=== PATIENT | female | born 1960 | race Two or more races ===

== ENCOUNTER 2020-05-15 10:45 | Outpatient (REF) | payer OTHER, SELFPAY ==
--- NOTE | 2020-05-15 | MM_ITS ---
EXAMINATION: MM SCREENING DIGITAL BREAST TOMOSYNTHESIS, BILATERAL CLINICAL INFORMATION: Screening. Asymptomatic. The lifetime risk of breast cancer based on the Tyrer-Cuzick Model is 4%. COMPARISON: Mammography: 09/02/2019, 05/10/2019, 05/07/2018 TECHNIQUE: Digital breast tomosynthesis is performed in both the craniocaudal and mediolateral oblique views along with computer-aided detection (CAD). Synthesized 2D images are generated from the tomosynthesis. FINDINGS: There are scattered areas of fibroglandular density (ACR BI-RADS breast composition Category b). There are no significant masses, abnormal calcifications, or other abnormalities. The axilla and skin contours are unremarkable. MM/MM tomosynthesis screening BI IMPRESSION: No mammographic evidence of malignancy. ASSESSMENT: BI-RADS 1: Negative RECOMMENDATION: Routine annual mammography screening. This patient's information was entered into a reminder system with a target due date for their next mammogram.
== END 2020-05-15 10:46 | disposition home or self-care (01) ==
LOC: HO.MAMMO 10:45
PROVIDERS: Visit Provider Internal Medicine
DX: Z12.31 Encounter for screening mammogram for malignant neoplasm of breast (principal)
CPT/HCPCS: 77063; 77067

== ENCOUNTER 2020-05-22 10:18 | Outpatient (REF) | payer OTHER, SELFPAY ==
[2020-05-22 11:13] LABS: Estimated Average Glucose 160 mg/dL; Hemoglobin A1c % 7.2 %
[2020-05-22 11:26] LABS: Alanine Aminotransferase 16 U/L (0-31); Albumin Level 4.3 g/dL (3.5-5.0); Alkaline Phosphatase 101 U/L (39-117); Anion Gap 11 (12-20); Aspartate Amino Transferase 18 U/L (5-31); Bilirubin Total 0.5 mg/dL (0.0-1.0); Blood Urea Nitrogen 12 mg/dL (9-16); Carbon Dioxide 31 mmol/L (22-29); Chloride 101 mmol/L (96-108); Cholesterol 172 mg/dL; Estimated Glomerular Filt Rate > 60; Glucose Fasting 143 mg/dL (60-99); HDL Cholesterol 45 mg/dL; LDL Cholesterol Calculated 99 mg/dl; Potassium 4.1 mmol/l (3.3-5.1); Sodium 139 mmol/L (135-145); Total Protein 7.5 g/dL (6.5-8.0); Triglycerides 141 mg/dL
[2020-05-22 11:37] LABS: Creatinine Urine 68.26 mg/dL; Microalbumin Urine < 5.0 mg/L
[2020-05-22 11:46] LABS: TSH reflex Free T4 1.03 mIU/mL (0.32-4.0); Vitamin D 25-OH Total 31.3 ng/mL (>30)
[2020-05-22 11:56] LABS: Glucose Urine UA NEG (NEG); Leukocyte Esterase Urine NEG (NEG); Nitrite Urine NEG (NEG); Urine Blood NEG (NEG); Urine Ketones NEG (NEG); Urine Protein NEG (NEG-TRACE)
[2020-05-22 12:08] LABS: Appearance Urine CLEAR; Color Urine YELLOW
[2020-05-22 12:11] LABS: RBC Urine 0 /HPF (0); Squamous Epithelial Cell Urine TRACE /LPF; WBC Urine 0-2 /HPF (0-4)
== END 2020-05-22 10:19 | disposition home or self-care (01) ==
LOC: HO.LAB 10:18
PROVIDERS: PCP Internal Medicine; Visit Provider Internal Medicine
DX: E78.5 Hyperlipidemia, unspecified (principal); E11.9 Type 2 diabetes mellitus without complications; I10 Essential (primary) hypertension; K21.9 Gastro-esophageal reflux disease without esophagitis; E55.9 Vitamin D deficiency, unspecified; E66.3 Overweight; K58.9 Irritable bowel syndrome, unspecified
CPT/HCPCS: 80053; 80061; 81001; 82043; 82306; 83036; 84443

== ENCOUNTER → 2020-05-26 14:02 | Outpatient (BNVA) | payer OTHER, SELFPAY | PROVIDERS: PCP Internal Medicine; Referring Provider Internal Medicine; Visit Provider Physician Assistant | DX: K59.09 Other constipation (principal); Z79.899 Other long term (current) drug therapy | CPT/HCPCS: 99212 ==

== ENCOUNTER 2020-08-12 10:05 | Outpatient (REF) | payer OTHER, SELFPAY ==
[2020-08-12 10:39] LABS: MANUAL DIFF FLAG NO
[2020-08-12 10:43] LABS: Basophils Percent Auto 0.4 % (0-2); Eosinophils Absolute Auto 0.1 X10*3/uL (0.0-0.4); Eosinophils Percent Auto 1.6 % (0-4); Hematocrit 39.6 % (37-47); Hemoglobin 12.6 g/dl (12.0-16.0); Imm Gran Abs Auto 0.03 X10*3/uL (0.00-0.03); Imm Gran Pct Auto 0.4 % (0.0-0.4); Lymphocytes Absolute Auto 2.4 X10*3/uL (1.2-4.9); Lymphocytes Percent Auto 31.7 % (20-40); Mean Corpuscular HGB Conc 31.8 g/dl (31.0-35.0); Mean Corpuscular Hemoglobin 28.3 pg (27.0-33.0); Mean Corpuscular Volume 88.8 fL (80-98); Mean Platelet Volume 12.2 fL (9.4-12.3); Monocytes Absolute Auto 0.5 X10*3/uL (0.1-1.2); Monocytes Percent Auto 6.7 % (2-11); Neutrophils Absolute Auto 4.5 X10*3/uL (2.0-8.3); Neutrophils Percent Auto 59.2 % (45-73); Platelet Count 240 X10*3/uL (160-400); Red Blood Count 4.46 X10*6/uL (4.20-5.50); Red Cell Distribution Width 13.9 % (11.0-16.0); White Blood Count 7.6 X10*3/uL (4.8-10.8)
[2020-08-12 11:10] LABS: Alanine Aminotransferase 15 U/L (0-31); Albumin Level 4.3 g/dL (3.5-5.0); Alkaline Phosphatase 102 U/L (39-117); Anion Gap 10 (12-20); Aspartate Amino Transferase 16 U/L (5-31); Bilirubin Total 0.5 mg/dL (0.0-1.0); Blood Urea Nitrogen 8 mg/dL (9-16); Carbon Dioxide 30 mmol/L (22-29); Chloride 105 mmol/L (96-108); Cholesterol 161 mg/dL; Estimated Glomerular Filt Rate > 60; Glucose Fasting 134 mg/dL (60-99); HDL Cholesterol 45 mg/dL; LDL Cholesterol Calculated 91 mg/dl; Potassium 4.3 mmol/l (3.3-5.1); Sodium 141 mmol/L (135-145); Total Protein 7.2 g/dL (6.5-8.0); Triglycerides 128 mg/dL
[2020-08-12 11:27] LABS: Glucose Urine UA NEG (NEG); Leukocyte Esterase Urine NEG (NEG); Nitrite Urine NEG (NEG); Urine Blood NEG (NEG); Urine Ketones NEG (NEG); Urine Protein NEG (NEG-TRACE)
[2020-08-12 11:29] LABS: Appearance Urine CLEAR; Color Urine YELLOW
[2020-08-12 11:31] LABS: TSH reflex Free T4 1.67 mIU/mL (0.32-4.0); Vitamin D 25-OH Total 31.9 ng/mL (>30)
[2020-08-12 11:52] LABS: Creatinine Urine 94.17 mg/dL; Microalbumin Urine < 5.0 mg/L
== END 2020-08-12 10:06 | disposition home or self-care (01) ==
LOC: HO.LAB 10:05
PROVIDERS: PCP Internal Medicine; Visit Provider Internal Medicine
DX: I10 Essential (primary) hypertension (principal); K21.9 Gastro-esophageal reflux disease without esophagitis; K58.9 Irritable bowel syndrome, unspecified; E78.00 Pure hypercholesterolemia, unspecified; E11.9 Type 2 diabetes mellitus without complications; E66.3 Overweight; E55.9 Vitamin D deficiency, unspecified
CPT/HCPCS: 36415; 80053; 80061; 81003; 82043; 82306; 84443; 85025

== ENCOUNTER 2020-09-16 12:11 | Outpatient (REF) | payer OTHER, SELFPAY ==
--- NOTE | ~2020-09-16 | XR_ITS ---
EXAMINATION: RIGHT SHOULDER AND LUMBAR SPINE X-RAY CLINICAL INFORMATION: Pain COMPARISON: None TECHNIQUE: 4 views of the right shoulder and 3 views of the lumbar spine FINDINGS: Right shoulder: Bone alignment is normal. No fracture or dislocation is seen. The glenohumeral joint is normal. There is arthritis at the acromioclavicular joint. Soft tissues are normal. Lumbar spine: Bone alignment is normal. No fracture or dislocation is seen. Disc spaces are normal. There is mild spondylosis at L2 3, L3-L4 and L4-L5. There is lower lumbar spine facet arthritis. There is atherosclerotic disease. XR/XR lumbar spine 2-3V IMPRESSION: Right shoulder: Mild arthritis at the acromioclavicular joint. Lumbar spine: Mild degenerative changes.
--- NOTE | ~2020-09-16 | XR_ITS ---
EXAMINATION: RIGHT SHOULDER AND LUMBAR SPINE X-RAY CLINICAL INFORMATION: Pain COMPARISON: None TECHNIQUE: 4 views of the right shoulder and 3 views of the lumbar spine FINDINGS: Right shoulder: Bone alignment is normal. No fracture or dislocation is seen. The glenohumeral joint is normal. There is arthritis at the acromioclavicular joint. Soft tissues are normal. Lumbar spine: Bone alignment is normal. No fracture or dislocation is seen. Disc spaces are normal. There is mild spondylosis at L2 3, L3-L4 and L4-L5. There is lower lumbar spine facet arthritis. There is atherosclerotic disease. XR/XR shoulder RT min 2V IMPRESSION: Right shoulder: Mild arthritis at the acromioclavicular joint. Lumbar spine: Mild degenerative changes.
== END 2020-09-16 12:12 | disposition home or self-care (01) ==
LOC: HO.XRAY 12:11
PROVIDERS: PCP Internal Medicine; Visit Provider Internal Medicine
DX: M54.5 Low back pain (principal); M25.511 Pain in right shoulder; M47.816 Spondylosis without myelopathy or radiculopathy, lumbar region
CPT/HCPCS: 72100; 73030

== ENCOUNTER 2020-11-08 11:59 | Outpatient (REF) | payer OTHER, SELFPAY ==
[2020-11-08 12:28] LABS: MANUAL DIFF FLAG NO
[2020-11-08 12:37] LABS: Basophils Percent Auto 0.3 % (0-2); Eosinophils Absolute Auto 0.1 X10*3/uL (0.0-0.4); Eosinophils Percent Auto 1.6 % (0-4); Hemoglobin 11.9 g/dl (12.0-16.0); Imm Gran Abs Auto 0.01 X10*3/uL (0.00-0.03); Imm Gran Pct Auto 0.2 % (0.0-0.4); Lymphocytes Absolute Auto 1.9 X10*3/uL (1.2-4.9); Lymphocytes Percent Auto 30.9 % (20-40); Mean Corpuscular HGB Conc 31.3 g/dl (31.0-35.0); Mean Corpuscular Hemoglobin 27.5 pg (27.0-33.0); Mean Platelet Volume 12.1 fL (9.4-12.3); Monocytes Absolute Auto 0.4 X10*3/uL (0.1-1.2); Monocytes Percent Auto 5.7 % (2-11); Neutrophils Absolute Auto 3.8 X10*3/uL (2.0-8.3); Neutrophils Percent Auto 61.3 % (45-73); Platelet Count 227 X10*3/uL (160-400); Red Blood Count 4.32 X10*6/uL (4.20-5.50); Red Cell Distribution Width 13.8 % (11.0-16.0); White Blood Count 6.2 X10*3/uL (4.8-10.8)
[2020-11-08 13:22] LABS: Alanine Aminotransferase 16 U/L (0-31); Albumin Level 4.1 g/dL (3.5-5.0); Alkaline Phosphatase 103 U/L (39-117); Anion Gap 12 (12-20); Aspartate Amino Transferase 14 U/L (5-31); Bilirubin Total 0.5 mg/dL (0.0-1.0); Blood Urea Nitrogen 10 mg/dL (9-16); Calcium 9.4 mg/dL (8.4-10.2); Carbon Dioxide 27 mmol/L (22-29); Chloride 106 mmol/L (96-108); Cholesterol 160 mg/dL; Estimated Glomerular Filt Rate > 60; Glucose Fasting 144 mg/dL (60-99); HDL Cholesterol 42 mg/dL; LDL Cholesterol Calculated 97 mg/dl; Potassium 4.2 mmol/L (3.3-5.1); Sodium 141 mmol/L (135-145); Triglycerides 109 mg/dL
[2020-11-08 13:30] LABS: TSH reflex Free T4 0.71 uIU/mL (0.32-4.0); Vitamin D 25-OH Total 25.6 ng/mL (>30)
[2020-11-08 14:09] LABS: Glucose Urine UA NEG (NEG); Leukocyte Esterase Urine NEG (NEG); Nitrite Urine NEG (NEG); Urine Blood NEG (NEG); Urine Ketones NEG (NEG); Urine Protein NEG (NEG-TRACE)
[2020-11-08 14:10] LABS: Appearance Urine CLEAR; Color Urine YELLOW
[2020-11-08 14:45] LABS: Creatinine Urine 71.04 mg/dL; Microalbumin Urine < 5.0 mg/L
== END 2020-11-08 12:00 | disposition home or self-care (01) ==
LOC: HO.LAB 11:59
PROVIDERS: PCP Internal Medicine; Visit Provider Internal Medicine
DX: E78.00 Pure hypercholesterolemia, unspecified (principal); E11.9 Type 2 diabetes mellitus without complications; I10 Essential (primary) hypertension; E55.9 Vitamin D deficiency, unspecified; D64.9 Anemia, unspecified; K21.9 Gastro-esophageal reflux disease without esophagitis; K58.9 Irritable bowel syndrome, unspecified; K59.09 Other constipation
CPT/HCPCS: 36415; 80053; 80061; 81003; 82043; 82306; 84443; 85025

== ENCOUNTER → 2020-11-16 12:58 | Outpatient (BNVA) | payer OTHER, SELFPAY | PROVIDERS: PCP Internal Medicine; Referring Provider Internal Medicine; Visit Provider Physician Assistant | DX: K59.09 Other constipation (principal); R10.9 Unspecified abdominal pain | CPT/HCPCS: 99212 ==

== ENCOUNTER → 2020-11-24 08:39 | Outpatient (REF) | payer OTHER, SELFPAY ==
--- NOTE | 2020-11-24 08:46 | CA_ITS ---
Acquisition Time: 2020-11-24 08:53:51 Total Exercise Time: 00:06:00 Test Indications: Chest Pain Medications: ASA ALBUTEROL MECLIZINE METFORMIN SIMVASTATIN LISINOPRIL PAROXETINE Protocol: CARMELINA Max HR: 141 BPM 88% of Pred: 160 BPM Max BP: 130/080 mmHG Max Work Load: 7.0 METS Exercise stress test with exercise 6 min of Carmelina protocol, without anginal symptoms, without arrythmia, with normotensive response to exercise, without EKG changes meeting criteria for ischemia. Test reviewed with Dr Haynes. Referred By: Herb Souza Overread By: SHADY CANO
== END ==
LOC: HO.CARD 08:39
PROVIDERS: Visit Provider Internal Medicine
DX: R07.9 Chest pain, unspecified (principal)
CPT/HCPCS: 93016; 93017; 93018

== ENCOUNTER 2020-12-29 12:47 | Outpatient (REF) | payer OTHER, SELFPAY ==
[2020-12-29 13:49] LABS: MANUAL DIFF FLAG NO
[2020-12-29 13:52] LABS: Basophils Percent Auto 0.4 % (0-2); Eosinophils Absolute Auto 0.1 X10*3/uL (0.0-0.4); Eosinophils Percent Auto 1.5 % (0-4); Hemoglobin 12.1 g/dl (12.0-16.0); Imm Gran Abs Auto 0.02 X10*3/uL (0.00-0.03); Imm Gran Pct Auto 0.3 % (0.0-0.4); Lymphocytes Absolute Auto 2.3 X10*3/uL (1.2-4.9); Lymphocytes Percent Auto 29.8 % (20-40); Mean Corpuscular HGB Conc 31.8 g/dl (31.0-35.0); Mean Corpuscular Hemoglobin 28.1 pg (27.0-33.0); Mean Corpuscular Volume 88.2 fL (80-98); Mean Platelet Volume 12.5 fL (9.4-12.3); Monocytes Absolute Auto 0.5 X10*3/uL (0.1-1.2); Monocytes Percent Auto 6.5 % (2-11); Neutrophils Absolute Auto 4.8 X10*3/uL (2.0-8.3); Neutrophils Percent Auto 61.5 % (45-73); Platelet Count 224 X10*3/uL (160-400); Red Blood Count 4.31 X10*6/uL (4.20-5.50); Red Cell Distribution Width 13.7 % (11.0-16.0); White Blood Count 7.8 X10*3/uL (4.8-10.8)
[2020-12-29 14:01] LABS: D Dimer < 200 NG/ML
== END 2020-12-29 12:48 | disposition home or self-care (01) ==
LOC: HO.HMGCLDS 12:47
PROVIDERS: PCP Internal Medicine; Visit Provider Nurse Practitioner Family
DX: L03.90 Cellulitis, unspecified (principal); M79.662 Pain in left lower leg
CPT/HCPCS: 36415; 85025; 85379

== ENCOUNTER 2021-01-06 12:08 | Emergency (ER) | payer OTHER, SELFPAY ==
--- NOTE | ~2021-01-06 | US_ITS ---
EXAMINATION: US VENOUS ULTRASOUND WITH DOPPLER LOWER EXTREMITY, LEFT CLINICAL INFORMATION: Left leg pain and edema. COMPARISON: None TECHNIQUE: Ultrasound of the deep veins is performed from the hip to the calf with compression sonography and color and pulse Doppler assessment. Spectral analysis with color-flow imaging is performed. FINDINGS: There is normal venous compression and respiratory variation and augmented flow. The visualized common femoral vein, superficial femoral vein, profunda femoral vein, popliteal vein, and the trifurcation region shows no evidence of deep venous thrombosis. There is no popliteal cyst. The subcutaneous soft tissues are unremarkable. If the patient's symptoms persist, followup ultrasound in 5 days 7 days might be of value to exclude proximal propagation from a non-visualized calf vein. US/US venous duplex LE LT IMPRESSION: No evidence for deep venous thrombosis in the visualized veins of the left lower extremity.
[2021-01-06 13:23] VITALS: BP 141/77; PULSE 77; RESP 18; TEMP 36.8; O2SAT 96; BMI 26.4
--- NOTE | 2021-01-06 14:20 | ED.GENADULT ---
HPI - General Adult General Chief complaint: Skin/Abscess/Foreign Body Stated complaint: painful rash Time Seen by Provider: 01/06/21 14:03 Source: patient Mode of arrival: ambulatory Limitations: no limitations History of Present Illness HPI narrative: 60 y/o female with history of DM, HTN, HLD, asthma, anemia, GERD, IBS who presents with ongoing left lower leg rash for the last 2 months. She reports reddened tender areas and some swelling to the back of her left lower leg for the last 2 months. She was treated with multiple courses of antibiotics as well as steroid cream but the rash persists. She has no SOB or chest pain. No known insect bites or injury to the area. No fever or chills. MD complaint: leg pain Onset (ago): month(s) (2) Location: left and lower extremity Radiation: non-radiation Severity: moderate Quality: aching Pain Consistency: intermittent Relieving factors: rest Exacerbating factors: movement Associated symptoms: rash Treatments prior to arrival: none Related Data Home Medications Medication Instructions Recorded Confirmed ibuprofen 600 mg tablet 600 mg PO TID PRN 05/28/20 12/16/20 hydrocortisone 1 % lotion 1 applic TOPICAL TID PRN ml 05/30/20 12/16/20 blood sugar diagnostic #10 ea 11/15/20 12/16/20 Previous Rx's Medication Instructions Recorded omeprazole 20 mg capsule,delayed 20 mg PO DAILY PRN 90 Days #90 cap 05/28/20 release paroxetine HCl 40 mg tablet 60 mg PO DAILY 30 Days #45 tab 05/28/20 albuterol sulfate 90 mcg/actuation 2 puff INHALATION Q6H PRN 30 Days 08/13/20 aerosol inhaler #18 g lancets 28 gauge #100 ea 10/22/20 lancets 28 gauge See Rx Instructions TOPICAL BID 10/22/20 #100 cap aspirin 81 mg tablet,delayed 81 mg PO DAILY 90 Days #90 tab 11/15/20 release carbamide peroxide 6.5 % ear drops 5 drp OTIC (EARS) DAILY 7 Days #30 11/15/20 ml cholecalciferol (vitamin D3) 25 25 mcg PO DAILY 90 Days #90 cap 11/15/20 mcg (1,000 unit) capsule cyanocobalamin (vitamin B-12) 1,000 mcg PO DAILY 90 Days #90 tab 11/15/20 1,000 mcg tablet ferrous sulfate 325 mg (65 mg 325 mg PO 3XW 90 Days #39 tab 11/15/20 iron) tablet folic acid 1 mg tablet 1 mg PO DAILY 90 Days #90 tab 11/15/20 lisinopril 5 mg tablet 5 mg PO DAILY 90 Days #90 tab 11/15/20 metformin 500 mg tablet 500 mg PO BID 90 Days #180 tab 11/15/20 simvastatin 20 mg tablet 20 mg PO QPM 90 Days #90 tab 11/15/20 linaclotide 145 mcg capsule 145 mcg PO DAILY 30 Days #30 cap 11/16/20 methylcellulose (laxative) 500 mg 500 mg PO BID #60 tab 11/16/20 tablet meclizine 12.5 mg tablet 12.5 mg PO QID PRN #120 tab 11/29/20 amoxicillin 875 mg-potassium 1 tab PO BID #14 tab 12/16/20 clavulanate 125 mg tablet doxycycline hyclate 100 mg tablet 100 mg PO DAILY 7 Days #7 tab 12/29/20 hydrocortisone 1 % topical cream 1 appl TOPICAL TID PRN #28.35 g 12/29/20 clonazepam 0.5 mg tablet 0.5 mg PO TID PRN 30 Days #90 tab 01/05/21 Allergies Allergy/AdvReac Type Severity Reaction Status Date / Time No Known Allergies Allergy Verified 01/06/21 13:23 Review of Systems Review of Systems: Constitutional: No Fever, No Chills ENT/Mouth: No sore throat, No Rhinorrhea, No Swallowing Difficulty Cardiovascular: No Chest Pain, No SOB, No Orthopnea, + Edema Respiratory: No Cough, No Sputum, No Wheezing, No dyspnea Gastrointestinal: No Nausea, No Vomiting, No Diarrhea, No abdominal Pain Genitourinary: No Dysuria, No Urinary Frequency, No Hematuria Musculoskeletal: No joint pain, No Myalgias Skin: +Skin Lesions, + rash Neuro: No Weakness, No Numbness, No Dizziness, No Headache Heme/Lymph: No Bruising, No Lymphadenopathy PMFSH Past Medical History Attestation statement: The following information was validated with the patient. Medical History Allergic rhinitis Anemia Anxiety Asthma Benign essential hypertension Chronic constipation Depression Diabetes mellitus GERD without esophagitis Impacted cerumen of both ears Irritable bowel syndrome (IBS) Lumbar spondylosis Overweight (BMI 25.0-29.9) Pure hypercholesterolemia Recurrent chest pain Right shoulder pain Tubular adenoma Vitamin D deficiency Surgical History History of cholecystectomy History of colonoscopy History of esophagogastroduodenoscopy (EGD) History of tubal ligation Family History Family History Father Diabetes Hypertension CVD (cardiovascular disease) Mother Hypertension Diabetes Chronic mental illness Social History Social History Alcohol intake: never Advance Directives: Yes Advance Directives Information Provided: Yes Advance Directives on File: No Physical Exam Vital Signs: Vital Signs: Last Vital Signs Temp 97.3 F 01/06/21 15:33 Pulse 70 01/06/21 15:33 Resp 16 01/06/21 15:33 BP 132/71 01/06/21 15:33 Pulse Ox 97 01/06/21 15:33 Body Mass Index 26.4 Appearance: Alert. Oriented X3. No acute distress. HEENT: normal inspection CVS: Normal heart rate and rhythm. Pulses normal. Respiratory: No respiratory distress. Skin: Skin warm and dry. Normal skin color. Normal skin turgor. No rashes. Extremities: left lower posterior leg with small reddened indurated areas that are tender, 1+ pitting edema, no warmth, no calf tenderness. dry pealing skin around the lower lesion Neuro: Oriented X 3. No motor deficit. No sensory deficit. Course Course Course Narrative: 60 yo female presenting with ongoing LLE rash with no improvement with 2 courses of abx and topical hydrocortisone. Exam is concerning for possible DVT vs superficial thrombophlebitis vs healing insect bites? Not cellulitic. Will get US LE Reevaluation(s) Reevaluation #1: LE US negative. Placed in getachew wrap for support. No indication for another course of abx at this time. she was encouraged to f/u with her PCP for further management, appears to be slowly improving over time. Discharge Plan Discharge Clinical Impression: Leg edema, left Patient Disposition: Home, Self-Care Instructions: Leg Edema (ED) Additional Instructions: Your ultrasound was negative for blood clots. No further antibiotics are recommended at this time. Use the hydrocortisone cream as needed for itching. Recommend compression and support with GETACHEW wrap. Elevate your leg when possible. Follow up with your doctor in 1 week. Prescriptions: No Action albuterol sulfate [ProAir HFA] 90 mcg/actuation HFA aerosol inhaler 2 puff inhalation Q6H PRN (Reason: shortness of breath or wheezing) 30 Days Qty: 18 RF: 5 lancets [FreeStyle Lancets] 28 gauge misc See Rx Instructions topical BID Qty: 100 RF: 11 (DME) lancets [FreeStyle Lancets] 28 gauge misc See Rx Instructions .ROUTE .MEDSUPPLY Qty: 100 RF: 6 meclizine 12.5 mg tablet 12.5 mg PO QID PRN (Reason: dizziness) Qty: 120 RF: 8 clonazepam 0.5 mg tablet 0.5 mg PO TID PRN (Reason: anxiety) 30 Days Qty: 90 RF: 0 ibuprofen 600 mg tablet 600 mg PO TID PRNRF: 0 omeprazole 20 mg capsule,delayed release(DR/EC) 20 mg PO DAILY PRN (Reason: heartburn) 90 Days Qty: 90 RF: 3 paroxetine HCl 40 mg tablet 60 mg PO DAILY 30 Days Qty: 45 RF: 5 hydrocortisone 1 % lotion 1 applic topical TID PRN (Reason: rash) RF: 0 (DME) FreeStyle Lite Strips Strip See Rx Instructions ea Not Applicable DAILY Qty: 10 RF: 0 aspirin 81 mg tablet,delayed release (DR/EC) 81 mg PO DAILY 90 Days Qty: 90 RF: 3 cholecalciferol (vitamin D3) 25 mcg (1,000 unit) capsule 25 mcg PO DAILY 90 Days Qty: 90 RF: 3 cyanocobalamin (vitamin B-12) 1,000 mcg tablet 1,000 mcg PO DAILY 90 Days Qty: 90 RF: 3 ferrous sulfate 325 mg (65 mg iron) tablet 325 mg PO 3XW 90 Days Qty: 39 RF: 3 folic acid 1 mg tablet 1 mg PO DAILY 90 Days Qty: 90 RF: 3 lisinopril 5 mg tablet 5 mg PO DAILY 90 Days Qty: 90 RF: 3 metformin 500 mg tablet 500 mg PO BID 90 Days Qty: 180 RF: 3 simvastatin 20 mg tablet 20 mg PO QPM 90 Days Qty: 90 RF: 3 carbamide peroxide [Debrox] 6.5 % drops 5 drp otic (ears) DAILY 7 Days Qty: 30 RF: 3 amoxicillin-pot clavulanate [Augmentin] 875-125 mg tablet 1 tab PO BID Qty: 14 RF: 0 doxycycline hyclate 100 mg tablet 100 mg PO DAILY 7 Days Qty: 7 RF: 0 hydrocortisone [Cortisone (hydrocortisone)] 1 % cream 1 appl topical TID PRN (Reason: skin irritation) Qty: 28.35 RF: 0 Citrucel 500 mg tablet 500 mg PO BID Qty: 60 RF: 5 Linzess 145 mcg capsule 145 mcg PO DAILY 30 Days Qty: 30 RF: 6 Interventions: ED Discharge Assessment Last Done: 01/06/21 16:16 Discharge Date/Time: 01/06/21 16:21 Print Language: Cypriot
--- NOTE | 2021-01-06 14:31 | PC.NURSE ---
TRANSPORTED TO ULTRASOUND WITH KEVIN CUI
[2021-01-06 15:33] VITALS: BP 132/71; PULSE 70; RESP 16; TEMP 36.3; O2SAT 97
== END 2021-01-06 16:21 | disposition home or self-care (01) ==
PROVIDERS: Emergency Provider Emergency Medicine; PCP Internal Medicine
DX: R60.0 Localized edema (principal); M79.605 Pain in left leg; E11.9 Type 2 diabetes mellitus without complications; I10 Essential (primary) hypertension; J45.909 Unspecified asthma, uncomplicated; Z79.84 Long term (current) use of oral hypoglycemic drugs; Z79.899 Other long term (current) drug therapy
CPT/HCPCS: 93971; 99284

== ENCOUNTER 2021-01-27 11:19 | Outpatient (REF) | payer OTHER, SELFPAY ==
--- NOTE | ~2021-01-27 | XR_ITS ---
EXAMINATION: XR TIBIA AND FIBULA, LEFT CLINICAL INFORMATION: Swelling, mass, or lump. COMPARISON: None TECHNIQUE: AP and lateral views of the left tibia and fibula were obtained. FINDINGS: The bones and soft tissues are normal. No fracture. No osseous lesions. XR/XR tibia fibula LT 2V IMPRESSION: Unremarkable examination.
== END 2021-01-27 11:20 | disposition home or self-care (01) ==
LOC: HO.XRAY 11:19
PROVIDERS: PCP Internal Medicine; Visit Provider Physician Assistant
DX: R22.40 Localized swelling, mass and lump, unspecified lower limb (principal)
CPT/HCPCS: 73590

== ENCOUNTER 2021-02-09 11:28 | Outpatient (REF) | payer OTHER, SELFPAY ==
[2021-02-09 12:28] LABS: MANUAL DIFF FLAG NO
[2021-02-09 12:40] LABS: Basophils Percent Auto 0.3 % (0-2); Eosinophils Absolute Auto 0.1 X10*3/uL (0.0-0.4); Eosinophils Percent Auto 1.4 % (0-4); Hematocrit 36.7 % (37-47); Hemoglobin 11.5 g/dl (12.0-16.0); Imm Gran Abs Auto 0.02 X10*3/uL (0.00-0.03); Imm Gran Pct Auto 0.3 % (0.0-0.4); Lymphocytes Absolute Auto 2.1 X10*3/uL (1.2-4.9); Lymphocytes Percent Auto 31.9 % (20-40); Mean Corpuscular HGB Conc 31.3 g/dl (31.0-35.0); Mean Corpuscular Hemoglobin 27.8 pg (27.0-33.0); Mean Corpuscular Volume 88.9 fL (80-98); Monocytes Absolute Auto 0.5 X10*3/uL (0.1-1.2); Monocytes Percent Auto 7.8 % (2-11); Neutrophils Absolute Auto 3.9 X10*3/uL (2.0-8.3); Neutrophils Percent Auto 58.3 % (45-73); Platelet Count 227 X10*3/uL (160-400); Red Blood Count 4.13 X10*6/uL (4.20-5.50); White Blood Count 6.7 X10*3/uL (4.8-10.8)
[2021-02-09 12:50] LABS: Estimated Average Glucose 154 mg/dL; Glucose Urine UA NEG (NEG); Leukocyte Esterase Urine NEG (NEG); Nitrite Urine NEG (NEG); Specific Gravity - Urine 1.025 (1.005-1.025); Urine Blood NEG (NEG); Urine Ketones NEG (NEG); Urine Protein NEG (NEG-TRACE)
[2021-02-09 12:52] LABS: Appearance Urine CLEAR; Color Urine YELLOW
[2021-02-09 13:19] LABS: Alanine Aminotransferase 13 U/L (0-31); Albumin Level 4.2 g/dL (3.5-5.0); Alkaline Phosphatase 115 U/L (39-117); Anion Gap 12 (12-20); Aspartate Amino Transferase 15 U/L (5-31); Bilirubin Total 0.4 mg/dL (0.0-1.0); Blood Urea Nitrogen 8 mg/dL (9-16); Calcium 9.6 mg/dL (8.4-10.2); Carbon Dioxide 29 mmol/L (22-29); Chloride 106 mmol/L (96-108); Cholesterol 144 mg/dL; Estimated Glomerular Filt Rate > 60; Glucose Fasting 112 mg/dL (60-99); HDL Cholesterol 45 mg/dL; LDL Cholesterol Calculated 81 mg/dl; Potassium 4.9 mmol/L (3.3-5.1); Sodium 142 mmol/L (135-145); Total Protein 7.3 g/dL (6.5-8.0); Triglycerides 91 mg/dL
[2021-02-09 13:22] LABS: Creatinine Urine 103.83 mg/dL; Microalbum/Creatinine Ratio Ur 4.8 ug/mg cr
[2021-02-09 13:43] LABS: TSH reflex Free T4 1.71 uIU/mL (0.32-4.0); Vitamin D 25-OH Total 26.9 ng/mL (>30)
== END 2021-02-09 11:29 | disposition home or self-care (01) ==
LOC: HO.LAB 11:28
PROVIDERS: PCP Internal Medicine; Visit Provider Internal Medicine
DX: E55.9 Vitamin D deficiency, unspecified (principal); I10 Essential (primary) hypertension; E11.9 Type 2 diabetes mellitus without complications; E78.00 Pure hypercholesterolemia, unspecified; E66.3 Overweight; K58.9 Irritable bowel syndrome, unspecified; K21.9 Gastro-esophageal reflux disease without esophagitis; D64.9 Anemia, unspecified
CPT/HCPCS: 36415; 80053; 80061; 81003; 82043; 82306; 83036; 84443; 85025

== ENCOUNTER → 2021-03-04 09:54 | Outpatient (BNVA) | payer OTHER, SELFPAY | PROVIDERS: PCP Internal Medicine; Referring Provider Internal Medicine; Visit Provider Surgery | DX: I80.9 Phlebitis and thrombophlebitis of unspecified site (principal) | CPT/HCPCS: 99202 ==

== ENCOUNTER 2021-03-28 08:09 | Outpatient (REF) | payer OTHER, SELFPAY ==
--- NOTE | ~2021-03-28 | US_ITS ---
EXAMINATION: LEFT LOWER EXTREMITY VENOUS ULTRASOUND (Reflux Exam) CLINICAL INDICATION: Phlebitis and thrombophlebitis COMPARISON: None. TECHNIQUE: Color flow triplex imaging and compression Doppler was performed to evaluate the left deep and the superficial systems bilaterally. To evaluate the superficial system, the examination was performed in the upright position. Color-flow Doppler ultrasound and compression ultrasound were utilized. In addition, maneuvers were utilized to demonstrate reflux. FINDINGS: DEEP VENOUS ULTRASOUND OF THE LEFT LOWER EXTREMITY: Respiratory variation, normal compression and augmented flow are noted in the left common femoral vein as well as the left popliteal vein and there is no evidence of deep venous thrombosis at these locations. There is no evidence of reflux in the deep system in either the common femoral vein or the popliteal vein. . There is no evidence of a Conte's cyst. SUPERFICIAL ULTRASOUND WITH DOPPLER OF LEFT LOWER EXTREMITY: Left great saphenous vein at the saphenofemoral junction measures 6 mm, at the mid thigh 4 mm, [id number] 4 mm, [id number] 3 mm, at mid calf 1 mm and at the ankle measures 2 mm. There is a 2.4 seconds reflux in the saphenous vein in the mid calf. There is a accessory lateral greater saphenous vein that measures 3 mm and does not demonstrate reflux.. The left small saphenous vein measures 1-4 mm and shows no reflux. There is a weighmaster in the mid and distal calf that measures 4 mm and does not demonstrate reflux. There are varicosities in the thigh and calf measuring 0.2 to 0.3 cm and do not demonstrate reflux. US/US venous duplex LE LT IMPRESSION: 1. No evidence of left leg DVT or deep venous reflux 2. 2.4 seconds reflux in the left greater saphenous vein in the mid calf.
== END 2021-03-28 08:10 | disposition home or self-care (01) ==
LOC: HO.US 08:09
PROVIDERS: PCP Internal Medicine; Visit Provider Surgery
DX: I80.9 Phlebitis and thrombophlebitis of unspecified site (principal)
CPT/HCPCS: 93971

== ENCOUNTER → 2021-04-21 10:13 | Outpatient (BNVA) | payer OTHER, SELFPAY | PROVIDERS: PCP Internal Medicine; Referring Provider Internal Medicine; Visit Provider Surgery Vascular Surgery | DX: I83.12 Varicose veins of left lower extremity with inflammation (principal) | CPT/HCPCS: 99212 ==

== ENCOUNTER 2021-05-11 11:11 | Outpatient (REF) | payer OTHER, SELFPAY ==
[2021-05-11 11:27] LABS: MANUAL DIFF FLAG NO
[2021-05-11 11:50] LABS: Basophils Percent Auto 0.3 % (0-2); Eosinophils Absolute Auto 0.2 X10*3/uL (0.0-0.4); Eosinophils Percent Auto 1.9 % (0-4); Hematocrit 38.9 % (37-47); Hemoglobin 12.4 g/dl (12.0-16.0); Imm Gran Abs Auto 0.03 X10*3/uL (0.00-0.03); Imm Gran Pct Auto 0.4 % (0.0-0.4); Lymphocytes Absolute Auto 2.6 X10*3/uL (1.2-4.9); Lymphocytes Percent Auto 33.5 % (20-40); Mean Corpuscular HGB Conc 31.9 g/dl (31.0-35.0); Mean Corpuscular Hemoglobin 27.7 pg (27.0-33.0); Mean Platelet Volume 12.2 fL (9.4-12.3); Monocytes Absolute Auto 0.5 X10*3/uL (0.1-1.2); Monocytes Percent Auto 6.9 % (2-11); Neutrophils Absolute Auto 4.4 X10*3/uL (2.0-8.3); Platelet Count 241 X10*3/uL (160-400); Red Blood Count 4.47 X10*6/uL (4.20-5.50); Red Cell Distribution Width 14.4 % (11.0-16.0); White Blood Count 7.7 X10*3/uL (4.8-10.8)
[2021-05-11 12:06] LABS: Estimated Average Glucose 154 mg/dL
[2021-05-11 12:07] LABS: Appearance Urine CLEAR; Color Urine YELLOW; Glucose Urine UA NEG (NEG); Leukocyte Esterase Urine NEG (NEG); Nitrite Urine NEG (NEG); Specific Gravity - Urine 1.015 (1.005-1.025); Urine Blood NEG (NEG); Urine Ketones NEG (NEG); Urine Protein NEG (NEG-TRACE)
[2021-05-11 12:26] LABS: Alanine Aminotransferase 13 U/L (0-31); Alkaline Phosphatase 111 U/L (39-117); Anion Gap 12 (12-20); Aspartate Amino Transferase 15 U/L (5-31); Bilirubin Total 0.4 mg/dL (0.0-1.0); Blood Urea Nitrogen 8 mg/dL (9-16); Carbon Dioxide 26 mmol/L (22-29); Chloride 107 mmol/L (96-108); Cholesterol 152 mg/dL; Estimated Glomerular Filt Rate > 60; Glucose Fasting 125 mg/dL (60-99); HDL Cholesterol 38 mg/dL; LDL Cholesterol Calculated 84 mg/dl; Potassium 4.2 mmol/L (3.3-5.1); Sodium 141 mmol/L (135-145); Triglycerides 152 mg/dL
[2021-05-11 12:35] LABS: TSH reflex Free T4 1.27 uIU/mL (0.32-4.0); Vitamin D 25-OH Total 34.9 ng/mL (>30)
[2021-05-11 12:42] LABS: Creatinine Urine 71.72 mg/dL; Microalbumin Urine < 5.0 mg/L
== END 2021-05-11 11:12 | disposition home or self-care (01) ==
LOC: HO.LAB 11:11
PROVIDERS: PCP Internal Medicine; Visit Provider Internal Medicine
DX: I10 Essential (primary) hypertension (principal); E11.9 Type 2 diabetes mellitus without complications; E55.9 Vitamin D deficiency, unspecified; E78.00 Pure hypercholesterolemia, unspecified
CPT/HCPCS: 36415; 80053; 80061; 81003; 82043; 82306; 83036; 84443; 85025

== ENCOUNTER 2021-05-23 08:28 | Outpatient (REF) | payer OTHER, SELFPAY ==
--- NOTE | ~2021-05-23 | MM_ITS ---
EXAMINATION: MM SCREENING DIGITAL BREAST TOMOSYNTHESIS, BILATERAL CLINICAL INFORMATION: Screening. Asymptomatic. The lifetime risk of breast cancer based on the Tyrer-Cuzick Model is 4%. COMPARISON: Mammography: 05/15/2020 and prior exams dating back to 11/02/2012. TECHNIQUE: Digital breast tomosynthesis is performed in both the craniocaudal and mediolateral oblique views along with computer-aided detection (CAD). Synthesized 2D images are generated from the tomosynthesis. FINDINGS: There are scattered areas of fibroglandular density (ACR BI-RADS breast composition Category b). There are no significant masses, abnormal calcifications, or other abnormalities. Right CC view has chronic small nodular asymmetry posterior medial breast, stable from 09/02/2019 and remote exam 2012. No developing density. No architectural abnormality. The axilla and skin contours are unremarkable. MM/MM tomosynthesis screening BI IMPRESSION: No significant changes from prior studies. ASSESSMENT: BI-RADS 2: Benign RECOMMENDATION: Routine annual mammography screening. This patient's information was entered into a reminder system with a target due date for their next mammogram.
== END 2021-05-23 08:29 | disposition home or self-care (01) ==
LOC: HO.MAMMO 08:28
PROVIDERS: PCP Internal Medicine; Visit Provider Internal Medicine
DX: Z12.31 Encounter for screening mammogram for malignant neoplasm of breast (principal)
CPT/HCPCS: 77063; 77067

== ENCOUNTER 2021-07-19 12:53 | Outpatient (REF) | payer OTHER, SELFPAY | END 2021-07-19 12:54 | disposition home or self-care (01) | LOC: HO.LAB 12:53 | PROVIDERS: PCP Internal Medicine; Visit Provider Internal Medicine | DX: Z13.89 Encounter for screening for other disorder (principal) ==

== ENCOUNTER 2021-08-18 12:42 | Outpatient (REF) | payer OTHER, SELFPAY ==
[2021-08-18 13:08] LABS: MANUAL DIFF FLAG NO
[2021-08-18 13:26] LABS: Basophils Percent Auto 0.3 % (0-2); Eosinophils Absolute Auto 0.1 X10*3/uL (0.0-0.4); Eosinophils Percent Auto 1.7 % (0-4); Hematocrit 37.3 % (37.0-47.0); Hemoglobin 11.9 g/dl (12.0-16.0); Imm Gran Abs Auto 0.01 X10*3/uL (0.00-0.03); Imm Gran Pct Auto 0.2 % (0.0-0.4); Lymphocytes Absolute Auto 2.1 X10*3/uL (1.2-4.9); Lymphocytes Percent Auto 32.7 % (20-40); Mean Corpuscular HGB Conc 31.9 g/dl (31.0-35.0); Mean Corpuscular Hemoglobin 27.9 pg (27.0-33.0); Mean Corpuscular Volume 87.6 fL (80.0-98.0); Mean Platelet Volume 12.2 fL (9.4-12.3); Monocytes Absolute Auto 0.4 X10*3/uL (0.1-1.2); Monocytes Percent Auto 6.6 % (2-11); Neutrophils Absolute Auto 3.8 x10*3/uL (2.0-8.3); Neutrophils Percent Auto 58.5 % (45-73); Platelet Count 206 X10*3/uL (160-400); Red Blood Count 4.26 X10*6/uL (4.20-5.50); White Blood Count 6.5 X10*3/uL (4.8-10.8)
[2021-08-18 13:53] LABS: Appearance Urine CLEAR; Color Urine YELLOW; Glucose Urine UA NEG (NEG); Leukocyte Esterase Urine NEG (NEG); Nitrite Urine NEG (NEG); Specific Gravity - Urine 1.015 (1.005-1.025); Urine Blood NEG (NEG); Urine Ketones NEG (NEG); Urine Protein NEG (NEG-TRACE)
[2021-08-18 14:04] LABS: Estimated Average Glucose 163 mg/dL; Hemoglobin A1c % 7.3 %
[2021-08-18 14:14] LABS: Creatinine Urine 86.55 mg/dL; Microalbumin Urine < 5.0 mg/L
[2021-08-18 14:39] LABS: TSH reflex Free T4 1.04 uIU/mL (0.32-4.0); Vitamin D 25-OH Total 27.9 ng/mL (>30)
[2021-08-18 15:15] LABS: Alanine Aminotransferase 14 U/L (0-31); Albumin Level 4.1 g/dL (3.5-5.0); Alkaline Phosphatase 108 U/L (39-117); Anion Gap 12 (12-20); Aspartate Amino Transferase 15 U/L (5-31); Bilirubin Total 0.3 mg/dL (0.0-1.0); Blood Urea Nitrogen 9 mg/dL (9-16); Calcium 9.5 mg/dL (8.4-10.2); Carbon Dioxide 28 mmol/L (22-29); Chloride 105 mmol/L (96-108); Cholesterol 144 mg/dL; Estimated Glomerular Filt Rate > 60; Glucose Fasting 119 mg/dL (60-99); HDL Cholesterol 39 mg/dL; LDL Cholesterol Calculated 80 mg/dl; Potassium 4.2 mmol/L (3.3-5.1); Sodium 141 mmol/L (135-145); Total Protein 7.1 g/dL (6.5-8.0); Triglycerides 126 mg/dL
== END 2021-08-18 12:43 | disposition home or self-care (01) ==
LOC: HO.LAB 12:42
PROVIDERS: PCP Internal Medicine; Visit Provider Internal Medicine
DX: E11.9 Type 2 diabetes mellitus without complications (principal); I10 Essential (primary) hypertension; E78.00 Pure hypercholesterolemia, unspecified; E55.9 Vitamin D deficiency, unspecified
CPT/HCPCS: 36415; 80053; 80061; 81003; 82043; 82306; 83036; 84443; 85025

== ENCOUNTER → 2021-08-22 11:54 | Outpatient (BNVA) | payer OTHER, SELFPAY | PROVIDERS: PCP Internal Medicine; Referring Provider Internal Medicine; Visit Provider Physician Assistant | DX: K59.09 Other constipation (principal) | CPT/HCPCS: 99212 ==

== ENCOUNTER → 2021-09-20 15:20 | Outpatient (BNVA) | payer OTHER, SELFPAY | PROVIDERS: PCP Internal Medicine; Visit Provider Surgery Vascular Surgery | DX: I83.12 Varicose veins of left lower extremity with inflammation (principal); E11.9 Type 2 diabetes mellitus without complications; I10 Essential (primary) hypertension; E78.00 Pure hypercholesterolemia, unspecified; E55.9 Vitamin D deficiency, unspecified | CPT/HCPCS: 99212 ==

== ENCOUNTER 2021-10-03 10:22 | Outpatient (REF) | payer OTHER, SELFPAY ==
--- NOTE | ~2021-10-03 | US_ITS ---
EXAMINATION: BILATERAL LOWER EXTREMITY VENOUS ULTRASOUND (Reflux Exam) CLINICAL INDICATION: Lower extremity varicose veins. COMPARISON: 03/28/2021 TECHNIQUE: Color flow triplex imaging and compression Doppler was performed to evaluate both the deep and the superficial systems bilaterally. To evaluate the superficial system, the examination was performed in the upright position. Color-flow Doppler ultrasound and compression ultrasound were utilized. In addition, maneuvers were utilized to demonstrate reflux. FINDINGS: SUPERFICIAL ULTRASOUND WITH DOPPLER OF RIGHT LOWER EXTREMITY GREAT SAPHENOUS VEIN: Saphenofemoral junction: 0.5 cm Max diameter: 0.5 cm Min diameter: 0.1cm Reflux: No evidence of reflux. DUPLICATED MEDIAL GREAT SAPHENOUS VEIN: Max Diameter: None Imaged Reflux: NA DUPLICATED LATERAL GREAT SAPHENOUS VEIN: Diameter: 0.3 cm at the junction Reflux: None SMALL SAPHENOUS VEIN: Proximal Calf: 0.1 cm Distal Calf: 0.2 cm Reflux: No evidence of reflux. VEIN OF GIACOMINI: None Imaged. PERFORATORS: Location: Proximal thigh and proximal calf measuring 1 and 2 mm respectively. Reflux: None VARICOSITIES: Location: None Imaged Reflux: NA DEEP VENOUS ULTRASOUND OF THE RIGHT LOWER EXTREMITY: Common Femoral Vein: Compressible, normal respiratory variation and augmented flow. Femoral vein: Compressible, normal color flow and augmentation. Popliteal Vein: Compressible, normal augmentation. Deep Reflux: There is no evidence of reflux in the deep system in either the common femoral vein or the popliteal vein. Conte's Cyst: There is no evidence of a Conte's cyst. SUPERFICIAL ULTRASOUND WITH DOPPLER OF LEFT LOWER EXTREMITY GREAT SAPHENOUS VEIN: Saphenofemoral junction: 0.5 cm Max diameter: 0.5 cm Min diameter: 0.1 cm Reflux: Segmental reflux at the midcalf up to 0.9 seconds DUPLICATED MEDIAL GREAT SAPHENOUS VEIN: Max Diameter: None Imaged Reflux: NA DUPLICATED LATERAL GREAT SAPHENOUS VEIN: Diameter: 0.2 at the junction. Reflux: None SMALL SAPHENOUS VEIN: Proximal Calf: 0.2 cm Distal Calf: 0.2 cm Reflux: No evidence of reflux. VEIN OF GIACOMINI: None Imaged. PERFORATORS: Location: Proximal thigh, proximal calf and mid calf measuring between 1 and 2 mm. Reflux: None VARICOSITIES: Location: None Imaged Reflux: NA DEEP VENOUS ULTRASOUND OF THE LEFT LOWER EXTREMITY: Common Femoral Vein: Compressible, normal respiratory variation and augmented flow. Femoral vein: Compressible, normal color flow and augmentation. Popliteal Vein: Compressible, normal augmentation. Deep Reflux: There is no evidence of reflux in the deep system in either the common femoral vein or the popliteal vein. Conte's Cyst: There is no evidence of a Conte's cyst. US/US venous duplex LE BI IMPRESSION: 1. Segmental reflux within the left great saphenous vein at the midcalf. 2. Small bilateral nonrefluxing varicosities. 3. No evidence of DVT or deep venous insufficiency.
== END 2021-10-03 10:23 | disposition home or self-care (01) ==
LOC: HO.US 10:22
PROVIDERS: PCP Internal Medicine; Visit Provider Surgery Vascular Surgery
DX: I83.12 Varicose veins of left lower extremity with inflammation (principal)
CPT/HCPCS: 93970

== ENCOUNTER → 2021-11-08 10:43 | Outpatient (BNVA) | payer OTHER, SELFPAY | PROVIDERS: PCP Internal Medicine; Visit Provider Surgery Vascular Surgery | DX: I83.12 Varicose veins of left lower extremity with inflammation (principal) | CPT/HCPCS: 99212 ==

== ENCOUNTER 2021-11-29 13:58 | Outpatient (REF) | payer OTHER, SELFPAY ==
[2021-11-29 14:23] LABS: MANUAL DIFF FLAG NO
[2021-11-29 14:53] LABS: Basophils Percent Auto 0.3 % (0-2); Eosinophils Absolute Auto 0.1 X10*3/uL (0.0-0.4); Eosinophils Percent Auto 0.9 % (0-4); Hematocrit 38.3 % (37.0-47.0); Hemoglobin 12.1 g/dl (12.0-16.0); Imm Gran Abs Auto 0.02 X10*3/uL (0.00-0.03); Imm Gran Pct Auto 0.3 % (0.0-0.4); Lymphocytes Absolute Auto 2.2 X10*3/uL (1.2-4.9); Mean Corpuscular HGB Conc 31.6 g/dl (31.0-35.0); Mean Corpuscular Hemoglobin 27.3 pg (27.0-33.0); Mean Corpuscular Volume 86.3 fL (80.0-98.0); Mean Platelet Volume 12.1 fL (9.4-12.3); Monocytes Absolute Auto 0.5 X10*3/uL (0.1-1.2); Monocytes Percent Auto 8.2 % (2-11); Neutrophils Absolute Auto 3.5 x10*3/uL (2.0-8.3); Neutrophils Percent Auto 55.3 % (45-73); Platelet Count 214 X10*3/uL (160-400); Red Blood Count 4.44 X10*6/uL (4.20-5.50); Red Cell Distribution Width 14.1 % (11.0-16.0); White Blood Count 6.3 X10*3/uL (4.8-10.8)
[2021-11-29 15:16] LABS: Alanine Aminotransferase 17 U/L (0-31); Albumin Level 4.1 g/dL (3.5-5.0); Alkaline Phosphatase 108 U/L (39-117); Anion Gap 11 (12-20); Aspartate Amino Transferase 17 U/L (5-31); Bilirubin Total 0.4 mg/dL (0.0-1.0); Blood Urea Nitrogen 9 mg/dL (9-16); Calcium 9.6 mg/dL (8.4-10.2); Carbon Dioxide 27 mmol/L (22-29); Chloride 105 mmol/L (96-108); Cholesterol 156 mg/dL; Estimated Glomerular Filt Rate > 60; Glucose Fasting 113 mg/dL (60-99); HDL Cholesterol 41 mg/dL; LDL Cholesterol Calculated 88 mg/dl; Potassium 4.3 mmol/L (3.3-5.1); Sodium 139 mmol/L (135-145); Total Protein 7.3 g/dL (6.5-8.0); Triglycerides 139 mg/dL
[2021-11-29 15:17] LABS: Estimated Average Glucose 157 mg/dL; Hemoglobin A1c % 7.1 %
[2021-11-29 15:37] LABS: TSH reflex Free T4 0.87 uIU/mL (0.32-4.0); Vitamin D 25-OH Total 32.2 ng/mL (>30)
[2021-11-29 16:20] LABS: Appearance Urine CLEAR; Color Urine YELLOW; Glucose Urine UA NEG (NEG); Leukocyte Esterase Urine NEG (NEG); Nitrite Urine NEG (NEG); Urine Blood NEG (NEG); Urine Ketones NEG (NEG); Urine Protein NEG (NEG-TRACE)
[2021-11-29 16:42] LABS: Creatinine Urine 109.44 mg/dL; Microalbumin Urine < 5.0 mg/L
== END 2021-11-29 13:59 | disposition home or self-care (01) ==
LOC: HO.LAB 13:58
PROVIDERS: PCP Internal Medicine; Visit Provider Internal Medicine
DX: E78.00 Pure hypercholesterolemia, unspecified (principal); I10 Essential (primary) hypertension; E11.9 Type 2 diabetes mellitus without complications; E55.9 Vitamin D deficiency, unspecified
CPT/HCPCS: 36415; 80053; 80061; 81003; 82043; 82306; 83036; 84443; 85025

== ENCOUNTER 2022-01-13 15:21 | Emergency (ER) | payer OTHER, SELFPAY ==
--- NOTE | ~2022-01-13 | US_ITS ---
EXAMINATION: US VENOUS ULTRASOUND WITH DOPPLER LOWER EXTREMITY, RIGHT CLINICAL INFORMATION: Right lower extremity swelling. Evaluate for DVT and possible soft tissue abscess. COMPARISON: Bilateral lower extremity duplex ultrasound 10/03/2021 TECHNIQUE: Ultrasound of the deep veins is performed from the hip to the calf with compression sonography and color and pulse Doppler assessment. Spectral analysis with color-flow imaging is performed. FINDINGS: There is normal venous compression and respiratory variation and augmented flow. The visualized common femoral vein, superficial femoral vein, profunda femoral vein, popliteal vein, and the trifurcation region shows no evidence of deep venous thrombosis. Visualized midcalf posterior tibial and peroneal veins are patent. No appreciable soft tissue fluid collection in the mid calf at the area indicated by the patient. US/US venous duplex LE RT IMPRESSION: 1. No DVT demonstrated in the right lower extremity. 2. No fluid collection identified to suggest abscess.
[2022-01-13 15:40] VITALS: BP 117/60; PULSE 85; RESP 18; TEMP 35.9; O2SAT 95; BMI 26.8
--- NOTE | 2022-01-13 16:22 | ED.GENADULT ---
HPI - General Adult General Chief complaint: Skin/Abscess/Foreign Body Stated complaint: Red rash R leg/diabetic Time Seen by Provider: 01/13/22 15:54 Source: patient Mode of arrival: ambulatory History of Present Illness HPI narrative: 61-year-old female the past medical hx of anemia, anxiety, asthma, depression, diabetes, GERD, IBS, HLD, presenting to the ED c/o red painful area to right medial calf x months, worsening over the past few weeks. Admits has been using triamcinolone ointment which she believes is making area worse. Reports bumps to area and calf pain. Denies fever, chills, SOB, recent trauma, cigarette smoking, oral OCPs, history of clots trauma Related Data Home Medications Medication Instructions Recorded Confirmed ibuprofen 600 mg tablet 600 mg PO TID PRN 05/28/20 12/07/21 hydrocortisone 1 % lotion 1 applic topical TID PRN rash 05/30/20 12/07/21 emollient combination no.32 topical 01/13/22 (EpiCeram) Previous Rx's Medication Instructions Recorded carbamide peroxide 6.5 % ear drops 5 drp otic (ears) DAILY 7 days #30 11/15/20 (Debrox) mL hydrocortisone 1 % topical cream 1 appl topical TID PRN skin 12/29/20 (Cortisone (hydrocortisone)) irritation #28.35 grams lancets 28 gauge (FreeStyle 28 gauge topical BID #100 caps 02/06/21 Lancets) folic acid 1 mg tablet 1 mg PO DAILY 90 days #90 tabs 02/15/21 lisinopril 5 mg tablet 5 mg PO DAILY 90 days #90 tabs 02/15/21 albuterol sulfate 90 mcg/actuation 2 puff inhalation Q6H PRN 03/10/21 aerosol inhaler (ProAir HFA) shortness of breath or wheezing 30 days #18 grams metformin 500 mg tablet 500 mg PO BID 90 days #180 tabs 04/07/21 blood sugar diagnostic #100 ea 04/21/21 blood-glucose meter (FreeStyle #1 ea 04/21/21 Lite Meter) paroxetine HCl 40 mg tablet 60 mg PO DAILY 30 days #45 tabs 04/25/21 simvastatin 20 mg tablet 20 mg PO QPM 90 days #90 tabs 05/19/21 meclizine 12.5 mg tablet 12.5 mg PO QID PRN dizziness #120 08/11/21 tabs omeprazole 20 mg capsule,delayed 20 mg PO DAILY PRN heartburn 90 08/15/21 release days #90 caps cholecalciferol (vitamin D3) 25 25 mcg PO DAILY 90 days #90 caps 08/25/21 mcg (1,000 unit) capsule clonazepam 0.5 mg tablet 0.5 mg PO TID PRN anxiety 30 days 09/30/21 #90 tabs ferrous sulfate 325 mg (65 mg 325 mg PO 3XW 90 days #39 tabs 11/25/21 iron) tablet aspirin 81 mg tablet,delayed 81 mg PO DAILY 90 days #90 tabs 11/28/21 release cyanocobalamin (vitamin B-12) 1,000 mcg PO DAILY 90 days #90 tabs 11/28/21 1,000 mcg tablet carbamide peroxide 6.5 % ear drops 5 drp otic (ears) Q12H 7 days #15 12/07/21 (Debrox) mL melatonin 10 mg capsule 10 mg PO BEDTIME PRN sleep 30 days 12/07/21 #30 caps triamcinolone acetonide 0.025 % 1 appl topical BID #60 mL 12/07/21 lotion cephalexin 500 mg capsule 500 mg PO QID 7 days #28 caps 01/13/22 doxycycline hyclate 100 mg tablet 100 mg PO BID 7 days #14 tabs 01/13/22 linaclotide 72 mcg capsule 72 mcg PO QAM #30 caps 01/13/22 (Linzess) methylcellulose (laxative) 500 mg 500 mg PO BID #60 tabs 01/13/22 tablet (Citrucel) Allergies Allergy/AdvReac Type Severity Reaction Status Date / Time No Known Allergies Allergy Verified 01/13/22 13:28 Review of Systems Review of Systems: Constitutional: No Fever, No Chills ENT/Mouth: No Ear Pain, No Nasal Congestion, No sore throat, No Rhinorrhea, No Swallowing Difficulty Cardiovascular: No Chest Pain, No SOB Respiratory: No Cough, No Sputum, No Wheezing Gastrointestinal: No Nausea, No Vomiting, No Diarrhea, No Constipation, No Abdominal pain Genitourinary: No Dysuria, No Urinary Frequency, No Hematuria, No Urinary Incontinence/retention Musculoskeletal: + joint pain, No Myalgias, No Joint Swelling Skin: + Skin Lesions, No rash Neuro: No Weakness, No Numbness, No Paresthesias Yes all other systems are reviewed and are negative [facility] Past Medical History Attestation statement: The following information was validated with the patient. Medical History Allergic rhinitis Anemia Anxiety Asthma Benign essential hypertension Bilateral shoulder pain Chronic constipation Depression Diabetes mellitus GERD without esophagitis Impacted cerumen of both ears Insomnia Irritable bowel syndrome (IBS) Lumbar spondylosis Overweight (BMI 25.0-29.9) Pure hypercholesterolemia Recurrent chest pain Right shoulder pain Tubular adenoma Vitamin D deficiency Surgical History History of cholecystectomy History of colonoscopy History of esophagogastroduodenoscopy (EGD) History of tubal ligation Family History Family History Father Diabetes Hypertension CVD (cardiovascular disease) Mother Hypertension Diabetes Chronic mental illness Social History Social History Housing: Apartment Alcohol intake: never Patient Tobacco Use Status: Never used Tobacco e-Cigarette/Vaping Use: Never Used Second Hand Smoke Exposure: No Advance Directives: No Advance Directives Information Provided: No service: No Current occupational status: disabled Cognitive needs: No Hearing needs: Yes Vision needs: No Physical Exam ED Vital Signs: Vital Signs - 24 hr 01/13/22 15:40 Temperature 96.6 F L Pulse Rate 85 Respiratory Rate 18 Blood Pressure 117/60 Pulse Oximetry 95 Oxygen Delivery Method Room Air BMI result Body Mass Index 26.8 Const General: cooperative, healthy appearing and no acute distress Orientation/consciousness: patient oriented x3 Limitations: no limitations HENMT Head: Yes normal to inspection and Yes atraumatic Ears: hearing grossly normal bilaterally General nose exam: Normal external nose present Face and sinus: Yes normal facial exam Eyes General: appearance normal, both eyes and all related structures EOM: EOMs intact bilaterally Neck Neck: Yes normal visual inspection and Yes no meningeal signs Resp Effort & Inspection: normal respiratory effort and no respiratory distress Cardio Rate: regular rate Heart sounds: S1 normal heart sound present and S2 normal heart sound present Peripheral pulses: dorsalis pedis present Skin Other: Please refer to image above. Erythematous, almost scaling area noted to right medial calf with underlying nodules/induration. Tender to palpation. No warmth. No streaking. No fluctuance or pointing. Neurovascular intact distally Wounds: no wounds Neuro General: patient oriented x3, tone normal and no meningeal signs Gait exam (Neuro): Normal gait present Extrem General: Yes normal to inspection Course Course Course Narrative: US venous duplex LE RT IMPRESSION: 1.? No DVT demonstrated in the right lower extremity. 2.? No fluid collection identified to suggest abscess. > results discussed with patient in interpreter for the deaf. Will treat with doxycycline and Keflex Medical Decision Making [facility] Narrative Medical decision making narrative: 61-year-old female the past medical hx of anemia, anxiety, asthma, depression, diabetes, GERD, IBS, HLD, presenting to the ED c/o red painful area to right medial calf x months, worsening over the past few weeks. On exam vital signs stable, NAD, nontoxic appearing, physical exam as above. Please refer to image above. Concern for underlying indurated abscess vs DVT vs cellulitis vs eczema/contact dermatitis Plan: Venous duplex ultrasound Discharge Plan Discharge Clinical Impression: Abscess Patient Disposition: Home, Self-Care Instructions: Abscess (ED) Additional Instructions: Start taking doxycycline and Keflex as prescribed. Please avoid the sun/wear a lot of sun block while taking doxycycline as make fever sensitive No ultrasound was negative for blood clots or drainable abscess If area worsens, spreads, fever or chills, increasing worsening pain return to the emergency department Follow-up with her doctor Comience a jeyson doxiciclina y Keflex seg?n lo prescrito. Evite el nehemias / use mucho bloqueador solar mientras tavo doxiciclina ya que hace que la fiebre sea sensible Shira?n ultrasonido fue negativo para co?gulos de edin o absceso drenable Si el ?sasha empeora, se extiende, fiebre o escalofr?os, empeorando el dolor, regrese al departamento de emergencias Seguimiento con ceballos m?dico Prescriptions: New cephalexin 500 mg capsule 500 mg PO QID 7 Days Qty: 28 0RF doxycycline hyclate 100 mg tablet 100 mg PO BID 7 Days Qty: 14 0RF No Action lancets [FreeStyle Lancets] 28 gauge misc 28 gauge topical BID Qty: 100 6RF albuterol sulfate [ProAir HFA] 90 mcg/actuation HFA aerosol inhaler 2 puff inhalation Q6H PRN (Reason: shortness of breath or wheezing) 30 Days Qty: 18 5RF metformin 500 mg tablet 500 mg PO BID 90 Days Qty: 180 3RF (DME) blood sugar diagnostic Strip See Rx Instructions Not Applicable DAILY Qty: 100 6RF Rx Instructions: TEST 2 TIMES DAILY (DME) blood-glucose meter [FreeStyle Lite Meter] Kit See Rx Instructions .Route Qty: 1 0RF Rx Instructions: TEST 2 TIMES DAILY paroxetine HCl 40 mg tablet 60 mg PO DAILY 30 Days Qty: 45 5RF meclizine 12.5 mg tablet 12.5 mg PO QID PRN (Reason: dizziness) Qty: 120 8RF omeprazole 20 mg capsule,delayed release(DR/EC) 20 mg PO DAILY PRN (Reason: heartburn) 90 Days Qty: 90 3RF clonazepam 0.5 mg tablet 0.5 mg PO TID PRN (Reason: anxiety) 30 Days Qty: 90 0RF ferrous sulfate 325 mg (65 mg iron) tablet 325 mg PO 3XW 90 Days Qty: 39 3RF cyanocobalamin (vitamin B-12) 1,000 mcg tablet 1,000 mcg PO DAILY 90 Days Qty: 90 3RF aspirin 81 mg tablet,delayed release (DR/EC) 81 mg PO DAILY 90 Days Qty: 90 3RF triamcinolone acetonide 0.025 % lotion 1 appl topical BID Qty: 60 0RF simvastatin 20 mg tablet 20 mg PO QPM 90 Days Qty: 90 3RF ibuprofen 600 mg tablet 600 mg PO TID PRN hydrocortisone 1 % lotion 1 applic topical TID PRN (Reason: rash) carbamide peroxide [Debrox] 6.5 % drops 5 drp otic (ears) DAILY 7 Days Qty: 30 3RF folic acid 1 mg tablet 1 mg PO DAILY 90 Days Qty: 90 3RF lisinopril 5 mg tablet 5 mg PO DAILY 90 Days Qty: 90 3RF hydrocortisone [Cortisone (hydrocortisone)] 1 % cream 1 appl topical TID PRN (Reason: skin irritation) Qty: 28.35 0RF cholecalciferol (vitamin D3) 25 mcg (1,000 unit) capsule 25 mcg PO DAILY 90 Days Qty: 90 3RF Debrox 6.5 % drops 5 drp otic (ears) Q12H 7 Days Qty: 15 0RF melatonin 10 mg capsule 10 mg PO BEDTIME PRN (Reason: sleep) 30 Days Qty: 30 3RF EpiCeram Emulsion, Extended Release topical Linzess 72 mcg capsule 72 mcg PO QAM Qty: 30 3RF Citrucel 500 mg tablet 500 mg PO BID Qty: 60 12RF Referrals: Herb Souza MD [Primary Care Provider] - 1 week Print Language: Swiss
== END 2022-01-13 18:51 | disposition home or self-care (01) ==
PROVIDERS: Emergency Provider Emergency Medicine Emergency Medical Services; PCP Internal Medicine
DX: R60.0 Localized edema (principal); M79.604 Pain in right leg; Z79.899 Other long term (current) drug therapy
CPT/HCPCS: 93971; 99212; 99282; 99284

== ENCOUNTER → 2022-02-14 12:48 | Outpatient (BNVA) | payer OTHER, SELFPAY | PROVIDERS: PCP Internal Medicine; Visit Provider Surgery Vascular Surgery | DX: L03.115 Cellulitis of right lower limb (principal) | CPT/HCPCS: 99212 ==

== ENCOUNTER → 2022-03-02 13:22 | Outpatient (BNVA) | payer OTHER, SELFPAY | PROVIDERS: PCP Internal Medicine; Visit Provider Surgery Vascular Surgery | DX: L03.90 Cellulitis, unspecified (principal) | CPT/HCPCS: 99212 ==

== ENCOUNTER 2022-03-22 10:39 | Outpatient (REF) | payer OTHER, SELFPAY ==
[2022-03-22 11:19] LABS: MANUAL DIFF FLAG NO
[2022-03-22 12:00] LABS: Basophils Percent Auto 0.6 % (0-2); Eosinophils Absolute Auto 0.1 X10*3/uL (0.0-0.4); Eosinophils Percent Auto 1.3 % (0-4); Hematocrit 39.2 % (37.0-47.0); Hemoglobin 12.3 g/dl (12.0-16.0); Imm Gran Abs Auto 0.02 X10*3/uL (0.00-0.03); Imm Gran Pct Auto 0.3 % (0.0-0.4); Lymphocytes Absolute Auto 2.4 X10*3/uL (1.2-4.9); Lymphocytes Percent Auto 36.4 % (20-40); Mean Corpuscular HGB Conc 31.4 g/dl (31.0-35.0); Mean Corpuscular Hemoglobin 27.6 pg (27.0-33.0); Mean Corpuscular Volume 88.1 fL (80.0-98.0); Mean Platelet Volume 12.1 fL (9.4-12.3); Monocytes Absolute Auto 0.5 X10*3/uL (0.1-1.2); Monocytes Percent Auto 6.9 % (2-11); Neutrophils Absolute Auto 3.6 x10*3/uL (2.0-8.3); Neutrophils Percent Auto 54.5 % (45-73); Platelet Count 217 X10*3/uL (160-400); Red Blood Count 4.45 X10*6/uL (4.20-5.50); White Blood Count 6.7 X10*3/uL (4.8-10.8)
[2022-03-22 12:11] LABS: Estimated Average Glucose 160 mg/dL; Hemoglobin A1c % 7.2 %
[2022-03-22 12:14] LABS: Appearance Urine Clear; Color Urine Yellow; Glucose Urine UA Negative (Negative); Leukocyte Esterase Urine Negative (Negative); Nitrite Urine Negative (Negative); PH 5.5 (5.0-9.0); Urine Blood Negative (Negative); Urine Ketones Negative (Negative); Urine Protein Negative (Neg-Trace)
[2022-03-22 12:40] LABS: Alanine Aminotransferase 18 U/L (0-31); Albumin Level 4.2 g/dL (3.5-5.0); Alkaline Phosphatase 110 U/L (39-117); Anion Gap 16 (12-20); Aspartate Amino Transferase 17 U/L (5-31); Bilirubin Total 0.3 mg/dL (0.0-1.0); Blood Urea Nitrogen 8 mg/dL (9-16); Calcium 9.3 mg/dL (8.4-10.2); Carbon Dioxide 28 mmol/L (22-29); Chloride 102 mmol/L (96-108); Cholesterol 155 mg/dL; Estimated Glomerular Filt Rate > 60; Glucose Fasting 122 mg/dL (60-99); HDL Cholesterol 42 mg/dL; LDL Cholesterol Calculated 85 mg/dl; Potassium 4.5 mmol/L (3.3-5.1); Sodium 141 mmol/L (135-145); Total Protein 7.4 g/dL (6.5-8.0); Triglycerides 143 mg/dL
[2022-03-22 12:50] LABS: TSH reflex Free T4 1.61 uIU/mL (0.32-4.0); Vitamin D 25-OH Total 30.7 ng/mL (>30)
[2022-03-22 13:05] LABS: Creatinine Urine 154.56 mg/dL; Microalbum/Creatinine Ratio Ur 4.5 ug/mg cr
== END 2022-03-22 10:40 | disposition home or self-care (01) ==
LOC: HO.LAB 10:39
PROVIDERS: PCP Internal Medicine; Visit Provider Internal Medicine
DX: E11.9 Type 2 diabetes mellitus without complications (principal); I10 Essential (primary) hypertension; E78.00 Pure hypercholesterolemia, unspecified; E55.9 Vitamin D deficiency, unspecified
CPT/HCPCS: 36415; 80053; 80061; 81003; 82043; 82306; 83036; 84443; 85025

== ENCOUNTER → 2022-05-03 10:50 | Outpatient (BNVA) | payer OTHER, SELFPAY | PROVIDERS: PCP Internal Medicine; Visit Provider Surgery Vascular Surgery | DX: L03.90 Cellulitis, unspecified (principal) | CPT/HCPCS: 99212 ==

== ENCOUNTER → 2022-05-16 14:03 | Outpatient (BNVA) | payer OTHER, SELFPAY | PROVIDERS: PCP Internal Medicine; Visit Provider Surgery Vascular Surgery | DX: L03.90 Cellulitis, unspecified (principal) | CPT/HCPCS: 99212 ==

== ENCOUNTER 2022-05-29 14:08 | Outpatient (REF) | payer OTHER, SELFPAY ==
--- NOTE | ~2022-05-29 | MM_ITS ---
EXAMINATION: MM SCREENING DIGITAL BREAST TOMOSYNTHESIS, BILATERAL CLINICAL INFORMATION: Screening. Asymptomatic. COMPARISON: Mammography: 05/23/2021, 05/15/2020, 09/02/2019, 05/10/2019 TECHNIQUE: Digital breast tomosynthesis is performed in both the craniocaudal and mediolateral oblique views along with computer-aided detection (CAD). Synthesized 2D images are generated from the tomosynthesis. FINDINGS: There are scattered areas of fibroglandular density (ACR BI-RADS breast composition Category b). There are no significant masses, abnormal calcifications, or other abnormalities. Parenchymal pattern is similar to prior studies. There is no developing density or architectural abnormality. The axilla and skin contours are unremarkable. No significant changes. MM/MM tomosynthesis screening BI IMPRESSION: No mammographic evidence of malignancy. ASSESSMENT: BI-RADS 1: Negative RECOMMENDATION: Routine annual mammography screening. This patient's information was entered into a reminder system with a target due date for their next mammogram.
== END 2022-05-29 14:09 | disposition home or self-care (01) ==
LOC: HO.MAMMO 14:08
PROVIDERS: PCP Internal Medicine; Visit Provider Internal Medicine
DX: Z12.31 Encounter for screening mammogram for malignant neoplasm of breast (principal)
CPT/HCPCS: 77063; 77067

== ENCOUNTER 2022-07-05 11:32 | Outpatient (REF) | payer OTHER, SELFPAY ==
[2022-07-05 11:44] LABS: MANUAL DIFF FLAG NO
[2022-07-05 11:48] LABS: Basophils Percent Auto 0.3 % (0-2); Eosinophils Absolute Auto 0.1 X10*3/uL (0.0-0.4); Eosinophils Percent Auto 1.7 % (0-4); Hemoglobin 12.6 g/dl (12.0-16.0); Imm Gran Abs Auto 0.02 X10*3/uL (0.00-0.03); Imm Gran Pct Auto 0.3 % (0.0-0.4); Lymphocytes Percent Auto 34.2 % (20-40); Mean Corpuscular HGB Conc 31.5 g/dl (31.0-35.0); Mean Corpuscular Hemoglobin 27.5 pg (27.0-33.0); Mean Corpuscular Volume 87.1 fL (80.0-98.0); Monocytes Absolute Auto 0.3 X10*3/uL (0.1-1.2); Monocytes Percent Auto 5.7 % (2-11); Neutrophils Absolute Auto 3.4 x10*3/uL (2.0-8.3); Neutrophils Percent Auto 57.8 % (45-73); Platelet Count 216 X10*3/uL (160-400); Red Blood Count 4.59 X10*6/uL (4.20-5.50); Red Cell Distribution Width 13.8 % (11.0-16.0)
[2022-07-05 12:08] LABS: Estimated Average Glucose 154 mg/dL
[2022-07-05 13:12] LABS: Alanine Aminotransferase 18 U/L (0-31); Albumin Level 4.2 g/dL (3.5-5.0); Alkaline Phosphatase 115 U/L (39-117); Anion Gap 12 (12-20); Aspartate Amino Transferase 15 U/L (5-31); Bilirubin Total 0.4 mg/dL (0.0-1.0); Blood Urea Nitrogen 10 mg/dL (9-16); Calcium 9.4 mg/dL (8.4-10.2); Carbon Dioxide 29 mmol/L (22-29); Chloride 104 mmol/L (96-108); Cholesterol 181 mg/dL; Estimated Glomerular Filt Rate > 60; Glucose Fasting 154 mg/dL (60-99); HDL Cholesterol 40 mg/dL; LDL Cholesterol Calculated 105 mg/dl; Potassium 4.6 mmol/L (3.3-5.1); Sodium 140 mmol/L (135-145); TSH reflex Free T4 1.79 uIU/mL (0.32-4.0); Total Protein 7.1 g/dL (6.5-8.0); Triglycerides 182 mg/dL; Vitamin D 25-OH Total 28.4 ng/mL (>30)
[2022-07-05 13:20] LABS: Appearance Urine Clear; Color Urine Yellow; Glucose Urine UA Negative (Negative); Leukocyte Esterase Urine Negative (Negative); Nitrite Urine Negative (Negative); PH 5.5 (5.0-9.0); Specific Gravity - Urine 1.015 (1.005-1.025); Urine Blood Negative (Negative); Urine Ketones Negative (Negative); Urine Protein Negative (Neg-Trace)
[2022-07-05 13:45] LABS: Creatinine Urine 101.89 mg/dL; Microalbumin Urine < 5.0 mg/L
== END 2022-07-05 11:33 | disposition home or self-care (01) ==
LOC: HO.LAB 11:32
PROVIDERS: PCP Internal Medicine; Visit Provider Internal Medicine
DX: E11.9 Type 2 diabetes mellitus without complications (principal); E78.00 Pure hypercholesterolemia, unspecified; E55.9 Vitamin D deficiency, unspecified; I10 Essential (primary) hypertension
CPT/HCPCS: 36415; 80053; 80061; 81003; 82043; 82306; 83036; 84443; 85025

== ENCOUNTER → 2022-08-08 13:40 | Outpatient (BNVA) | payer OTHER, SELFPAY | PROVIDERS: PCP Internal Medicine; Visit Provider Surgery Vascular Surgery | DX: L02.419 Cutaneous abscess of limb, unspecified (principal) | CPT/HCPCS: 99212 ==

== ENCOUNTER 2022-08-10 15:49 | Outpatient (REF) | payer OTHER, SELFPAY ==
[2022-08-10 18:36] LABS: Vitamin B12 1006 pg/mL (200-900)
[2022-08-11 05:59] LABS: Syphilis Screen Nonreactive (Nonreactive)
[2022-08-14 22:09] LABS: Lyme Abs Screen <0.90 index
== END 2022-08-10 15:50 | disposition home or self-care (01) ==
LOC: HO.LAB 15:49
PROVIDERS: PCP Internal Medicine; Visit Provider Psychiatry & Neurology Neurology
DX: G31.84 Mild cognitive impairment of uncertain or unknown etiology (principal)
CPT/HCPCS: 36415; 82607; 86617; 86618; 86780

== ENCOUNTER 2022-08-17 17:46 | Outpatient (REF) | payer OTHER, SELFPAY ==
[2022-08-17 18:32] LABS: Influenza A PCR NEGATIVE (Negative); Influenza B PCR NEGATIVE (Negative); Resp Syncy Virus RNA Qual PCR NEGATIVE (Negative); SARS COV2 PCR INHOUSE NEGATIVE (Negative)
== END 2022-08-17 17:47 | disposition home or self-care (01) ==
LOC: HO.LNP 17:46
PROVIDERS: Visit Provider Nurse Practitioner Family
DX: Z20.822 Contact with and (suspected) exposure to COVID-19 (principal); R09.89 Other specified symptoms and signs involving the circulatory and respiratory systems
CPT/HCPCS: 0241U

== ENCOUNTER 2022-08-23 12:52 | Outpatient (REF) | payer OTHER, SELFPAY ==
--- NOTE | ~2022-08-23 | MR_ITS ---
EXAMINATION: MR BRAIN WITHOUT CONTRAST CLINICAL INFORMATION: Mild cognitive impairment. COMPARISON: None available. TECHNIQUE: MRI of the brain was obtained using routine sequences without contrast. FINDINGS: No focal restricted diffusion is demonstrated to suggest acute or subacute cerebral ischemia. No evidence of acute or chronic hemorrhagic products on heme-sensitive imaging. Scattered periventricular and deep white matter T2 FLAIR hyperintensities consistent with mild underlying microangiopathy. Proportional prominence of the ventricles and sulcal spaces without evidence of obstructive hydrocephalus. No abnormal mass effect. No midline shift. Normal appearance of the pituitary gland. Normal positioning of the cerebellar tonsils. Normal arterial and venous vascular flow voids are present. Normal, homogeneous marrow signal. Mild mucosal thickening of the paranasal sinuses. No signal abnormalities within the mastoids. MR/MR head/brain wo con IMPRESSION: 1. No acute intracranial abnormalities. 2. Mild underlying microangiopathy and generalized cerebral volume loss.
== END 2022-08-23 12:53 | disposition home or self-care (01) ==
LOC: HO.MRI 12:52
PROVIDERS: Visit Provider Psychiatry & Neurology Neurology
DX: G31.84 Mild cognitive impairment of uncertain or unknown etiology (principal)
CPT/HCPCS: 70551

== ENCOUNTER 2022-10-12 11:44 | Outpatient (REF) | payer OTHER, SELFPAY ==
[2022-10-12 13:14] LABS: MANUAL DIFF FLAG NO
[2022-10-12 13:25] LABS: Basophils Percent Auto 0.3 % (0-2); Eosinophils Absolute Auto 0.1 X10*3/uL (0.0-0.4); Eosinophils Percent Auto 1.8 % (0-4); Hematocrit 40.3 % (37.0-47.0); Hemoglobin 12.9 g/dl (12.0-16.0); Imm Gran Abs Auto 0.02 X10*3/uL (0.00-0.03); Imm Gran Pct Auto 0.3 % (0.0-0.4); Lymphocytes Absolute Auto 2.2 X10*3/uL (1.2-4.9); Lymphocytes Percent Auto 29.5 % (20-40); Mean Corpuscular Hemoglobin 27.6 pg (27.0-33.0); Mean Corpuscular Volume 86.3 fL (80.0-98.0); Mean Platelet Volume 11.7 fL (9.4-12.3); Monocytes Absolute Auto 0.5 X10*3/uL (0.1-1.2); Monocytes Percent Auto 6.4 % (2-11); Neutrophils Absolute Auto 4.6 x10*3/uL (2.0-8.3); Neutrophils Percent Auto 61.7 % (45-73); Platelet Count 246 X10*3/uL (160-400); Red Blood Count 4.67 X10*6/uL (4.20-5.50); Red Cell Distribution Width 14.1 % (11.0-16.0); White Blood Count 7.4 X10*3/uL (4.8-10.8)
[2022-10-12 14:05] LABS: Estimated Average Glucose 160 mg/dL; Hemoglobin A1c % 7.2 %
[2022-10-12 14:20] LABS: Alanine Aminotransferase 16 U/L (0-31); Albumin Level 4.2 g/dL (3.5-5.0); Alkaline Phosphatase 111 U/L (39-117); Anion Gap 14 (12-20); Aspartate Amino Transferase 16 U/L (5-31); Bilirubin Total 0.5 mg/dL (0.0-1.0); Blood Urea Nitrogen 11 mg/dL (9-16); Calcium 9.4 mg/dL (8.4-10.2); Carbon Dioxide 28 mmol/L (22-29); Chloride 104 mmol/L (96-108); Cholesterol 162 mg/dL; Estimated Glomerular Filt Rate > 60; Glucose Fasting 123 mg/dL (60-99); HDL Cholesterol 42 mg/dL; LDL Cholesterol Calculated 99 mg/dl; Potassium 4.6 mmol/L (3.3-5.1); Sodium 141 mmol/L (135-145); Total Protein 7.2 g/dL (6.5-8.0); Triglycerides 109 mg/dL
[2022-10-12 14:26] LABS: TSH reflex Free T4 0.84 uIU/mL (0.32-4.0)
[2022-10-12 14:39] LABS: Vitamin D 25-OH Total 40.2 ng/mL (>30)
[2022-10-12 15:50] LABS: Appearance Urine Cloudy; Color Urine Yellow; Glucose Urine UA Negative (Negative); Leukocyte Esterase Urine Negative (Negative); Nitrite Urine Negative (Negative); Specific Gravity - Urine 1.015 (1.005-1.025); Urine Blood Negative (Negative); Urine Ketones Negative (Negative); Urine Protein Negative (Neg-Trace)
[2022-10-12 17:29] LABS: Creatinine Urine 121.01 mg/dL; Microalbumin Urine < 5.0 mg/L
== END 2022-10-12 11:45 | disposition home or self-care (01) ==
LOC: HO.LAB 11:44
PROVIDERS: Absent Provider Internal Medicine; PCP Internal Medicine; Visit Provider Nurse Practitioner
DX: Z01.818 Encounter for other preprocedural examination (principal); K21.9 Gastro-esophageal reflux disease without esophagitis; D12.6 Benign neoplasm of colon, unspecified; H61.23 Impacted cerumen, bilateral; L20.9 Atopic dermatitis, unspecified; I10 Essential (primary) hypertension; E11.9 Type 2 diabetes mellitus without complications; E78.00 Pure hypercholesterolemia, unspecified; R30.0 Dysuria; E55.9 Vitamin D deficiency, unspecified; K59.04 Chronic idiopathic constipation
CPT/HCPCS: 36415; 80053; 80061; 81003; 82043; 82306; 83036; 84443; 85025; 99212

== ENCOUNTER → 2022-11-01 12:07 | Outpatient (BNVA) | payer OTHER, SELFPAY | PROVIDERS: PCP Internal Medicine; Visit Provider Nurse Practitioner | DX: Z12.11 Encounter for screening for malignant neoplasm of colon (principal); K59.04 Chronic idiopathic constipation; K21.9 Gastro-esophageal reflux disease without esophagitis; D12.6 Benign neoplasm of colon, unspecified | CPT/HCPCS: 99212 ==

== ENCOUNTER 2023-01-09 13:35 | Outpatient (REF) | payer OTHER, SELFPAY ==
[2023-01-09 13:45] LABS: MANUAL DIFF FLAG NO
[2023-01-09 14:11] LABS: Basophils Percent Auto 0.4 % (0-2); Eosinophils Absolute Auto 0.1 X10*3/uL (0.0-0.4); Eosinophils Percent Auto 1.2 % (0-4); Hematocrit 38.3 % (37.0-47.0); Hemoglobin 12.3 g/dl (12.0-16.0); Imm Gran Abs Auto 0.03 X10*3/uL (0.00-0.03); Imm Gran Pct Auto 0.4 % (0.0-0.4); Lymphocytes Absolute Auto 2.3 X10*3/uL (1.2-4.9); Lymphocytes Percent Auto 30.1 % (20-40); Mean Corpuscular HGB Conc 32.1 g/dl (31.0-35.0); Mean Corpuscular Hemoglobin 27.8 pg (27.0-33.0); Mean Corpuscular Volume 86.7 fL (80.0-98.0); Mean Platelet Volume 12.4 fL (9.4-12.3); Monocytes Absolute Auto 0.4 X10*3/uL (0.1-1.2); Monocytes Percent Auto 5.6 % (2-11); Neutrophils Absolute Auto 4.7 x10*3/uL (2.0-8.3); Neutrophils Percent Auto 62.3 % (45-73); Platelet Count 230 X10*3/uL (160-400); Red Blood Count 4.42 X10*6/uL (4.20-5.50); Red Cell Distribution Width 13.8 % (11.0-16.0); White Blood Count 7.5 X10*3/uL (4.8-10.8)
[2023-01-09 14:26] LABS: Estimated Average Glucose 148 mg/dL; Hemoglobin A1c % 6.8 %
[2023-01-09 14:33] LABS: Appearance Urine Clear; Color Urine Yellow; Glucose Urine UA Negative (Negative); Leukocyte Esterase Urine Negative (Negative); Nitrite Urine Negative (Negative); Specific Gravity - Urine 1.015 (1.005-1.025); Urine Blood Negative (Negative); Urine Ketones Negative (Negative); Urine Protein Negative (Neg-Trace)
[2023-01-09 15:39] LABS: Alanine Aminotransferase 14 U/L (0-31); Albumin Level 4.1 g/dL (3.5-5.0); Alkaline Phosphatase 99 U/L (39-117); Anion Gap 13 (12-20); Aspartate Amino Transferase 14 U/L (5-31); Bilirubin Total 0.5 mg/dL (0.0-1.0); Blood Urea Nitrogen 8 mg/dL (9-16); Calcium 9.8 mg/dL (8.4-10.2); Carbon Dioxide 27 mmol/L (22-29); Chloride 105 mmol/L (96-108); Cholesterol 162 mg/dL; Estimated Glomerular Filt Rate > 60; Glucose Fasting 119 mg/dL (60-99); HDL Cholesterol 44 mg/dL; LDL Cholesterol Calculated 91 mg/dl; Sodium 141 mmol/L (135-145); Total Protein 7.3 g/dL (6.5-8.0); Triglycerides 137 mg/dL
[2023-01-09 15:54] LABS: TSH reflex Free T4 0.76 uIU/mL (0.32-4.0); Vitamin D 25-OH Total 44.2 ng/mL (>30)
[2023-01-09 16:16] LABS: Creatinine Urine 117.28 mg/dL; Microalbumin Urine < 5.0 mg/L
== END 2023-01-09 13:36 | disposition home or self-care (01) ==
LOC: HO.LAB 13:35
PROVIDERS: PCP Internal Medicine; Visit Provider Internal Medicine
DX: I10 Essential (primary) hypertension (principal); E78.00 Pure hypercholesterolemia, unspecified; E11.9 Type 2 diabetes mellitus without complications; R30.0 Dysuria; E55.9 Vitamin D deficiency, unspecified
CPT/HCPCS: 36415; 80053; 80061; 81003; 82043; 82306; 83036; 84443; 85025

== ENCOUNTER 2023-01-20 10:04 | Outpatient (REF) | payer OTHER, SELFPAY ==
--- NOTE | ~2023-01-20 | XR_ITS ---
EXAMINATION: XR TIBIA AND FIBULA, LEFT CLINICAL INFORMATION: Swelling and edema COMPARISON: Tibia and fibula radiographs 01/27/2021 TECHNIQUE: AP and lateral views of the left tibia and fibula were obtained. FINDINGS: No acute fracture or dislocation. Joint spaces are maintained. Soft tissues are unremarkable. XR/XR tibia fibula LT 2V IMPRESSION: No acute osseous abnormality.
== END 2023-01-20 10:05 | disposition home or self-care (01) ==
LOC: HO.XRAY 10:04
PROVIDERS: PCP Internal Medicine; Visit Provider Internal Medicine
DX: R22.42 Localized swelling, mass and lump, left lower limb (principal)
CPT/HCPCS: 73590

== ENCOUNTER 2023-04-25 11:45 | Outpatient (AMB) | payer OTHER, SELFPAY ==
--- NOTE | 2023-04-25 11:47 | A.OFFVIS_ITS ---
Intake Vital Signs 04/25/23 11:51 Height 5 ft 1 in Weight 141 lb 15.643 oz BMI 26.8 BP 118/54 L Blood Pressure Location Lt brachial Position Sitting Pulse 71 Intake Visit Reasons: 6 mnth follow up Intake Note: Patient returns to 6 months in office follow up of GERD. CC: Patient reports occasional abdominal pain and acid reflux. Denies other GI symptoms. Accompanied by: Self / Same As Patient Allergies No Known Allergies Allergy (Verified 01/15/23 16:19) HPI 6 mnth follow up HPI Details Assessment & Plan (1) Chronic idiopathic constipation: Code(s): K59.04 - Chronic idiopathic constipation Plan: Estonian #[id number] Aneesh. She felt that the 72mcg LInzess was not sufficient for her. But, again, this is a very confusing interview as she is not well acquainted with the names of her medicines, and there is some doubt that she is taking the LInzess qam and the bisacodyl qhs as instructed. She says the 2 at night help me more. She does not seem to have picked up the LInzess 145mcg yet at the pharmacy, but I did send it. I suggest that we try the 145mcg qam and the 2 bisacodyl qhs.Then she says I take the LInzess in the afternoon and it sends me to the BR in about 1/2 hour. We clarify that this is what happens with the 145mcg dose. Apparently, she takes it in the afternoon when she has to go out in the am. In the end, she wants to stay at the 145mcg dose. And she asks how often does a person need to use the BR in a week? I explain that this varies person to person - we determine this by sx such as bloating etc. She says she also co ntinues with the bisacodyl taking them at bedtime to help with the next day, but this makes her stools very loose. I explain that she can vary how many of the bisacodyl she needs to take. She has not yet been contacted for the colonoscopy. I will send a follow up to the schedulers. She continues on omeprazole 20 mg a day with good control of her GERD.. ROV 6 mos. (2) GERD without esophagitis: Code(s): K21.9 - Gastro-esophageal reflux disease without esophagitis (3) Tubular adenoma of colon: Comment: 2018=TA repeat 2022 Code(s): D12.6 - Benign neoplasm of colon, unspecified Medications: Discontinued linaclotide (Linze ss) Please disr vonda stroud, much confusion with language bar mine, will be mane bautista LInzess 72mcg wi th bisacodyl. Discontinued Reaso n: Doctor's Order 72 mcg PO QAM 30 c aps 3RF Resumed linaclotide (Linze ss) 145 mcg PO QAM 30 caps 6RF COLONOSCOPY BIOPSY CORRESPONDENCE On 09/19/22 @ 09:14 Lisy Regalado Wrote To Shalini,October Pt requesting Linzess 145 mcg and if you can also order fiber. She states Linzess 72 mcg is not working well for her. Next OV TODAY'S VISIT Estonian #Sheila lIVE She is now doing well on the LInzess 145mcg and 2 bisacodyl qhs. She also continues on omeprazole with good control of her GERD. She has not yet heard re: colonoscopy. Will walk her to schedulers since there is a message that they have been trying to reach her. ROV 6 mos and after colonoscopy PFSH Medical History Insomnia Bilateral shoulder pain Impacted cerumen of both ears Recurrent chest pain Right shoulder pain Overweight (BMI 25.0-29.9) Depression Anxiety Allergic rhinitis Lumbar spondylosis Vitamin D deficiency Irritable bowel syndrome (IBS) GERD without esophagitis Anemia Asthma Benign essential hypertension Pure hypercholesterolemia Diabetes mellitus Tubular adenoma Surgical History History of colonoscopy History of esophagogastroduodenoscopy (EGD) History of tubal ligation History of cholecystectomy Family History Father Diabetes Hypertension CVD (cardiovascular disease) Mother Hypertension Diabetes Chronic mental illness Social History Housing: Apartment Alcohol intake: never Patient Tobacco Use Status: Never used Tobacco e-Cigarette/Vaping Use: Never Used Second Hand Smoke Exposure: No service: No Current occupational status: disabled Cognitive needs: No Hearing needs: Yes Vision needs: No Review of Systems Const Denies fatigue, Denies fever(s), Denies night sweats, Denies poor appetite and Denies weight loss ENT Reports Normal hearing present, Denies dental pain, Denies dysphagia, Denies hearing loss, Denies mouth pain, Denies odynophagia, Denies throat swelling, Denies tongue swelling and Reports other (Dentition adequate) Card Reports no additional complaints Resp Reports no additional complaints GI Denies abdominal pain, Denies melena, Denies bloating, Denies hematochezia, Reports constipation, Denies GI cramping, Denies dysphagia, Denies excessive flatus, Denies early satiety, Reports heartburn, Denies diarrhea, Denies nausea, Denies odynophagia, Denies vomiting and Denies hematemesis Skin/Breast Denies pruritus, Denies lesions, Denies rash and Denies jaundice Neuro Reports Normal hearing present and Denies Abnormal speech present Endo Denies fatigue Aller/Immun Denies throat swelling and Denies tongue swelling Physical Exam Vital Signs: Last Vital Signs Pulse 71 04/25/23 11:51 BP 118/54 L 04/25/23 11:51 BMI result Body Mass Index 26.8 Const General: cooperative, no acute distress, well developed and well groomed Nutritional Appearance: average body habitus and well nourished Orientation/consciousness: oriented to person, oriented to place and oriented to time Limitations: language barrier HEENT Head: Yes normocephalic and Yes atraumatic Eyes General: appearance normal, both eyes and all related structures Pupils: Equal, round and reactive pupils present Neck Neck: Yes normal visual inspection and Yes no lymphadenopathy Thyroid: Thyroid normal Resp Effort & Inspection: normal respiratory effort and able to speak in complete sentences Auscultation: clear to auscultation bilaterally Cardio Rate: regular rate Rhythm: regular rhythm Heart sounds: Normal, physiologic split S2 sound present Peripheral pulses: radial pulses present and posterior tibial pulses present GI Inspection: No distended and No Abdominal panniculus present Palpation (GI): Soft to palpation, nontender, no guarding, not rigid and No hepatosplenomegaly present Percussion: Yes normal to percussion Auscultation: normal bowel sounds Rectal Exam - Female: deferred Skin General skin exam: no rashes or lesions noted, turgor normal, skin not dry, no jaundice, No spider nevi and no striae Rashes: no rashes Nails: normal Neuro General: oriented to person, oriented to place and oriented to time Cranial nerves: Yes Equal, round and reactive pupils present and Yes Normal hearing present Speech: No Abnormal speech present Extrem General: Yes normal to inspection, No clubbing, No cyanosis and No edema Psych Appearance: grossly normal and well kempt Mental Status: mental status grossly normal Speech and movement: Normal speech and movement present Affect: normal affect Attitude: cooperative Thought process: Normal thought process present and not confabulating Thought content: Normal thought content present Insight: Limited insight present (Psych) Judgement: Limited judgement present (Psych) Assessment & Plan Assessment & Plan (1) Chronic idiopathic constipation: Code(s): K59.04 - Chronic idiopathic constipation Plan: COLONOSCOPY BIOPSY CORRESPONDENCE On 09/19/22 @ 09:14 Lisy Regalado Wrote To ,October Pt requesting Linzess 145 mcg and if you can also order fiber. She states Linzess 72 mcg is not working well for her. Next OV TODAY'S VISIT Estonian #Sheila lIVE She is now doing well on the LInzess 145mcg and 2 bisacodyl qhs. She also continues on omeprazole with good control of her GERD. She has not yet heard re: colonoscopy. Will walk her to schedulers since there is a message that they have been trying to reach her. ROV 6 mos and after colonoscopy (2) GERD without esophagitis: Code(s): K21.9 - Gastro-esophageal reflux disease without esophagitis (3) Tubular adenoma of colon: Comment: 2018=TA repeat 2022 Code(s): D12.6 - Benign neoplasm of colon, unspecified Medications: Changed From linaclotide (Linzess) 145 mcg PO QAM 30 caps 3RF To linaclotide (Linzess) 145 mcg PO QAM 90 days 90 caps 1RF Refilled bisacodyl (Laxative (bisacodyl)) 10 mg (2 x 5 mg) PO BEDTIME 90 days 180 tabs 1RF K59.04 - Chronic idiopathic constipation omeprazole 20 mg PO DAILY 90 days PRN 90 caps 3RF heartburn K21.9 - Gastro- esophageal reflux disease without esophagitis Coding Level of Care Code Est Pt Level 3 (83057) Diagnoses Chronic idiopathic constipation K59.04 GERD without esophagitis K21.9 Tubular adenoma of colon D12.6
[2023-04-25 11:51] VITALS: BP 118/54; PULSE 71; BMI 26.8
== END 2023-04-25 14:07 | disposition home or self-care (01) ==
PROVIDERS: PCP Internal Medicine; Visit Provider Nurse Practitioner
DX: K59.04 Chronic idiopathic constipation (principal); K21.9 Gastro-esophageal reflux disease without esophagitis; D12.6 Benign neoplasm of colon, unspecified
CPT/HCPCS: 99213

== ENCOUNTER → 2023-04-25 11:45 | Outpatient (BNVA) | payer OTHER, SELFPAY | PROVIDERS: PCP Internal Medicine; Visit Provider Nurse Practitioner | DX: K21.9 Gastro-esophageal reflux disease without esophagitis (principal); K59.04 Chronic idiopathic constipation; Z86.010 Personal history of colon polyps | CPT/HCPCS: 99212 ==

== ENCOUNTER 2023-05-16 13:31 | Outpatient (REF) | payer OTHER, SELFPAY ==
[2023-05-16 13:50] LABS: MANUAL DIFF FLAG NO
[2023-05-16 14:41] LABS: Basophils Absolute Auto 0.1 X10*3/uL (0.0-0.2); Basophils Percent Auto 0.7 % (0-2); Eosinophils Absolute Auto 0.1 X10*3/uL (0.0-0.4); Eosinophils Percent Auto 1.5 % (0-4); Hematocrit 40.7 % (37.0-47.0); Hemoglobin 12.9 g/dl (12.0-16.0); Imm Gran Abs Auto 0.02 X10*3/uL (0.00-0.03); Imm Gran Pct Auto 0.3 % (0.0-0.4); Lymphocytes Absolute Auto 2.5 X10*3/uL (1.2-4.9); Lymphocytes Percent Auto 33.6 % (20-40); Mean Corpuscular HGB Conc 31.7 g/dl (31.0-35.0); Mean Corpuscular Hemoglobin 27.8 pg (27.0-33.0); Mean Corpuscular Volume 87.7 fL (80.0-98.0); Mean Platelet Volume 12.6 fL (9.4-12.3); Monocytes Absolute Auto 0.5 X10*3/uL (0.1-1.2); Monocytes Percent Auto 6.3 % (2-11); Neutrophils Absolute Auto 4.3 x10*3/uL (2.0-8.3); Neutrophils Percent Auto 57.6 % (45-73); Platelet Count 232 X10*3/uL (160-400); Red Blood Count 4.64 X10*6/uL (4.20-5.50); Red Cell Distribution Width 14.1 % (11.0-16.0); White Blood Count 7.4 X10*3/uL (4.8-10.8)
[2023-05-16 14:44] LABS: Appearance Urine Clear; Color Urine Yellow; Glucose Urine UA Negative (Negative); Leukocyte Esterase Urine Negative (Negative); Nitrite Urine Negative (Negative); PH 7.5 (5.0-9.0); Urine Blood Negative (Negative); Urine Ketones Negative (Negative); Urine Protein Negative (Neg-Trace)
[2023-05-16 14:47] LABS: Estimated Average Glucose 151 mg/dL; Hemoglobin A1C 149.8091 umol/L; Hemoglobin A1c % 6.9 % (<6.0)
[2023-05-16 15:02] LABS: Creatinine Urine 136.22 mg/dL; Microalbum/Creatinine Ratio Ur 3.6 ug/mg cr (<30)
[2023-05-16 15:12] LABS: Alanine Aminotransferase 20 U/L (0-31); Albumin Level 4.4 g/dL (3.5-5.0); Alkaline Phosphatase 98 U/L (39-117); Anion Gap 14 (12-20); Aspartate Amino Transferase 19 U/L (5-31); Bilirubin Total 0.4 mg/dL (0.0-1.0); Blood Urea Nitrogen 9 mg/dL (9-16); Calcium 9.8 mg/dL (8.4-10.2); Carbon Dioxide 27 mmol/L (22-29); Chloride 103 mmol/L (96-108); Cholesterol 180 mg/dL (<200); Estimated Glomerular Filt Rate > 60; Glucose Fasting 120 mg/dL (60-99); HDL Cholesterol 48 mg/dL (>40); LDL Cholesterol Calculated 104 mg/dL (<100); Potassium 3.9 mmol/L (3.3-5.1); Sodium 140 mmol/L (135-145); Total Protein 7.9 g/dL (6.5-8.0); Triglycerides 144 mg/dL (<150)
[2023-05-16 15:29] LABS: TSH reflex Free T4 1.07 uIU/mL (0.32-4.0); Vitamin D 25-OH Total 41.6 ng/mL (>30)
[2023-05-16 15:42] LABS: Folate 13.5 ng/mL (> or = 4.0); Vitamin B12 1010 pg/mL (200-900)
== END 2023-05-16 13:32 | disposition home or self-care (01) ==
LOC: HO.LAB 13:31
PROVIDERS: PCP Internal Medicine; Visit Provider Internal Medicine
DX: I10 Essential (primary) hypertension (principal); D64.9 Anemia, unspecified; E78.00 Pure hypercholesterolemia, unspecified; E11.9 Type 2 diabetes mellitus without complications; R30.0 Dysuria; E55.9 Vitamin D deficiency, unspecified; E53.8 Deficiency of other specified B group vitamins
CPT/HCPCS: 36415; 80053; 80061; 81003; 82043; 82306; 82570; 82607; 82746; 83036; 84443; 85025

== ENCOUNTER 2023-05-23 13:56 | Outpatient (AMB) | payer OTHER, SELFPAY ==
[2023-05-23 14:00] VITALS: BP 136/80; PULSE 84; O2SAT 98; BMI 27.3
--- NOTE | 2023-05-23 14:00 | A.OFFPC_ITS ---
Vital Signs 05/23/23 14:00 Height 5 ft 1 in Weight 144 lb 4 oz BMI 27.3 BP 136/80 Blood Pressure Location Lt brachial Position Sitting Pulse 84 Pulse Source Pulse Oximeter Pulse Oximetry (%) 98 Oxygen Delivery Method Room Air Intake Visit Reasons: 4mth f/u Belly Dancer Required: No Accompanied by: Self / Same As Patient Allergies No Known Allergies Allergy (Verified 05/23/23 14:42) Medication List - Last Reconciled 05/23/23 by Herb Souza MD acetaminophen 650 mg (2 x 325 mg) PO Q6H PRN albuterol sulfate 90 mcg/actuation (ProAir HFA) 2 puffs inhalation Q6H PRN 30 days aspirin 81 mg PO DAILY 90 days bisacodyl (Laxative (bisacodyl)) 10 mg (2 x 5 mg) PO BEDTIME 90 days blood sugar diagnostic TEST 2 TIMES DAILY blood-glucose meter (FreeStyle Lite Meter kit) TEST 2 TIMES DAILY cholecalciferol (vitamin D3) 25 mcg PO DAILY 90 days clonazepam 0.5 mg PO TID PRN 30 days clotrimazole 1% 1 appl topical TID PRN cyanocobalamin (vitamin B-12) 1,000 mcg PO DAILY 90 days emollient combination no.32 (EpiCeram topical emulsion, extended release) topical ferrous sulfate 325 mg PO 3XW 90 days folic acid 1 mg PO DAILY 90 days hydrocortisone 1% 1 appl topical TID PRN ibuprofen 600 mg PO Q6H PRN lancets (FreeStyle Lancets) 28 gauge topical BID linaclotide (Linzess) 145 mcg PO QAM 90 days lisinopril 5 mg PO DAILY 90 days meclizine 12.5 mg PO QID PRN melatonin 10 mg PO BEDTIME PRN 30 days metformin 500 mg PO BID 90 days methylcellulose (laxative) (Citrucel) 500 mg PO BID omeprazole 20 mg PO DAILY PRN 90 days paroxetine HCl 60 mg (1.5 x 40 mg) PO DAILY 30 days peg 3350-electrolytes 236-22.74-6.74 -5.86 gram (Golytely) 240 mL PO Q10M 1 day simvastatin 20 mg PO QPM 90 days triamcinolone acetonide 0.025% 1 appl topical BID Tobacco use date assessed: 05/23/23 Dental Screening Dental Screen Date: 05/23/23 Did you have a dental visit in the last 12 months?: Yes Did you have a dental problem in the last 6 months where you did not have access to dental care?: No Was dental information given to patient?: Patient has dentist HPI 4mth f/u HPI Details Patient comes in today for her follow up visit States that she feels okay She denies any headaches or dizziness Denies any chest pains, no SOB No nausea/vomiting, no abdominal pain No change in bowel habits noted Needs her Triamcinolone cream Rx refilled Had her follow up labs done last week - to discuss her results [facility] Medical History (Updated 05/24/23 @ 04:35 by Herb Souza MD) Vitamin B12 deficiency Insomnia Bilateral shoulder pain Impacted cerumen of both ears Recurrent chest pain Right shoulder pain Overweight (BMI 25.0-29.9) Depression Anxiety Allergic rhinitis Lumbar spondylosis Vitamin D deficiency Irritable bowel syndrome (IBS) GERD without esophagitis Anemia Asthma Benign essential hypertension Pure hypercholesterolemia Diabetes mellitus Tubular adenoma Surgical History History of colonoscopy History of esophagogastroduodenoscopy (EGD) History of tubal ligation History of cholecystectomy Family History Father Diabetes Hypertension CVD (cardiovascular disease) Mother Hypertension Diabetes Chronic mental illness Social History Housing: Apartment Alcohol intake: never Patient Tobacco Use Status: Never used Tobacco e-Cigarette/Vaping Use: Never Used Second Hand Smoke Exposure: No service: No Current occupational status: disabled Cognitive needs: No Hearing needs: Yes Vision needs: No Questionnaire PHQ-9 Over the last 2 weeks, how often have you been bothered by any of the following problems? 1. Little interest or pleasure in doing things: more than half the days 2. Feeling down, depressed, or hopeless: more than half the days 3. Trouble falling or staying asleep, or sleeping too much: not at all 4. Feeling tired or having little energy: not at all 5. Poor appetite or overeating: not at all 6. Feeling bad about yourself - or that you are a failure or have let yourself or your family down: not at all 7. Trouble concentrating on things, such as reading the newspaper or watching television: not at all 8. Moving or speaking so slowly that other people could have noticed. Or the opposite - being so fidgety or restless that you have been moving around a lot more than usual: not at all 9. Thoughts that you would be better off or of hurting yourself in some way: not at all Total score: 4 Depression Screening Interpretation: Positive Depression Screening Follow-up: Existing condition and In treatment Depression Screening Done: Yes 19907 - PHQ-9 Billing: Yes Source: Developed by Drs. Brody Perez, Randi Hand, Rodney Sneed and colleagues, with an educational sharif from [employer] Thrive Questionnaire Date Thrive assessed: 05/23/23 I am a: Patient What is your living situation today?: I have a steady place to live Within the past 12 months, did the food you bought not last and you didn't have the money to get more?: Never true Within the past 12 months, did you worry whether your food would run out before you got money to buy more?: Never true Do you have trouble paying for medicines?: No Do you have trouble getting transportation to medical appointments?: No Do you have trouble paying your heating and electricity bill?: No Do you have trouble taking care of your child, family member or friend?: No Do you have trouble with day-to-day activities such as bathing, preparing meals, shopping, managing finances, etc.?: No Are you currently unemployed and looking for a job?: No Are you interested in more education?: No Please select the resources that you would like help with: None Currently or been in a relationship where the following occur: no concerns reported AUDIT C Alcohol Use Questionnaire (AUDIT-C) 1. How often do you have a drink containing alcohol?: Never 2. How many drinks containing alcohol do you have on a typical day when you are drinking?: 1 or 2 (0) 3. How often do you have six or more drinks on one occasion?: Never Total Score: 0 Score Reviewed/Action Taken: Yes MAME-7 AMB Questionnaire MMAE-7 Date MAME - 7 assessed: 01/15/23 Source: Developed by Drs. Brody Perez, Randi Hand, Rodney Sneed and colleagues, with an educational sharif from [employer] Review of Systems Const Denies difficulty sleeping (Melatonin helps), Denies fatigue, Denies fever(s) and Denies headache(s) ENT Denies dysphagia, Denies dizziness, Denies otalgia, Denies headache(s), Denies odynophagia and Denies sore throat Card Denies chest pain, Denies palpitations and Denies dyspnea Resp Denies cough, Denies dyspnea and Denies wheezing GI Denies abdominal pain, Denies bloating, Reports constipation (on and off - better controlled lately on Rx), Denies dysphagia, Denies heartburn, Denies diarrhea, Denies nausea, Denies odynophagia and Denies vomiting Denies hematuria, Denies difficulty voiding, Denies nocturia and Denies dysuria Musc Reports back pain (recurrent, especially over right lower back lately) and Reports arthralgias (both shoulders) Neuro Denies dizziness and Denies headache(s) Endo Denies fatigue and Denies palpitations Aller/Immun Denies wheezing Physical exam (Primary Care) Vital Signs: Last Vital Signs Pulse 84 05/23/23 14:00 BP 136/80 05/23/23 14:00 Pulse Ox 98 05/23/23 14:00 Oxygen Delivery Method Room Air 05/23/23 14:00 BMI result Body Mass Index 27.3 Tobacco/Smoking Status: Tobacco use Status Tobacco use date assessed 05/23/23 05/23/23 14:01 Patient Tobacco Use Status Never used Tobacco 05/23/23 14:01 e-Cigarette/Vaping Use Never Used 05/23/23 14:01 PHQ-9: PHQ-9 Score PHQ-9: Total score 4 05/23/23 21:33 Depression Screening Interpretation: Positive Depression Screening Follow-up: Existing condition and In treatment Thrive Assessment: Date of Thrive Assessment Date Thrive assessed 05/23/23 05/23/23 14:01 Currently or been in a relationship where the following occur: no concerns reported Const General: no acute distress and alert HENMT Ears: TM's normal bilaterally and EAC's normal Throat: Yes posterior oropharynx normal and Yes tonsils normal (no TP congestion noted) Neck Neck: Yes no lymphadenopathy and Yes supple Thyroid: Thyroid normal Resp Auscultation: clear to auscultation bilaterally, no rales and no wheezes Cardio Rate: regular rate Rhythm: regular rhythm Heart sounds: no murmurs GI Palpation (GI): Soft to palpation and nontender Auscultation: normal bowel sounds Back/Spine/Pelvis Thoracic/Lumbar Spine: lumbar spinal tenderness Extrem General: Yes no clubbing, cyanosis or edema Results Reviewed Results Reviewed: Laboratory Tests 05/16/23 05/16/23 05/16/23 13:34 13:34 13:48 WBC 7.4 Hgb 12.9 Hct 40.7 Plt Count 232 Sodium 140 Potassium 3.9 Creatinine 0.71 Estimated GFR > 60 Fasting Glucose 120 H Hemoglobin A1c % 6.9 H Calcium 9.8 AST 19 ALT 20 Triglycerides 144 Cholesterol 180 LDL Cholesterol, Calc 104 H HDL Cholesterol 48 Vitamin B12 1010 H 25-OH Vitamin D Total 41.6 TSH 1.07 Ur Specific [place] 1.020 Urine Protein Negative Urine Glucose (UA) Negative Urine Blood Negative Microalb/Creat Ratio 05/16/23 14:06 WBC Hgb Hct Plt Count Sodium Potassium Creatinine Estimated GFR Fasting Glucose Hemoglobin A1c % Calcium AST ALT Triglycerides Cholesterol LDL Cholesterol, Calc HDL Cholesterol Vitamin B12 25-OH Vitamin D Total TSH Ur Specific [place] Urine Protein Urine Glucose (UA) Urine Blood Microalb/Creat Ratio 3.6 Assessment and Plan Assessment & Plan (1) Pure hypercholesterolemia: Code(s): E78.00 - Pure hypercholesterolemia, unspecified Plan: Results of her labs done last week reviewed and discussed with patient - she is cautioned that her lipids have increased slightly from previous Reinforced low cholesterol diet Continue Simvastatin 20 mg QD Will recheck her labs and fasting lipids in 4 months for follow up (2) Diabetes mellitus: Code(s): E11.9 - Type 2 diabetes mellitus without complications Qualifiers: Diabetes mellitus type: type 2 Diabetes mellitus correction insulin use: without correction use Diabetes mellitus complication status: without complication Qualified Code(s): E11.9 - Type 2 diabetes mellitus without complications Plan: HgbA1c was at 6.8% on her labs done last week (was previously at 6.8% a few mo nths ago) - goal is < 7.0% Reinforced diabetic diet Continue Metformin 500 mg BID (3) Benign essential hypertension: Code(s): I10 - Essential (primary) hypertension Plan: Reinforced low sodium diet - goal is systolic BP of at least 120 to 130 mm or less Continue Lisinopril 5 mg QD (4) Asthma: Code(s): J45.909 - Unspecified asthma, uncomplicated Qualifiers: Asthma severity: mild Asthma persistence: intermittent Asthma complication type: uncomplicated Qualified Code(s): J45.20 - Mild intermittent asthma, uncomplicated Plan: Stable - continue ProAir HFA? 2 puffs QID as needed (5) Chest pain: Comment: recurrent, left-sided Code(s): R07.9 - Chest pain, unspecified Qualifiers: Chest pain type: unspecified Qualified Code(s): R07.9 - Chest pain, unspecified Plan: Per request, she was referred to cardiology for further evaluation and management of her recurrent chest pains - she is now scheduled to be seen at the end of the month Have again advised her that her chest pains do not appear to be cardiac-related based on the presentation of her symptoms (6) Chronic constipation: Code(s): K59.09 - Other constipation Plan: Improving/better controlled lately - continue Linzess 145 mcg QD and Dulcolax 5 mg 2 tablets QD PRN Reinforced increased oral fluids and dietary fiber Follow up with GI as scheduled (7) Irritable bowel syndrome (IBS): Code(s): K58.9 - Irritable bowel syndrome without diarrhea Qualifiers: Irritable bowel syndrome type: unspecified Qualified Code(s): K58.9 - Irritable bowel syndrome without diarrhea Plan: Continue Dicyclomine 20 mg TID PRN; Linzess also helps with her symptoms Follow up with GI as scheduled (8) GERD without esophagitis: Code(s): K21.9 - Gastro-esophageal reflux disease without esophagitis Plan: Dietary restrictions reinforced Continue Omeprazole 20 mg QD PRN (9) Anemia: Code(s): D64.9 - Anemia, unspecified Qualifiers: Anemia type: unspecified type Qualified Code(s): D64.9 - Anemia, un specified Plan: Improved/corrected - continue Ferrous Sulfate 325 mg QD Will continue to monitor her CBC regularly (10) Vitamin D deficiency: Code(s): E55.9 - Vitamin D deficiency, unspecified Plan: Corrected; continue Vitamin D3 1000 units QD (11) Lumbar spondylosis: Code(s): M47.816 - Spondylosis without myelopathy or radiculopathy, lumbar region Plan: Reinforced activity and weight-lifting restrictions Lumbar spine x-rays done in September 2020 showed (+) mild degenerative disc changes Goes to physical therapy as needed - PT has helped a lot with her low back pain in the past (12) Allergic rhinitis: Code(s): J30.9 - Allergic rhinitis, unspecified Qualifiers: Allergic rhinitis trigger: unspecified Allergic rhinitis seasonality: unspecified Qualified Code(s): J30.9 - Allergic rhinitis, unspecified Plan: Continue OTC Loratadine 10 mg QD PRN (13) Vitamin B12 deficiency: Code(s): E53.8 - Deficiency of other specified B group vitamins Plan: Have advised patient that her Vitamin B12 level has been high at over 1000 pg/ml for several months now and she should cut back on her Vitamin B12 1000 mcg tablets from 1 tablet daily to just 1 tablet twice a week Will recheck her B12 level in a few months for follow up (14) Subcutaneous nodule of left lower leg: Code(s): R22.42 - Localized swelling, mass and lump, left lower limb Plan: Patient is advised again that the nodule she feels on her lower leg appears to be mostly subcutaneous, likely a dermoid cyst or some scar tissue left over from a previous subcutaneous abscess, and that if she really wants to have the lesion excised, we can consider referring her to surgery for this Advised that her lower extremity x-rays done a few months ago came out normal (15) Insomnia: Code(s): G47.00 - Insomnia, unspecified Qualifiers: Insomnia type: unspecified Qualified Code(s): G47.00 - Insomnia, unspecified Plan: Sleep hygiene reinforced; advised again that her insomnia is most-likely related to her anxiety Continue Melatonin 10 mg Q HS PRN which she states has helped a lot (16) Anxiety: Code(s): F41.9 - Anxiety disorder, unspecified Plan: Continue Clonazepam 0.5 mg TID PRN Follow up with psychiatry as scheduled (17) Depression: Code(s): F32.9 - Major depressive disorder, single episode, unspecified Qualifiers: Depression Type: major depressive disorder Major depression recurrence: recurrent Active/Remission status: currently active Major depression episode severity: unspecified Qualified Code(s): F33.9 - Major depressive disorder, recurrent, unspecified Plan: Continue Paroxetine at 60 mg QD - Rx refilled Follow up with psychiatry at [facility] as scheduled (18) Overweight (BMI 25.0-29.9): Code(s): E66.3 - Overweight Plan: Reinforced diet/exercise as tolerated/lose weight Plan Follow up in 4 months Orders: Orders Comprehensive [place]. Panel Fast 4 Months E78.00 - Pure hypercholesterolemia, unspecified Lipid Panel 4 Months E78.00 - Pure hypercholesterolemia, unspecified TSH reflex Free T4 4 Months E78.00 - Pure hypercholesterolemia, unspecified Vitamin D 25-OH Total 4 Months E55.9 - Vitamin D deficiency, unspecified Complete Blood Count Auto Diff 4 Months I10 - Essential (primary) hypertension Microalbumin, Random (w Creat) 4 Months E11.9 - Type 2 diabetes mellitus without complications Hemoglobin A1c 4 Months E11.9 - Type 2 diabetes mellitus without complications UA CC w/rflx Micro + Cult 4 Months R30.0 - Dysuria Vitamin B12 and Folate 4 Months E53.8 - Deficiency of other specified B group vitamins Medications: Changed From triamcinolone acetonide 0.025% 1 appl topical BID To triamcinolone acetonide 0.025% 1 appl topical BID PRN 80 grams 0RF pruritic rash Coding Level of Care Code Est Pt Level 4 (30338) Diagnoses Pure hypercholesterolemia E78.00 Type 2 diabetes mellitus without complication, without long-term current use of insulin E11.9 Diabetes mellitus type: type 2 Diabetes mellitus director long term care insulin use: without director long term care use Diabetes mellitus complication status: without complication Benign essential hypertension I10 Mild intermittent asthma without complication J45.20 Asthma severity: mild Asthma persistence: intermittent Asthma complication type: uncomplicated Chest pain, unspecified type R07.9 Chest pain type: unspecified Chronic constipation K59.09 Irritable bowel syndrome, unspecified type K58.9 Irritable bowel syndrome type: unspecified GERD without esophagitis K21.9 Anemia, unspecified type D64.9 Anemia type: unspecified type Vitamin D deficiency E55.9 Lumbar spondylosis M47.816 Allergic rhinitis, unspecified seasonality, unspecified trigger J30.9 Allergic rhinitis trigger: unspecified Allergic rhinitis seasonality: unspecified Vitamin B12 deficiency E53.8 Subcutaneous nodule of left lower leg R22.42 Insomnia, unspecified type G47.00 Insomnia type: unspecified Anxiety F41.9 Episode of recurrent major depressive disorder, unspecified depression episode severity F33.9 Depression Type: major depressive disorder Major depression recurrence: recurrent Active/Remission status: currently active Major depression episode severity: unspecified Overweight (BMI 25.0-29.9) E66.3
== END 2023-05-23 15:07 | disposition home or self-care (01) ==
PROVIDERS: PCP Internal Medicine; Visit Provider Internal Medicine
DX: E11.9 Type 2 diabetes mellitus without complications (principal); F33.9 Major depressive disorder, recurrent, unspecified; E78.00 Pure hypercholesterolemia, unspecified; I10 Essential (primary) hypertension; J45.20 Mild intermittent asthma, uncomplicated; R07.9 Chest pain, unspecified; K59.09 Other constipation; K58.9 Irritable bowel syndrome, unspecified; K21.9 Gastro-esophageal reflux disease without esophagitis; D64.9 Anemia, unspecified; E55.9 Vitamin D deficiency, unspecified; M47.816 Spondylosis without myelopathy or radiculopathy, lumbar region
CPT/HCPCS: 99214

== ENCOUNTER 2023-06-04 14:52 | Outpatient (REF) | payer OTHER, SELFPAY | END 2023-06-04 14:53 | disposition home or self-care (01) | LOC: HO.MAMMO 14:52 | PROVIDERS: PCP Internal Medicine; Visit Provider Internal Medicine | DX: Z12.31 Encounter for screening mammogram for malignant neoplasm of breast (principal) | CPT/HCPCS: 77063; 77067 ==

== ENCOUNTER → 2023-06-04 15:00 | Outpatient (BNV) | payer OTHER, SELFPAY | PROVIDERS: PCP Internal Medicine; Visit Provider Radiology Diagnostic Radiology | DX: Z12.31 Encounter for screening mammogram for malignant neoplasm of breast (principal) | CPT/HCPCS: 77063; 77067 ==

== ENCOUNTER 2023-06-14 14:08 | Outpatient (AMB) | payer OTHER, SELFPAY ==
[2023-06-14 14:12] VITALS: BP 130/84; PULSE 76; BMI 27.1
--- NOTE | 2023-06-14 14:12 | A.OFFVIS_ITS ---
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 Mortgage Loan Processor Language: [employer] Systems Name: Mark [id number] Allergies No Known Allergies Allergy (Verified 06/14/23 14:17) Medication List - Last Reconciled 06/14/23 by Curtis Mcdonough MD acetaminophen 650 mg (2 x 325 mg) PO Q6H PRN albuterol sulfate 90 mcg/actuation (ProAir HFA) 2 puffs inhalation Q6H PRN 30 days bisacodyl (Laxative (bisacodyl)) 10 mg (2 x 5 mg) PO BEDTIME 90 days blood sugar diagnostic TEST 2 TIMES DAILY blood-glucose meter (FreeStyle Lite Meter kit) TEST 2 TIMES DAILY cholecalciferol (vitamin D3) 25 mcg PO DAILY 90 days clonazepam 0.5 mg PO TID PRN 30 days clotrimazole 1% 1 appl topical TID PRN cyanocobalamin (vitamin B-12) 1,000 mcg PO DAILY 90 days emollient combination no.32 (EpiCeram topical emulsion, extended release) topical ferrous sulfate 325 mg PO 3XW 90 days folic acid 1 mg PO DAILY 90 days hydrocortisone 1% 1 appl topical TID PRN hydroquinone 4% appl topical BID ibuprofen 600 mg PO Q6H PRN lancets (FreeStyle Lancets) 28 gauge topical BID linaclotide (Linzess) 145 mcg PO QAM 90 days lisinopril 5 mg PO DAILY 90 days meclizine 12.5 mg PO QID PRN melatonin 10 mg PO BEDTIME PRN 30 days metformin 500 mg PO BID 90 days methylcellulose (laxative) (Citrucel) 500 mg PO BID omeprazole 20 mg PO DAILY PRN 90 days paroxetine HCl 60 mg (1.5 x 40 mg) PO DAILY 30 days peg 3350-electrolytes 236-22.74-6.74 -5.86 gram (Golytely) 240 mL PO Q10M 1 day simvastatin 20 mg PO QPM 90 days triamcinolone acetonide 0.025% 1 appl topical BID PRN HPI HPI Comments History of Present Illness Details Kirstin is here for consultation regarding chest pain. Discussed with patient using science interpreter. She states that she has had chest pains for a while going back probably couple of years or so, but she is not very clear about it. These happen quite randomly and there are no specific provoking or relieving factors. Not exertional. Otherwise, denies any other complaints like shortness of breath or palpitations or in fact anything cardiac sounding. Multiple cardiovascular risk factors including type 2 diabetes, hypertension, dyslipidemia. However, she does not have any known cardiovascular issues including coronary disease or myocardial infarction or cardiomyopathy. [facility] Medical History (Updated 06/14/23 @ 14:24 by Curtis Mcdonough MD) Vitamin B12 deficiency Insomnia Bilateral shoulder pain Impacted cerumen of both ears Recurrent chest pain Right shoulder pain Overweight (BMI 25.0-29.9) Depression Anxiety Allergic rhinitis Lumbar spondylosis Vitamin D deficiency Irritable bowel syndrome (IBS) GERD without esophagitis Anemia Asthma Benign essential hypertension Pure hypercholesterolemia Diabetes mellitus Tubular adenoma Surgical History History of colonoscopy History of esophagogastroduodenoscopy (EGD) History of tubal ligation History of cholecystectomy Family History Father Diabetes Hypertension CVD (cardiovascular disease) Mother Hypertension Diabetes Chronic mental illness Social History Housing: Apartment Alcohol intake: never Patient Tobacco Use Status: Never used Tobacco e-Cigarette/Vaping Use: Never Used Second Hand Smoke Exposure: No service: No Current occupational status: disabled Cognitive needs: No Hearing needs: Yes Vision needs: No Review of Systems Const Denies weakness Eyes Denies loss of vision ENT Denies dizziness Card Denies chest pain, Denies chest pain with activity, Denies syncope, Denies rapid heart rate, Denies pedal edema, Denies edema, Denies leg edema, Denies lightheadedness, Denies palpitations, Denies dyspnea, Denies dyspnea on exertion and Denies orthopnea Resp Denies cough, Denies dyspnea, Denies dyspnea on exertion and Denies wheezing GI Denies hematochezia and Denies change in stool character Denies hematuria, Denies urinary frequency and Denies dysuria Musc Denies abnormal gait, Denies muscle cramps, Denies muscle weakness, Denies numbness, Denies radiating pain into limb and Denies tingling Skin/Breast Denies nail changes and Denies rash Neuro Denies Abnormal speech present, Denies abnormal gait, Denies dizziness, Denies syncope, Denies loss of vision, Denies memory loss, Denies numbness, Denies tingling and Denies weakness Psych Denies depression and Denies memory loss Endo Denies palpitations Aller/Immun Denies wheezing Physical Exam Vital Signs: Last Vital Signs Pulse 76 06/14/23 14:12 BP 130/84 06/14/23 14:12 BMI result Body Mass Index 27.1 Const General: comfortable and no acute distress Orientation/consciousness: patient oriented x3 HEENT Other: Unremarkable Head: Yes normal to inspection Neck Neck: Yes normal visual inspection Chest Chest palpation & inspection: normal inspection of the chest Resp Auscultation: clear to auscultation bilaterally Cardio Palpation: normal PMI Heart sounds: S1 normal heart sound present, S2 normal heart sound present, no gallops, Murmur heart sound present systolic II/ and at the right sternal border and no rubs GI Palpation (GI): Soft to palpation Back/Spine/Pelvis Other: unremarkable Skin General skin exam: no rashes or lesions noted Neuro General: patient oriented x3 Speech: No Abnormal speech present Extrem General: Yes normal to inspection Psych Mental Status: mental status grossly normal Office Procedures EKG Details: EKG with sinus rhythm at 76/Min; nonspecific ST-T changes. [id number], Complete Assessment & Plan Assessment & Plan (1) Precordial chest pain: Code(s): R07.2 - Precordial pain (2) Diabetes mellitus: Code(s): E11.9 - Type 2 diabetes mellitus without complications Qualifiers: Diabetes mellitus type: type 2 Diabetes mellitus director long term care insulin use: without residential use Diabetes mellitus complication status: without complication Qualified Code(s): E11.9 - Type 2 diabetes mellitus without complications (3) Benign essential hypertension: Code(s): I10 - Essential (primary) hypertension (4) Pure hypercholesterolemia: Code(s): E78.00 - Pure hypercholesterolemia, unspecified Plan Atypical chest pain, nonspecific ST-T changes in the EKG, multiple vascular risk factors. We will get an echocardiogram and myocardial perfusion imaging study for further evaluation. Based on the findings, can plan further care. Follow-up after testing. Orders: Orders CA stress test Today R07.2 - Precordial pain CA echo transthoracic complete Today I25.10 - Atherosclerotic heart disease of [place] coronary artery without angina pectoris, R07.2 - Precordial pain NM cardiolite stress test Today R07.2 - Precordial pain Coding Level of Care Code New Pt Level 4 (56625) Diagnoses Precordial chest pain R07.2 Type 2 diabetes mellitus without complication, without long-term current use of insulin E11.9 Diabetes mellitus type: type 2 Diabetes mellitus director long term care insulin use: without director long term care use Diabetes mellitus complication status: without complication Benign essential hypertension I10 Pure hypercholesterolemia E78.00 CPT Codes EKG - CPT: 87502-[id number], Complete ([id number])
== END 2023-06-14 14:42 | disposition home or self-care (01) ==
PROVIDERS: PCP Internal Medicine; Visit Provider Internal Medicine
DX: R07.2 Precordial pain (principal); E11.9 Type 2 diabetes mellitus without complications; I10 Essential (primary) hypertension; E78.00 Pure hypercholesterolemia, unspecified
CPT/HCPCS: 93010; 99204

== ENCOUNTER → 2023-06-14 14:08 | Outpatient (BNVA) | payer OTHER, SELFPAY | PROVIDERS: PCP Internal Medicine; Visit Provider Internal Medicine | DX: R07.2 Precordial pain (principal); E11.9 Type 2 diabetes mellitus without complications; I10 Essential (primary) hypertension; E78.00 Pure hypercholesterolemia, unspecified | CPT/HCPCS: 93005; 99202 ==

== ENCOUNTER 2023-07-10 14:53 | Outpatient (AMB) | payer OTHER, SELFPAY ==
--- NOTE | 2023-07-10 14:59 | MHC.PC.OV ---
Vital Signs 07/10/23 15:01 Height 5 ft 1 in Weight 143 lb 6 oz BMI 27.1 BP 120/40 L Blood Pressure Location Lt brachial Position Sitting Pulse 82 Pulse Source Pulse Oximeter Pulse Oximetry (%) 98 Oxygen Delivery Method Room Air Intake Visit Reasons: possible UTI District Manager In Training Required: Yes District Manager In Training Language: Irish Accompanied by: Self / Same As Patient Allergies No Known Allergies Allergy (Verified 07/10/23 15:02) Tobacco use date assessed: 05/23/23 Dental Screening Dental Screen Date: 07/10/23 Did you have a dental visit in the last 12 months?: Yes Did you have a dental problem in the last 6 months where you did not have access to dental care?: No Was dental information given to patient?: Patient has dentist HPI possible UTI HPI Details Old female with a history of asthma hypertension hypercholesterolemia diabetes mellitus GERD generalized anxiety disorder complaining of dysuria. dysuria, 3 days , no feversd , no n no v PFSH Medical History (Updated 07/10/23 @ 16:09 by Abraham Corbin MD) Vitamin B12 deficiency Insomnia Bilateral shoulder pain Impacted cerumen of both ears Recurrent chest pain Right shoulder pain Overweight (BMI 25.0-29.9) Depression Anxiety Allergic rhinitis Lumbar spondylosis Vitamin D deficiency Irritable bowel syndrome (IBS) GERD without esophagitis Anemia Asthma Benign essential hypertension Pure hypercholesterolemia Diabetes mellitus Tubular adenoma Surgical History History of colonoscopy History of esophagogastroduodenoscopy (EGD) History of tubal ligation History of cholecystectomy Family History Father Diabetes Hypertension CVD (cardiovascular disease) Mother Hypertension Diabetes Chronic mental illness Social History Housing: Apartment Alcohol intake: never Patient Tobacco Use Status: Never used Tobacco e-Cigarette/Vaping Use: Never Used Second Hand Smoke Exposure: No service: No Current occupational status: disabled Cognitive needs: No Hearing needs: Yes Vision needs: No Questionnaire PHQ-9 Over the last 2 weeks, how often have you been bothered by any of the following problems? 1. Little interest or pleasure in doing things: more than half the days 2. Feeling down, depressed, or hopeless: more than half the days 3. Trouble falling or staying asleep, or sleeping too much: not at all 4. Feeling tired or having little energy: not at all 5. Poor appetite or overeating: not at all 6. Feeling bad about yourself - or that you are a failure or have let yourself or your family down: not at all 7. Trouble concentrating on things, such as reading the newspaper or watching television: not at all 8. Moving or speaking so slowly that other people could have noticed. Or the opposite - being so fidgety or restless that you have been moving around a lot more than usual: not at all 9. Thoughts that you would be better off or of hurting yourself in some way: not at all Total score: 4 Depression Screening Interpretation: Positive Depression Screening Follow-up: Existing condition and In treatment Depression Screening Done: Yes 54007 - PHQ-9 Billing: Yes Source: Developed by Drs. Brody Perez, Randi Hand, Rodney Sneed and colleagues, with an educational sharif from [employer] Thrive Questionnaire Date Thrive assessed: 05/23/23 MAME-7 AMB Questionnaire MAME-7 Date MAME - 7 assessed: 01/15/23 Source: Developed by Drs. Brody Perez, Randi Hand, Rodney Sneed and colleagues, with an educational sharif from [employer] Physical exam (Primary Care) Vital Signs: Last Vital Signs Pulse 82 07/10/23 15:01 BP 120/40 L 07/10/23 15:01 Pulse Ox 98 07/10/23 15:01 Oxygen Delivery Method Room Air 07/10/23 15:01 BMI result Body Mass Index 27.1 Tobacco/Smoking Status: Tobacco use Status Tobacco use date assessed 05/23/23 07/10/23 14:59 Patient Tobacco Use Status Never used Tobacco 07/10/23 14:59 e-Cigarette/Vaping Use Never Used 07/10/23 14:59 PHQ-9: PHQ-9 Score PHQ-9: Total score 4 07/10/23 16:30 Depression Screening Interpretation: Positive Depression Screening Follow-up: Existing condition and In treatment Thrive Assessment: Date of Thrive Assessment Date Thrive assessed 05/23/23 07/10/23 14:59 Const General: alert; No acute distress Eyes Conjunctivae: conjunctivae normal Resp Auscultation: clear to auscultation bilaterally Cardio Rate: regular rate Rhythm: regular rhythm GI Inspection: Yes normal to inspection Extrem General: Yes normal to inspection and No edema Results AMB Urinalysis, Automated UA Leukoctes 0 Arnoldo/uL Last Edit by Isabel Mccauley on 07/10/23 16:33 UA Nitrite Negative Last Edit by Isabel Mccauley on 07/10/23 16:33 UA Urobilinogen 0.2 mg/dL Last Edit by Isabel Mccauley on 07/10/23 16:33 UA Protein 0 mg/dL Last Edit by Isabel Mccauley on 07/10/23 16:33 UA pH 6.0 Last Edit by Isabel Mccauley on 07/10/23 16:33 UA Blood 25 [place]/uL Last Edit by Isabel Mccauley on 07/10/23 16:33 UA Specific [place] 1.010 Last Edit by Isabel Mccauley on 07/10/23 16:33 UA Ketone Negative Last Edit by Isabel Mccauley on 07/10/23 16:33 UA Bilirubin 0 mg/dL Last Edit by Isabel Mccauley on 07/10/23 16:33 UA Glucose 250 mg/dL Last Edit by Isabel Mccauley on 07/10/23 16:33 Results Reviewed Results Reviewed: Laboratory Last Values Urine pH (Auto) 6.0 07/10/23 16:30 Specific [place] (Auto) 1.010 07/10/23 16:30 Urine Protein (Auto) 0 mg/dL 07/10/23 16:30 Glucose (UA)(Auto) 250 mg/dL 07/10/23 16:30 Urine Ketones (Auto) Negative 07/10/23 16:30 Urine Blood (Auto) 25 [place]/uL 07/10/23 16:30 Urine Nitrite (Auto) Negative 07/10/23 16:30 Urine Bilirubin (Auto) 0 mg/dL 07/10/23 16:30 Urine Urobilinogen (Auto) 0.2 mg/dL 07/10/23 16:30 Leukocyte Esterase (Auto) 0 Arnoldo/uL 07/10/23 16:30 Assessment and Plan Assessment & Plan (1) Dysuria: Code(s): R30.0 - Dysuria Plan: Pyridium sent in to help with dysuria discussed that the urine will turn to [place] and reassurance. (2) Hematuria: Code(s): R31.9 - Hematuria, unspecified Plan: Will do ultrasounds question of kidney stones (3) Type 2 diabetes mellitus with hyperglycemia: Code(s): E11.65 - Type 2 diabetes mellitus with hyperglycemia Plan: Decrease the amount of carbohydrate intake, pasta, bread, rice and potatoes are all sugar and that is aside from all the sweet stuff, remember that fruits are good but they are Sweet also. Hemoglobin A1c goal of less than 6.5. Patient's hemoglobin A1c 6.9 advised to get this under control (4) Hypercholesterolemia: Code(s): E78.00 - Pure hypercholesterolemia, unspecified Plan: Avoid fried foods, chicken skin, eggs, butter margarine, pastries and meat. Be it pork or beef they have a lot of cholesterol LDL goal of less than 100 and the LDL of the patient is 104. Orders: Orders AMB Urinalysis Automated Today R30.0 - Dysuria, Z13.9 - Encounter for screening, unspecified US renal BI Today R31.9 - Hematuria, unspecified US bladder Today R31.9 - Hematuria, unspecified Medications: New phenazopyridine (Pyridium) 200 mg PO TID 7 days PRN 10 tabs 0RF pain R30.0 - Dysuria Coding Level of Care Code Est Pt Level 4 (53430) Diagnoses Dysuria R30.0 Hematuria R31.9 Type 2 diabetes mellitus with hyperglycemia E11.65 Hypercholesterolemia E78.00
[2023-07-10 15:01] VITALS: BP 120/40; PULSE 82; O2SAT 98; BMI 27.1
== END 2023-07-10 16:19 | disposition home or self-care (01) ==
PROVIDERS: PCP Internal Medicine; Visit Provider Internal Medicine
DX: R30.0 Dysuria (principal); R31.9 Hematuria, unspecified; E11.65 Type 2 diabetes mellitus with hyperglycemia; E78.00 Pure hypercholesterolemia, unspecified
CPT/HCPCS: 81003; 99214

== ENCOUNTER 2023-07-15 16:55 | Emergency (ER) | payer OTHER, SELFPAY ==
[2023-07-15 19:20] VITALS: BP 128/64; PULSE 80; RESP 17; TEMP 36.6; O2SAT 97; BMI 26.1
--- NOTE | 2023-07-15 19:23 | ED.GENADULT ---
HPI - General Adult General Chief complaint: Abdominal Pain Stated complaint: ? 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 Patient states that over the last few days she has had pain with urination. Patient denies any dizziness, lightheadedness, abdominal pain, nausea, vomiting, fever, chills, blurry vision, double vision, loss of vision, chest pain, difficulty breathing, shortness of breath, back pain, night sweats, increased urinary frequency, increased urinary urgency, blood in her urine or stool, syncope or a near syncopal episode, recent trauma or falls, bowel incontinence, bladder incontinence, bowel retention, bladder retention, or any other complaints at this time. Onset (ago): day(s) Severity: mild Severity scale (1-10): 3 Relieving factors: none Exacerbating factors: none Associated symptoms: denies other symptoms Treatments prior to arrival: none Related Data Home Medications Medication Instructions Recorded Confirmed hydrocortisone 1 % lotion 1 applic topical TID PRN rash 05/30/20 06/14/23 emollient combination no.32 topical 01/13/22 06/14/23 (EpiCeram topical emulsion, extended release) hydroquinone 4 % topical cream appl topical BID 06/14/23 06/14/23 Previous Rx's Medication Instructions Recorded blood-glucose meter (FreeStyle #1 ea 04/21/21 Lite Meter kit) clotrimazole 1 % topical cream 1 appl topical TID PRN rash on 03/27/22 foot #45 grams lancets 28 gauge (FreeStyle 28 gauge topical BID #100 caps 06/26/22 Lancets) melatonin 10 mg capsule 10 mg PO BEDTIME PRN sleep 30 days 08/11/22 #30 caps acetaminophen 325 mg tablet 650 mg (2 x 325 mg) PO Q6H PRN 08/17/22 pain #90 tabs ibuprofen 600 mg tablet 600 mg PO Q6H PRN pain #60 tabs 08/17/22 blood sugar diagnostic #100 ea 09/07/22 cyanocobalamin (vitamin B-12) 1,000 mcg PO DAILY 90 days #90 tabs 09/07/22 1,000 mcg tablet ferrous sulfate 325 mg (65 mg 325 mg PO 3XW 90 days #39 tabs 09/07/22 iron) tablet folic acid 1 mg tablet 1 mg PO DAILY 90 days #90 tabs 09/07/22 methylcellulose (laxative) 500 mg 500 mg PO BID #60 tabs 09/20/22 tablet (Citrucel) peg 3350-electrolytes 236 240 ml PO Q10M 1 day #4,000 mL 10/12/22 gram-22.74 gram-6.74 gram-5.86 gram solution (Golytely) metformin 500 mg tablet 500 mg PO BID 90 days #180 tabs 10/17/22 cholecalciferol (vitamin D3) 25 25 mcg PO DAILY 90 days #90 caps 11/14/22 mcg (1,000 unit) capsule paroxetine HCl 40 mg tablet 60 mg (1.5 x 40 mg) PO DAILY 30 01/15/23 days #45 tabs albuterol sulfate 90 mcg/actuation 2 puff inhalation Q6H PRN 04/18/23 aerosol inhaler (ProAir HFA) shortness of breath or wheezing 30 days #18 grams simvastatin 20 mg tablet 20 mg PO QPM 90 days #90 tabs 04/18/23 bisacodyl 5 mg tablet,delayed 10 mg (2 x 5 mg) PO BEDTIME 90 04/25/23 release (Laxative (bisacodyl)) days #180 tabs linaclotide 145 mcg capsule 145 mcg PO QAM 90 days #90 caps 04/25/23 (Linzess) omeprazole 20 mg capsule,delayed 20 mg PO DAILY PRN heartburn 90 04/25/23 release days #90 caps meclizine 12.5 mg tablet 12.5 mg PO QID PRN dizziness #120 06/25/23 tabs clonazepam 0.5 mg tablet 0.5 mg PO TID PRN anxiety 30 days 06/27/23 #90 tabs lisinopril 5 mg tablet 5 mg PO DAILY 90 days #90 tabs 06/27/23 triamcinolone acetonide 0.025 % 1 appl topical BID PRN pruritic 06/27/23 topical ointment rash #80 grams phenazopyridine 200 mg tablet 200 mg PO TID PRN pain 7 days #10 12/26/23 (Pyridium) tabs cefuroxime axetil 250 mg tablet 250 mg PO BID 7 days #14 tabs 07/15/23 Allergies Allergy/AdvReac Type Severity Reaction Status Date / Time No Known Allergies Allergy Verified 07/10/23 15:02 Review of Systems Constitutional: Constitutional: Reports no additional constitutional complaints, Denies chills, Denies fever(s) and Denies night sweats Eyes: Eyes: Reports no additional eye complaints, Denies blurry vision, Denies change in vision, Denies diplopia, Denies eye discharge, Denies loss of vision and Denies eye pain ENT: Denies dizziness Cardiovascular: Cardiovascular: Reports no additional cardiovascular complaints, Denies chest pain, Denies lightheadedness, Denies Loss of Consciousness and Denies dyspnea Respiratory: Respiratory: Reports no additional respiratory complaints and Denies dyspnea Gastrointestinal: Gastrointestinal: Reports no additional gastrointestinal complaints, Denies abdominal pain, Denies melena, Denies hematochezia, Denies change in bowel habits and Denies change in stool character Genitourinary: Genitourinary: Denies hematuria, Denies urinary frequency, Reports dysuria, Denies urinary incontinence, Denies urinary hesitancy and Denies urinary urgency Musculoskeletal: Musculoskeletal: Reports no additional musculoskeletal complaints, Denies numbness and Denies tingling Neurologic: Denies dizziness, Denies loss of vision, Denies numbness and Denies tingling Psychiatric: Psychiatric: Reports no additional psychiatric complaints Endocrine: Endocrine: Reports no additional endocrine complaints Hematologic/Lymphatic: Hematologic/Lymphatic: Reports no additional hematologic/lymphatic complaints Allergic/Immunologic: Allergic/Immunologic: Reports no additional allergic/immunologic complaints PMFSH Past Medical History Attestation statement: The following information was validated with the patient. Source: old records reviewed and nursing notes reviewed Medical History Hypercholesterolemia Type 2 diabetes mellitus with hyperglycemia Hematuria Dysuria Precordial chest pain Impacted cerumen, left ear Chest pain Pre-op examination Urinary tract infection Left ear pain URI (upper respiratory infection) Sore throat Tinea pedis Impacted cerumen of both ears Superficial thrombophlebitis Bilateral shoulder pain Skin lump of leg Abscess of leg Pain of left calf Cellulitis Insect bite Abdominal pain Impacted cerumen of both ears Recurrent chest pain Right shoulder pain Overweight (BMI 25.0-29.9) Vitamin B12 deficiency Insomnia Depression Anxiety Allergic rhinitis Lumbar spondylosis Vitamin D deficiency Irritable bowel syndrome (IBS) GERD without esophagitis Anemia Asthma Benign essential hypertension Diabetes mellitus Tubular adenoma Surgical History History of colonoscopy History of esophagogastroduodenoscopy (EGD) History of tubal ligation History of cholecystectomy Family History Family History Father Diabetes Hypertension CVD (cardiovascular disease) Mother Hypertension Diabetes Chronic mental illness Social History Social History Housing: Apartment Unable to assess alcohol history related to: Unknown Alcohol intake: never Patient Tobacco Use Status: Never used Tobacco Smoked in Last 30 Days: No e-Cigarette/Vaping Use: Never Used Second Hand Smoke Exposure: No Use of substances other than those prescribed or required for medical reasons: No Advance Directives: No Advance Directives Information Provided: No service: No Current occupational status: disabled Cognitive needs: No Hearing needs: Yes Vision needs: No Physical Exam ED Vital Signs: Vital Signs - 24 hr 07/15/23 19:20 07/15/23 22:12 Temperature 97.8 F 97.1 F Pulse Rate 80 83 Respiratory Rate 17 18 Blood Pressure 128/64 132/59 L Pulse Oximetry 97 95 Oxygen Delivery Method Room Air Room Air BMI result Body Mass Index 26.1 Const General: cooperative, no acute distress, alert and awake Nutritional Appearance: well nourished Orientation/consciousness: patient oriented x3 Limitations: no limitations [facility] Head: Yes normal to inspection and Yes atraumatic Ears: hearing grossly normal bilaterally and external ears normal General nose exam: Normal external nose present, no nasal discharge noted and no epistaxis Face and sinus: Yes normal facial exam, No abrasion and No laceration Mouth: Normal oral and palatal mucosa present, no drooling and no muffled voice Eyes General: appearance normal, both eyes and all related structures Periorbital: periorbital findings normal Eyelids: Yes eyelids normal Conjunctivae: conjunctivae normal Pupils: Equal, round and reactive pupils present EOM: EOMs intact bilaterally Neck Neck: Yes normal visual inspection, Yes full ROM and Yes no lymphadenopathy Chest Chest palpation & inspection: normal inspection of the chest Resp Effort & Inspection: normal respiratory effort and able to speak in complete sentences GI Inspection: Yes normal to inspection Neuro General: patient oriented x3 and moves all extremities Cranial nerves: Yes Equal, round and reactive pupils present Cognition (Neuro): normal cognition Motor exam (neuro): 5/5 motor strength present throughout Sensory Exam: Normal double simultaneous stimulation for sensation Coordination: [id number] test normal Extrem General: Yes normal to inspection, Yes full ROM and Yes capillary refill normal Psych Appearance: grossly normal Mental Status: mental status grossly normal Affect: normal affect Attitude: cooperative Thought process: Normal thought process present Thought content: Normal thought content present Insight: Good insight present (Psych) Course Course Course Narrative: This is a rapid medical exam: Additional HPI, ROS, PE not included below will be deferred to primary provider. Patient is a 63-year-old female presenting with complaint of dysuria for week, now complaining of left flank pain. Was seen at [facility] prescribed Pyridium, no antibiotics at that time. Denies fevers. Plan: UA, labs Medications Administered Discontinued Medications Generic Name Dose Route Start Last Admin Trade Name Freq PRN Reason Stop Dose Admin Cefuroxime Axetil 250 mg 07/15/23 23:17 07/15/23 23:29 Cefuroxime Axetil 250 Mg Tablet PO 07/15/23 23:18 250 mg ONCE ONE Administration Medical Decision Making Medical Decision Making [facility] Narrative: Patient is a 63 year old assigned female at with a history of DM, asthma, and HTN presenting to the emergency department today with painful urination. Patient's physical exam was unremarkable. Patient's blood work was unremarkable. Patient's urine showed an acute infection. I explained my physical exam findings as well as all test results to the patient. I answered all questions asked by the patient. I stressed the importance of the patient taking her medication as prescribed. I stressed the importance of the patient following up with her primary care provider. I stressed the importance of the patient returning to the emergency department immediately if her symptoms were to worsen or if she were to develop any dizziness, shortness of breath, difficulty breathing, chest pain, blurry vision, loss of vision, nausea, vomiting, abdominal pain, fever, chills, back pain, or any other complaints. Patient verbalized agreement and understanding with this treatment plan and discharge. Differential Diagnosis Differential Diagnoses: The differential diagnosis associated with the presentation includes UTI Dysuria Admission/Observation Consideration of admission/observation: Escalation of care including admission/observation considered Patient would have been admitted to the hospital had her work up had any findings where hospital admission was appropriate and her clinical presentation warranted hospital admission. Lab Data [facility] Lab Attestation statement: I reviewed the patient's lab results. My interpretation of these results are in the [facility] Rationale portion of this note. 07/15/23 22:38 07/15/23 22:38 Labs: Lab Results 07/15/23 07/15/23 Range/Units 22:01 22:38 WBC 9.7 (4.8-10.8) X10*3/uL RBC 4.26 (4.20-5.50) X10*6/uL Hgb 11.7 L (12.0-16.0) g/dl Hct 36.7 L (37.0-47.0) % MCV 86.2 (80.0-98.0) fL MCH 27.5 (27.0-33.0) pg MCHC 31.9 (31.0-35.0) g/dl RDW 13.8 (11.0-16.0) % Plt Count 228 (160-400) X10*3/uL MPV 11.1 (9.4-12.3) fL Immature Gran % (Auto) 0.2 (0.0-0.4) % Neut % (Auto) 56.0 (45-73) % Lymph % (Auto) 34.4 (20-40) % [place] % (Auto) 7.6 (2-11) % Eos % (Auto) 1.5 (0-4) % Baso % (Auto) 0.3 (0-2) % Lymph # (Auto) 3.4 (1.2-4.9) X10*3/uL [place] # (Auto) 0.7 (0.1-1.2) X10*3/uL Eos # (Auto) 0.2 (0.0-0.4) X10*3/uL Baso # (Auto) 0.0 (0.0-0.2) X10*3/uL Abs Immat Gran (auto) 0.02 (0.00-0.03) X10*3/uL Absolute Neuts (auto) 5.5 (2.0-8.3) x10*3/uL Absolute Nucleated RBC 0.000 (0.0-0.012) X10*3/uL Nucleated RBC % (auto) 0.0 (0.0-0.2) /100WBC Sodium 141 (135-145) mmol/L Potassium 4.1 (3.3-5.1) mmol/L Chloride 103 (96-108) mmol/L Carbon Dioxide 28 (22-29) mmol/L Anion Gap 14 (12-20) BUN 10 (9-16) mg/dL Creatinine 0.71 (0.5-1.4) mg/dL Estim Creat Clear Calc 71.6 Estimated GFR > 60 Random Glucose 118 H (60-115) mg/dL Calcium 9.6 (8.4-10.2) mg/dL Total Bilirubin 0.4 (0.0-1.0) mg/dL AST 14 (5-31) U/L ALT 13 (0-31) U/L Alkaline Phosphatase 112 (39-117) U/L Total Protein 7.5 (6.5-8.0) g/dL Albumin 4.0 (3.5-5.0) g/dL Lipase 33 (8-78) U/L Urine Color Dark Yellow Urine Appearance Cloudy Urine pH 5.5 (5.0-9.0) Ur Specific [place] 1.015 (1.005-1.025) Urine Protein 100 (2+) H (Neg-Trace) mg/dL Urine Glucose (UA) Negative (Negative) mg/dL Urine Ketones Negative (Negative) mg/dL Urine Blood Trace H (Negative) Urine Nitrite Positive H (Negative) Ur Leukocyte Esterase Small (1+) H (Negative) Urine RBC 3-5 H (0-2) /HPF Urine WBC >50 H (0-5) /HPF Ur Squamous Epith Cells 0-2 (0-2) /HPF Urine Bacteria 4+ (None Seen) Hyaline Casts 0-2 (0-2) /LPF Prescription Management I considered prescription management with: Antibiotic (patient prescribed an antibiotic for UTI) Discharge Plan Discharge Clinical Impression: Urinary tract infection Patient Disposition: Home, Self-Care Instructions: Urinary Tract Infection in Women (DC) Additional Instructions: Follow up with your primary care provider. Return to the emergency department immediately if your symptoms worsen or if you develop any dizziness, shortness of breath, difficulty breathing, chest pain, blurry vision, loss of vision, nausea, vomiting, abdominal pain, fever, chills, back pain, or any other complaints. Ilda un seguimiento con ceballos proveedor de atenci?n primaria. Regrese al departamento de emergencias inmediatamente si latonia s?ntomas empeoran o si presenta mareos, dificultad para respirar, dificultad para respirar, dolor en el pecho, visi?n borrosa, p?rdida de la visi?n, n?useas, v?mitos, dolor abdominal, fiebre, escalofr?os, dolor de espalda o cualquier otras quejas. Prescriptions: New cefuroxime axetil 250 mg tablet 250 mg PO BID 7 Days Qty: 14 0RF No Action (DME) blood-glucose meter [FreeStyle Lite Meter] Kit See Rx Instructions .Route Qty: 1 0RF Rx Instructions: TEST 2 TIMES DAILY lancets [FreeStyle Lancets] 28 gauge misc 28 gauge topical BID Qty: 100 6RF melatonin 10 mg capsule 10 mg PO BEDTIME PRN (Reason: sleep) 30 Days Qty: 30 3RF (DME) blood sugar diagnostic Strip See Rx Instructions Not Applicable DAILY Qty: 100 6RF Rx Instructions: TEST 2 TIMES DAILY cyanocobalamin (vitamin B-12) 1,000 mcg tablet 1,000 mcg PO DAILY 90 Days Qty: 90 3RF ferrous sulfate 325 mg (65 mg iron) tablet 325 mg PO 3XW 90 Days Qty: 39 3RF folic acid 1 mg tablet 1 mg PO DAILY 90 Days Qty: 90 3RF Citrucel 500 mg tablet 500 mg PO BID Qty: 60 12RF cholecalciferol (vitamin D3) 25 mcg (1,000 unit) capsule 25 mcg PO DAILY 90 Days Qty: 90 3RF albuterol sulfate [ProAir HFA] 90 mcg/actuation HFA aerosol inhaler 2 puff inhalation Q6H PRN (Reason: shortness of breath or wheezing) 30 Days Qty: 18 5RF simvastatin 20 mg tablet 20 mg PO QPM 90 Days Qty: 90 3RF meclizine 12.5 mg tablet 12.5 mg PO QID PRN (Reason: dizziness) Qty: 120 8RF triamcinolone acetonide 0.025 % ointment 1 appl topical BID PRN (Reason: pruritic rash) Qty: 80 0RF lisinopril 5 mg tablet 5 mg PO DAILY 90 Days Qty: 90 3RF clonazepam 0.5 mg tablet 0.5 mg PO TID PRN (Reason: anxiety) 30 Days Qty: 90 0RF hydrocortisone 1 % lotion 1 applic topical TID PRN (Reason: rash) metformin 500 mg tablet 500 mg PO BID 90 Days Qty: 180 3RF paroxetine HCl 40 mg tablet 60 mg PO DAILY 30 Days Qty: 45 5RF clotrimazole 1 % cream 1 appl topical TID PRN (Reason: rash on foot) Qty: 45 0RF ibuprofen 600 mg tablet 600 mg PO Q6H PRN (Reason: pain) Qty: 60 0RF acetaminophen 325 mg tablet 650 mg PO Q6H PRN (Reason: pain) Qty: 90 0RF phenazopyridine [Pyridium] 200 mg tablet 200 mg PO TID PRN (Reason: pain) 7 Days Qty: 10 0RF peg 3350-electrolytes [Golytely] 236-22.74-6.74 -5.86 gram recon soln 240 ml PO Q10M 1 Days Qty: 4000 0RF Rx Instructions: until fecal effluent is clear; do not exceed a total volume of 2,000 mL EpiCeram Emulsion, Extended Release topical hydroquinone 4 % cream topical BID bisacodyl [Laxative (bisacodyl)] 5 mg tablet,delayed release (DR/EC) 10 mg PO BEDTIME 90 Days Qty: 180 1RF Linzess 145 mcg capsule 145 mcg PO QAM 90 Days Qty: 90 1RF Hold Instructions: Doctor's Order omeprazole 20 mg capsule,delayed release(DR/EC) 20 mg PO DAILY PRN (Reason: heartburn) 90 Days Qty: 90 3RF Referrals: Herb Souza MD [Primary Care Provider] - Stand Alone Forms: Work/School Release Interventions: ED Discharge Assessment Last Done: 07/15/23 23:40 Discharge Date/Time: 07/15/23 23:42 Print Language: Telugu
[2023-07-15 22:12] VITALS: BP 132/59; PULSE 83; RESP 18; TEMP 36.2; O2SAT 95
[2023-07-15 22:18] LABS: Appearance Urine Cloudy; Color Urine Dark Yellow; Glucose Urine UA Negative (Negative); Leukocyte Esterase Urine Small (1+) (Negative); Nitrite Urine Positive (Negative); PH 5.5 (5.0-9.0); Specific Gravity - Urine 1.015 (1.005-1.025); UMIC TRIGGER UACC YES; Urine Blood Trace (Negative); Urine Ketones Negative (Negative); Urine Protein 100 (2+) mg/dL (Neg-Trace)
[2023-07-15 22:20] LABS: Bacteria Urine 4+ (None Seen); Hyaline Casts Urine 0-2 /LPF (0-2); Squamous Epithelial Cell Urine 0-2 /HPF (0-2); UACC Culture Trigger YES; WBC Urine >50 /HPF (0-5)
[2023-07-15 22:41] LABS: MANUAL DIFF FLAG NO
[2023-07-15 22:42] LABS: Basophils Percent Auto 0.3 % (0-2); Eosinophils Absolute Auto 0.2 X10*3/uL (0.0-0.4); Eosinophils Percent Auto 1.5 % (0-4); Hematocrit 36.7 % (37.0-47.0); Hemoglobin 11.7 g/dl (12.0-16.0); Imm Gran Abs Auto 0.02 X10*3/uL (0.00-0.03); Imm Gran Pct Auto 0.2 % (0.0-0.4); Lymphocytes Absolute Auto 3.4 X10*3/uL (1.2-4.9); Lymphocytes Percent Auto 34.4 % (20-40); Mean Corpuscular HGB Conc 31.9 g/dl (31.0-35.0); Mean Corpuscular Hemoglobin 27.5 pg (27.0-33.0); Mean Corpuscular Volume 86.2 fL (80.0-98.0); Mean Platelet Volume 11.1 fL (9.4-12.3); Monocytes Absolute Auto 0.7 X10*3/uL (0.1-1.2); Monocytes Percent Auto 7.6 % (2-11); Neutrophils Absolute Auto 5.5 x10*3/uL (2.0-8.3); Platelet Count 228 X10*3/uL (160-400); Red Blood Count 4.26 X10*6/uL (4.20-5.50); Red Cell Distribution Width 13.8 % (11.0-16.0); White Blood Count 9.7 X10*3/uL (4.8-10.8)
[2023-07-15 22:56] LABS: Alanine Aminotransferase 13 U/L (0-31); Alkaline Phosphatase 112 U/L (39-117); Anion Gap 14 (12-20); Aspartate Amino Transferase 14 U/L (5-31); Bilirubin Total 0.4 mg/dL (0.0-1.0); Blood Urea Nitrogen 10 mg/dL (9-16); Calcium 9.6 mg/dL (8.4-10.2); Carbon Dioxide 28 mmol/L (22-29); Chloride 103 mmol/L (96-108); Creatinine Clr Calc Pharmacy 71.6; Estimated Glomerular Filt Rate > 60; Glucose Random 118 mg/dL (60-115); Lipase 33 U/L (8-78); Potassium 4.1 mmol/L (3.3-5.1); Sodium 141 mmol/L (135-145); Total Protein 7.5 g/dL (6.5-8.0)
[2023-07-15] MEDS: cefuroxime axetiL 250 MG TABLET PO (23:29)
== END 2023-07-15 23:42 | disposition home or self-care (01) ==
PROVIDERS: Emergency Medicine Emergency Medical Services; Emergency Provider Emergency Medicine; PCP Internal Medicine
DX: N39.0 Urinary tract infection, site not specified (principal); E11.9 Type 2 diabetes mellitus without complications; I10 Essential (primary) hypertension
CPT/HCPCS: 36415; 80053; 81001; 83690; 85025; 87086; 87088; 87186; 99283; 99284

== ENCOUNTER 2023-08-02 12:41 | Outpatient (REF) | payer OTHER, SELFPAY ==
--- NOTE | ~2023-08-02 | US_ITS ---
EXAMINATION: US RETROPERITONEAL LIMITED (RENAL ONLY) CLINICAL INFORMATION: Hematuria, unspecified. COMPARISON: CT abdomen and pelvis with contrast 01/19/2019. TECHNIQUE: Real-time imaging of the kidneys. FINDINGS: RIGHT KIDNEY: 11.3 x 4.9 x 5.0 cm (SAG x AP x TRV). The kidney is normal in size, contour, and echogenicity. Renal cortical thickness is normal. No calculi or focal parenchymal lesions. Pelviectasis without hallie hydronephrosis. LEFT KIDNEY: 11.1 x 5.5 x 4.4 cm (SAG x AP x TRV). The kidney is normal in size, contour, and echogenicity. Renal cortical thickness is normal. No calculi or focal parenchymal lesions. No hydronephrosis. US/US renal BI IMPRESSION: Right renal pelviectasis without hallie hydronephrosis. No nephrolithiasis.
== END 2023-08-02 12:42 | disposition home or self-care (01) ==
LOC: HO.US 12:41
PROVIDERS: PCP Internal Medicine; Visit Provider Internal Medicine
DX: R31.9 Hematuria, unspecified (principal)
CPT/HCPCS: 76775

== ENCOUNTER 2023-08-08 12:31 | Outpatient (REF) | payer OTHER, SELFPAY ==
--- NOTE | ~2023-08-08 | US_ITS ---
EXAMINATION: US PELVIS LIMITED (BLADDER) CLINICAL INFORMATION: Hematuria, unspecified. COMPARISON: CT abdomen and pelvis 01/19/2019. TECHNIQUE: Real-time imaging of the bladder. FINDINGS: BLADDER: Well distended and normal. Bilateral ureteral jets are demonstrated. Prevoid bladder volume is 646 mL. Postvoid bladder volume is 17.3 mL. US/US bladder IMPRESSION: Unremarkable bladder ultrasound.
== END 2023-08-08 12:32 | disposition home or self-care (01) ==
LOC: HO.US 12:31
PROVIDERS: PCP Internal Medicine; Visit Provider Internal Medicine
DX: R31.9 Hematuria, unspecified (principal)
CPT/HCPCS: 76857

== ENCOUNTER → 2023-09-10 09:10 | Outpatient (REF) | payer OTHER, SELFPAY ==
--- NOTE | ~2023-09-10 | NM_ITS ---
Exercise Myocardial perfusion study Indication: Chest pain Technique: The patient was brought in for an exercise perfusion study on 09/10/2023. Patient performed exercise as per [facility] protocol and was injected 25 mCi of sestamibi was given intravenously one target HR was achieved. Images were obtained using the SPECT gamma camera interlaced with the gating device. Images were obtained in supine position. Resting perfusion study was performed on 09/11/2023. Patient was administered 25 mCi of sestamibi intravenously at rest. Images were then obtained in supine position. Images obtained with and without CT attenuation. Total DLP 95 mGy-cm. Images were processed with the software and compared side to side in short axis, horizontal long axis and vertical long axis views. Findings: The stress perfusion study showed non attenuated images show normal uptake of radiotracer in all segments of LV myocardium. Attenuation corrected images show some thinning of the apex of the LV myocardium.. The gated study shows normal LV systolic function with calculated LVEF of 62%. LV cavity is normal in size. The gated study shows normal systolic wall thickening and contraction of all segments. There is no transient ischemic dilation. Resting study shows no change in perfusion pattern compared to stress perfusion study. Gating at rest reveals normal systolic wall motion with ejection fraction at 57%. The findings are consistent with no clear reversible defect suggestive of ischemia. Normal myocardial perfusion. NM/NM cardiolite stress test Impression: 1. Normal myocardial perfusion 2. Gated LVEF is 62% 3. Transient ischemic dilatation not present Stress EKG is negative for ischemia at workload achieved
--- NOTE | 2023-09-10 09:13 | CA_ITS ---
Acquisition Time: 2023-09-10 10:00:22 Total Exercise Time: 00:05:30 Test Indications: Chest Pain Medications: See H Protocol: CARMELINA Max HR: 141 BPM 89% of Pred: 157 BPM Max BP: 170/060 mmHG Max Work Load: 6.8 METS Exercise stress test exercise 5 min 30 sec of Carmelina protocol achieiving 90% MPHR, without anginal symptoms, without arrhythmias, with normotensive response to exercise. without EKG changes. Nuclear images pending. Test reviewed with Dr. Mcdonough. Referred By: Curtis Mcdonough Overread By: Francy Rajan
--- NOTE | 2023-09-10 09:13 | CA_ITS ---
Transthoracic Echocardiogram Patient (Last, First, Middle): Kirstin Foote, Gender: Female Date of : 1960 Age: 63 Procedure Date: 09/10/2023 Procedure Type: Transthoracic Echocardiogram Location: OP Height: 154. cm Weight: 63.5 kg BSA: 1.62 m2 Heart Rate: 64 bpm BP: 110 / 80 mmHg Burlap Spreader: CARLOS Referring MD: Curtis Mcdonough MD Symptoms: I25.10 - Atherosclerotic heart disease of [place] coronary artery without... Study Quality: Adequate ECG Rhythm: Sinus Conclusions: - The left ventricular systolic function is normal. The calculated ejection fraction is 55% by biplane method. - The basal inferior and basal inferoseptal segments are hypokinetic. - No obvious valvular pathology seen on this study. Findings Left Ventricle Normal left ventricular cavity size. There is normal left ventricular wall thickness. The left ventricular systolic function is normal. The calculated ejection fraction is 55% by biplane method. Diastolic function is normal for age. LV peak GLS -18.4%. Wall Motion Rest Echo Findings The basal inferior and basal inferoseptal segments are hypokinetic. Right Ventricle Normal right ventricular cavity size and systolic function. Atria Both atria are normal in size. Aortic Valve There is a normal trileaflet aortic valve. There is no aortic valve stenosis. There is no aortic valve regurgitation. Mitral Valve The mitral valve appears normal. There is no mitral valve regurgitation. There is no mitral valve stenosis. Pulmonic Valve The pulmonic valve is likely normal. Tricuspid Valve There is trace tricuspid valve regurgitation. There is no evidence of pulmonary hypertension. Great Vessels The asc aorta is normal in size. Venous The inferior vena cava is normal in size and collapses greater than 50% with inspiration. Pericardium/Pleural There is no evidence of pericardial effusion. Prior Study Comparison No prior study available for comparison. Recommendations, Care & Conclusions No obvious valvular pathology seen on this study. Measurements 2D Linear Measurements IVSd: 0.91 0.6-0.9/0.6-1.0 cm LVIDd: 4.20 3.9-5.3/4.2-5.9 cm LVIDd Index: 2.59 2.4-3.2/2.2-3.1 cm/m2 LVIDs: 2.93 2.0-3.6 cm LVPWd: 1.08 0.7-1.1 cm LA Diam: 3.50 2.7-3.8/3.0-4.0 cm LAIDs Index: 2.16 1.5-2.3 cm/m2 LV Mass: 169.01 67-162/88-224 g LV Mass Index: 104.33 43-95/49-115 g/m2 LVOT Diam: 1.90 3.0+(-)1.3 cm 2D Systolic Function EF 4C: 56.10 >55% EF 2C: 54.80 >55% EF BiP: 55.40 >55% Mitral Valve MV Pk E: 0.75 MV PK A: 0.93 MV Decel Time: 312.00 E/A: 0.80 E'Lateral: 8.38 E'Medial: 5.55 E/E' Med: 13.40 E/E' Lat: 8.90 PHT: 92.00 MVA PHT: 2.39 Decel Davie: 2.39 Aortic Valve AoV Pk Anselmo: 1.47 AoV Mn Anselmo: 1.09 AoV VTI: 0.32 AoV Pk Grad: 9.00 Aov Mn Grad: 5.00 OTIS Cont.VTI: 2.03 LVOT LVOT Pk Anselmo: 1.02 LVOT Mn Anselmo: 0.80 LVOT VTI: 0.23 LVOT Pk Grad: 4.00 LVOT Mn Grad: 3.00 LVOT Diam: 1.90 LVOT Area: 2.84 Diastolic Function MV Pk E: 0.75 MV Pk A: 0.93 E/A: 0.80 E'Medial: 5.55 E/E' Med: 13.40 E' Laterial: 8.38 E/E' Lat: 8.90 Right Ventricle TAPSE (mm): 27.80 TVS' Anselmo: 12.50 Tricuspid Valve TR Pk Anselmo: 1.83 TR Pk Grad: 13.00 RA Press: 3.00 RVSP: 16.00 Great Vessels Aorta Sinus of Valsalva: 3.50 2.0-3.5 cm Ao Asc: 3.50 2.1-3.4 cm Pulmonary Valve PV Pk Anselmo: 0.97 Peak PV Grad: 4.00 Updated in Other Vendor System with Status of Final Curtis Mcdonough MD electronically signed on 09/10/2023 8:10:01 AM with status of Final
== END ==
LOC: HO.CARD 09:10
PROVIDERS: PCP Internal Medicine; Visit Provider Internal Medicine
DX: R07.2 Precordial pain (principal); I25.10 Atherosclerotic heart disease of native coronary artery without angina pectoris
CPT/HCPCS: 78452; 93017; 93306; 93356; A9500

== ENCOUNTER → 2023-09-10 09:13 | Outpatient (BNV) | payer OTHER, SELFPAY | PROVIDERS: PCP Internal Medicine; Visit Provider Internal Medicine | DX: R07.2 Precordial pain (principal) | CPT/HCPCS: 78452; 93016; 93018; 93306 ==

== ENCOUNTER 2023-09-18 13:05 | Outpatient (AMB) | payer OTHER, SELFPAY ==
[2023-09-18 13:08] VITALS: BP 116/60; PULSE 68; BMI 25.4
--- NOTE | 2023-09-18 13:08 | A.OFFVIS_ITS ---
Intake Vital Signs 09/18/23 13:08 Height 5 ft 2 in Weight 138 lb 14.259 oz BMI 25.4 BP 116/60 Blood Pressure Location Lt brachial Position Sitting Pulse 68 Intake Visit Reasons: r/s 6 wks followup after testing Intake Note: 6 week follow up Hospital Television Rental Clerk Required: Yes Hospital Television Rental Clerk Name: sangita casarez [id number] Allergies No Known Allergies Allergy (Verified 09/18/23 13:26) HPI HPI Comments History of Present Illness Details 63-year-old female presents today to [facility] after testing. She was recently seen regarding chest pains and a echocardiogram and stress test was ordered. She has a medical history of diabetes, hypercholesterolemia, and hypertension. She reports she has been doing well with no recurrence of the chest pains. She denies shortness of breath, or palpitations. [facility] Medical History (Updated 09/18/23 @ 13:56 by Francy Rajan NP) Chest pain Hypercholesterolemia Type 2 diabetes mellitus with hyperglycemia Hematuria Dysuria Precordial chest pain Impacted cerumen, left ear Pre-op examination Urinary tract infection Left ear pain URI (upper respiratory infection) Sore throat Tinea pedis Impacted cerumen of both ears Superficial thrombophlebitis Bilateral shoulder pain Skin lump of leg Abscess of leg Pain of left calf Cellulitis Insect bite Abdominal pain Impacted cerumen of both ears Recurrent chest pain Right shoulder pain Overweight (BMI 25.0-29.9) Vitamin B12 deficiency Insomnia Depression Anxiety Allergic rhinitis Lumbar spondylosis Vitamin D deficiency Irritable bowel syndrome (IBS) GERD without esophagitis Anemia Asthma Benign essential hypertension Diabetes mellitus Tubular adenoma Surgical History History of colonoscopy History of esophagogastroduodenoscopy (EGD) History of tubal ligation History of cholecystectomy Family History Father Diabetes Hypertension CVD (cardiovascular disease) Mother Hypertension Diabetes Chronic mental illness Social History Housing: Apartment Unable to assess alcohol history related to: Unknown Alcohol intake: never Patient Tobacco Use Status: Never used Tobacco e-Cigarette/Vaping Use: Never Used Second Hand Smoke Exposure: No service: No Current occupational status: disabled Cognitive needs: No Hearing needs: Yes Vision needs: No Physical Exam Vital Signs: Last Vital Signs Pulse 68 09/18/23 13:08 BP 116/60 09/18/23 13:08 BMI result Body Mass Index 25.4 Const General: healthy appearing and no acute distress Orientation/consciousness: patient oriented x3 HEENT Head: Yes normal to inspection Eyes General: appearance normal, both eyes and all related structures Neck Neck: Yes normal visual inspection Chest Chest palpation & inspection: normal inspection of the chest Resp Effort & Inspection: normal respiratory effort Auscultation: clear to auscultation bilaterally Cardio Jugular venous distension: no JVD Palpation: normal PMI Rate: regular rate Rhythm: regular rhythm Heart sounds: S1 normal heart sound present, S2 normal heart sound present, no click, no gallops, no murmurs and no rubs GI Inspection: Yes normal to inspection Palpation (GI): Soft to palpation Skin General skin exam: no rashes or lesions noted Neuro General: patient oriented x3 Extrem General: Yes normal to inspection Psych Appearance: grossly normal Results Reviewed Results Reviewed: Echo: Conclusions: - The left ventricular systolic function is normal. The calculated ejection fraction is 55% by biplane method. - The basal inferior and basal inferoseptal segments are hypokinetic. - No obvious valvular pathology seen on this study. Stress test: NM/AL cardiolite stress test Impression: 1. Normal myocardial perfusion 2. Gated LVEF is 62% 3. Transient ischemic dilatation not present Assessment & Plan Assessment & Plan (1) Chest pain: Comment: recurrent, left-sided Code(s): R07.9 - Chest pain, unspecified Qualifiers: Chest pain type: unspecified Qualified Code(s): R07.9 - Chest pain, unspecified Plan: She has been pain free for about two months now per her. Echo showed ejection fraction of 55% and her basal inferior and inferioseptal were hypokenitic. Stress test with nuclear imaging showed normal myocaridal perfusion. Report if chest pain occurs again, ED care if needed. (2) Benign essential hypertension: Code(s): I10 - Essential (primary) hypertension Plan: Blood pressure today at goal. (3) Diabetes mellitus: Code(s): E11.9 - Type 2 diabetes mellitus without complications Qualifiers: Diabetes mellitus complication status: without complication Diabetes mellitus skilled nursing insulin use: without intermediate accountant use Diabetes mellitus type: type 2 Qualified Code(s): E11.9 - Type 2 diabetes mellitus without complications Plan: A1C 6.9%. Discussed heart healthy diet, weight loss, and tight blood sugars control. She states she is going to work on these more. Plan Will follow-up in six months or sooner if needed. Coding Level of Care Code Est Pt Level 4 (11427) Diagnoses Chest pain, unspecified type R07.9 Chest pain type: unspecified Benign essential hypertension I10 Type 2 diabetes mellitus without complication, without long-term current use of insulin E11.9 Diabetes mellitus complication status: without complication Diabetes mellitus intermediate accountant insulin use: without intermediate accountant use Diabetes mellitus type: type 2
== END 2023-09-18 13:53 | disposition home or self-care (01) ==
PROVIDERS: PCP Internal Medicine; Visit Provider Nurse Practitioner
DX: R07.9 Chest pain, unspecified (principal); I10 Essential (primary) hypertension; E11.9 Type 2 diabetes mellitus without complications
CPT/HCPCS: 99214

== ENCOUNTER → 2023-09-18 13:05 | Outpatient (BNVA) | payer OTHER, SELFPAY | PROVIDERS: PCP Internal Medicine; Visit Provider Nurse Practitioner | DX: R07.9 Chest pain, unspecified (principal); E11.9 Type 2 diabetes mellitus without complications; I10 Essential (primary) hypertension | CPT/HCPCS: 99212 ==

== ENCOUNTER 2023-09-19 11:37 | Outpatient (REF) | payer OTHER, SELFPAY ==
[2023-09-19 11:54] LABS: MANUAL DIFF FLAG NO
[2023-09-19 12:35] LABS: Basophils Percent Auto 0.3 % (0-2); Eosinophils Absolute Auto 0.1 X10*3/uL (0.0-0.4); Eosinophils Percent Auto 1.7 % (0-4); Hematocrit 38.2 % (37.0-47.0); Hemoglobin 12.1 g/dl (12.0-16.0); Imm Gran Abs Auto 0.03 X10*3/uL (0.00-0.03); Imm Gran Pct Auto 0.5 % (0.0-0.4); Lymphocytes Absolute Auto 1.9 X10*3/uL (1.2-4.9); Lymphocytes Percent Auto 31.3 % (20-40); Mean Corpuscular HGB Conc 31.7 g/dl (31.0-35.0); Mean Corpuscular Hemoglobin 27.3 pg (27.0-33.0); Mean Corpuscular Volume 86.2 fL (80.0-98.0); Mean Platelet Volume 12.4 fL (9.4-12.3); Monocytes Absolute Auto 0.4 X10*3/uL (0.1-1.2); Monocytes Percent Auto 5.8 % (2-11); Neutrophils Absolute Auto 3.7 x10*3/uL (2.0-8.3); Neutrophils Percent Auto 60.4 % (45-73); Platelet Count 207 X10*3/uL (160-400); Red Blood Count 4.43 X10*6/uL (4.20-5.50); Red Cell Distribution Width 14.2 % (11.0-16.0)
[2023-09-19 12:40] LABS: Appearance Urine Clear; Color Urine Yellow; Glucose Urine UA Negative (Negative); Leukocyte Esterase Urine Negative (Negative); Nitrite Urine Negative (Negative); Urine Blood Negative (Negative); Urine Ketones Negative (Negative); Urine Protein Negative (Neg-Trace)
[2023-09-19 13:43] LABS: Alanine Aminotransferase 13 U/L (0-31); Alkaline Phosphatase 97 U/L (39-117); Anion Gap 11 (12-20); Aspartate Amino Transferase 14 U/L (5-31); Bilirubin Total 0.5 mg/dL (0.0-1.0); Blood Urea Nitrogen 9 mg/dL (9-16); Calcium 9.1 mg/dL (8.4-10.2); Carbon Dioxide 27 mmol/L (22-29); Chloride 106 mmol/L (96-108); Cholesterol 172 mg/dL (<200); Estimated Glomerular Filt Rate > 60; Glucose Fasting 132 mg/dL (60-99); HDL Cholesterol 42 mg/dL (>40); LDL Cholesterol Calculated 101 mg/dL (<100); Potassium 3.8 mmol/L (3.3-5.1); Sodium 140 mmol/L (135-145); TSH reflex Free T4 1.24 uIU/mL (0.32-4.0); Total Protein 7.1 g/dL (6.5-8.0); Triglycerides 145 mg/dL (<150); Vitamin D 25-OH Total 32.9 ng/mL (>30)
[2023-09-19 14:00] LABS: Folate 13.9 ng/mL (> or = 4.0); Vitamin B12 594 pg/mL (200-900)
[2023-09-19 14:04] LABS: Estimated Average Glucose 146 mg/dL; Hemoglobin A1c % 6.7 % (<6.0)
[2023-09-19 14:10] LABS: Creatinine Urine 122.54 mg/dL; Microalbumin Urine < 5.0 mg/L
== END 2023-09-19 11:38 | disposition home or self-care (01) ==
LOC: HO.LAB 11:37
PROVIDERS: PCP Internal Medicine; Visit Provider Internal Medicine
DX: E78.00 Pure hypercholesterolemia, unspecified (principal); E55.9 Vitamin D deficiency, unspecified; E11.9 Type 2 diabetes mellitus without complications; R30.0 Dysuria; E53.8 Deficiency of other specified B group vitamins; I10 Essential (primary) hypertension
CPT/HCPCS: 36415; 80053; 80061; 81003; 82043; 82306; 82570; 82607; 82746; 83036; 84443; 85025

== ENCOUNTER 2023-09-24 14:46 | Outpatient (AMB) | payer OTHER, SELFPAY ==
[2023-09-24 14:49] VITALS: BP 118/64; PULSE 67; O2SAT 98; BMI 25.6
--- NOTE | 2023-09-24 14:49 | A.OFFPC_ITS ---
Vital Signs 09/24/23 14:49 Height 5 ft 2 in Weight 140 lb BMI 25.6 BP 118/64 Blood Pressure Location Lt brachial Position Sitting Pulse 67 Pulse Source Pulse Oximeter Pulse Oximetry (%) 98 Oxygen Delivery Method Room Air Intake Visit Reasons: 4mth f/u Assistant Director Of Public Works Required: Yes Assistant Director Of Public Works Name: ksenia [id number] Aviation Boatswain'S Mate: Not Required per policy Accompanied by: Self / Same As Patient Allergies No Known Allergies Allergy (Verified 10/02/23 10:57) Medication List - Last Reconciled 09/24/23 by Herb Souza MD acetaminophen 650 mg (2 x 325 mg) PO Q6H PRN albuterol sulfate 90 mcg/actuation (ProAir HFA) 2 puffs inhalation Q6H PRN 30 days bisacodyl (Laxative (bisacodyl)) 10 mg (2 x 5 mg) PO BEDTIME 90 days blood sugar diagnostic TEST 2 TIMES DAILY blood-glucose meter (FreeStyle Lite Meter kit) TEST 2 TIMES DAILY cholecalciferol (vitamin D3) 25 mcg PO DAILY 90 days clonazepam 0.5 mg PO TID PRN 30 days clotrimazole 1% 1 appl topical TID PRN cyanocobalamin (vitamin B-12) 1,000 mcg PO DAILY 90 days emollient combination no.32 (EpiCeram topical emulsion, extended release) topical ferrous sulfate 325 mg PO 3XW 90 days folic acid 1 mg PO DAILY 90 days hydrocortisone 1% 1 appl topical TID PRN hydroquinone 4% appl topical BID ibuprofen 600 mg PO Q6H PRN lancets (FreeStyle Lancets) 28 gauge topical BID linaclotide (Linzess) 145 mcg PO QAM 90 days lisinopril 5 mg PO DAILY 90 days meclizine 12.5 mg PO QID PRN metformin 500 mg PO BID 90 days methylcellulose (laxative) (Citrucel) 500 mg PO BID omeprazole 20 mg PO DAILY PRN 90 days paroxetine HCl 60 mg (1.5 x 40 mg) PO DAILY 30 days simvastatin 20 mg PO QPM 90 days triamcinolone acetonide 0.025% 1 appl topical BID PRN Tobacco use date assessed: 09/24/23 Dental Screening Dental Screen Date: 09/24/23 Did you have a dental visit in the last 12 months?: Yes Did you have a dental problem in the last 6 months where you did not have access to dental care?: No Was dental information given to patient?: Patient has dentist HPI 4mth f/u HPI Details Patient comes in today for her follow up visit States that she feels okay She denies any headaches or dizziness Denies any SOB but still has on and off sharp chest pains States that she was seen by cardiology and had some stress testing done recently, which she recalls being told came out normal No nausea/vomiting, no abdominal pain No change in bowel habits noted Needs a couple of her Rx refilled and would also like to get Rx for some Lidocaine patches Had her follow up labs done a few days ago - to discuss her results [facility] Medical History Chest pain Hypercholesterolemia Type 2 diabetes mellitus with hyperglycemia Hematuria Dysuria Precordial chest pain Impacted cerumen, left ear Pre-op examination Urinary tract infection Left ear pain URI (upper respiratory infection) Sore throat Tinea pedis Impacted cerumen of both ears Superficial thrombophlebitis Bilateral shoulder pain Skin lump of leg Abscess of leg Pain of left calf Cellulitis Insect bite Abdominal pain Impacted cerumen of both ears Recurrent chest pain Right shoulder pain Overweight (BMI 25.0-29.9) Vitamin B12 deficiency Insomnia Depression Anxiety Allergic rhinitis Lumbar spondylosis Vitamin D deficiency Irritable bowel syndrome (IBS) GERD without esophagitis Anemia Asthma Benign essential hypertension Diabetes mellitus Tubular adenoma Surgical History History of colonoscopy History of esophagogastroduodenoscopy (EGD) History of tubal ligation History of cholecystectomy Family History Father Diabetes Hypertension CVD (cardiovascular disease) Mother Hypertension Diabetes Chronic mental illness Social History Housing: Apartment Unable to assess alcohol history related to: Unknown Alcohol intake: never Patient Tobacco Use Status: Never used Tobacco e-Cigarette/Vaping Use: Never Used Second Hand Smoke Exposure: No service: No Current occupational status: disabled Cognitive needs: No Hearing needs: Yes Vision needs: No Questionnaire PHQ-9 Over the last 2 weeks, how often have you been bothered by any of the following problems? 1. Little interest or pleasure in doing things: more than half the days 2. Feeling down, depressed, or hopeless: several days 3. Trouble falling or staying asleep, or sleeping too much: more than half the days 4. Feeling tired or having little energy: more than half the days 5. Poor appetite or overeating: more than half the days 6. Feeling bad about yourself - or that you are a failure or have let yourself or your family down: not at all 7. Trouble concentrating on things, such as reading the newspaper or watching television: several days 8. Moving or speaking so slowly that other people could have noticed. Or the opposite - being so fidgety or restless that you have been moving around a lot more than usual: several days 9. Thoughts that you would be better off or of hurting yourself in some way: not at all Total score: 11 Depression Screening Interpretation: Positive Depression Screening Follow-up: Existing condition and In treatment Depression Screening Done: Yes 22233 - PHQ-9 Billing: Yes Source: Developed by Drs. Brody Perez, Randi Hand, Rodney Sneed and colleagues, with an educational sharif from [email or web address]. Thrive Questionnaire Date Thrive assessed: 09/24/23 I am a: Patient What is your living situation today?: I have a steady place to live Within the past 12 months, did the food you bought not last and you didn't have the money to get more?: Never true Within the past 12 months, did you worry whether your food would run out before you got money to buy more?: Never true Do you have trouble paying for medicines?: No Do you have trouble getting transportation to medical appointments?: No Do you have trouble paying your heating and electricity bill?: No Do you have trouble taking care of your child, family member or friend?: No Do you have trouble with day-to-day activities such as bathing, preparing meals, shopping, managing finances, etc.?: No Are you currently unemployed and looking for a job?: No Are you interested in more education?: No Please select the resources that you would like help with: None Currently or been in a relationship where the following occur: no concerns reported THRIVE Score: 0 AUDIT C Alcohol Use Questionnaire (AUDIT-C) 1. How often do you have a drink containing alcohol?: Never 2. How many drinks containing alcohol do you have on a typical day when you are drinking?: 1 or 2 (0) 3. How often do you have six or more drinks on one occasion?: Never Total Score: 0 Score Reviewed/Action Taken: Yes MAME-7 AMB Questionnaire MAME-7 Date MAME - 7 assessed: 09/24/23 Feeling nervous, anxious, or on edge: 0 = Not at all Not being able to stop or control worryin = Not at all Worrying too much about different things: 0 = Not at all Trouble relaxin = Not at all Being so restless that it is hard to sit still: 0 = Not at all Becoming easily annoyed or irritable: 0 = Not at all Feeling afraid as if something awful might happen: 0 = Not at all Total MAME-7 score (0-4 normal; 5-9 mild; 10-14 moderate; 15-21 severe): 0 Source: Developed by Drs. Brody Preez, Randi Hand, Rodney Sneed and colleagues, with an educational sharif from [email or web address]. Review of Systems Const Denies difficulty sleeping (Melatonin helps), Denies fatigue, Denies fever(s) and Denies headache(s) ENT Denies dysphagia, Denies dizziness, Denies otalgia, Denies headache(s), Denies odynophagia and Denies sore throat Card Reports chest pain (recurrent, sharp, over her anterior chest wall), Denies palpitations and Denies dyspnea Resp Denies cough, Denies dyspnea and Denies wheezing GI Denies abdominal pain, Reports constipation (on and off - better controlled late ly on Rx), Denies dysphagia, Denies heartburn, Denies diarrhea, Denies nausea, Denies odynophagia and Denies vomiting Denies hematuria, Denies difficulty voiding, Denies nocturia and Denies dysuria Musc Reports back pain (recurrent, especially over right lower back) and Reports arthralgias (both shoulders) Skin/Breast Denies rash Neuro Denies dizziness and Denies headache(s) Endo Denies fatigue and Denies palpitations Aller/Immun Denies wheezing Physical exam (Primary Care) Vital Signs: Last Vital Signs Pulse 67 09/24/23 14:49 BP 118/64 09/24/23 14:49 Pulse Ox 98 09/24/23 14:49 Oxygen Delivery Method Room Air 09/24/23 14:49 BMI result Body Mass Index 25.6 Tobacco/Smoking Status: Tobacco use Status Tobacco use date assessed 09/24/23 09/24/23 14:51 Patient Tobacco Use Status Never used Tobacco 09/24/23 14:51 e-Cigarette/Vaping Use Never Used 09/24/23 14:51 PHQ-9: PHQ-9 Score PHQ-9: Total score 11 09/24/23 15:43 Depression Screening Interpretation: Positive Depression Screening Follow-up: Existing condition and In treatment Thrive Assessment: Date of Thrive Assessment Date Thrive assessed 09/24/23 09/24/23 14:51 Currently or been in a relationship where the following occur: no concerns reported Const General: no acute distress and alert HENMT Ears: TM's normal bilaterally and EAC's normal Throat: Yes posterior oropharynx normal and Yes tonsils normal (no TP congestion noted) Neck Neck: Yes no lymphadenopathy and Yes supple Thyroid: Thyroid normal Resp Auscultation: clear to auscultation bilaterally, no rales and no wheezes Cardio Rate: regular rate Rhythm: regular rhythm Heart sounds: no murmurs GI Palpation (GI): Soft to palpation and nontender Auscultation: normal bowel sounds General: Yes no CVA tenderness Back/Spine/Pelvis Back: no CVA tenderness Thoracic/Lumbar Spine: lumbar spinal tenderness Skin Rashes: no rashes Extrem General: Yes no clubbing, cyanosis or edema Results Reviewed Results Reviewed: Laboratory Tests 09/19/23 11:52 WBC 6.0 Hgb 12.1 Hct 38.2 Plt Count 207 Sodium 140 Potassium 3.8 Creatinine 0.68 Estimated GFR > 60 Fasting Glucose 132 H Hemoglobin A1c % 6.7 H Calcium 9.1 AST 14 ALT 13 Triglycerides 145 Cholesterol 172 LDL Cholesterol, Calc 101 H HDL Cholesterol 42 Vitamin B12 594 25-OH Vitamin D Total 32.9 TSH 1.24 Ur Specific [place] 1.020 Urine Protein Negative Urine Glucose (UA) Negative Urine Blood Negative Urine Nitrite Negative Ur Leukocyte Esterase Negative Assessment and Plan Assessment & Plan (1) Pure hypercholesterolemia: Code(s): E78.00 - Pure hypercholesterolemia, unspecified Plan: Results of her labs done a few days ago reviewed and discussed with patient Reinforced low cholesterol diet Continue Simvastatin 20 mg QD Will recheck her labs and fasting lipids in 4 months for follow up (2) Benign essential hypertension: Code(s): I10 - Essential (primary) hypertension Plan: Reinforced low sodium diet - goal is systolic BP of at least 120 to 130 mm or less Continue Lisinopril 5 mg QD (3) Diabetes mellitus: Code(s): E11.9 - Type 2 diabetes mellitus without complications Qualifiers: Diabetes mellitus complication status: without complication Diabetes mellitus mcfp insulin use: without regional intermodal truck 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 2 inhalations QID PRN (5) Chest pain: Comment: recurrent, left-sided Code(s): R07.9 - Chest pain, unspecified Qualifiers: Chest pain type: unspecified Qualified Code(s): R07.9 - Chest pain, unspecified Plan: Advised/reassured patient that her recurrent chest pains are NOT cardiac-related as she's had a NEGATIVE stress test and normal myocardial perfusion done a couple of weeks ago Echocardiogram done a couple of weeks ago also came back with no significant and concerning findings (6) Chronic constipation: Code(s): K59.09 - Other constipation Plan: Improving/better controlled - continue Linzess 145 mcg QD and Dulcolax 5 mg 2 tablets QD PRN Reinforced increased oral fluids and dietary fiber Follow up with GI as scheduled (7) Irritable bowel syndrome (IBS): Code(s): K58.9 - Irritable bowel syndrome without diarrhea Qualifiers: Irritable bowel syndrome type: unspecified Qualified Code(s): K58.9 - Irritable bowel syndrome without diarrhea Plan: Continue Dicyclomine 20 mg TID PRN; Linzess also helps with her symptoms Follow up with GI as scheduled (8) GERD without esophagitis: Code(s): K21.9 - Gastro-esophageal reflux disease without esophagitis Plan: Dietary restrictions reinforced Continue Omeprazole 20 mg QD PRN (9) Anemia: Code(s): D64.9 - Anemia, unspecified Qualifiers: Anemia type: unspecified type Qualified Code(s): D64.9 - Anemia, unspecified Plan: Improved/corrected - continue Ferrous Sulfate 325 mg QD Will continue to monitor her CBC regularly (10) Vitamin D deficiency: Code(s): E55.9 - Vitamin D deficiency, unspecified Plan: Corrected; continue Vitamin D3 1000 units QD (11) Lumbar spondylosis: Code(s): M47.816 - Spondylosis without myelopathy or radiculopathy, lumbar region Plan: Reinforced activity and weight-lifting restrictions Lumbar spine x-rays done in September 2020 showed (+) mild degenerative disc changes Per request, will send in Rx for Lidocaine patches that she can use as needed for her low back pain Goes to physical therapy as needed - PT has helped a lot with her low back pain in the past (12) Allergic rhinitis: Code(s): J30.9 - Allergic rhinitis, unspecified Qualifiers: Allergic rhinitis seasonality: unspecified Allergic rhinitis trigger: unspecified Qualified Code(s): J30.9 - Allergic rhinitis, unspecified Plan: Continue OTC Loratadine 10 mg QD PRN (13) Vitamin B12 deficiency: Code(s): E53.8 - Deficiency of other specified B group vitamins Plan: Have advised patient that her Vitamin B12 level has been high at over 1000 pg/ml for several months now and she should cut back on her Vitamin B12 1000 mcg tablets from 1 tablet daily to just 1 tablet twice a week Will recheck her B12 level in a few months for follow up (14) Insomnia: Code(s): G47.00 - Insomnia, unspecified Qualifiers: Insomnia type: unspecified Qualified Code(s): G47.00 - Insomnia, unspecified Plan: Sleep hygiene reinforced; advised again that her insomnia is most-likely related to her anxiety Continue Melatonin 10 mg Q HS PRN, which she states has helped a lot (15) Anxiety: Code(s): F41.9 - Anxiety disorder, unspecified Plan: Continue Clonazepam 0.5 mg TID PRN Follow up with psychiatry as scheduled (16) Depression: Code(s): F32.9 - Major depressive disorder, single episode, unspecified Qualifiers: Active/Remission status: currently active Depression Type: major depressive disorder Major depression episode severity: unspecified Major depression recurrence: recurrent Qualified Code(s): F33.9 - Major depressive disorder, recurrent, unspecified Plan: Continue Paroxetine at 60 mg QD - Rx refilled Follow up with psychiatry at [facility] as scheduled (17) Overweight (BMI 25.0-29.9): Code(s): E66.3 - Overweight Plan: Reinforced diet/exercise as tolerated/lose weight Plan Follow up in 4 months Orders: Orders Comprehensive [place]. Panel Fast 4 Months E78.00 - Pure hypercholesterolemia, unspecified TSH reflex Free T4 4 Months E78.00 - Pure hypercholesterolemia, unspecified Vitamin B12 and Folate 4 Months E53.8 - Deficiency of other specified B group vitamins Vitamin D 25-OH Total 4 Months E55.9 - Vitamin D deficiency, unspecified Hemoglobin A1c 4 Months E11.9 - Type 2 diabetes mellitus without complications Lipid Panel 4 Months E78.00 - Pure hypercholesterolemia, unspecified Complete Blood Count Auto Diff 4 Months D64.9 - Anemia, unspecified Microalbumin, Random (w Creat) 4 Months E11.9 - Type 2 diabetes mellitus without complications UA CC w/rflx Micro + Cult 4 Months R30.0 - Dysuria Medications: New lidocaine 5% leave on most painful area for up to 12 hrs 1 patch topical DAILY 30 ea 0RF melatonin 10 mg PO BEDTIME PRN 90 caps 3RF sleep 90 days Changed From cyanocobalamin (vitamin B-12) 1,000 mcg PO DAILY 90 days 90 tabs 3RF D64.9 - Anemia, unspecified To cyanocobalamin (vitamin B-12) 1,000 mcg PO .3 times a week 90 tabs 3RF D64.9 - Anemia, unspecified Refilled metformin 500 mg PO BID 180 tabs 3RF 90 days E11.9 - Type 2 diabetes mellitus without complications Coding Level of Care Code Est Pt Level 4 (93514) Diagnoses Pure hypercholesterolemia E78.00 Benign essential hypertension I10 Type 2 diabetes mellitus without complication, without long-term current use of insulin E11.9 Diabetes mellitus complication status: without complication 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9 Allergic rhinitis seasonality: unspecified Allergic rhinitis trigger: unspecified Vitamin B12 deficiency E53.8 Insomnia, unspecified type G47.00 Insomnia type: unspecified Anxiety F41.9 Episode of recurrent major depressive disorder, unspecified depression episode severity F33.9 Active/Remission status: currently active Depression Type: major depressive disorder Major depression episode severity: unspecified Major depression recurrence: recurrent Overweight (BMI 25.0-29.9) E66.3
== END 2023-09-24 16:01 | disposition home or self-care (01) ==
PROVIDERS: PCP Internal Medicine; Visit Provider Internal Medicine
DX: E11.9 Type 2 diabetes mellitus without complications (principal); F33.9 Major depressive disorder, recurrent, unspecified; E78.00 Pure hypercholesterolemia, unspecified; I10 Essential (primary) hypertension; J45.20 Mild intermittent asthma, uncomplicated; R07.9 Chest pain, unspecified; K59.09 Other constipation; K58.9 Irritable bowel syndrome, unspecified; K21.9 Gastro-esophageal reflux disease without esophagitis; D64.9 Anemia, unspecified; E55.9 Vitamin D deficiency, unspecified; M47.816 Spondylosis without myelopathy or radiculopathy, lumbar region
CPT/HCPCS: 99214

== ENCOUNTER 2023-10-02 10:43 | Outpatient (REF) | payer OTHER, SELFPAY ==
[2023-10-10 06:39] LABS: HPV mRNA E6/E7 rflx Not Detected (Not Detected)
== END 2023-10-02 10:44 | disposition home or self-care (01) ==
LOC: HO.LNP 10:43
PROVIDERS: PCP Internal Medicine; Visit Provider Obstetrics & Gynecology
DX: Z01.419 Encounter for gynecological examination (general) (routine) without abnormal findings (principal)
CPT/HCPCS: 87624; 88142; 99396

== ENCOUNTER 2023-10-02 10:43 | Outpatient (AMB) | payer OTHER, SELFPAY ==
--- NOTE | 2023-10-02 10:53 | MHC.OFFVIS ---
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 No complaints. Last Pap/HPV was many years ago Last Mammogram was BI-RADS 1 in 06/07 Last Colonoscopy was 5 years ago, the patient is due for another screening colonoscopy PFSH Medical History Chest pain Hypercholesterolemia Type 2 diabetes mellitus with hyperglycemia Hematuria Dysuria Precordial chest pain Impacted cerumen, left ear Pre-op examination Urinary tract infection Left ear pain URI (upper respiratory infection) Sore throat Tinea pedis Impacted cerumen of both ears Superficial thrombophlebitis Bilateral shoulder pain Skin lump of leg Abscess of leg Pain of left calf Cellulitis Insect bite Abdominal pain Impacted cerumen of both ears Recurrent chest pain Right shoulder pain Overweight (BMI 25.0-29.9) Vitamin B12 deficiency Insomnia Depression Anxiety Allergic rhinitis Lumbar spondylosis Vitamin D deficiency Irritable bowel syndrome (IBS) GERD without esophagitis Anemia Asthma Benign essential hypertension Diabetes mellitus Tubular adenoma Surgical History History of colonoscopy History of esophagogastroduodenoscopy (EGD) History of tubal ligation History of cholecystectomy Family History Father Diabetes Hypertension CVD (cardiovascular disease) Mother Hypertension Diabetes Chronic mental illness Social History Housing: Apartment Unable to assess alcohol history related to: Unknown Alcohol intake: never Patient Tobacco Use Status: Never used Tobacco e-Cigarette/Vaping Use: Never Used Second Hand Smoke Exposure: No Patient : No service: No Current occupational status: disabled Cognitive needs: No Hearing needs: Yes Vision needs: No Female Reproductive History Menstrual Age of Menarche: 15 control method: permanent sterilization Total pregnancies: 9 Full term: 5 Number of Living Children: 5 Ab induced: 2 Ab spontaneous: 2 Date of last pap smear: 09/13/16 (negative) History of abnormal pap smear: No Date of Mammogram: 06/04/23 Review of Systems Const All systems reviewed & are unremarkable except as noted in HPI and below Card Reports as per HPI Resp Reports as per HPI GI Reports as per HPI and Reports no additional complaints Reports as per HPI Physical Exam Vital Signs: Last Vital Signs BP 120/74 10/02/23 10:54 BMI result Body Mass Index 25.4 Const General: cooperative, healthy appearing and comfortable Chest Chest palpation & inspection: normal inspection of the chest and normal palpation of entire chest wall Breast/axilla inspection: normal inspection of the breasts and normal inspection of the axillae Breast/axilla palpation: normal palpation of the breasts, normal palpation of the axillae and no axillary lymphadenopathy Resp Effort & Inspection: normal respiratory effort Auscultation: clear to auscultation bilaterally Percussion: percussion normal Cardio Palpation: normal PMI Rate: regular rate Rhythm: regular rhythm Heart sounds: no murmurs and no rubs Peripheral pulses: Peripheral pulses 2+ throughout GI Inspection: Yes normal to inspection Palpation (GI): Soft to palpation, nontender, no guarding, not rigid and No hepatosplenomegaly present Percussion: Yes normal to percussion Auscultation: normal bowel sounds Rectal Exam - Female: deferred General: Yes bladder normal to palpation External Female Exam: No lesion Speculum Exam - Vagina: normal appearance of the vagina, normal palpation, normal vaginal discharge and not erythematous Speculum Exam - Cervix: normal appearance of the cervix and normal palpation Bimanual exam- vagina & uterus: normal bimanual exam, normal palpation, uterine size normal, bladder normal to palpation, consistency normal and normal palpation Bimanual Exam- Adnexa, other: normal adnexae, no masses and no tenderness Assessment & Plan Assessment & Plan (1) Well woman exam: Code(s): Z01.419 - Encounter for gynecological examination (general) (routine) without abnormal findings Plan: Co testing done. Counseled the patient about the recommended dietary allowance of 1200 mg of Calcium & 600 IU of vitamin D. Instructions given to patient to schedule next screening Mammogram in 06/08. The patient was referred to GI for screening colonoscopy . The patient was instructed to perform monthly self-breast exams and schedule annual exam in a year. All questions answered and the patient verbalized understanding. Orders: Referrals Gastroenterology Referral Z12.11 - Encounter for screening for malignant neoplasm of colon Coding Level of Care Code Est Pt Prev Care 40-64y(28498) Diagnoses Well woman exam Z01.419
[2023-10-02 10:54] VITALS: BP 120/74; BMI 25.4
== END 2023-10-02 11:38 | disposition home or self-care (01) ==
PROVIDERS: PCP Internal Medicine; Visit Provider Obstetrics & Gynecology
DX: Z01.419 Encounter for gynecological examination (general) (routine) without abnormal findings (principal)
CPT/HCPCS: 99396

== ENCOUNTER 2023-11-09 11:58 | Outpatient (AMB) | payer OTHER, SELFPAY ==
[2023-11-09 12:02] VITALS: BP 123/63; PULSE 79; BMI 25.6
--- NOTE | 2023-11-09 12:02 | A.OFFVIS_ITS ---
Vital Signs 11/09/23 12:02 Height 5 ft 2 in Weight 140 lb 3.424 oz BMI 25.6 BP 123/63 Blood Pressure Location Lt brachial Position Sitting Pulse 79 Intake Visit Reasons: 6 month follow up CIC, GERD Intake Note: Patient returns to 6 months in office follow up of GERD. CC: Patient reports occasional heartburn. Denies other GI concerns today. Benefits Officer Required: Yes Accompanied by: Self / Same As Patient Allergies No Known Allergies Allergy (Verified 11/09/23 12:07) HPI HPI 6 month follow up CIC, GERD: Details: Assessment & Plan (1) Chronic idiopathic constipation: Code(s): K59.04 - Chronic idiopathic constipation Plan: Citizen Of [place] #Sheila Wagner She is now doing well on the LInzess 145mcg and 2 bisacodyl qhs. She also continues on omeprazole with good control of her GERD. She has not yet heard re: colonoscopy. Will walk her to schedulers since there is a message that they have been trying to reach her. ROV 6 mos and after colonoscopy (2) GERD without esophagitis: Code(s): K21.9 - Gastro-esophageal reflux disease without esophagitis (3) Tubular adenoma of colon: Comment: 2018=TA repeat 2022 Code(s): D12.6 - Benign neoplasm of colon, unspecified Medications: Changed From linaclotide (Linzess) 145 mcg PO QAM 30 caps 3RF To linaclotide (Linzess) 145 mcg PO QAM 90 days 90 caps 1RF Refilled bisacodyl (Laxative (bisacodyl)) 10 mg (2 x 5 mg) PO BEDTIME 90 days 180 tabs 1RF K59.04 - Chronic idiopathic constipation omeprazole 20 mg PO DAILY 90 days PRN 90 caps 3RF heartburn K21.9 - Gastro- esophageal reflux disease without esophagitis COLONOSCOPY BIOPSY TODAY'S VISIT Citizen Of [place] Bi wagner She has completed her cardiac tests and is now cleared for her colonoscopy. I sent an update note. She is now doing well on the LInzess 145mcg and 2 bisacodyl qhs. She also continues on omeprazole with good control of her GERD. ROV 6 mos. [facility] Medical History (Updated 11/09/23 @ 16:45 by BOAZ Bautista) Well woman exam Chest pain Hypercholesterolemia Type 2 diabetes mellitus with hyperglycemia Hematuria Dysuria Precordial chest pain Impacted cerumen, left ear Pre-op examination Urinary tract infection Left ear pain URI (upper respiratory infection) Sore throat Tinea pedis Impacted cerumen of both ears Superficial thrombophlebitis Bilateral shoulder pain Skin lump of leg Abscess of leg Pain of left calf Cellulitis Insect bite Abdominal pain Impacted cerumen of both ears Recurrent chest pain Right shoulder pain Overweight (BMI 25.0-29.9) Vitamin B12 deficiency Insomnia Depression Anxiety Allergic rhinitis Lumbar spondylosis Vitamin D deficiency Irritable bowel syndrome (IBS) GERD without esophagitis Anemia Asthma Benign essential hypertension Diabetes mellitus Tubular adenoma Surgical History History of colonoscopy History of esophagogastroduodenoscopy (EGD) History of tubal ligation History of cholecystectomy Family History Father Diabetes Hypertension CVD (cardiovascular disease) Mother Hypertension Diabetes Chronic mental illness Social History Housing: Apartment Unable to assess alcohol history related to: Unknown Alcohol intake: never Patient Tobacco Use Status: Never used Tobacco e-Cigarette/Vaping Use: Never Used Second Hand Smoke Exposure: No service: No Current occupational status: disabled Cognitive needs: No Hearing needs: Yes Vision needs: No Female Reproductive History Menstrual Age of Menarche: 15 Review of Systems Const Denies fatigue, Denies fever(s), Denies night sweats, Denies poor appetite and Denies weight loss ENT Reports Normal hearing present, Denies dental pain, Denies dysphagia, Denies hearing loss, Denies mouth pain, Denies odynophagia, Denies throat swelling, Denies tongue swelling and Reports other (Dentition adequate) Card Reports no additional complaints Resp Reports no additional complaints GI Details: Denies abdominal pain, Denies melena, Denies bloating, Denies hematochezia, Reports constipation, Denies GI cramping, Denies dysphagia, Denies excessive flatus, Denies early satiety, Reports heartburn, Denies diarrhea, Denies nausea, Denies odynophagia, Denies vomiting and Denies hematemesis Skin/Breast Denies pruritus, Denies lesions, Denies rash and Denies jaundice Neuro Reports Normal hearing present and Denies Abnormal speech present Endo Denies fatigue Aller/Immun Denies throat swelling and Denies tongue swelling Physical Exam Vital Signs: Last Vital Signs Pulse 79 11/09/23 12:02 BP 123/63 11/09/23 12:02 BMI result Body Mass Index 25.6 Const General: cooperative, no acute distress, well developed and well groomed Nutritional Appearance: average body habitus and well nourished Orientation/consciousness: oriented to person, oriented to place and oriented to time Limitations: language barrier HEENT Head: Yes normocephalic and Yes atraumatic Eyes General: appearance normal, both eyes and all related structures Pupils: Equal, round and reactive pupils present Neck Neck: Yes normal visual inspection and Yes no lymphadenopathy Thyroid: Thyroid normal Resp Effort & Inspection: normal respiratory effort and able to speak in complete sentences Auscultation: clear to auscultation bilaterally Cardio Rate: regular rate Rhythm: regular rhythm Heart sounds: Normal, physiologic split S2 sound present Peripheral pulses: radial pulses present and posterior tibial pulses present GI Inspection: No distended and No Abdominal panniculus present Palpation (GI): Soft to palpation, nontender, no guarding, not rigid and No hepatosplenomegaly present Percussion: Yes normal to percussion Auscultation: normal bowel sounds Rectal Exam - Female: deferred Skin General skin exam: no rashes or lesions noted, turgor normal, skin not dry, no jaundice, No spider nevi and no striae Rashes: no rashes Nails: normal Neuro General: oriented to person, oriented to place and oriented to time Cranial nerves: Yes Equal, round and reactive pupils present and Yes Normal hearing present Speech: No Abnormal speech present Extrem General: Yes normal to inspection, No clubbing, No cyanosis and No edema Psych Appearance: grossly normal and well kempt Mental Status: mental status grossly normal Speech and movement: Normal speech and movement present Affect: normal affect Attitude: cooperative Thought process: Normal thought process present and not confabulating Thought content: Normal thought content present Insight: Limited insight present (Psych) Judgement: Limited judgement present (Psych) Assessment & Plan Assessment & Plan (1) Tubular adenoma of colon: Comment: 2018=TA repeat 2022 Code(s): D12.6 - Benign neoplasm of colon, unspecified Category: Medical (2) Chronic idiopathic constipation: Code(s): K59.04 - Chronic idiopathic constipation Category: Medical (3) GERD without esophagitis: Code(s): K21.9 - Gastro-esophageal reflux disease without esophagitis Category: Medical Plan Citizen Of [place] # Ida live She has completed her cardiac tests and is now cleared for her colonoscopy. I sent an update note. She is now doing well on the LInzess 145mcg and 2 bisacodyl qhs. She also continues on omeprazole with good control of her GERD. ROV 6 mos. Medications: Refilled methylcellulose (laxative) (Citrucel) 500 mg PO BID 60 tabs 12RF linaclotide (Linzess) 145 mcg PO QAM 90 caps 1RF 90 days omeprazole 20 mg PO DAILY PRN 90 caps 3RF heartburn 90 days K21.9 - Gastro- esophageal reflux disease without esophagitis Coding Level of Care Code Est Pt Level 3 (90775) Diagnoses Tubular adenoma of colon D12.6 Chronic idiopathic constipation K59.04 GERD without esophagitis K21.9
== END 2023-11-09 12:41 | disposition home or self-care (01) ==
PROVIDERS: PCP Internal Medicine; Visit Provider Nurse Practitioner
DX: D12.6 Benign neoplasm of colon, unspecified (principal); K59.04 Chronic idiopathic constipation; K21.9 Gastro-esophageal reflux disease without esophagitis
CPT/HCPCS: 99213

== ENCOUNTER → 2023-11-09 11:58 | Outpatient (BNVA) | payer OTHER, SELFPAY | PROVIDERS: PCP Internal Medicine; Visit Provider Nurse Practitioner | DX: K59.04 Chronic idiopathic constipation (principal); K21.9 Gastro-esophageal reflux disease without esophagitis; Z86.010 Personal history of colon polyps; Z79.899 Other long term (current) drug therapy | CPT/HCPCS: 99212 ==

== ENCOUNTER 2023-12-03 15:47 | Emergency (ER) | payer OTHER, SELFPAY ==
[2023-12-03 17:07] VITALS: BP 140/67; PULSE 80; RESP 16; TEMP 36.3; O2SAT 94; BMI 26.7
[2023-12-03 17:44] LABS: MANUAL DIFF FLAG NO
[2023-12-03 17:46] LABS: Basophils Percent Auto 0.3 % (0-2); Eosinophils Absolute Auto 0.1 X10*3/uL (0.0-0.4); Eosinophils Percent Auto 1.5 % (0-4); Hematocrit 39.1 % (37.0-47.0); Hemoglobin 12.6 g/dl (12.0-16.0); Imm Gran Abs Auto 0.03 X10*3/uL (0.00-0.03); Imm Gran Pct Auto 0.3 % (0.0-0.4); Lymphocytes Absolute Auto 2.7 X10*3/uL (1.2-4.9); Lymphocytes Percent Auto 29.6 % (20-40); Mean Corpuscular HGB Conc 32.2 g/dl (31.0-35.0); Mean Corpuscular Hemoglobin 28.1 pg (27.0-33.0); Mean Corpuscular Volume 87.1 fL (80.0-98.0); Mean Platelet Volume 11.6 fL (9.4-12.3); Monocytes Absolute Auto 0.5 X10*3/uL (0.1-1.2); Monocytes Percent Auto 5.9 % (2-11); Neutrophils Absolute Auto 5.7 x10*3/uL (2.0-8.3); Neutrophils Percent Auto 62.4 % (45-73); Platelet Count 224 X10*3/uL (160-400); Red Blood Count 4.49 X10*6/uL (4.20-5.50); Red Cell Distribution Width 14.2 % (11.0-16.0); White Blood Count 9.1 X10*3/uL (4.8-10.8)
[2023-12-03 17:47] LABS: Appearance Urine Cloudy; Color Urine Yellow; Glucose Urine UA Negative (Negative); Leukocyte Esterase Urine Large (3+) (Negative); Nitrite Urine Negative (Negative); PH 5.5 (5.0-9.0); UMIC TRIGGER UACC YES; Urine Blood Trace (Negative); Urine Ketones Trace mg/dL (Negative); Urine Protein Trace mg/dL (Neg-Trace)
[2023-12-03 17:49] LABS: Bacteria Urine 4+ (None Seen); Hyaline Casts Urine 0-2 /LPF (0-2); RBC Urine 0-2 /HPF (0-2); Squamous Epithelial Cell Urine 0-2 /HPF (0-2); UACC Culture Trigger YES; WBC Urine >50 /HPF (0-5)
[2023-12-03 18:00] LABS: Alanine Aminotransferase 13 U/L (0-31); Albumin Level 4.2 g/dL (3.5-5.0); Alkaline Phosphatase 103 U/L (39-117); Anion Gap 14 (12-20); Aspartate Amino Transferase 18 U/L (5-31); Bilirubin Total 0.2 mg/dL (0.0-1.0); Blood Urea Nitrogen 10 mg/dL (9-16); Calcium 9.6 mg/dL (8.4-10.2); Carbon Dioxide 27 mmol/L (22-29); Chloride 104 mmol/L (96-108); Creatinine Clr Calc Pharmacy 66.6; Estimated Glomerular Filt Rate > 60; Glucose Random 133 mg/dL (60-115); Potassium 3.9 mmol/L (3.3-5.1); Sodium 141 mmol/L (135-145); Total Protein 7.5 g/dL (6.5-8.0)
[2023-12-03 21:53] VITALS: BP 155/74; PULSE 68; RESP 18; TEMP 36.3; O2SAT 96
[2023-12-03 22:56] VITALS: BP 140/70; PULSE 63; RESP 16; TEMP 36.8; O2SAT 97
--- NOTE | 2023-12-04 00:24 | ED.FEMALEGU ---
HPI - Female Genitourinary General Chief complaint: Urogenital-Female Stated complaint: ?uti Time Seen by Provider: 12/03/23 23:12 Source: patient and pet technologist Mode of arrival: ambulatory History of Present Illness ED Provider: Dr. Barros HPI Narrative: 63-year-old female with worsening pain and burning on urination with suprapubic discomfort but denies any back pain/fever/chills/nausea/vomiting. Related Data Home Medications ?Medication ?Instructions ?Recorded ?Confirmed hydrocortisone 1 % lotion 1 applic topical TID PRN rash 05/30/20 09/24/23 emollient combination no.32 topical 01/13/22 09/24/23 (EpiCeram topical emulsion, extended release) hydroquinone 4 % topical cream appl topical BID 06/14/23 09/24/23 Previous Rx's ?Medication ?Instructions ?Recorded blood-glucose meter (FreeStyle #1 ea 04/21/21 Lite Meter kit) clotrimazole 1 % topical cream 1 appl topical TID PRN rash on 03/27/22 foot #45 grams acetaminophen 325 mg tablet 650 mg (2 x 325 mg) PO Q6H PRN 08/17/22 pain #90 tabs ibuprofen 600 mg tablet 600 mg PO Q6H PRN pain #60 tabs 08/17/22 cholecalciferol (vitamin D3) 25 25 mcg PO DAILY 90 days #90 caps 11/14/22 mcg (1,000 unit) capsule simvastatin 20 mg tablet 20 mg PO QPM 90 days #90 tabs 04/18/23 meclizine 12.5 mg tablet 12.5 mg PO QID PRN dizziness #120 06/25/23 tabs lisinopril 5 mg tablet 5 mg PO DAILY 90 days #90 tabs 06/27/23 triamcinolone acetonide 0.025 % 1 appl topical BID PRN pruritic 06/27/23 topical ointment rash #80 grams ferrous sulfate 325 mg (65 mg 325 mg PO 3XW 90 days #39 tabs 07/25/23 iron) tablet folic acid 1 mg tablet 1 mg PO DAILY 90 days #90 tabs 07/25/23 blood sugar diagnostic #100 ea 09/05/23 paroxetine HCl 40 mg tablet 60 mg (1.5 x 40 mg) PO DAILY 30 09/05/23 days #45 tabs cyanocobalamin (vitamin B-12) 1,000 mcg PO .3 times a week #90 09/24/23 1,000 mcg tablet tabs lidocaine 5 % topical patch 1 patch topical DAILY #30 ea 09/24/23 melatonin 10 mg capsule 10 mg PO BEDTIME PRN sleep 90 days 09/24/23 #90 caps metformin 500 mg tablet 500 mg PO BID 90 days #180 tabs 09/24/23 albuterol sulfate 90 mcg/actuation 2 puff inhalation Q6H PRN 10/31/23 aerosol inhaler (ProAir HFA) shortness of breath or wheezing 30 days #18 grams bisacodyl 5 mg tablet,delayed 10 mg (2 x 5 mg) PO BEDTIME #180 10/31/23 release (Laxative (bisacodyl)) tabs clonazepam 0.5 mg tablet 0.5 mg PO TID PRN anxiety 30 days 10/31/23 #90 tabs lancets 28 gauge (FreeStyle 28 gauge topical BID #100 caps 10/31/23 Lancets) linaclotide 145 mcg capsule 145 mcg PO QAM 90 days #90 caps 11/09/23 (Linzess) methylcellulose (laxative) 500 mg 500 mg PO BID #60 tabs 11/09/23 tablet (Citrucel) omeprazole 20 mg capsule,delayed 20 mg PO DAILY PRN heartburn 90 11/09/23 release days #90 caps cefdinir 300 mg capsule 300 mg PO BID 5 days #10 caps 12/04/23 phenazopyridine 200 mg tablet 200 mg PO TID PRN pain 6 doses #6 12/04/23 (Pyridium) tabs Allergies Allergy/AdvReac Type Severity Reaction Status Date / Time No Known Allergies Allergy Verified 12/03/23 17:13 Review of Systems Review of Systems: Pertinent positives and negatives as stated in [facility] Past Medical History Source: nursing notes reviewed Medical History Well woman exam Chest pain Hypercholesterolemia Type 2 diabetes mellitus with hyperglycemia Hematuria Dysuria Precordial chest pain Impacted cerumen, left ear Pre-op examination Urinary tract infection Left ear pain URI (upper respiratory infection) Sore throat Tinea pedis Impacted cerumen of both ears Superficial thrombophlebitis Bilateral shoulder pain Skin lump of leg Abscess of leg Pain of left calf Cellulitis Insect bite Abdominal pain Impacted cerumen of both ears Recurrent chest pain Right shoulder pain Overweight (BMI 25.0-29.9) Vitamin B12 deficiency Insomnia Depression Anxiety Allergic rhinitis Lumbar spondylosis Vitamin D deficiency Irritable bowel syndrome (IBS) GERD without esophagitis Anemia Asthma Benign essential hypertension Diabetes mellitus Tubular adenoma Surgical History History of colonoscopy History of esophagogastroduodenoscopy (EGD) History of tubal ligation History of cholecystectomy Family History Family History Father Diabetes Hypertension CVD (cardiovascular disease) Mother Hypertension Diabetes Chronic mental illness Social History Social History Housing: Apartment Unable to assess alcohol history related to: Unknown Alcohol intake: never Patient Tobacco Use Status: Never used Tobacco e-Cigarette/Vaping Use: Never Used Second Hand Smoke Exposure: No Advance Directives: No Advance Directives Information Provided: No service: No Current occupational status: disabled Cognitive needs: No Hearing needs: Yes Vision needs: No Physical Exam Vital Signs: Vital Signs: Last Vital Signs Temp 98.2 F 12/03/23 22:56 Pulse 63 12/03/23 22:56 Resp 16 12/03/23 22:56 BP 140/70 H 12/03/23 22:56 Pulse Ox 97 12/03/23 22:56 O2 Del Method Room Air 12/03/23 22:56 BMI result Body Mass Index 26.7 VITAL SIGNS: Reviewed. GENERAL: Well developed, well nourished, in no acute distress. HEAD: Normocephalic/atraumatic EYES: PERRLA, EOMI LUNGS: Normal breath sounds. No adventitious sounds or accessory muscle use. SpO2<97> CARDIOVASCULAR: Regular rate and rhythm without noted murmurs ABDOMEN: Soft, non-tender, non-distended with bowel sounds. MUSCULOSKELETAL: No tenderness, deformities, or effusions noted on gross inspection. EXTREMITIES: No cyanosis, clubbing or edema. SKIN: Inspection of the skin reveals no rashes NEUROLOGIC: Alert and oriented x 4. Strength and sensation to light touch were grossly intact x 4. Medical Decision Making Medical Decision Making MDM Narrative: 63-year-old female with history and clinical presentation, DDX: Urinary tract infection, no concern for renal colic or pyelonephritis. Reviewed all investigations and hematologic indices negative for leukocytosis/anemia/thrombocytopenia. Chemistry indices negative for KAROL/electrolyte or liver enzyme derangements. Urinalysis is significant for leukocyte esterase with wbc's and bacteria and appears to be a clean sample. Patient will receive initial Pyridium and antibiotics here in the emergency room, all results and findings were discussed with her at bedside and she was discharged home with remaining course of medication. Differential Diagnosis Differential Diagnoses: The differential diagnosis associated with the presentation includes Please see the discussion above Admission/Observation Consideration of admission/observation: Escalation of care including admission/observation considered Please see the discussion above Lab Data MDM Lab Attestation statement: I reviewed the patient's lab results. Please see the discussion above 12/03/23 17:30 12/03/23 17:30 Labs: Lab Results 12/03/23 Range/Units 17:30 WBC 9.1 (4.8-10.8) X10*3/uL RBC 4.49 (4.20-5.50) X10*6/uL Hgb 12.6 (12.0-16.0) g/dl Hct 39.1 (37.0-47.0) % MCV 87.1 (80.0-98.0) fL MCH 28.1 (27.0-33.0) pg MCHC 32.2 (31.0-35.0) g/dl RDW 14.2 (11.0-16.0) % Plt Count 224 (160-400) X10*3/uL MPV 11.6 (9.4-12.3) fL Immature Gran % (Auto) 0.3 (0.0-0.4) % Neut % (Auto) 62.4 (45-73) % Lymph % (Auto) 29.6 (20-40) % [place] % (Auto) 5.9 (2-11) % Eos % (Auto) 1.5 (0-4) % Baso % (Auto) 0.3 (0-2) % Lymph # (Auto) 2.7 (1.2-4.9) X10*3/uL [place] # (Auto) 0.5 (0.1-1.2) X10*3/uL Eos # (Auto) 0.1 (0.0-0.4) X10*3/uL Baso # (Auto) 0.0 (0.0-0.2) X10*3/uL Abs Immat Gran (auto) 0.03 (0.00-0.03) X10*3/uL Absolute Neuts (auto) 5.7 (2.0-8.3) x10*3/uL Absolute Nucleated RBC 0.000 (0.0-0.012) X10*3/uL Nucleated RBC % (auto) 0.0 (0.0-0.2) /100WBC Sodium 141 (135-145) mmol/L Potassium 3.9 (3.3-5.1) mmol/L Chloride 104 (96-108) mmol/L Carbon Dioxide 27 (22-29) mmol/L Anion Gap 14 (12-20) BUN 10 (9-16) mg/dL Creatinine 0.74 (0.5-1.4) mg/dL Estim Creat Clear Calc 66.6 Estimated GFR > 60 Random Glucose 133 H (60-115) mg/dL Calcium 9.6 (8.4-10.2) mg/dL Total Bilirubin 0.2 (0.0-1.0) mg/dL AST 18 (5-31) U/L ALT 13 (0-31) U/L Alkaline Phosphatase 103 (39-117) U/L Total Protein 7.5 (6.5-8.0) g/dL Albumin 4.2 (3.5-5.0) g/dL Urine Color Yellow Urine Appearance Cloudy Urine pH 5.5 (5.0-9.0) Ur Specific [place] 1.020 (1.005-1.025) Urine Protein Trace (Neg-Trace) mg/dL Urine Glucose (UA) Negative (Negative) mg/dL Urine Ketones Trace (Negative) mg/dL Urine Blood Trace H (Negative) Urine Nitrite Negative (Negative) Ur Leukocyte Esterase Large (3+) H (Negative) Urine RBC 0-2 (0-2) /HPF Urine WBC >50 H (0-5) /HPF Ur Squamous Epith Cells 0-2 (0-2) /HPF Urine Bacteria 4+ (None Seen) Hyaline Casts 0-2 (0-2) /LPF External Record Review External record reviewed: Outpatient record and Prior outpatient labs Critical Care Time Critical Care Time Critical Care Time: Yes Total Critical Care Time: 30 Attestation: I personally attest to this time spent taking care of the patient. Discharge Plan Discharge Clinical Impression: Cystitis Patient Disposition: Home, Self-Care Instructions: Urinary Tract Infection in Women (ED) Additional Instructions: 1. Complete the course of antibiotics as prescribed. 2. Please follow-up with your primary care doctor. Return to the ER for any worsening symptoms. Prescriptions: New cefdinir 300 mg capsule 300 mg PO BID 5 Days Qty: 10 0RF phenazopyridine [Pyridium] 200 mg tablet 200 mg PO TID PRN (Reason: pain) Qty: 6 0RF No Action (DME) blood-glucose meter [RareCyteStyle Lite Meter] Kit See Rx Instructions .Route Qty: 1 0RF Rx Instructions: TEST 2 TIMES DAILY cholecalciferol (vitamin D3) 25 mcg (1,000 unit) capsule 25 mcg PO DAILY 90 Days Qty: 90 3RF simvastatin 20 mg tablet 20 mg PO QPM 90 Days Qty: 90 3RF meclizine 12.5 mg tablet 12.5 mg PO QID PRN (Reason: dizziness) Qty: 120 8RF triamcinolone acetonide 0.025 % ointment 1 appl topical BID PRN (Reason: pruritic rash) Qty: 80 0RF lisinopril 5 mg tablet 5 mg PO DAILY 90 Days Qty: 90 3RF folic acid 1 mg tablet 1 mg PO DAILY 90 Days Qty: 90 3RF ferrous sulfate 325 mg (65 mg iron) tablet 325 mg PO 3XW 90 Days Qty: 39 3RF (DME) blood sugar diagnostic Strip See Rx Instructions Not Applicable DAILY Qty: 100 6RF Rx Instructions: TEST 2 TIMES DAILY paroxetine HCl 40 mg tablet 60 mg PO DAILY 30 Days Qty: 45 5RF bisacodyl [Laxative (bisacodyl)] 5 mg tablet,delayed release (DR/EC) 10 mg PO BEDTIME Qty: 180 1RF clonazepam 0.5 mg tablet 0.5 mg PO TID PRN (Reason: anxiety) 30 Days Qty: 90 0RF lancets [FreeStyle Lancets] 28 gauge misc 28 gauge topical BID Qty: 100 6RF albuterol sulfate [ProAir HFA] 90 mcg/actuation HFA aerosol inhaler 2 puff inhalation Q6H PRN (Reason: shortness of breath or wheezing) 30 Days Qty: 18 5RF hydrocortisone 1 % lotion 1 applic topical TID PRN (Reason: rash) clotrimazole 1 % cream 1 appl topical TID PRN (Reason: rash on foot) Qty: 45 0RF ibuprofen 600 mg tablet 600 mg PO Q6H PRN (Reason: pain) Qty: 60 0RF acetaminophen 325 mg tablet 650 mg PO Q6H PRN (Reason: pain) Qty: 90 0RF lidocaine 5 % adhesive patch,medicated 1 patch topical DAILY Qty: 30 0RF Rx Instructions: leave on most painful area for up to 12 hrs metformin 500 mg tablet 500 mg PO BID 90 Days Qty: 180 3RF cyanocobalamin (vitamin B-12) 1,000 mcg tablet 1,000 mcg PO .3 times a week Qty: 90 3RF melatonin 10 mg capsule 10 mg PO BEDTIME PRN (Reason: sleep) 90 Days Qty: 90 3RF EpiCeram Emulsion, Extended Release topical hydroquinone 4 % cream topical BID Linzess 145 mcg capsule 145 mcg PO QAM 90 Days Qty: 90 1RF Hold Instructions: Doctor's Order omeprazole 20 mg capsule,delayed release(DR/EC) 20 mg PO DAILY PRN (Reason: heartburn) 90 Days Qty: 90 3RF Citrucel 500 mg tablet 500 mg PO BID Qty: 60 12RF Referrals: Herb Souza MD [Primary Care Provider] - Print Language: Kinyarwanda
[2023-12-04] MEDS: Phenazopyridine HCL 200 MG TABLET PO (00:36)
[2023-12-04] MEDS: cefuroxime axetiL 500 MG TABLET PO (00:36)
[2023-12-04 00:37] VITALS: BP 134/69; PULSE 61; RESP 16; TEMP 36.7; O2SAT 96
[2023-12-04 00:43] VITALS: BP 134/69; PULSE 61; RESP 16; TEMP 36.7; O2SAT 96
== END 2023-12-04 00:44 | disposition home or self-care (01) ==
PROVIDERS: Emergency Provider Student in an Organized Health Care Education/Training Program; PCP Internal Medicine
DX: N30.90 Cystitis, unspecified without hematuria (principal); R10.30 Lower abdominal pain, unspecified; E11.9 Type 2 diabetes mellitus without complications; I10 Essential (primary) hypertension; E78.00 Pure hypercholesterolemia, unspecified; Z79.4 Long term (current) use of insulin; Z79.84 Long term (current) use of oral hypoglycemic drugs; Z79.02 Long term (current) use of antithrombotics/antiplatelets; Z79.899 Other long term (current) drug therapy
CPT/HCPCS: 36415; 80053; 81001; 85025; 87086; 87088; 87186; 99283

== ENCOUNTER 2023-12-19 16:07 | Emergency (ER) | payer OTHER, SELFPAY ==
--- NOTE | ~2023-12-19 | CT_ITS ---
EXAMINATION: CT ABDOMEN AND PELVIS WITHOUT CONTRAST CLINICAL INFORMATION: Abdominal and flank pain COMPARISON: Previous renal and bladder ultrasound July [address] of the abdomen and pelvis from 2018 TECHNIQUE: Multidetector volumetric imaging was performed from the superior aspect of the liver through the pubic symphysis. Sagittal and coronal reformatted images were obtained on the technologist's workstation. This CT examination was performed using dose optimization techniques as appropriate, variously including the following: *Automated exposure control *Adjustment of mA and/or kV according to patient size (this includes techniques or standardized protocols for targeted exams where dose is matched to indication/reason for exam; i.e. extremities or head) *Use of iterative reconstruction technique DLP: 363 mGy-cm FINDINGS: LUNG BASES: The visualized lung bases are unremarkable. LIVER, GALLBLADDER, AND BILIARY TREE: The liver is normal in size, shape, and attenuation. No focal hepatic lesion or biliary ductal dilatation is present. Small calcification in the medial segment of the left lobe of the liver. The gallbladder is not seen. PANCREAS: Unremarkable. SPLEEN: Unremarkable. ADRENAL GLANDS: Unremarkable. KIDNEYS AND URETERS: The kidneys are normal in size, shape, and attenuation. No hydronephrosis, hydroureter, or calculi seen. No perinephric stranding. BLADDER: Distended and not well evaluated. GASTROINTESTINAL TRACT: The small and large bowel are unremarkable. The appendix is unremarkable. ABDOMINAL WALL: No significant hernia is appreciated. LYMPH NODES: Normal. VASCULAR: Mild atherosclerotic disease. No aneurysm. PELVIC VISCERA: Unremarkable. OSSEOUS STRUCTURES: Degenerative changes of the lower lumbar spine. CT/CT abdomen pelvis wo IV con IMPRESSION: Unremarkable exam. Fleischner guidelines were followed.
[2023-12-19 16:10] VITALS: BP 134/54; PULSE 85; RESP 16; TEMP 36; O2SAT 96; BMI 26.4
--- NOTE | 2023-12-19 16:10 | ED_ITS ---
HPI - General Adult General Chief complaint: Abdominal Pain Stated complaint: R sided pain - hip, back, abd Time Seen by Provider: 12/19/23 16:22 Source: patient Mode of arrival: ambulatory Limitations: no limitations History of Present Illness ED Provider: Tiffanie Hebert PA-C HPI narrative: 63 yo female pmh lumbar spondylosis hypercholesterolemia, vitamin B12 deficiency, anxiety, depression, anemia, asthma, benign essential hypertension, IBS, GERD presents with r sided flank/ back pain intermittently radiating to the right side of abdomen and at times down rle. No trauma worse with movement better at rest. Patient has had pain like this before however it is gone away on its own. No history of ovarian cyst or torsion.. Denies nausea, vomiting, urinary symptoms, fever, chills, chest pain, sob, weakness, numbness, tingling, saddle paresthesias, numbness, urinary/bowel incontinence/retention. Related Data Home Medications ?Medication ?Instructions ?Recorded ?Confirmed hydrocortisone 1 % lotion 1 applic topical TID PRN rash 05/30/20 09/24/23 emollient combination no.32 topical 01/13/22 09/24/23 (EpiCeram topical emulsion, extended release) hydroquinone 4 % topical cream appl topical BID 06/14/23 09/24/23 Previous Rx's ?Medication ?Instructions ?Recorded blood-glucose meter (FreeStyle #1 ea 04/21/21 Lite Meter kit) clotrimazole 1 % topical cream 1 appl topical TID PRN rash on 03/27/22 foot #45 grams acetaminophen 325 mg tablet 650 mg (2 x 325 mg) PO Q6H PRN 08/17/22 pain #90 tabs ibuprofen 600 mg tablet 600 mg PO Q6H PRN pain #60 tabs 08/17/22 cholecalciferol (vitamin D3) 25 25 mcg PO DAILY 90 days #90 caps 11/14/22 mcg (1,000 unit) capsule simvastatin 20 mg tablet 20 mg PO QPM 90 days #90 tabs 04/18/23 meclizine 12.5 mg tablet 12.5 mg PO QID PRN dizziness #120 06/25/23 tabs lisinopril 5 mg tablet 5 mg PO DAILY 90 days #90 tabs 06/27/23 triamcinolone acetonide 0.025 % 1 appl topical BID PRN pruritic 06/27/23 topical ointment rash #80 grams ferrous sulfate 325 mg (65 mg 325 mg PO 3XW 90 days #39 tabs 07/25/23 iron) tablet folic acid 1 mg tablet 1 mg PO DAILY 90 days #90 tabs 07/25/23 blood sugar diagnostic #100 ea 09/05/23 paroxetine HCl 40 mg tablet 60 mg (1.5 x 40 mg) PO DAILY 30 09/05/23 days #45 tabs cyanocobalamin (vitamin B-12) 1,000 mcg PO .3 times a week #90 09/24/23 1,000 mcg tablet tabs lidocaine 5 % topical patch 1 patch topical DAILY #30 ea 09/24/23 melatonin 10 mg capsule 10 mg PO BEDTIME PRN sleep 90 days 09/24/23 #90 caps metformin 500 mg tablet 500 mg PO BID 90 days #180 tabs 09/24/23 albuterol sulfate 90 mcg/actuation 2 puff inhalation Q6H PRN 10/31/23 aerosol inhaler (ProAir HFA) shortness of breath or wheezing 30 days #18 grams bisacodyl 5 mg tablet,delayed 10 mg (2 x 5 mg) PO BEDTIME #180 10/31/23 release (Laxative (bisacodyl)) tabs clonazepam 0.5 mg tablet 0.5 mg PO TID PRN anxiety 30 days 10/31/23 #90 tabs lancets 28 gauge (FreeStyle 28 gauge topical BID #100 caps 10/31/23 Lancets) linaclotide 145 mcg capsule 145 mcg PO QAM 90 days #90 caps 11/09/23 (Linzess) methylcellulose (laxative) 500 mg 500 mg PO BID #60 tabs 11/09/23 tablet (Citrucel) omeprazole 20 mg capsule,delayed 20 mg PO DAILY PRN heartburn 90 11/09/23 release days #90 caps cefdinir 300 mg capsule 300 mg PO BID 5 days #10 caps 12/04/23 phenazopyridine 200 mg tablet 200 mg PO TID PRN pain 6 doses #6 12/04/23 (Pyridium) tabs ketorolac 10 mg tablet 10 mg PO TID PRN pain 5 days #15 12/19/23 tabs lidocaine 5 % topical patch 1 patch topical DAILY PRN pain #15 12/19/23 ea Allergies Allergy/AdvReac Type Severity Reaction Status Date / Time No Known Allergies Allergy Verified 12/19/23 16:12 Review of Systems 2 Review of Systems: Yes all other systems are reviewed and are negative [facility] Past Medical History Attestation statement: The following information was validated with the patient. Source: old records reviewed and nursing notes reviewed Medical History Well woman exam Chest pain Hypercholesterolemia Type 2 diabetes mellitus with hyperglycemia Hematuria Dysuria Precordial chest pain Impacted cerumen, left ear Pre-op examination Urinary tract infection Left ear pain URI (upper respiratory infection) Sore throat Tinea pedis Impacted cerumen of both ears Superficial thrombophlebitis Bilateral shoulder pain Skin lump of leg Abscess of leg Pain of left calf Cellulitis Insect bite Abdominal pain Impacted cerumen of both ears Recurrent chest pain Right shoulder pain Overweight (BMI 25.0-29.9) Vitamin B12 deficiency Insomnia Depression Anxiety Allergic rhinitis Lumbar spondylosis Vitamin D deficiency Irritable bowel syndrome (IBS) GERD without esophagitis Anemia Asthma Benign essential hypertension Diabetes mellitus Tubular adenoma Surgical History History of colonoscopy History of esophagogastroduodenoscopy (EGD) History of tubal ligation History of cholecystectomy Family History Family History Father Diabetes Hypertension CVD (cardiovascular disease) Mother Hypertension Diabetes Chronic mental illness Social History Social History Housing: Apartment Unable to assess alcohol history related to: Unknown Alcohol intake: never Patient Tobacco Use Status: Never used Tobacco e-Cigarette/Vaping Use: Never Used Second Hand Smoke Exposure: No Advance Directives: No Advance Directives Information Provided: No service: No Current occupational status: disabled Cognitive needs: No Hearing needs: Yes Vision needs: No Physical Exam ED Vital Signs: Vital Signs - 24 hr 12/19/23 16:10 12/19/23 18:08 Temperature 96.8 F 98.3 F Pulse Rate 85 71 Respiratory Rate 16 16 Blood Pressure 134/54 L 115/64 Pulse Oximetry 96 95 Oxygen Delivery Method Room Air Room Air BMI result Body Mass Index 26.4 vss. Appearance: Alert.? Oriented X3.? No acute distress.? Head: Normocephalic, atraumatic, no step-offs or deformities Neck: Normal inspection.? Neck supple.? CVS: Normal heart rate and rhythm.? Pulses normal.? Respiratory: No respiratory distress.? Breath sounds normal.? Abdomen: Nontender nondistended. Normoactive bowel sounds. Skin: Skin warm and dry.? Normal skin color.? Normal skin turgor.? Extremities: No lower extremity edema.? No calf ttp. 5/5 strength to bilateral upper and lower extremities Back: full range of motion, no CVA tenderness bilaterally patient does have slight discomfort with palpation in the right flank/right lumbar paraspinous muscle region. Discomfort with range of motion with flexion/extension of back in the right flank/right sided lumbar region. No overlying skin changes. No midline pain. Ambulating with steady gait normal coordination. No saddle paresthesias. Neuro: Oriented X 3.? No motor deficit.? No sensory deficit. CN 2-12 intact Course Course Course Narrative: This is a rapid medical exam performed by Anushka Garrett NP: Additional HPI, ROS, PE not included below will be deferred to primary provider. Patient is a 63-year-old Albanian speaking female with hx of GERD, anemia, asthma, HTN, DM presenting to the ED with complaint of abdominal pain and right flank pain since 2pm yesteray. Pain with movement of right leg. History of cholecystecomy, hysterectomy. Reports chronic constipation, last BM yesterday. Plan: labs, UA, likely needs CT with IV contrast Reevaluation(s) Reevaluation #1: CBC unremarkable. Chemistry no acute findings requiring intervention. Coags no acute findings. UA no infection. CT abdomen and pelvis pending. Patient medicated with Toradol and Lidoderm patch. Time: 17:23 Reevaluation #2: CT abd unremarkable. Will dc w/ toradol. As patient is feeling better at this time Educated patient on diagnosis and treatment plan, answered all question, patient verbalizes understanding. At this time patient will be discharged home, advised to return with new or worsening symptoms. Educated on worrisome signs and symptoms and when to return. At this time I feel comfortable discharge home. Time: 18:34 Medications Administered Discontinued Medications Generic Name Dose Route Start Last Admin Trade Name Freq PRN Reason Stop Dose Admin Ketorolac Tromethamine 30 mg 12/19/23 17:07 12/19/23 17:44 Ketorolac Tromethamine 30 Mg/Ml Vial IM 12/19/23 17:08 30 mg ONCE ONE Administration Lidocaine 1 patch 12/19/23 17:07 12/19/23 17:44 Lidocaine 4 % Patch Adh..Patch TRANSDERMA 12/19/23 17:08 1 patch ONCE ONE Administration Protocol Medical Decision Making Medical Decision Making [facility] Narrative: 1700 63 yo female presents with right flank/lumbar pain radiating intermittently to abdomen and right lower extremity. PE: full range of motion, no CVA tenderness bilaterally patient does have slight discomfort with palpation in the right flank/right lumbar paraspinous muscle region. Discomfort with range of motion with flexion/extension of back in the right flank/right sided lumbar region. No overlying skin changes. No midline pain. Ambulating with steady gait normal coordination. No saddle paresthesias. Differential:Kidney stone vs cystitis versus UTI versus musculoskeletal pain which is most likely. Unlikely pyelonephritis, acute abdomen, ovarian torsion, ectopic , acute abdomen, appendicitis, cholecystitis, pancreatitis, obstruction, cauda equina, cord compression, epidural abscess. Plan: Labs, imaging, pain control Differential Diagnosis Differential Diagnoses: The differential diagnosis associated with the presentation includes Differential:Kidney stone vs cystitis versus UTI versus musculoskeletal pain which is most likely. Unlikely pyelonephritis, acute abdomen, ovarian torsion, ectopic , acute abdomen, appendicitis, cholecystitis, pancreatitis, obstruction, cauda equina, cord compression, epidural abscess. Admission/Observation Consideration of admission/observation: Escalation of care including admission/observation considered Unlikely Lab Data [facility] Lab Attestation statement: I reviewed the patient's lab results. 12/19/23 16:31 12/19/23 16:31 Labs: Lab Results 12/19/23 12/19/23 Range/Units 16:31 16:47 WBC 8.8 (4.8-10.8) X10*3/uL RBC 4.50 (4.20-5.50) X10*6/uL Hgb 12.6 (12.0-16.0) g/dl Hct 38.5 (37.0-47.0) % MCV 85.6 (80.0-98.0) fL MCH 28.0 (27.0-33.0) pg MCHC 32.7 (31.0-35.0) g/dl RDW 14.0 (11.0-16.0) % Plt Count 227 (160-400) X10*3/uL MPV 11.4 (9.4-12.3) fL Immature Gran % (Auto) 0.2 (0.0-0.4) % Neut % (Auto) 58.7 (45-73) % Lymph % (Auto) 32.9 (20-40) % [place] % (Auto) 6.0 (2-11) % Eos % (Auto) 1.7 (0-4) % Baso % (Auto) 0.5 (0-2) % Lymph # (Auto) 2.9 (1.2-4.9) X10*3/uL [place] # (Auto) 0.5 (0.1-1.2) X10*3/uL Eos # (Auto) 0.2 (0.0-0.4) X10*3/uL Baso # (Auto) 0.0 (0.0-0.2) X10*3/uL Abs Immat Gran (auto) 0.02 (0.00-0.03) X10*3/uL Absolute Neuts (auto) 5.2 (2.0-8.3) x10*3/uL Absolute Nucleated RBC 0.000 (0.0-0.012) X10*3/uL Nucleated RBC % (auto) 0.0 (0.0-0.2) /100WBC PT 12.2 (11.1-13.3) SEC INR 1.0 (0.9-1.1) Sodium 140 (135-145) mmol/L Potassium 3.7 (3.3-5.1) mmol/L Chloride 105 (96-108) mmol/L Carbon Dioxide 26 (22-29) mmol/L Anion Gap 13 (12-20) BUN 11 (9-16) mg/dL Creatinine 0.72 (0.5-1.4) mg/dL Estim Creat Clear Calc 68.3 Estimated GFR > 60 Random Glucose 150 H (60-115) mg/dL Calcium 10.1 (8.4-10.2) mg/dL Total Bilirubin 0.3 (0.0-1.0) mg/dL AST 16 (5-31) U/L ALT 14 (0-31) U/L Alkaline Phosphatase 99 (39-117) U/L Total Protein 7.8 (6.5-8.0) g/dL Albumin 4.3 (3.5-5.0) g/dL Urine Color Yellow Urine Appearance Clear Urine pH 5.5 (5.0-9.0) Ur Specific [place] 1.020 (1.005-1.025) Urine Protein Negative (Neg-Trace) mg/dL Urine Glucose (UA) Negative (Negative) mg/dL Urine Ketones Negative (Negative) mg/dL Urine Blood Negative (Negative) Urine Nitrite Negative (Negative) Ur Leukocyte Esterase Negative (Negative) Independent Interpretation I performed an independent interpretation of an: CT Scan Radiology Impression Discussion of test interpretation with radiology: I have reviewed the radiologist's reading. Prescription Management I considered prescription management with: Pain Medication (Toradol) Chronic Conditions Patient?s care impacted by: Diabetes and Hypertension Discharge Plan Discharge Clinical Impression: Acute flank pain, Lower back pain Patient Disposition: Home, Self-Care Instructions: Abdominal Pain (ED), Flank Pain (ED), Back Pain (ED) Additional Instructions: Take your medications as prescribed. If you were prescribed antibiotics today, it is important that you take your medication to their entirety, do not skip any doses, do not finish them early. Follow-up with your primary care provider this week. Return to the emergency department with new or worsening symptoms. Such as fevers, chills, chest pain, shortness of breath, nausea, vomiting, dizziness, headache, vision changes, lethargy In case of emergency call 911 Toradol has been sent to your pharmacy, you tolerated this well in the department. Please take this as prescribed do not take this with ibuprofen, or other NSAIDs, do not mix this with alcohol. Side effects of this medication including increased risk for bleeding and possible kidney injury. CT/CT abdomen pelvis wo IV con IMPRESSION: Unremarkable exam. Fleischner guidelines were followed. Prescriptions: New ketorolac 10 mg tablet 10 mg PO TID PRN (Reason: pain) 5 Days Qty: 15 0RF lidocaine 5 % adhesive patch,medicated 1 patch topical DAILY PRN (Reason: pain) Qty: 15 0RF Rx Instructions: leave on most painful area for up to 12 hrs No Action (DME) blood-glucose meter [FreeStyle Lite Meter] Kit See Rx Instructions .Route Qty: 1 0RF Rx Instructions: TEST 2 TIMES DAILY cholecalciferol (vitamin D3) 25 mcg (1,000 unit) capsule 25 mcg PO DAILY 90 Days Qty: 90 3RF simvastatin 20 mg tablet 20 mg PO QPM 90 Days Qty: 90 3RF meclizine 12.5 mg tablet 12.5 mg PO QID PRN (Reason: dizziness) Qty: 120 8RF triamcinolone acetonide 0.025 % ointment 1 appl topical BID PRN (Reason: pruritic rash) Qty: 80 0RF lisinopril 5 mg tablet 5 mg PO DAILY 90 Days Qty: 90 3RF folic acid 1 mg tablet 1 mg PO DAILY 90 Days Qty: 90 3RF ferrous sulfate 325 mg (65 mg iron) tablet 325 mg PO 3XW 90 Days Qty: 39 3RF (DME) blood sugar diagnostic Strip See Rx Instructions Not Applicable DAILY Qty: 100 6RF Rx Instructions: TEST 2 TIMES DAILY paroxetine HCl 40 mg tablet 60 mg PO DAILY 30 Days Qty: 45 5RF bisacodyl [Laxative (bisacodyl)] 5 mg tablet,delayed release (DR/EC) 10 mg PO BEDTIME Qty: 180 1RF clonazepam 0.5 mg tablet 0.5 mg PO TID PRN (Reason: anxiety) 30 Days Qty: 90 0RF lancets [FreeStyle Lancets] 28 gauge misc 28 gauge topical BID Qty: 100 6RF albuterol sulfate [ProAir HFA] 90 mcg/actuation HFA aerosol inhaler 2 puff inhalation Q6H PRN (Reason: shortness of breath or wheezing) 30 Days Qty: 18 5RF cefdinir 300 mg capsule 300 mg PO BID 5 Days Qty: 10 0RF phenazopyridine [Pyridium] 200 mg tablet 200 mg PO TID PRN (Reason: pain) Qty: 6 0RF hydrocortisone 1 % lotion 1 applic topical TID PRN (Reason: rash) clotrimazole 1 % cream 1 appl topical TID PRN (Reason: rash on foot) Qty: 45 0RF ibuprofen 600 mg tablet 600 mg PO Q6H PRN (Reason: pain) Qty: 60 0RF acetaminophen 325 mg tablet 650 mg PO Q6H PRN (Reason: pain) Qty: 90 0RF lidocaine 5 % adhesive patch,medicated 1 patch topical DAILY Qty: 30 0RF Rx Instructions: leave on most painful area for up to 12 hrs metformin 500 mg tablet 500 mg PO BID 90 Days Qty: 180 3RF cyanocobalamin (vitamin B-12) 1,000 mcg tablet 1,000 mcg PO .3 times a week Qty: 90 3RF melatonin 10 mg capsule 10 mg PO BEDTIME PRN (Reason: sleep) 90 Days Qty: 90 3RF EpiCeram Emulsion, Extended Release topical hydroquinone 4 % cream topical BID Linzess 145 mcg capsule 145 mcg PO QAM 90 Days Qty: 90 1RF Hold Instructions: Doctor's Order omeprazole 20 mg capsule,delayed release(DR/EC) 20 mg PO DAILY PRN (Reason: heartburn) 90 Days Qty: 90 3RF Citrucel 500 mg tablet 500 mg PO BID Qty: 60 12RF Referrals: Herb Souza MD [Primary Care Provider] - 3 days Print Language: Albanian
[2023-12-19 16:35] LABS: MANUAL DIFF FLAG NO
[2023-12-19 16:36] LABS: Basophils Percent Auto 0.5 % (0-2); Eosinophils Absolute Auto 0.2 X10*3/uL (0.0-0.4); Eosinophils Percent Auto 1.7 % (0-4); Hematocrit 38.5 % (37.0-47.0); Hemoglobin 12.6 g/dl (12.0-16.0); Imm Gran Abs Auto 0.02 X10*3/uL (0.00-0.03); Imm Gran Pct Auto 0.2 % (0.0-0.4); Lymphocytes Absolute Auto 2.9 X10*3/uL (1.2-4.9); Lymphocytes Percent Auto 32.9 % (20-40); Mean Corpuscular HGB Conc 32.7 g/dl (31.0-35.0); Mean Corpuscular Volume 85.6 fL (80.0-98.0); Mean Platelet Volume 11.4 fL (9.4-12.3); Monocytes Absolute Auto 0.5 X10*3/uL (0.1-1.2); Neutrophils Absolute Auto 5.2 x10*3/uL (2.0-8.3); Neutrophils Percent Auto 58.7 % (45-73); Platelet Count 227 X10*3/uL (160-400); White Blood Count 8.8 X10*3/uL (4.8-10.8)
[2023-12-19 16:43] LABS: Prothrombin Time 12.2 SEC (11.1-13.3)
[2023-12-19 16:49] LABS: Alanine Aminotransferase 14 U/L (0-31); Albumin Level 4.3 g/dL (3.5-5.0); Alkaline Phosphatase 99 U/L (39-117); Anion Gap 13 (12-20); Aspartate Amino Transferase 16 U/L (5-31); Bilirubin Total 0.3 mg/dL (0.0-1.0); Blood Urea Nitrogen 11 mg/dL (9-16); Calcium 10.1 mg/dL (8.4-10.2); Carbon Dioxide 26 mmol/L (22-29); Chloride 105 mmol/L (96-108); Creatinine Clr Calc Pharmacy 68.3; Estimated Glomerular Filt Rate > 60; Glucose Random 150 mg/dL (60-115); Potassium 3.7 mmol/L (3.3-5.1); Sodium 140 mmol/L (135-145); Total Protein 7.8 g/dL (6.5-8.0)
[2023-12-19 16:58] LABS: Appearance Urine Clear; Color Urine Yellow; Glucose Urine UA Negative (Negative); Leukocyte Esterase Urine Negative (Negative); Nitrite Urine Negative (Negative); PH 5.5 (5.0-9.0); Urine Blood Negative (Negative); Urine Ketones Negative (Negative); Urine Protein Negative (Neg-Trace)
[2023-12-19] MEDS: Ketorolac Tromethamine 30 MG/ML VIAL IM (17:44)
[2023-12-19] MEDS: Lidocaine 4 % Patch ADH..PATCH 1 PATCH TRANSDERMA (17:44)
[2023-12-19 18:08] VITALS: BP 115/64; PULSE 71; RESP 16; TEMP 36.8; O2SAT 95
[2023-12-19 18:51] VITALS: BP 115/64; PULSE 71; RESP 16; TEMP 36.8; O2SAT 95
== END 2023-12-19 18:52 | disposition home or self-care (01) ==
PROVIDERS: Registered Nurse Emergency; Emergency Provider Student in an Organized Health Care Education/Training Program; PCP Internal Medicine
DX: R10.9 Unspecified abdominal pain (principal); M54.50 Low back pain, unspecified; E11.9 Type 2 diabetes mellitus without complications; I10 Essential (primary) hypertension; E78.5 Hyperlipidemia, unspecified; Z79.02 Long term (current) use of antithrombotics/antiplatelets; Z79.899 Other long term (current) drug therapy; Z79.84 Long term (current) use of oral hypoglycemic drugs
CPT/HCPCS: 36415; 74176; 80053; 81003; 85025; 85610; 96372; 99284; J1885

== ENCOUNTER 2024-01-18 13:39 | Outpatient (REF) | payer OTHER, SELFPAY ==
[2024-01-18 13:58] LABS: MANUAL DIFF FLAG NO
[2024-01-18 14:39] LABS: Basophils Percent Auto 0.3 % (0-2); Eosinophils Absolute Auto 0.1 X10*3/uL (0.0-0.4); Eosinophils Percent Auto 1.1 % (0-4); Hematocrit 38.6 % (37.0-47.0); Hemoglobin 12.5 g/dl (12.0-16.0); Imm Gran Abs Auto 0.02 X10*3/uL (0.00-0.03); Imm Gran Pct Auto 0.3 % (0.0-0.4); Lymphocytes Absolute Auto 2.3 X10*3/uL (1.2-4.9); Lymphocytes Percent Auto 32.6 % (20-40); Mean Corpuscular HGB Conc 32.4 g/dl (31.0-35.0); Mean Corpuscular Hemoglobin 27.9 pg (27.0-33.0); Mean Corpuscular Volume 86.2 fL (80.0-98.0); Mean Platelet Volume 12.1 fL (9.4-12.3); Monocytes Absolute Auto 0.4 X10*3/uL (0.1-1.2); Monocytes Percent Auto 6.2 % (2-11); Neutrophils Absolute Auto 4.2 x10*3/uL (2.0-8.3); Neutrophils Percent Auto 59.5 % (45-73); Platelet Count 243 X10*3/uL (160-400); Red Blood Count 4.48 X10*6/uL (4.20-5.50); Red Cell Distribution Width 13.9 % (11.0-16.0); White Blood Count 7.1 X10*3/uL (4.8-10.8)
[2024-01-18 14:45] LABS: Estimated Average Glucose 148 mg/dL; Hemoglobin A1c % 6.8 % (<6.0)
[2024-01-18 14:50] LABS: Appearance Urine Clear; Color Urine Yellow; Glucose Urine UA Negative (Negative); Leukocyte Esterase Urine Negative (Negative); Nitrite Urine Negative (Negative); Specific Gravity - Urine <= 1.005 (1.005-1.025); Urine Blood Negative (Negative); Urine Ketones Negative (Negative); Urine Protein Negative (Neg-Trace)
[2024-01-18 14:55] LABS: Creatinine Urine 41.76 mg/dL; Microalbumin Urine < 5.0 mg/L
[2024-01-18 15:03] LABS: Alanine Aminotransferase 15 U/L (0-31); Albumin Level 4.2 g/dL (3.5-5.0); Alkaline Phosphatase 96 U/L (39-117); Anion Gap 12 (12-20); Aspartate Amino Transferase 17 U/L (5-31); Bilirubin Total 0.5 mg/dL (0.0-1.0); Blood Urea Nitrogen 9 mg/dL (9-16); Calcium 9.7 mg/dL (8.4-10.2); Carbon Dioxide 29 mmol/L (22-29); Chloride 101 mmol/L (96-108); Cholesterol 159 mg/dL (<200); Estimated Glomerular Filt Rate > 60; Glucose Fasting 109 mg/dL (60-99); HDL Cholesterol 45 mg/dL (>40); LDL Cholesterol Calculated 89 mg/dL (<100); Potassium 3.8 mmol/L (3.3-5.1); Sodium 138 mmol/L (135-145); Total Protein 7.5 g/dL (6.5-8.0); Triglycerides 129 mg/dL (<150)
[2024-01-18 15:19] LABS: Vitamin D 25-OH Total 40.8 ng/mL (>30)
[2024-01-18 15:32] LABS: Folate 14.4 ng/mL (> or = 4.0); Vitamin B12 627 pg/mL (200-900)
== END 2024-01-18 13:40 | disposition home or self-care (01) ==
LOC: HO.LAB 13:39
PROVIDERS: Visit Provider Internal Medicine
DX: E78.00 Pure hypercholesterolemia, unspecified (principal); E55.9 Vitamin D deficiency, unspecified; E53.8 Deficiency of other specified B group vitamins; R30.0 Dysuria; E11.9 Type 2 diabetes mellitus without complications; D64.9 Anemia, unspecified
CPT/HCPCS: 36415; 80053; 80061; 81003; 82306; 82570; 82607; 82746; 83036; 84443; 85025

== ENCOUNTER 2024-01-23 14:07 | Outpatient (AMB) | payer OTHER, SELFPAY ==
--- NOTE | 2024-01-23 14:12 | A.OFFPC_ITS ---
Vital Signs 01/23/24 14:19 Height 5 ft 1 in Weight 140 lb 0.6 oz BMI 26.5 BP 118/72 Blood Pressure Location Lt brachial Position Sitting Pulse 81 Pulse Source Pulse Oximeter Pulse Oximetry (%) 98 Oxygen Delivery Method Room Air Intake Visit Reasons: hyperlipidemia, HTN, DM Intake Note: Patient is here to follow up Allergies No Known Allergies Allergy (Verified 01/23/24 14:54) Medication List - Last Reconciled 01/23/24 by Herb Souza MD acetaminophen 650 mg (2 x 325 mg) PO Q6H PRN albuterol sulfate 90 mcg/actuation (ProAir HFA) 2 puffs inhalation Q6H PRN 30 days bisacodyl (Laxative (bisacodyl)) 10 mg (2 x 5 mg) PO BEDTIME blood sugar diagnostic TEST 2 TIMES DAILY blood-glucose meter (FreeStyle Lite Meter kit) TEST 2 TIMES DAILY cholecalciferol (vitamin D3) 25 mcg PO DAILY 90 days clonazepam 0.5 mg PO TID PRN 30 days clotrimazole 1% 1 appl topical TID PRN cyanocobalamin (vitamin B-12) 1,000 mcg PO .3 times a week emollient combination no.32 (EpiCeram topical emulsion, extended release) topical ferrous sulfate 325 mg PO 3XW 90 days folic acid 1 mg PO DAILY 90 days hydrocortisone 1% 1 appl topical TID PRN hydroquinone 4% appl topical BID ibuprofen 600 mg PO Q6H PRN ketorolac 10 mg PO TID PRN 5 days lancets (FreeStyle Lancets) 28 gauge topical BID lidocaine 5% 1 patch topical DAILY linaclotide (Linzess) 145 mcg PO QAM 90 days lisinopril 5 mg PO DAILY 90 days meclizine 12.5 mg PO QID PRN melatonin 10 mg PO BEDTIME PRN 90 days metformin 500 mg PO BID 90 days methylcellulose (laxative) (Citrucel) 500 mg PO BID omeprazole 20 mg PO DAILY PRN 90 days paroxetine HCl 60 mg (1.5 x 40 mg) PO DAILY 30 days phenazopyridine (Pyridium) 200 mg PO TID PRN 6 doses simvastatin 20 mg PO QPM 90 days triamcinolone acetonide 0.025% 1 appl topical BID PRN Tobacco use date assessed: 09/24/23 Dental Screening Dental Screen Date: 09/24/23 HPI hyperlipidemia, HTN, DM HPI Details Patient comes in today for her follow up visit States that she feels okay She denies any headaches or dizziness Denies any SOB but still has on and off sharp chest pains States that she was seen by cardiology and had some stress testing done recently, which she recalls being told came out normal No nausea/vomiting, no abdominal pain No change in bowel habits noted Is experiencing increased pain on and off over her lower back again lately, especially when she uses the bathroom and would like to have another U/A done to make sure she does not have a UTI at present Needs a few Rx refilled She had her follow up labs done a few days ago - to discuss her results [facility] Medical History Well woman exam Chest pain Hypercholesterolemia Type 2 diabetes mellitus with hyperglycemia Hematuria Dysuria Precordial chest pain Impacted cerumen, left ear Pre-op examination Urinary tract infection Left ear pain URI (upper respiratory infection) Sore throat Tinea pedis Impacted cerumen of both ears Superficial thrombophlebitis Bilateral shoulder pain Skin lump of leg Abscess of leg Pain of left calf Cellulitis Insect bite Abdominal pain Impacted cerumen of both ears Recurrent chest pain Right shoulder pain Overweight (BMI 25.0-29.9) Vitamin B12 deficiency Insomnia Depression Anxiety Allergic rhinitis Lumbar spondylosis Vitamin D deficiency Irritable bowel syndrome (IBS) GERD without esophagitis Anemia Asthma Benign essential hypertension Diabetes mellitus Tubular adenoma Surgical History History of colonoscopy History of esophagogastroduodenoscopy (EGD) History of tubal ligation History of cholecystectomy Family History Father Diabetes Hypertension CVD (cardiovascular disease) Mother Hypertension Diabetes Chronic mental illness Social History Housing: Apartment Unable to assess alcohol history related to: Unknown Alcohol intake: never Patient Tobacco Use Status: Never used Tobacco e-Cigarette/Vaping Use: Never Used Second Hand Smoke Exposure: No service: No Current occupational status: disabled Cognitive needs: No Hearing needs: Yes Vision needs: No Female Reproductive History Menstrual Age of Menarche: 15 Questionnaire Thrive Questionnaire Date Thrive assessed: 09/24/23 AUDIT C Alcohol Use Questionnaire (AUDIT-C) 1. How often do you have a drink containing alcohol?: Never 2. How many drinks containing alcohol do you have on a typical day when you are drinking?: 1 or 2 (0) 3. How often do you have six or more drinks on one occasion?: Never Total Score: 0 Score Reviewed/Action Taken: Yes MAME-7 AMB Questionnaire MAME-7 Date MAME - 7 assessed: 09/24/23 Source: Developed by Drs. Brody Perez, Randi Hand, Rodney Sneed and colleagues, with an educational sharif from [employer]. Review of Systems Const Denies difficulty sleeping (Melatonin helping), Denies fatigue, Denies fever(s) and Denies headache(s) ENT Denies dysphagia, Denies dizziness, Denies otalgia, Denies headache(s), Denies odynophagia and Denies sore throat Card Reports chest pain (recurrent, sharp, over her anterior chest wall), Denies palpitations and Denies dyspnea Resp Denies cough, Denies dyspnea and Denies wheezing GI Denies abdominal pain, Reports constipation (on and off - better controlled lately on Rx), Denies dysphagia, Denies heartburn, Denies diarrhea, Denies nausea, Denies odynophagia and Denies vomiting Denies hematuria, Denies difficulty voiding, Denies nocturia, Denies dysuria and Denies urinary urgency Musc Reports back pain (recurrent, especially over right lower back) and Reports arthralgias (both shoulders) Skin/Breast Denies rash Neuro Denies dizziness and Denies headache(s) Endo Denies fatigue and Denies palpitations Aller/Immun Denies wheezing Physical exam (Primary Care) Vital Signs: Last Vital Signs Pulse 81 01/23/24 14:19 BP 118/72 01/23/24 14:19 Pulse Ox 98 01/23/24 14:19 Oxygen Delivery Method Room Air 01/23/24 14:19 BMI result Body Mass Index 26.5 Tobacco/Smoking Status: Tobacco use Status Tobacco use date assessed 09/24/23 01/23/24 14:12 Patient Tobacco Use Status Never used Tobacco 01/23/24 14:12 e-Cigarette/Vaping Use Never Used 01/23/24 14:12 Thrive Assessment: Date of Thrive Assessment Date Thrive assessed 09/24/23 01/23/24 14:12 Const General: no acute distress and alert HENMT Ears: TM's normal bilaterally and EAC's normal Throat: Yes posterior oropharynx normal and Yes tonsils normal (no TP congestion noted) Neck Neck: Yes no lymphadenopathy and Yes supple Thyroid: Thyroid normal Resp Auscultation: clear to auscultation bilaterally, no rales and no wheezes Cardio Rate: regular rate Rhythm: regular rhythm Heart sounds: no murmurs GI Palpation (GI): Soft to palpation and nontender Auscultation: normal bowel sounds General: Yes no CVA tenderness Back/Spine/Pelvis Back: no CVA tenderness Thoracic/Lumbar Spine: lumbar spinal tenderness Skin Rashes: no rashes Extrem General: Yes no clubbing, cyanosis or edema Results AMB Urinalysis, Automated UA Leukoctes 0 Arnoldo/uL Last Edit by OLIVIER Victoria on 01/23/24 14:45 UA Nitrite Negative Last Edit by OLIVIER Victoria on 01/23/24 14:45 UA Urobilinogen 0.2 mg/dL Last Edit by OLIVIER Victoria on 01/23/24 14:45 UA Protein 15 mg/dL Last Edit by OLIVIER Victoria on 01/23/24 14:45 UA pH 6.0 Last Edit by OLIVIER Victoria on 01/23/24 14:45 UA Blood 0 Kodi/uL Last Edit by OLIVIER Victoria on 01/23/24 14:45 UA Specific [place] 1.025 Last Edit by OLIVIER Victoria on 01/23/24 14:45 UA Ketone Negative Last Edit by OLIVIER Victoria on 01/23/24 14:45 UA Bilirubin 0 mg/dL Last Edit by OLIVIER Victoria on 01/23/24 14:45 UA Glucose 0 mg/dL Last Edit by OLIVIER Victoria on 01/23/24 14:45 Results Reviewed Results Reviewed: Laboratory Last Values Urine pH (Auto) 6.0 01/23/24 14:44 Specific [place] (Auto) 1.025 01/23/24 14:44 Urine Protein (Auto) 15 mg/dL 01/23/24 14:44 Glucose (UA)(Auto) 0 mg/dL 01/23/24 14:44 Urine Ketones (Auto) Negative 01/23/24 14:44 Urine Blood (Auto) 0 [place]/uL 01/23/24 14:44 Urine Nitrite (Auto) Negative 01/23/24 14:44 Urine Bilirubin (Auto) 0 mg/dL 01/23/24 14:44 Urine Urobilinogen (Auto) 0.2 mg/dL 01/23/24 14:44 Leukocyte Esterase (Auto) 0 Arnoldo/uL 01/23/24 14:44 Laboratory Tests 01/18/24 01/18/24 01/23/24 13:49 13:56 14:44 WBC 7.1 Hgb 12.5 Hct 38.6 Plt Count 243 Sodium 138 Potassium 3.8 Creatinine 0.76 Estimated GFR > 60 Fasting Glucose 109 H Hemoglobin A1c % 6.8 H Calcium 9.7 AST 17 ALT 15 Triglycerides 129 Cholesterol 159 LDL Cholesterol, Calc 89 HDL Cholesterol 45 Vitamin B12 627 25-OH Vitamin D Total 40.8 TSH 1.20 Ur Specific [place] <= 1.005 Specific [place] (Auto) 1.025 Urine Protein Negative Urine Protein (Auto) 15 Urine Glucose (UA) Negative Glucose (UA)(Auto) 0 Urine Blood Negative Urine Blood (Auto) 0 Urine Nitrite Negative Urine Nitrite (Auto) Negative Ur Leukocyte Esterase Negative Leukocyte Esterase (Auto) 0 Urine Microalbumin < 5.0 Assessment and Plan Assessment & Plan (1) Pure hypercholesterolemia: Code(s): E78.00 - Pure hypercholesterolemia, unspecified Plan: Results of her labs done a few days ago reviewed and discussed with patient Reinforced low cholesterol diet Continue Simvastatin 20 mg QD Will recheck her labs and fasting lipids in 4 months for follow up (2) Benign essential hypertension: Code(s): I10 - Essential (primary) hypertension Plan: Reinforced low sodium diet - goal is systolic BP of at least 120 to 130 mm or less Continue Lisinopril 5 mg QD (3) Diabetes mellitus: Code(s): E11.9 - Type 2 diabetes mellitus without complications Qualifiers: Diabetes mellitus complication status: without complication Diabetes mellitus detention insulin use: without detention use Diabetes mellitus type: type 2 Qualified Code(s): E11.9 - Type 2 diabetes mellitus without complications Plan: Her HgbA1c was at 6.8% on her labs done a few days ago (was at 6.7% a few months ago) - goal is < 7.0% Reinforced diabetic diet Continue Metformin 500 mg BID (4) Asthma: Code(s): J45.909 - Unspecified asthma, uncomplicated Qualifiers: Asthma complication type: uncomplicated Asthma persistence: intermittent Asthma severity: mild Qualified Code(s): J45.20 - Mild intermittent asthma, uncomplicated Plan: Stable/controlled - continue Albuterol HFA? 2 inhalations QID PRN (5) Chest pain: Comment: recurrent, left-sided Code(s): R07.9 - Chest pain, unspecified Qualifiers: Chest pain type: unspecified Qualified Code(s): R07.9 - Chest pain, unspecified Plan: Advised/reassured patient that her recurrent chest pains are NOT cardiac-related as she's had a NEGATIVE stress test and normal myocardial perfusion done a couple of weeks ago Echocardiogram done a couple of weeks ago also came back with no significant and concerning findings (6) Chronic constipation: Code(s): K59.09 - Other constipation Plan: Improving/better controlled - continue Linzess 145 mcg QD and Dulcolax 5 mg 2 tablets QD PRN Reinforced increased oral fluids and dietary fiber Follow up with GI as scheduled (7) Irritable bowel syndrome (IBS): Code(s): K58.9 - Irritable bowel syndrome without diarrhea Qualifiers: Irritable bowel syndrome type: unspecified Qualified Code(s): K58.9 - Irritable bowel syndrome without diarrhea Plan: Continue Dicyclomine 20 mg TID PRN; Linzess also helps with her symptoms Follow up with GI as scheduled (8) GERD without esophagitis: Code(s): K21.9 - Gastro-esophageal reflux disease without esophagitis Plan: Dietary restrictions reinforced Continue Omeprazole 20 mg QD PRN (9) Anemia: Code(s): D64.9 - Anemia, unspecified Qualifiers: Anemia type: unspecified type Qualified Code(s): D64.9 - Anemia, unspecified Plan: Improved/corrected - continue Ferrous Sulfate 325 mg QD Will continue to monitor her CBC regularly (10) Vitamin D deficiency: Code(s): E55.9 - Vitamin D deficiency, unspecified Plan: Corrected; continue Vitamin D3 1000 units QD (11) Lumbar spondylosis: Code(s): M47.816 - Spondylosis without myelopathy or radiculopathy, lumbar region Plan: In-office urinalysis done today is normal - patient is advised that her U/A is negative and that her increased low back pain is not due to UTI Reinforced activity and weight-lifting restrictions Lumbar spine x-rays done in September 2020 showed (+) mild degenerative disc changes Per request, will send in Rx for Lidocaine patches that she can use as needed for her low back pain Goes to physical therapy as needed - PT has helped a lot with her low back pain in the past (12) Allergic rhinitis: Code(s): J30.9 - Allergic rhinitis, unspecified Qualifiers: Allergic rhinitis seasonality: unspecified Allergic rhinitis trigger: unspecified Qualified Code(s): J30.9 - Allergic rhinitis, unspecified Plan: Continue OTC Loratadine 10 mg QD PRN (13) Vitamin B12 deficiency: Code(s): E53.8 - Deficiency of other specified B group vitamins Plan: Continue Vitamin B12 1000 mcg tablet twice a week Will recheck her B12 level in a few months for follow up (14) Insomnia: Code(s): G47.00 - Insomnia, unspecified Qualifiers: Insomnia type: unspecified Qualified Code(s): G47.00 - Insomnia, unspecified Plan: Sleep hygiene reinforced Continue Melatonin 10 mg Q HS PRN (15) Anxiety: Code(s): F41.9 - Anxiety disorder, unspecified Plan: Continue Clonazepam 0.5 mg TID PRN Follow up with psychiatry as scheduled (16) Depression: Code(s): F32.9 - Major depressive disorder, single episode, unspecified Qualifiers: Active/Remission status: currently active Depression Type: major depressive disorder Major depression episode severity: unspecified Major depression recurrence: recurrent Qualified Code(s): F33.9 - Major depressive disorder, recurrent, unspecified Plan: Continue Paroxetine at 60 mg QD - Rx refilled Follow up with psychiatry at [facility] as scheduled (17) Overweight (BMI 25.0-29.9): Code(s): E66.3 - Overweight Plan: Reinforced diet/exercise as tolerated/lose weight Plan Follow up in 4 months Orders: Orders AMB Urinalysis Automated 07/10/24 R30.0 - Dysuria Medications: New blood sugar diagnostic (FreeStyle Lite Strips) As directed 2 times a day 100 ea 5RF Refilled blood-glucose meter (FreeStyle Lite Meter kit) TEST 2 TIMES DAILY 1 ea 0RF E11.9 - Type 2 diabetes mellitus without complications cholecalciferol (vitamin D3) 25 mcg PO DAILY 90 days 90 caps 3RF E55.9 - [place] min D deficiency, unspecified paroxetine HCl 60 mg (1.5 x 40 mg) PO DAILY 30 days 45 tabs 5RF F33.9 - Major depressive disorder, recurrent, unspecified simvastatin 20 mg PO QPM 90 days 90 tabs 3RF E78.00 - Pure hypercholesterolemia, unspecified ibuprofen 600 mg PO Q6H PRN 60 tabs 1RF pain Coding Level of Care Code Est Pt Level 4 (78796) Complex EM visit Add On G2211 Diagnoses Pure hypercholesterolemia E78.00 Benign essential hypertension I10 Type 2 diabetes mellitus without complication, without long-term current use of insulin E11.9 Diabetes mellitus complication status: without complication Diabetes mellitus rn long term care insulin use: without rn long term care use Diabetes mellitus type: type 2 Mild intermittent asthma without complication J45.20 Asthma complication type: uncomplicated Asthma persistence: intermittent Asthma severity: mild Chest pain, unspecified type R07.9 Chest pain type: unspecified Chronic constipation K59.09 Irritable bowel syndrome, unspecified type K58.9 Irritable bowel syndrome type: unspecified GERD without esophagitis K21.9 Anemia, unspecified type D64.9 Anemia type: unspecified type Vitamin D deficiency E55.9 Lumbar spondylosis M47.816 Allergic rhinitis, unspecified seasonality, unspecified trigger J30.9 Allergic rhinitis seasonality: unspecified Allergic rhinitis trigger: unspecified Vitamin B12 deficiency E53.8 Insomnia, unspecified type G47.00 Insomnia type: unspecified Anxiety F41.9 Episode of recurrent major depressive disorder, unspecified depression episode severity F33.9 Active/Remission status: currently active Depression Type: major depressive disorder Major depression episode severity: unspecified Major depression recurrence: recurrent Overweight (BMI 25.0-29.9) E66.3
[2024-01-23 14:19] VITALS: BP 118/72; PULSE 81; O2SAT 98; BMI 26.5
== END 2024-01-23 15:09 | disposition home or self-care (01) ==
PROVIDERS: PCP Internal Medicine; Visit Provider Internal Medicine
DX: R30.0 Dysuria (principal)
CPT/HCPCS: 81003; 99214; G2211

== ENCOUNTER 2024-03-20 12:39 | Outpatient (AMB) | payer OTHER, SELFPAY ==
[2024-03-20 12:53] VITALS: BP 124/66; PULSE 77; BMI 26.6
--- NOTE | 2024-03-20 12:53 | MHC.OFFVIS ---
Vital Signs 03/20/24 12:53 Height 5 ft 1 in Weight 140 lb 10.479 oz BMI 26.6 BP 124/66 Blood Pressure Location Lt brachial Position Sitting Pulse 77 Intake Visit Reasons: 6 mth f/up Coat Cutter Required: Yes Coat Cutter Name: Hector [id number] Accompanied by: Self / Same As Patient Allergies No Known Allergies Allergy (Verified 01/23/24 14:54) Medication List - Last Reconciled 03/20/24 by Curtis Mcdonough MD acetaminophen 650 mg (2 x 325 mg) PO Q6H PRN albuterol sulfate 90 mcg/actuation (ProAir HFA) 2 puffs inhalation Q6H PRN 30 days bisacodyl (Laxative (bisacodyl)) 10 mg (2 x 5 mg) PO BEDTIME blood sugar diagnostic TEST 2 TIMES DAILY blood sugar diagnostic (FreeStyle Lite Strips) As directed 2 times a day blood-glucose meter (FreeStyle Lite Meter kit) TEST 2 TIMES DAILY cholecalciferol (vitamin D3) 25 mcg PO DAILY 90 days clonazepam 0.5 mg PO TID PRN 30 days clotrimazole 1% 1 appl topical TID PRN cyanocobalamin (vitamin B-12) 1,000 mcg PO .3 times a week emollient combination no.32 (EpiCeram topical emulsion, extended release) topical ferrous sulfate 325 mg PO 3XW 90 days folic acid 1 mg PO DAILY 90 days hydrocortisone 1% 1 appl topical TID PRN hydroquinone 4% appl topical BID ibuprofen 600 mg PO Q6H PRN ketorolac 10 mg PO TID PRN 5 days lancets (FreeStyle Lancets) 28 gauge topical BID lidocaine 5% 1 patch topical DAILY linaclotide (Linzess) 145 mcg PO QAM 90 days lisinopril 5 mg PO DAILY 90 days meclizine 12.5 mg PO QID PRN melatonin 10 mg PO BEDTIME PRN 90 days metformin 500 mg PO BID 90 days methylcellulose (laxative) (Citrucel) 500 mg PO BID omeprazole 20 mg PO DAILY PRN 90 days paroxetine HCl 60 mg (1.5 x 40 mg) PO DAILY 30 days simvastatin 20 mg PO QPM 90 days triamcinolone acetonide 0.025% 1 appl topical BID PRN HPI Comments Details: Kirstin returns for follow-up. In the past, she was seen regarding chest pain. She has had chest pain for the last couple of years or so. Happens in the left side of the chest. Random occurrence and she continues to have the pains, most recently last month. In the past, she has had an echocardiogram and stress test. Otherwise, multiple comorbidities including diabetes, hypertension, dyslipidemia but no known cardiac comorbidities. [facility] Medical History Well woman exam Chest pain Hypercholesterolemia Type 2 diabetes mellitus with hyperglycemia Hematuria Dysuria Precordial chest pain Impacted cerumen, left ear Pre-op examination Urinary tract infection Left ear pain URI (upper respiratory infection) Sore throat Tinea pedis Impacted cerumen of both ears Superficial thrombophlebitis Bilateral shoulder pain Skin lump of leg Abscess of leg Pain of left calf Cellulitis Insect bite Abdominal pain Impacted cerumen of both ears Recurrent chest pain Right shoulder pain Overweight (BMI 25.0-29.9) Vitamin B12 deficiency Insomnia Depression Anxiety Allergic rhinitis Lumbar spondylosis Vitamin D deficiency Irritable bowel syndrome (IBS) GERD without esophagitis Anemia Asthma Benign essential hypertension Diabetes mellitus Tubular adenoma Surgical History History of colonoscopy History of esophagogastroduodenoscopy (EGD) History of tubal ligation History of cholecystectomy Family History Father Diabetes Hypertension CVD (cardiovascular disease) Mother Hypertension Diabetes Chronic mental illness Social History Housing: Apartment Unable to assess alcohol history related to: Unknown Alcohol intake: never Patient Tobacco Use Status: Never used Tobacco e-Cigarette/Vaping Use: Never Used Second Hand Smoke Exposure: No service: No Current occupational status: disabled Cognitive needs: No Hearing needs: Yes Vision needs: No Female Reproductive History Menstrual Age of Menarche: 15 Review of Systems Const Denies chills, Denies fatigue, Denies fever(s), Denies weight gain and Denies weight loss ENT Denies dizziness Card Denies chest pain, Denies leg edema, Denies lightheadedness, Denies palpitations, Denies dyspnea on exertion, Denies orthopnea and Denies other Resp Denies cough and Denies dyspnea on exertion GI Denies hematochezia and Denies change in stool character Musc Denies abnormal gait, Denies muscle weakness, Denies numbness, Denies radiating pain into limb and Denies tingling Neuro Denies abnormal gait, Denies dizziness, Denies numbness and Denies tingling Endo Denies fatigue and Denies palpitations Physical Exam Vital Signs: Last Vital Signs Pulse 77 03/20/24 12:53 BP 124/66 03/20/24 12:53 BMI result Body Mass Index 26.6 Const General: comfortable and no acute distress Orientation/consciousness: patient oriented x3 HEENT Other: Unremarkable Head: Yes normal to inspection Neck Neck: Yes normal visual inspection Chest Chest palpation & inspection: normal inspection of the chest Resp Auscultation: clear to auscultation bilaterally Cardio Palpation: normal PMI Heart sounds: S1 normal heart sound present, S2 normal heart sound present, no gallops, Murmur heart sound present systolic I/ and at the right sternal border and no rubs GI Palpation (GI): Soft to palpation Back/Spine/Pelvis Other: unremarkable Skin General skin exam: no rashes or lesions noted Neuro General: patient oriented x3 Extrem General: Yes normal to inspection Psych Mental Status: mental status grossly normal Office Procedures EKG Details: EKG with underlying sinus rhythm at 77/Min; inferior and anterolateral nonspecific ST-T changes slightly more than before. [id number], Complete Assessment & Plan Assessment & Plan (1) Chest pain: Code(s): R07.9 - Chest pain, unspecified Category: Medical Qualifiers: Chest pain type: unspecified Qualified Code(s): R07.9 - Chest pain, unspecified (2) Diabetes mellitus: Code(s): E11.9 - Type 2 diabetes mellitus without complications Category: Medical Qualifiers: Diabetes mellitus type: type 2 Diabetes mellitus skilled nursing insulin use: without skilled nursing use Diabetes mellitus complication status: without complication Qualified Code(s): E11.9 - Type 2 diabetes mellitus without complications (3) Benign essential hypertension: Code(s): I10 - Essential (primary) hypertension Category: Medical (4) Pure hypercholesterolemia: Code(s): E78.00 - Pure hypercholesterolemia, unspecified Category: Medical Plan Cardiac studies reviewed. EKG with inferior and lateral ST-T changes. In the echocardiogram, thought to be having inferior hypokinesis but on 2nd look, could be artifactual finding. Suspect normal contractility. Perfusion imaging unremarkable. Overall, main risk factors, recurrent chest pains and unrevealing testing. Obtain coronary CTA. Orders: Orders CT Cardiac Coronary Angio Today I25.10 - Atherosclerotic heart disease of [place] coronary artery without angina pectoris, R07.9 - Chest pain, unspecified Coding Level of Care Code Est Pt Level 4 (64007) Diagnoses Chest pain, unspecified type R07.9 Chest pain type: unspecified Type 2 diabetes mellitus without complication, without long-term current use of insulin E11.9 Diabetes mellitus type: type 2 Diabetes mellitus skilled nursing insulin use: without e commerce merchandising coordinator use Diabetes mellitus complication status: without complication Benign essential hypertension I10 Pure hypercholesterolemia E78.00 CPT Codes EKG - CPT: [id number], Complete ([id number])
== END 2024-03-20 13:24 | disposition home or self-care (01) ==
PROVIDERS: PCP Internal Medicine; Visit Provider Internal Medicine
DX: R07.9 Chest pain, unspecified (principal); E11.9 Type 2 diabetes mellitus without complications; I10 Essential (primary) hypertension; E78.00 Pure hypercholesterolemia, unspecified
CPT/HCPCS: 93010; 99214

== ENCOUNTER → 2024-03-20 12:39 | Outpatient (BNVA) | payer OTHER, SELFPAY | PROVIDERS: PCP Internal Medicine; Visit Provider Internal Medicine | DX: I25.10 Atherosclerotic heart disease of native coronary artery without angina pectoris (principal); I10 Essential (primary) hypertension; R07.9 Chest pain, unspecified; E78.00 Pure hypercholesterolemia, unspecified | CPT/HCPCS: 93005; 99212 ==

== ENCOUNTER 2024-05-09 11:45 | Outpatient (AMB) | payer OTHER, SELFPAY ==
--- NOTE | 2024-05-09 11:46 | MHC.OFFVIS ---
Vital Signs 05/09/24 11:47 Height 5 ft 1 in Weight 143 lb 4.807 oz BMI 27.1 BP 109/52 L Blood Pressure Location Lt brachial Position Sitting Pulse 70 Intake Visit Reasons: 6 mnth follow up Intake Note: Kirstin presents in the office as a 6 month follow up. CC: She states that she is taking linzess and dulcolax. Sometimes she has pains in her stomach and in the lower flank region of both sides. 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 I sent an update note. She is now doing well on the LInzess 145mcg and 2 bisacodyl qhs. She also continues on omeprazole with good control of her GERD. ROV 6 mos. Medications: Refilled methylcellulose (laxative) (Citrucel) 500 mg PO BID 60 tabs 12RF linaclotide (Linzess) 145 mcg PO QAM 90 caps 1RF 90 days omeprazole 20 mg PO DAILY PRN 90 caps 3RF heartburn 90 days K21.9 - Gastro-esophageal reflux disease without esophagitis She is now doing well on the LInzess 145mcg and 2 bisacodyl qhs. She also continues on omeprazole with good control of her GERD. She has not yet heard re: colonoscopy. Will walk her to schedulers since there is a message that they have been trying to reach her. ROV 6 mos and after colonoscopy (2) GERD without esophagitis: Code(s): K21.9 - Gastro-esophageal reflux disease without esophagitis (3) Tubular adenoma of colon: Comment: 2018=TA repeat 2022 Code(s): D12.6 - Benign neoplasm of colon, unspecified Medications: Changed From linaclotide (Linzess) 145 mcg PO QAM 30 caps 3RF To linaclotide (Linzess) 145 mcg PO QAM 90 days 90 caps 1RF Refilled bisacodyl (Laxative (bisacodyl)) 10 mg (2 x 5 mg) PO BEDTIME 90 days 180 tabs 1RF K59.04 - Chronic idiopathic constipation omeprazole 20 mg PO DAILY 90 days PRN 90 caps 3RF heartburn K21.9 - Gastro-esophageal reflux disease without esophagitis COLONOSCOPY BIOPSY CORRESPONDENCE On 02/04/24 @ 08:26 Tiffany Vo Wrote To Tiffany Vo several attempts with no response from pt. removing from list. On 12/26/23 @ 12:44 Tiffany Vo Wrote To Tiffany Vo lvm, letter mailed. On 11/13/23 @ 10:10 Tiffany Vo Wrote To Tiffany Vo lvm, added to spread sheet. Tiffany Vo completed item. On 11/09/23 @ 12:32 Mildred Loya Wrote To [facility] Has been cleared by Dr. Mcdonough TODAY'S VISIT Georgian #[id number] Ursula She continues on LInzess 145mcg and 2 bisacodyl qhs. She has been using the o2o prn w/o very good efficacy (likely r/t the long onset of action) so I will give her famotidine that has a faster onset and is better for prn use. She is c/o gas trapping, so we will start her on simethicone chewable 125mg tid-qid. We verify her contact information and we have it correctly, so I don't know what the problem is. I will walk her to the schedulers. She does not want the big gallon or peg. Send another prep. ROV 6 mos. [facility] Medical History (Updated 06/01/24 @ 19:03 by Herb Souza MD) Irritable bowel syndrome (IBS) Bipolar disorder Pure hypercholesterolemia Type 2 diabetes mellitus with hyperglycemia Hematuria Precordial chest pain Impacted cerumen, left ear Tinea pedis Impacted cerumen of both ears Superficial thrombophlebitis Impacted cerumen of both ears Overweight (BMI 25.0-29.9) Vitamin B12 deficiency Insomnia Depression Anxiety Allergic rhinitis Lumbar spondylosis Vitamin D deficiency GERD without esophagitis Anemia Asthma Benign essential hypertension Diabetes mellitus Tubular adenoma Surgical History History of colonoscopy History of esophagogastroduodenoscopy (EGD) History of tubal ligation History of cholecystectomy Family History Father Diabetes Hypertension CVD (cardiovascular disease) Mother Hypertension Diabetes Chronic mental illness Social History Housing: Apartment Unable to assess alcohol history related to: Unknown Alcohol intake: never Patient Tobacco Use Status: Never used Tobacco e-Cigarette/Vaping Use: Never Used Second Hand Smoke Exposure: No service: No Current occupational status: disabled Cognitive needs: No Hearing needs: Yes Vision needs: No Female Reproductive History Menstrual Age of Menarche: 15 Review of Systems Const Denies fatigue, Denies fever(s), Denies night sweats, Denies poor appetite and Denies weight loss ENT Reports Normal hearing present, Denies dental pain, Denies dysphagia, Denies hearing loss, Denies mouth pain, Denies odynophagia, Denies throat swelling, Denies tongue swelling and Reports other (Dentition adequate) Card Reports no additional complaints Resp Reports no additional complaints GI Details: Denies abdominal pain, Denies melena, Reports bloating, Denies hematochezia, Reports constipation, Denies GI cramping, Denies dysphagia, Denies excessive flatus, Denies early satiety, Reports heartburn, Denies diarrhea, Denies nausea, Denies odynophagia, Denies vomiting and Denies hematemesis Skin/Breast Denies pruritus, Denies lesions, Denies rash and Denies jaundice Neuro Reports Normal hearing present and Denies Abnormal speech present Endo Denies fatigue Aller/Immun Denies throat swelling and Denies tongue swelling Physical Exam Vital Signs: Last Vital Signs Pulse 70 05/09/24 11:47 BP 109/52 L 05/09/24 11:47 BMI result Body Mass Index 27.1 Const General: cooperative, no acute distress, well developed and well groomed Nutritional Appearance: average body habitus and well nourished Orientation/consciousness: oriented to person, oriented to place and oriented to time Limitations: language barrier HEENT Head: Yes normocephalic and Yes atraumatic Eyes General: appearance normal, both eyes and all related structures Pupils: Equal, round and reactive pupils present Neck Neck: Yes normal visual inspection and Yes no lymphadenopathy Thyroid: Thyroid normal Resp Effort & Inspection: normal respiratory effort and able to speak in complete sentences Auscultation: clear to auscultation bilaterally Cardio Rate: regular rate Rhythm: regular rhythm Heart sounds: Normal, physiologic split S2 sound present Peripheral pulses: radial pulses present and posterior tibial pulses present GI Inspection: No distended and No Abdominal panniculus present Palpation (GI): Soft to palpation, nontender, no guarding, not rigid and No hepatosplenomegaly present Percussion: Yes normal to percussion Auscultation: normal bowel sounds Rectal Exam - Female: deferred Skin General skin exam: no rashes or lesions noted, turgor normal, skin not dry, no jaundice, No spider nevi and no striae Rashes: no rashes Nails: normal Neuro General: oriented to person, oriented to place and oriented to time Cranial nerves: Yes Equal, round and reactive pupils present and Yes Normal hearing present Speech: No Abnormal speech present Extrem General: Yes normal to inspection, No clubbing, No cyanosis and No edema Psych Appearance: grossly normal and well kempt Mental Status: mental status grossly normal Speech and movement: Normal speech and movement present Affect: normal affect Attitude: cooperative Thought process: Normal thought process present and not confabulating Thought content: Normal thought content present Insight: Limited insight present (Psych) Judgement: Limited judgement present (Psych) Assessment & Plan Assessment & Plan (1) GERD without esophagitis: Code(s): K21.9 - Gastro-esophageal reflux disease without esophagitis Category: Medical (2) Abdominal bloating: Code(s): R14.0 - Abdominal distension (gaseous) Category: Medical (3) Chronic idiopathic constipation: Code(s): K59.04 - Chronic idiopathic constipation Category: Medical Plan Georgian #[id number] Ursula She continues on LInzess 145mcg and 2 bisacodyl qhs. She has been using the o2o prn w/o very good efficacy (likely r/t the long onset of action) so I will give her famotidine that has a faster onset and is better for prn use. She is c/o gas trapping, so we will start her on simethicone chewable 125mg tid-qid. We verify her contact information and we have it correctly, so I don't know what the problem is. I will walk her to the schedulers. She does not want the big gallon or peg. Send another prep. ROV 6 mos. COLONOSCOPY BIOPSY Medications: New famotidine (Pepcid) 40 mg PO DAILY PRN 30 tabs 6RF heartburn K21.9 - Gastro-esophageal reflux disease without esophagitis sodium,potassium,mag sulfates 17.5-3.13-1.6 gram (Suprep Bowel Prep Kit) 480 mL orally; FOR COLONOSCOPY PREP 354 mL 0RF simethicone 125 mg PO BID-QID PRN 90 tabs 6RF abdominal distention R14.0 - Abdominal distension (gaseous) Refilled linaclotide (Linzess) 145 mcg PO QAM 90 caps 1RF 90 days bisacodyl (Laxative (bisacodyl)) 10 mg (2 x 5 mg) PO BEDTIME 180 tabs 1RF K59.04 - Chronic idiopathic constipation Discontinued omeprazole Discontinued Reason: Doctor's Order 20 mg PO DAILY 90 days PRN 90 caps 3RF heartburn K21.9 - Gastro-esophageal reflux disease without esophagitis Coding Level of Care Code Est Pt Level 3 (41676) Diagnoses GERD without esophagitis K21.9 Abdominal bloating R14.0 Chronic idiopathic constipation K59.04
[2024-05-09 11:47] VITALS: BP 109/52; PULSE 70; BMI 27.1
== END 2024-05-09 12:59 | disposition home or self-care (01) ==
PROVIDERS: PCP Internal Medicine; Visit Provider Nurse Practitioner
DX: K21.9 Gastro-esophageal reflux disease without esophagitis (principal); R14.0 Abdominal distension (gaseous); K59.04 Chronic idiopathic constipation
CPT/HCPCS: 99213

== ENCOUNTER → 2024-05-09 11:45 | Outpatient (BNVA) | payer OTHER, SELFPAY | PROVIDERS: PCP Internal Medicine; Visit Provider Nurse Practitioner | DX: K59.04 Chronic idiopathic constipation (principal); K21.9 Gastro-esophageal reflux disease without esophagitis; R14.0 Abdominal distension (gaseous); Z79.899 Other long term (current) drug therapy | CPT/HCPCS: 99212 ==

== ENCOUNTER 2024-05-23 12:38 | Outpatient (REF) | payer OTHER, SELFPAY ==
[2024-05-23 13:08] LABS: MANUAL DIFF FLAG NO
[2024-05-23 14:23] LABS: Appearance Urine Clear; Color Urine Yellow; Glucose Urine UA Negative (Negative); Leukocyte Esterase Urine Negative (Negative); Nitrite Urine Negative (Negative); Urine Blood Negative (Negative); Urine Ketones Negative (Negative); Urine Protein Negative (Neg-Trace)
[2024-05-23 14:27] LABS: Basophils Percent Auto 0.5 % (0-2); Eosinophils Absolute Auto 0.1 X10*3/uL (0.0-0.4); Hematocrit 36.7 % (37.0-47.0); Hemoglobin 12.1 g/dl (12.0-16.0); Imm Gran Abs Auto 0.02 X10*3/uL (0.00-0.03); Imm Gran Pct Auto 0.3 % (0.0-0.4); Lymphocytes Absolute Auto 1.8 X10*3/uL (1.2-4.9); Lymphocytes Percent Auto 29.6 % (20-40); Mean Corpuscular Hemoglobin 27.8 pg (27.0-33.0); Mean Corpuscular Volume 84.4 fL (80.0-98.0); Mean Platelet Volume 12.1 fL (9.4-12.3); Monocytes Absolute Auto 0.4 X10*3/uL (0.1-1.2); Monocytes Percent Auto 6.3 % (2-11); Neutrophils Absolute Auto 3.8 x10*3/uL (2.0-8.3); Neutrophils Percent Auto 62.3 % (45-73); Platelet Count 222 X10*3/uL (160-400); Red Blood Count 4.35 X10*6/uL (4.20-5.50); Red Cell Distribution Width 14.1 % (11.0-16.0)
[2024-05-23 14:33] LABS: Estimated Average Glucose 163 mg/dL; Hemoglobin A1C 181.2701 umol/L; Hemoglobin A1c % 7.3 % (<6.0); Total Hemoglobin (HGBA1C) 3252.3089 umol/L
[2024-05-23 15:11] LABS: Creatinine Urine 69.05 mg/dL; Microalbumin Urine < 5.0 mg/L
[2024-05-23 15:40] LABS: Alanine Aminotransferase 17 U/L (0-31); Albumin Level 4.1 g/dL (3.5-5.0); Alkaline Phosphatase 89 U/L (39-117); Anion Gap 12 (12-20); Aspartate Amino Transferase 21 U/L (5-31); Bilirubin Total 0.5 mg/dL (0.0-1.0); Blood Urea Nitrogen 9 mg/dL (9-16); Calcium 9.2 mg/dL (8.4-10.2); Carbon Dioxide 29 mmol/L (22-29); Chloride 105 mmol/L (96-108); Cholesterol 164 mg/dL (<200); Estimated Glomerular Filt Rate > 60; Glucose Fasting 127 mg/dL (60-99); HDL Cholesterol 44 mg/dL (>40); LDL Cholesterol Calculated 94 mg/dL (<100); Potassium 3.5 mmol/L (3.3-5.1); Sodium 142 mmol/L (135-145); Total Protein 7.3 g/dL (6.5-8.0); Triglycerides 130 mg/dL (<150)
[2024-05-23 15:47] LABS: TSH reflex Free T4 1.27 uIU/mL (0.32-4.0); Vitamin D 25-OH Total 35.9 ng/mL (>30)
== END 2024-05-23 12:39 | disposition home or self-care (01) ==
LOC: HO.LAB 12:38
PROVIDERS: PCP Internal Medicine; Visit Provider Internal Medicine
DX: D64.9 Anemia, unspecified (principal); E78.00 Pure hypercholesterolemia, unspecified; E11.9 Type 2 diabetes mellitus without complications; R30.0 Dysuria; E55.9 Vitamin D deficiency, unspecified
CPT/HCPCS: 36415; 80053; 80061; 81003; 82043; 82306; 82570; 83036; 84443; 85025

== ENCOUNTER 2024-05-27 14:20 | Outpatient (AMB) | payer OTHER, SELFPAY ==
[2024-05-27 14:21] VITALS: BP 130/60; PULSE 84; O2SAT 95; BMI 26.9
--- NOTE | 2024-05-27 14:21 | MHC.PC.OV ---
Vital Signs 05/27/24 14:21 Height 5 ft 1 in Weight 142 lb 6 oz BMI 26.9 BP 130/60 Blood Pressure Location Lt brachial Position Sitting Pulse 84 Pulse Source Pulse Oximeter Pulse Oximetry (%) 95 Oxygen Delivery Method Room Air Intake Visit Reasons: Follow Up Matrix Drier Tender Required: No Accompanied by: Self / Same As Patient Allergies No Known Allergies Allergy (Verified 05/27/24 14:50) Medication List - Last Reconciled 05/27/24 by Herb Souza MD acetaminophen 650 mg (2 x 325 mg) PO Q6H PRN albuterol sulfate 90 mcg/actuation 2 puffs inhalation Q6H PRN 30 days bisacodyl (Laxative (bisacodyl)) 10 mg (2 x 5 mg) PO BEDTIME blood sugar diagnostic TEST 2 TIMES DAILY blood sugar diagnostic (FreeStyle Lite Strips) As directed 2 times a day blood-glucose meter (FreeStyle Lite Meter kit) TEST 2 TIMES DAILY cholecalciferol (vitamin D3) 25 mcg PO DAILY 90 days clonazepam 0.5 mg PO TID PRN 30 days clotrimazole 1% 1 appl topical TID PRN cyanocobalamin (vitamin B-12) 1,000 mcg PO .3 times a week emollient combination no.32 (EpiCeram topical emulsion, extended release) topical famotidine (Pepcid) 40 mg PO DAILY PRN ferrous sulfate 325 mg PO 3XW 90 days folic acid 1 mg PO DAILY 90 days hydrocortisone 1% 1 appl topical TID PRN hydroquinone 4% appl topical BID ibuprofen 600 mg PO Q6H PRN ketorolac 10 mg PO TID PRN 5 days lancets (FreeStyle Lancets) 28 gauge topical BID lidocaine 5% 1 patch topical DAILY linaclotide (Linzess) 145 mcg PO QAM 90 days lisinopril 5 mg PO DAILY 90 days meclizine 12.5 mg PO QID PRN melatonin 10 mg PO BEDTIME PRN 90 days metformin 500 mg PO BID 90 days methylcellulose (laxative) (Citrucel) 500 mg PO BID paroxetine HCl 60 mg (1.5 x 40 mg) PO DAILY 30 days simethicone 125 mg PO BID-QID PRN simvastatin 20 mg PO QPM 90 days sodium,potassium,mag sulfates 17.5-3.13-1.6 gram (Suprep Bowel Prep Kit) 480 mL orally; FOR COLONOSCOPY PREP triamcinolone acetonide 0.025% 1 appl topical BID PRN Tobacco use date assessed: 05/27/24 Fall risk assessment: No Falls in past year Last assessed Fall Risk: 05/27/24 Dental Screening Dental Screen Date: 05/27/24 Did you have a dental visit in the last 12 months?: Yes Did you have a dental problem in the last 6 months where you did not have access to dental care?: No Was dental information given to patient?: Patient has dentist HPI Follow Up HPI Details Patient comes in today for her follow-up visit States that she feels okay She denies any headaches or dizziness Denies any chest pains, no increased shortness of breath No nausea/vomiting, no abdominal pain No change in bowel habits noted States that she still has recurrent joint pains and low back pain but these have been mostly manageable lately She is requesting for a psychiatry referral to [facility] as the 1 that she was going to in [place] recently closed She had her follow-up labs done a few days ago - to discuss her results [facility] Medical History (Updated 06/01/24 @ 19:03 by Herb Souza MD) Irritable bowel syndrome (IBS) Bipolar disorder Pure hypercholesterolemia Type 2 diabetes mellitus with hyperglycemia Hematuria Precordial chest pain Impacted cerumen, left ear Tinea pedis Impacted cerumen of both ears Superficial thrombophlebitis Impacted cerumen of both ears Overweight (BMI 25.0-29.9) Vitamin B12 deficiency Insomnia Depression Anxiety Allergic rhinitis Lumbar spondylosis Vitamin D deficiency GERD without esophagitis Anemia Asthma Benign essential hypertension Diabetes mellitus Tubular adenoma Surgical History History of colonoscopy History of esophagogastroduodenoscopy (EGD) History of tubal ligation History of cholecystectomy Family History Father Diabetes Hypertension CVD (cardiovascular disease) Mother Hypertension Diabetes Chronic mental illness Social History Housing: Apartment Unable to assess alcohol history related to: Unknown Alcohol intake: never Patient Tobacco Use Status: Never used Tobacco e-Cigarette/Vaping Use: Never Used Second Hand Smoke Exposure: No service: No Current occupational status: disabled Cognitive needs: No Hearing needs: Yes Vision needs: No Female Reproductive History Menstrual Age of Menarche: 15 Questionnaire PHQ-9 Over the last 2 weeks, how often have you been bothered by any of the following problems? 1. Little interest or pleasure in doing things: more than half the days 2. Feeling down, depressed, or hopeless: several days 3. Trouble falling or staying asleep, or sleeping too much: more than half the days 4. Feeling tired or having little energy: more than half the days 5. Poor appetite or overeating: more than half the days 6. Feeling bad about yourself - or that you are a failure or have let yourself or your family down: not at all 7. Trouble concentrating on things, such as reading the newspaper or watching television: several days 8. Moving or speaking so slowly that other people could have noticed. Or the opposite - being so fidgety or restless that you have been moving around a lot more than usual: several days 9. Thoughts that you would be better off or of hurting yourself in some way: not at all Total score: 11 Depression Screening Interpretation: Positive Depression Screening Follow-up: Existing condition and In treatment Depression Screening Done: Yes 90563 - PHQ-9 Billing: Yes Source: Developed by Drs. Brody Perez, Randi Hand, Rodney Sneed and colleagues, with an educational sharif from [employer]. Thrive Questionnaire Date Thrive assessed: 05/27/24 I am a: Patient What is your living situation today?: I have a steady place to live Within the past 12 months, did the food you bought not last and you didn't have the money to get more?: Never true Within the past 12 months, did you worry whether your food would run out before you got money to buy more?: Never true Do you have trouble paying for medicines?: No Do you have trouble getting transportation to medical appointments?: No Do you have trouble paying your heating and electricity bill?: No Do you have trouble taking care of your child, family member or friend?: No Do you have trouble with day-to-day activities such as bathing, preparing meals, shopping, managing finances, etc.?: No Are you currently unemployed and looking for a job?: No Are you interested in more education?: No Please select the resources that you would like help with: None Currently or been in a relationship where the following occur: No concerns reported THRIVE Score: 0 AUDIT C Alcohol Use Questionnaire (AUDIT-C) 1. How often do you have a drink containing alcohol?: Never 2. How many drinks containing alcohol do you have on a typical day when you are drinking?: 1 or 2 (0) 3. How often do you have six or more drinks on one occasion?: Never Total Score: 0 Score Reviewed/Action Taken: Yes MAME-7 AMB Questionnaire MAME-7 Date MAME - 7 assessed: 05/27/24 Feeling nervous, anxious, or on edge: 0 = Not at all Not being able to stop or control worryin = Not at all Worrying too much about different things: 0 = Not at all Trouble relaxin = Not at all Being so restless that it is hard to sit still: 0 = Not at all Becoming easily annoyed or irritable: 0 = Not at all Feeling afraid as if something awful might happen: 0 = Not at all Total MAME-7 score (0-4 normal; 5-9 mild; 10-14 moderate; 15-21 severe): 0 Source: Developed by Drs. Brody Perez, Randi Hand, Rodney Sneed and colleagues, with an educational sharif from [employer]. Review of Systems Const Denies difficulty sleeping (Melatonin helps), Denies fatigue, Denies fever(s) and Denies headache(s) ENT Denies dysphagia, Denies dizziness, Denies otalgia, Denies headache(s), Denies neck pain, Denies odynophagia and Denies sore throat Card Denies chest pain, Denies palpitations and Denies dyspnea Resp Denies chest congestion, Denies cough and Denies dyspnea GI Denies abdominal pain, Reports constipation (on and off - better controlled lately on Rx), Denies dysphagia, Denies heartburn, Denies diarrhea, Denies nausea, Denies odynophagia and Denies vomiting Denies difficulty voiding, Denies nocturia, Denies dysuria and Denies urinary urgency Musc Reports back pain (recurrent, especially over right lower back), Reports arthralgias (both shoulders) and Denies neck pain Skin/Breast Denies rash Neuro Denies dizziness and Denies headache(s) Endo Denies fatigue and Denies palpitations Physical exam (Primary Care) Vital Signs: Last Vital Signs Pulse 84 05/27/24 14:21 BP 130/60 05/27/24 14:21 Pulse Ox 95 05/27/24 14:21 Oxygen Delivery Method Room Air 05/27/24 14:21 BMI result Body Mass Index 26.9 Tobacco/Smoking Status: Tobacco use Status Tobacco use date assessed 05/27/24 05/27/24 14:24 Patient Tobacco Use Status Never used Tobacco 05/27/24 14:24 e-Cigarette/Vaping Use Never Used 05/27/24 14:24 PHQ-9: PHQ-9 Score PHQ-9: Total score 11 05/27/24 15:01 Depression Screening Interpretation: Positive Depression Screening Follow-up: Existing condition and In treatment Thrive Assessment: Date of Thrive Assessment Date Thrive assessed 05/27/24 05/27/24 14:24 Currently or been in a relationship where the following occur: No concerns reported Const General: no acute distress and alert HENMT Ears: TM's normal bilaterally and EAC's normal Throat: Yes posterior oropharynx normal and Yes tonsils normal (no TP congestion noted) Neck Neck: Yes no lymphadenopathy and Yes supple Thyroid: Thyroid normal Resp Auscultation: clear to auscultation bilaterally, no rales and no wheezes Cardio Rate: regular rate Rhythm: regular rhythm Heart sounds: no murmurs GI Palpation (GI): Soft to palpation and nontender Auscultation: normal bowel sounds General: Yes no CVA tenderness Back/Spine/Pelvis Back: no CVA tenderness Thoracic/Lumbar Spine: lumbar spinal tenderness Skin Rashes: no rashes Extrem General: Yes no clubbing, cyanosis or edema Results Reviewed Results Reviewed: Laboratory Tests 05/23/24 05/23/24 13:00 13:06 WBC 6.0 Hgb 12.1 Hct 36.7 L Plt Count 222 Sodium 142 Potassium 3.5 Creatinine 0.73 Estimated GFR > 60 Fasting Glucose 127 H Hemoglobin A1c % 7.3 H Calcium 9.2 AST 21 ALT 17 Triglycerides 130 Cholesterol 164 LDL Cholesterol, Calc 94 HDL Cholesterol 44 25-OH Vitamin D Total 35.9 TSH 1.27 Urine pH 6.0 Ur Specific [place] 1.010 Urine Protein Negative Urine Glucose (UA) Negative Urine Blood Negative Urine Nitrite Negative Ur Leukocyte Esterase Negative Microalb/Creat Ratio TNP Coding Level of Care Code Est Pt Level 4 (90057) Diagnoses Pure hypercholesterolemia E78.00 Benign essential hypertension I10 Type 2 diabetes mellitus without complication, without long-term current use of insulin E11.9 Diabetes mellitus type: type 2 Diabetes mellitus tank terminal gauger insulin use: without tank terminal gauger use Diabetes mellitus complication status: without complication Mild intermittent asthma without complication J45.20 Asthma severity: mild Asthma persistence: intermittent Asthma complication type: uncomplicated Chronic idiopathic constipation K59.04 Irritable bowel syndrome, unspecified type K58.9 Irritable bowel syndrome type: unspecified GERD without esophagitis K21.9 Anemia, unspecified type D64.9 Anemia type: unspecified type Vitamin D deficiency E55.9 Lumbar spondylosis M47.816 Allergic rhinitis, unspecified seasonality, unspecified trigger J30.9 Allergic rhinitis trigger: unspecified Allergic rhinitis seasonality: unspecified Vitamin B12 deficiency E53.8 Insomnia, unspecified type G47.00 Insomnia type: unspecified Anxiety F41.9 Episode of recurrent major depressive disorder, unspecified depression episode severity F33.9 Depression Type: major depressive disorder Major depression recurrence: recurrent Active/Remission status: currently active Major depression episode severity: unspecified Overweight (BMI 25.0-29.9) E66.3 Additional Codes PHQ-9 - 97819 - PHQ-9 Billing: Yes ([id number]) Assessment & Plan Assessment & Plan (1) Pure hypercholesterolemia: Code(s): E78.00 - Pure hypercholesterolemia, unspecified Category: Medical Plan: Results of her labs done a few days ago reviewed and discussed with patient Reinforced low cholesterol diet Continue Simvastatin 20 mg QD Will recheck her labs and fasting lipids in 4 months for follow up (2) Benign essential hypertension: Code(s): I10 - Essential (primary) hypertension Category: Medical Plan: Reinforced low sodium diet - goal is systolic BP of at least 120 to 130 mm or less Continue Lisinopril 5 mg QD (3) Diabetes mellitus: Code(s): E11.9 - Type 2 diabetes mellitus without complications Category: Medical Qualifiers: Diabetes mellitus type: type 2 Diabetes mellitus tank terminal gauger insulin use: without tank terminal gauger use Diabetes mellitus complication status: without complication Qualified Code(s): E11.9 - Type 2 diabetes mellitus without complications Plan: Her HgbA1c went up to 7.3% on her labs done a few days ago (was at 6.8% a few months ago) - goal is < 7.0% Reinforced diabetic diet Continue Metformin 500 mg BID for now but advised that if her HgbA1c does not improve back to less than 7.0% over the next few months, we will need to start her additionally on some other meds for her diabetes (4) Asthma: Code(s): J45.909 - Unspecified asthma, uncomplicated Category: Medical Qualifiers: Asthma severity: mild Asthma persistence: intermittent Asthma complication type: uncomplicated Qualified Code(s): J45.20 - Mild intermittent asthma, uncomplicated Plan: Stable/controlled - continue Albuterol HFA? 2 inhalations QID PRN (5) Chronic idiopathic constipation: Code(s): K59.04 - Chronic idiopathic constipation Category: Medical Plan: Improving/better controlled - continue Linzess 145 mcg QD and Dulcolax 5 mg 2 tablets QD PRN Reinforced increased oral fluids and dietary fiber Follow up with GI as scheduled (6) Irritable bowel syndrome (IBS): Code(s): K58.9 - Irritable bowel syndrome, unspecified Category: Medical Qualifiers: Irritable bowel syndrome type: unspecified Qualified Code(s): K58.9 - Irritable bowel syndrome without diarrhea Plan: Continue Dicyclomine 20 mg TID PRN; Linzess also helps with her symptoms Follow up with GI as scheduled (7) GERD without esophagitis: Code(s): K21.9 - Gastro-esophageal reflux disease without esophagitis Category: Medical Plan: Dietary restrictions reinforced Continue Omeprazole 20 mg QD PRN (8) Anemia: Code(s): D64.9 - Anemia, unspecified Category: Medical Qualifiers: Anemia type: unspecified type Qualified Code(s): D64.9 - Anemia, unspecified Plan: Improved/corrected - her H/H was at 12.1/36.7 on her recent labs Continue Ferrous Sulfate 325 mg QD Will continue to monitor her CBC regularly (9) Vitamin D deficiency: Code(s): E55.9 - Vitamin D deficiency, unspecified Category: Medical Plan: Corrected; continue Vitamin D3 1000 units QD (10) Lumbar spondylosis: Code(s): M47.816 - Spondylosis without myelopathy or radiculopathy, lumbar region Category: Medical Plan: Reinforced activity and weight-lifting restrictions Lumbar spine x-rays done in September 2020 showed (+) mild degenerative disc changes Continue Lidocaine 5% patches apply to painful areas on lower back QD PRN She also goes to physical therapy as needed - states that PT has helped a lot with her low back pain in the past (11) Allergic rhinitis: Code(s): J30.9 - Allergic rhinitis, unspecified Category: Medical Qualifiers: Allergic rhinitis trigger: unspecified Allergic rhinitis seasonality: unspecified Qualified Code(s): J30.9 - Allergic rhinitis, unspecified Plan: Continue OTC Loratadine 10 mg QD PRN (12) Vitamin B12 deficiency: Code(s): E53.8 - Deficiency of other specified B group vitamins Category: Medical Plan: Continue Vitamin B12 1000 mcg tablet twice a week Will recheck her B12 level in a few months for follow up (13) Insomnia: Code(s): G47.00 - Insomnia, unspecified Category: Medical Qualifiers: Insomnia type: unspecified Qualified Code(s): G47.00 - Insomnia, unspecified Plan: Sleep hygiene reinforced Continue Melatonin 10 mg Q HS PRN (14) Anxiety: Code(s): F41.9 - Anxiety disorder, unspecified Category: Medical Plan: Continue Clonazepam 0.5 mg TID PRN Follow up with psychiatry as scheduled (15) Depression: Code(s): F32.9 - Major depressive disorder, single episode, unspecified Category: Medical Qualifiers: Depression Type: major depressive disorder Major depression recurrence: recurrent Active/Remission status: currently active Major depression episode severity: unspecified Qualified Code(s): F33.9 - Major depressive disorder, recurrent, unspecified Plan: Continue Paroxetine at 60 mg QD She was seeing her psychiatrist at [facility] for a while now but is now requesting for a referral to [facility] in [place] instead - referral done (16) Overweight (BMI 25.0-29.9): Code(s): E66.3 - Overweight Category: Medical Plan: Reinforced diet/exercise as tolerated/lose weight Plan Follow up in 4 months Orders: Orders Lipid Panel 4 Months E78.00 - Pure hypercholesterolemia, unspecified Complete Blood Count Auto Diff 4 Months D64.9 - Anemia, unspecified UA CC w/rflx Micro + Cult 4 Months R30.0 - Dysuria Vitamin D 25-OH Total 4 Months E55.9 - Vitamin D deficiency, unspecified Vitamin B12 and Folate 4 Months E53.8 - Deficiency of other specified B group vitamins Hemoglobin A1c 4 Months E11.9 - Type 2 diabetes mellitus without complications Comprehensive [place]. Panel Fast 4 Months E78.00 - Pure hypercholesterolemia, unspecified Microalbumin, Random (w Creat) 4 Months E11.9 - Type 2 diabetes mellitus without complications TSH reflex Free T4 4 Months E78.00 - Pure hypercholesterolemia, unspecified Referrals Psychiatry Referral F31.9 - Bipolar disorder, unspecified
== END 2024-05-27 15:08 | disposition home or self-care (01) ==
PROVIDERS: PCP Internal Medicine; Visit Provider Internal Medicine
DX: E78.00 Pure hypercholesterolemia, unspecified (principal); E11.9 Type 2 diabetes mellitus without complications; F33.9 Major depressive disorder, recurrent, unspecified; I10 Essential (primary) hypertension; J45.20 Mild intermittent asthma, uncomplicated; K59.04 Chronic idiopathic constipation; K58.9 Irritable bowel syndrome, unspecified; K21.9 Gastro-esophageal reflux disease without esophagitis; D64.9 Anemia, unspecified; E55.9 Vitamin D deficiency, unspecified; M47.816 Spondylosis without myelopathy or radiculopathy, lumbar region; J30.9 Allergic rhinitis, unspecified

== ENCOUNTER → 2024-05-27 14:20 | Outpatient (BNVA) | payer OTHER, SELFPAY | PROVIDERS: PCP Internal Medicine; Visit Provider Internal Medicine | DX: E78.00 Pure hypercholesterolemia, unspecified (principal); I10 Essential (primary) hypertension; E11.9 Type 2 diabetes mellitus without complications; J45.20 Mild intermittent asthma, uncomplicated; K59.04 Chronic idiopathic constipation; K58.9 Irritable bowel syndrome, unspecified; K21.9 Gastro-esophageal reflux disease without esophagitis; D64.9 Anemia, unspecified; E55.9 Vitamin D deficiency, unspecified; M47.816 Spondylosis without myelopathy or radiculopathy, lumbar region; J30.9 Allergic rhinitis, unspecified; E53.8 Deficiency of other specified B group vitamins; G47.00 Insomnia, unspecified; F41.9 Anxiety disorder, unspecified; F33.9 Major depressive disorder, recurrent, unspecified | CPT/HCPCS: 96127; 99212 ==

== ENCOUNTER 2024-06-09 14:35 | Outpatient (REF) | payer OTHER, SELFPAY ==
--- NOTE | ~2024-06-09 | MM_ITS ---
EXAMINATION: MM SCREENING DIGITAL BREAST TOMOSYNTHESIS, BILATERAL CLINICAL INFORMATION: Screening. Asymptomatic. COMPARISON: Mammography: Comparison is made with available priors TECHNIQUE: Digital breast mammography with tomosynthesis is performed in both the craniocaudal and mediolateral oblique views along with computer-aided detection (CAD). FINDINGS: There are scattered areas of fibroglandular density (ACR BI-RADS breast composition Category b). There are no significant masses, abnormal calcifications, or other abnormalities. MM/MM tomosynthesis screening BI IMPRESSION: No mammographic evidence of malignancy. ASSESSMENT: BI-RADS BI-RADS 1 - Negative RECOMMENDATION: Routine annual mammography screening. 1 year F/U This examination should not preclude the clinical evaluation of a suspicious palpable abnormality. This patient's information was entered into a reminder system with a target due date for their next mammogram. Electronically signed by: Diana Mireles DO 06/19/2024 09:22 AM GELACIO
[2024-06-09 17:14] LABS: Appearance Urine Clear; Color Urine Yellow; Glucose Urine UA Negative (Negative); Leukocyte Esterase Urine Small (1+) (Negative); Nitrite Urine Negative (Negative); UMIC TRIGGER UACC YES; Urine Blood Negative (Negative); Urine Ketones Negative (Negative); Urine Protein Negative (Neg-Trace)
[2024-06-09 17:19] LABS: Bacteria Urine None Seen (None Seen); Hyaline Casts Urine 0-2 /LPF (0-2); RBC Urine 0-2 /HPF (0-2); Squamous Epithelial Cell Urine 0-2 /HPF (0-2); UACC Culture Trigger YES; WBC Urine >50 /HPF (0-5)
== END 2024-06-09 14:36 | disposition home or self-care (01) ==
LOC: HO.MAMMO 14:35
PROVIDERS: PCP Internal Medicine; Visit Provider Internal Medicine
DX: Z12.31 Encounter for screening mammogram for malignant neoplasm of breast (principal); R30.0 Dysuria
CPT/HCPCS: 77063; 77067; 81001; 87086

== ENCOUNTER → 2024-06-09 15:15 | Outpatient (BNV) | payer OTHER, SELFPAY | PROVIDERS: PCP Internal Medicine; Visit Provider Internal Medicine | DX: Z12.31 Encounter for screening mammogram for malignant neoplasm of breast (principal) | CPT/HCPCS: 77063; 77067 ==

== ENCOUNTER 2024-08-02 10:51 | Outpatient (REF) | payer OTHER, SELFPAY ==
[2024-08-02 11:01] LABS: MANUAL DIFF FLAG NO
[2024-08-02 11:08] LABS: Basophils Percent Auto 0.5 % (0-2); Eosinophils Absolute Auto 0.2 X10*3/uL (0.0-0.4); Eosinophils Percent Auto 2.5 % (0-4); Hematocrit 37.6 % (37.0-47.0); Hemoglobin 12.1 g/dl (12.0-16.0); Imm Gran Abs Auto 0.01 X10*3/uL (0.00-0.03); Imm Gran Pct Auto 0.2 % (0.0-0.4); Lymphocytes Absolute Auto 2.3 X10*3/uL (1.2-4.9); Lymphocytes Percent Auto 35.6 % (20-40); Mean Corpuscular HGB Conc 32.2 g/dl (31.0-35.0); Mean Corpuscular Hemoglobin 27.6 pg (27.0-33.0); Mean Corpuscular Volume 85.6 fL (80.0-98.0); Mean Platelet Volume 11.6 fL (9.4-12.3); Monocytes Absolute Auto 0.4 X10*3/uL (0.1-1.2); Monocytes Percent Auto 6.7 % (2-11); Neutrophils Absolute Auto 3.5 x10*3/uL (2.0-8.3); Neutrophils Percent Auto 54.5 % (45-73); Platelet Count 224 X10*3/uL (160-400); Red Blood Count 4.39 X10*6/uL (4.20-5.50); Red Cell Distribution Width 14.2 % (11.0-16.0); White Blood Count 6.4 X10*3/uL (4.8-10.8)
[2024-08-02 11:19] LABS: Estimated Average Glucose 151 mg/dL; Hemoglobin A1C 165.9222 umol/L; Hemoglobin A1c % 6.9 % (<6.0); Total Hemoglobin (HGBA1C) 3200.3387 umol/L
[2024-08-02 11:25] LABS: Appearance Urine Clear; Color Urine Yellow; Glucose Urine UA Negative (Negative); Leukocyte Esterase Urine Negative (Negative); Nitrite Urine Negative (Negative); PH 5.5 (5.0-9.0); Urine Blood Negative (Negative); Urine Ketones Negative (Negative); Urine Protein Negative (Neg-Trace)
[2024-08-02 11:53] LABS: Creatinine Urine 125.84 mg/dL; Microalbum/Creatinine Ratio Ur 3.9 ug/mg cr (<30)
[2024-08-02 12:02] LABS: Alanine Aminotransferase 15 U/L (0-31); Alkaline Phosphatase 99 U/L (39-117); Anion Gap 8 (12-20); Aspartate Amino Transferase 21 U/L (5-31); Bilirubin Total 0.4 mg/dL (0.0-1.0); Blood Urea Nitrogen 9 mg/dL (9-16); Calcium 8.8 mg/dL (8.4-10.2); Carbon Dioxide 30 mmol/L (22-29); Chloride 108 mmol/L (96-108); Cholesterol 152 mg/dL (<200); Estimated Glomerular Filt Rate > 60; Glucose Fasting 119 mg/dL (60-99); HDL Cholesterol 43 mg/dL (>40); LDL Cholesterol Calculated 83 mg/dL (<100); Potassium 4.2 mmol/L (3.3-5.1); Sodium 142 mmol/L (135-145); Total Protein 7.4 g/dL (6.5-8.0); Triglycerides 130 mg/dL (<150)
[2024-08-02 12:07] LABS: Vitamin D 25-OH Total 41.1 ng/mL (>30)
[2024-08-02 12:20] LABS: Folate 16.4 ng/mL (> or = 4.0); Vitamin B12 895 pg/mL (200-900)
== END 2024-08-02 10:52 | disposition home or self-care (01) ==
LOC: HO.LAB 10:51
PROVIDERS: PCP Internal Medicine; Visit Provider Nurse Practitioner Family
DX: D64.9 Anemia, unspecified (principal); R30.0 Dysuria; E55.9 Vitamin D deficiency, unspecified; E53.8 Deficiency of other specified B group vitamins; E11.9 Type 2 diabetes mellitus without complications; E78.00 Pure hypercholesterolemia, unspecified
CPT/HCPCS: 36415; 80053; 80061; 81003; 82043; 82306; 82570; 82607; 82746; 83036; 84443; 85025

== ENCOUNTER 2024-08-28 13:21 | Outpatient (AMB) | payer OTHER, SELFPAY ==
--- OUTSIDE RECORDS SUMMARY | 2024-08-28 13:29 | XMS_ITS | Clinical Summary ---
Author Organization [employer] Address [address] [place] [address] [address] [place] [address] Care Team Providers Care House Calls Nurse Name Role Phone Unavailable Primary Care Provider Unavailabl e Allergies No known active allergies Medications Bisacodyl EC 5 MG EC tablet TOME DOS TABLETAS POR V A ORAL AL ACOSTARSE 4 Active ferrous sulfate 325 (65 Fe) MG tablet TOME RABIA TABLETA POR V A ORAL 3 TIMES PER WEEK Active D3-1000 25 MCG (1000 UT) capsule 4 Active PARoxetine (Paxil) 40 MG tablet TAKE 1 & 1/2 TABLETS (60 MG) POR V A ORAL TODOS LOS D FOR 30 DAYS 4 Active clonazePAM (KlonoPIN) 0.5 MG tablet TOME 1 TABLETA POR V A ORAL JORY VECES AL D A CUANDO SEA NECESARIO PARA LA ANSIEDAD Active cyanocobalamin (Vitamin B-12) 1000 MCG tablet TOME RABIA TABLETA TODOS LOS D 4 Active folic acid (Folvite) 1 MG tablet TOME RABIA TABLETA TODOS LOS D Active ibuprofen 600 MG tablet TOME 1 TABLETA POR V A ORAL CADA 6 HORAS CUANDO SEA NECESARIO PARA EL DOLOR 4 Active lisinopril 5 MG tablet TOME RABIA TABLETA TODOS LOS D 4 Active meclizine (Antivert) 12.5 MG tablet TOME RABIA TABLETA CUATRO VECES AL D A CUANDO SEA NECESARIO FOR DIZZINESS Active metFORMIN (Glucophage) 500 MG tablet TOME RABIA TABLETA DOS VECES AL D A Active omeprazole (PriLOSEC) [address] capsule 4 Active simvastatin (Zocor) 20 MG tablet TOME RABIA TABLETA POR V A ORAL EVERY EVENING FOR 90 DAYS 4 Active Active Problems Problem Noted Date Diagnosed Date Abfraction 03/06/2024 Dental plaque 02/01/2024 Missing teeth, acquired 02/01/2024 Localized gingival recession 02/01/2024 Fractured dental samaritan with loss of materi al 02/01/2024 Tooth sensitivity 02/01/2024 Anemia 06/04/2014 Arthritis 06/04/2014 Hypercholesterolemia 06/04/2014 Hypertensive disorder 06/04/2014 Type 2 diabetes mellitus 06/04/2014 Encounters Date Type Department Care Team Description 08/20/2024 Telephone [facility]ULT [facility] [address] [place], [place] [id number] Rama De Leon from Last 3 Months Social History Tobacco Use Types Packs/Day Years Used Date Smoking Tobacco: Never Smokeless Tobacco: Never Tobacco Cessation:Counseling Given: Not Answered Alcohol Use Standard Drinks/Week Comments Never 0 (1 standard drink = 0.6 oz pur e alcohol) Comments Unknown Sex and Gender Information Value Date Recorded Sex Assigned at Female 05/15/2022 10:14 AM EDT Legal Sex Female 10:14 AM EDT Gender Identity Female 05/15/2022 10:14 AM EDT Sexual Orientation Straight 05/15/2022 10 :14 AM EDT Last Filed Vital Signs Vital Sign Reading Time Taken Comments Blood Pressure 126/80 03/27/2024 9:49 AM EDT Pulse 69 03/27/2024 9:49 AM EDT Temperature - - Respiratory Rate - - Oxygen Saturation - - Inhaled Oxygen Concentration - - Weight - - Height - - Body Mass Index - - Plan of Treatment Health Maintenance Due Date Last Done Comments CT Colonography 1960 Colonoscopy 1960 Colorectal Cancer Screening 1960 Depression Screening 1960 Diabetes: Hemoglobin A1C 1960 FIT DNA/Cologuard 1960 FIT 1960 FOBT 1960 HIV Screening 1960 Lipid Panel 1960 SDOH Screening 1960 Sigmoidoscopy 1960 Diabetes: Foot Exam 1970 Eye Exam 1970 Alcohol/Substance Use Screening 1972 Hepatitis C Screening 1978 Diabetes: Urine Protein Screening 1979 Pneumococcal Vaccine: 50+ Years (1 of 2 - PCV) 1979 Pap Smear 1981 Cervical Cancer Screening 1990 HPV/Cotest 1990 Mammogram 2000 Zoster Vaccines (1 of 2) 2010 Dental Oral Exam 09/04/2022 03/03/2022, , 2020, Additional history exists COVID-19 Vaccine ( season) 2024 09/13/2021, 03/16/2021, 02/15/2021 Influenza Vaccine (#1) 2024 Dental Prophylaxis 08/04/2024 02/01/2024, 0 02/16/2022, 08/12/2021, Additional history exists Dental X-Ray: Full Mouth 08/13/2024 08/12/2021, 04/0 01/2016 Dental X-Ray: Bitewings 02/01/2025 02/01/20 24, 08/12/2021, 2020, Additional history exists Tobacco Screening 03/27/2025 03/27/2024 DTaP/Tdap/Td Vaccines (2 - Td or Tdap) 11/20/2026 11/20/2016 RSV Patients and Patients Aged 60 years or older (1 - 1-dose 75+ series) 2035 HIB Vaccines Aged Out No longer eligi ble based on patient's age to complete this topic HPV Vaccines Aged Out No longer eligi ble based on patient's age to complete this topic Hepatitis A Vaccines Aged Out No long er eligible based on patient's age to complete this topic Hepatitis B Vaccines Aged Out No long er eligible based on patient's age to complete this topic IPV Vaccines Aged Out No longer eligi ble based on patient's age to complete this topic Meningococcal Vaccine Aged Out No sebastien megha eligible based on patient's age to complete this topic RSV under 20 months Aged Out No longe r eligible based on patient's age to complete this topic Rotavirus Vaccines Aged Out No longer eligible based on patient's age to complete this topic Procedures Procedure Name Priority Date/Time Associated Diagnosis Comments Full PROPHYLAXIS - ADULT Routine 024 9:00 AM EDT Dental plaque BITEWINGS - 4 RADIOGRAPHIC IMAGES Routine 02/01/2024 9:00 AM EDT Dental plaque Missing teeth, acquired PERIODIC ORAL EVALUATION - ESTABLISHED PATIENT Routine 03/03/2022 12:00 AM EDT INTRAORAL - COMPLETE SERIES OF RADIOGRAPHIC IMAGES Routine 08/12/2021 12:00 AM EST from Last 3 Months or Most Recently Relevant to Health Maintenance Insurance [facility] MEDICAID STAND ADULT Member Subscriber Plan / Payer (Ef fective 2024-Present) Name:Alexander, Kirstin Relation to Subscriber:Self Name:Kirstin Alexander Payer ID:Not on file Group ID:Not on file Type:Not on file Address: [place] [phone]
--- OUTSIDE RECORDS SUMMARY | 2024-08-28 13:29 | XMS_ITS | Encounter Summary ---
Author Organization [employer] Address [address] [place] [address] Care Team Providers Care Youth Ministry Director Name Role Phone Unavailable Primary Care Provider Unavailabl e Encounter Details Date Type Department Care Team (Latest Contact Info) Description 02/16/2022 Abstract [facility] CONVERSIONS Dental, Provider, DDS Social History Tobacco Use Types Packs/Day Years Used Date Smoking Tobacco: Never Assessed Comments Unknown Sex and Gender Information Value Date Recorded Sex Assigned at Female 05/15/2022 10:14 AM EDT Legal Sex Female 10:14 AM EDT Gender Identity Female 05/15/2022 10:14 AM EDT Sexual Orientation Straight 05/15/2022 10 :14 AM EDT documented as of this encounter Plan of Treatment Not on file documented as of this encounter Visit Diagnoses Not on filedocumented in this encounter
--- OUTSIDE RECORDS SUMMARY | 2024-08-28 13:29 | XMS_ITS | Encounter Summary ---
Author Organization [employer] Address [address] [place] [address] Care Team Providers Care Riding Silks Custodian Name Role Phone Unavailable Primary Care Provider Unavailabl e Encounter Details Date Type Department Care Team (Latest Contact Info) Description 07/24/2019 Abstract [facility] CONVERSIONS Dental, Provider, DDS Social History Tobacco [...]
--- OUTSIDE RECORDS SUMMARY | 2024-08-28 13:29 | XMS_ITS | Encounter Summary ---
Author Organization [employer] Address [address] [place] [address] Care Team Providers Care Theater Manager Name Role Phone Unavailable Primary Care Provider Unavailabl e Encounter Details Date Type Department Care Team (Latest Contact Info) Description 08/12/2021 Abstract [facility] CONVERSIONS Dental, Provider, DDS Social History Tobacco [...]
--- OUTSIDE RECORDS SUMMARY | 2024-08-28 13:29 | XMS_ITS | Encounter Summary ---
Author Organization [employer] Address [address] [place] [address] Care Team Providers Care Curtain Stitcher Name Role Phone Unavailable Primary Care Provider Unavailabl e Encounter Details Date Type Department Care Team (Late st Contact Info) Description 08/20/2024 Telephone [facility] ADULT D[facility]AL [address] [place] [address] Haley Rama [address] [place] [address] Social History Tobacco Use Types Packs/Day Years Used Date Smoking Tobacco: Never Smokeless Tobacco: Never Alcohol Use Standard Drinks/Week Comments Never 0 (1 standard drink = 0.6 oz pur e alcohol) Comments Unknown Sex and Gender Information Value Date Recorded Sex Assigned at Female 05/15/2022 10:14 AM EDT Legal Sex Female 10:14 AM EDT Gender Identity Female 05/15/2022 10:14 AM EDT Sexual Orientation Straight 05/15/2022 10 :14 AM EDT documented as of this encounter Miscellaneous Notes * Telephone Encounter - Tor Barr - 08/20/2024 9:49 AM EST Called patient to schedule a cleaning appointment but there was no answer so I left a voicemail. documented in this encounter Plan of Treatment Not on file documented as of this encounter Visit Diagnoses Not on filedocumented in this encounter
--- NOTE | 2024-08-28 13:51 | MHC.OFFVIS ---
Vital Signs 08/28/24 13:52 Height 5 ft 1 in Weight 132 lb 4.438 oz BMI 25.0 BP 118/60 Blood Pressure Location Lt brachial Position Sitting Pulse 78 Pulse Source Pulse Oximeter Intake Visit Reasons: f/up-CTA 08/14 Finisher Operator Required: Yes Finisher Operator Name: [id number] [id number] Allergies No Known Allergies Allergy (Verified 05/27/24 14:50) Medication List - Last Reconciled 08/28/24 by Ned Forman NP acetaminophen 650 mg (2 x 325 mg) PO Q6H PRN albuterol sulfate 90 mcg/actuation 2 puffs inhalation Q6H PRN 30 days bisacodyl (Laxative (bisacodyl)) 10 mg (2 x 5 mg) PO BEDTIME blood sugar diagnostic TEST 2 TIMES DAILY blood sugar diagnostic (FreeStyle Lite Strips) As directed 2 times a day blood-glucose meter (FreeStyle Lite Meter kit) TEST 2 TIMES DAILY cholecalciferol (vitamin D3) 25 mcg PO DAILY 90 days clonazepam 0.5 mg PO TID PRN 30 days clotrimazole 1% 1 appl topical TID PRN cyanocobalamin (vitamin B-12) 1,000 mcg PO .3 times a week famotidine 40 mg PO DAILY PRN ferrous sulfate 325 mg PO 3XW 90 days folic acid 1 mg PO DAILY 90 days hydrocortisone 1% 1 appl topical TID PRN hydroquinone 4% appl topical BID ibuprofen 600 mg PO Q6H PRN ketorolac 10 mg PO TID PRN 5 days lancets (FreeStyle Lancets) 28 gauge topical BID lidocaine 5% 1 patch topical DAILY linaclotide (Linzess) 145 mcg PO QAM 90 days lisinopril 5 mg PO DAILY 90 days meclizine 12.5 mg PO QID PRN metformin 500 mg PO BID 90 days methylcellulose (laxative) (Citrucel) 500 mg PO BID paroxetine HCl 60 mg (1.5 x 40 mg) PO DAILY 30 days simethicone 125 mg PO BID-QID PRN simvastatin 20 mg PO QPM 90 days sodium,potassium,mag sulfates 17.5-3.13-1.6 gram (Suprep Bowel Prep Kit) 480 mL orally; FOR COLONOSCOPY PREP triamcinolone acetonide 0.025% 1 appl topical BID PRN HPI Comments Details: This is a 64-year-old female patient presenting for a follow-up visit. Her medical history includes hypertension, diabetes, and dyslipidemia. She was previously seen in the office for ongoing chest pain over the past couple of years, for which she underwent echocardiogram, stress test, and coronary CTA. The patient reports 1 episode of left-sided chest pain at rest last week, which she notes is also reproducible. Otherwise, she states she has been feeling well overall. Patient denies any exertional chest pain, shortness breath, palpitations, dizziness, fatigue, orthopnea, PND, leg edema, presyncope, or syncope. [facility] Medical History Irritable bowel syndrome (IBS) Bipolar disorder Pure hypercholesterolemia Type 2 diabetes mellitus with hyperglycemia Hematuria Precordial chest pain Impacted cerumen, left ear Tinea pedis Impacted cerumen of both ears Superficial thrombophlebitis Impacted cerumen of both ears Overweight (BMI 25.0-29.9) Vitamin B12 deficiency Insomnia Depression Anxiety Allergic rhinitis Lumbar spondylosis Vitamin D deficiency GERD without esophagitis Anemia Asthma Benign essential hypertension Diabetes mellitus Tubular adenoma Surgical History History of colonoscopy History of esophagogastroduodenoscopy (EGD) History of tubal ligation History of cholecystectomy Family History Father Diabetes Hypertension CVD (cardiovascular disease) Mother Hypertension Diabetes Chronic mental illness Social History Housing: Apartment Unable to assess alcohol history related to: Unknown Alcohol intake: never Patient Tobacco Use Status: Never used Tobacco e-Cigarette/Vaping Use: Never Used Second Hand Smoke Exposure: No service: No Current occupational status: disabled Cognitive needs: No Hearing needs: Yes Vision needs: No Female Reproductive History Menstrual Age of Menarche: 15 Review of Systems Const Denies weakness ENT Denies dizziness Card Denies chest pain, Denies chest pain with activity, Denies syncope, Denies rapid heart rate, Denies pedal edema, Denies edema, Denies leg edema, Denies lightheadedness, Denies palpitations, Denies dyspnea, Denies dyspnea on exertion and Denies orthopnea Resp Denies cough, Denies dyspnea and Denies dyspnea on exertion GI Denies hematochezia and Denies change in stool character Musc Denies abnormal gait, Denies muscle cramps, Denies muscle weakness, Denies numbness, Denies radiating pain into limb and Denies tingling Neuro Denies abnormal gait, Denies dizziness, Denies syncope, Denies numbness, Denies tingling and Denies weakness Endo Denies palpitations Physical Exam Vital Signs: Last Vital Signs Pulse 78 08/28/24 13:52 BP 118/60 08/28/24 13:52 BMI result Body Mass Index 25.0 Const General: cooperative, healthy appearing, comfortable and no acute distress Orientation/consciousness: patient oriented x3 HEENT Head: Yes normal to inspection Neck Neck: Yes normal visual inspection, Yes trachea midline and Yes supple Chest Chest palpation & inspection: normal inspection of the chest Resp Effort & Inspection: normal respiratory effort Auscultation: clear to auscultation bilaterally, no crackles, no rales, no rhonchi and no wheezes Cardio Jugular venous distension: no JVD Palpation: normal PMI Rate: regular rate Rhythm: regular rhythm Heart sounds: S1 normal heart sound present, S2 normal heart sound present, no click, no gallops, no murmurs and no rubs Peripheral pulses: Peripheral pulses 2+ throughout GI Inspection: Yes normal to inspection Palpation (GI): Soft to palpation Auscultation: normal bowel sounds Skin General skin exam: no rashes or lesions noted Neuro General: patient oriented x3 Extrem General: Yes normal to inspection, No no pedal edema and No calf tenderness Psych Appearance: grossly normal Mental Status: mental status grossly normal Speech and movement: Normal speech and movement present Assessment & Plan Assessment & Plan (1) Chest pain: Code(s): R07.9 - Chest pain, unspecified Category: Medical Qualifiers: Chest pain type: unspecified Qualified Code(s): R07.9 - Chest pain, unspecified (2) Diabetes mellitus: Code(s): E11.9 - Type 2 diabetes mellitus without complications Category: Medical Qualifiers: Diabetes mellitus type: type 2 Diabetes mellitus technician terminal and repeater insulin use: without technician terminal and repeater use Diabetes mellitus complication status: without complication Qualified Code(s): E11.9 - Type 2 diabetes mellitus without complications (3) Hypercholesterolemia: Code(s): E78.00 - Pure hypercholesterolemia, unspecified Category: Medical (4) Benign essential hypertension: Code(s): I10 - Essential (primary) hypertension Category: Medical Plan 09/10/2023- myocardial perfusion study was normal. And the stress part of the test patient achieved 90% MPHR without any anginal symptoms and EKG changes. 09/10/2023- echo study showed normal EF 55%. Hypokinetic basal inferior and basal inferoseptal segment. No valve disease. 08/14/2024- coronary CTA showed no significant coronary artery disease. With these above results and her symptoms of reproducible chest pain unlikely it is cardiac etiology and more likely musculoskeletal. Patient understands this. Blood pressure today is well-controlled. Goal less than 130/84. No med changes at this time. Most recent A1c 6.9, continue diabetic management. Ideally A1c less than 7.0. Most recent LDL 83. Continue statin therapy. Ideally LDL less than 100 for her. Advised patient to continue with heart healthy diet, regular exercise, management of her blood pressure , diabetes, and cholesterol. Patient will follow-up as needed in the office. In the interim we will call us with any questions. Advised patient to seek ER care in case of exertional chest pain not resolved with rest. This note was generated using voice recognition software. While every effort has been made to ensure accuracy and proper wet process miller head, there may be occasional errors that could affect the content or meaning of the described symptoms. Coding Level of Care Code Est Pt Level 4 (41546) Diagnoses Chest pain, unspecified type R07.9 Chest pain type: unspecified Type 2 diabetes mellitus without complication, without long-term current use of insulin E11.9 Diabetes mellitus type: type 2 Diabetes mellitus technician terminal and repeater insulin use: without technician terminal and repeater use Diabetes mellitus complication status: without complication Hypercholesterolemia E78.00 Benign essential hypertension I10 Time Spent (min) 31 Comment Time spent in reviewing the chart, test results, assessment, counseling and documentation.
[2024-08-28 13:52] VITALS: BP 118/60; PULSE 78; BMI 25.0
== END 2024-08-28 14:27 | disposition home or self-care (01) ==
LOC: HO.HCS 13:21
PROVIDERS: PCP Internal Medicine
DX: R07.9 Chest pain, unspecified (principal); E11.9 Type 2 diabetes mellitus without complications; E78.00 Pure hypercholesterolemia, unspecified; I10 Essential (primary) hypertension
CPT/HCPCS: 99214

== ENCOUNTER → 2024-08-28 13:21 | Outpatient (BNVA) | payer OTHER, SELFPAY | PROVIDERS: PCP Internal Medicine | DX: R07.9 Chest pain, unspecified (principal); I10 Essential (primary) hypertension; E78.00 Pure hypercholesterolemia, unspecified; E11.9 Type 2 diabetes mellitus without complications | CPT/HCPCS: 99212 ==

== ENCOUNTER 2024-10-21 08:07 | Day surgery (SDC) | payer OTHER, SELFPAY ==
[2024-08-25 15:17] VITALS: BMI 27.0
--- NOTE | 2024-08-26 08:57 | P.CONAN_ITS ---
HPI - Anesthesia Eval Consult details Narrative: 64yo F for Colonoscopy PMF Active Problems Active Problems: All Active Problems Overweight (BMI 25.0-29.9) (Acute) Irritable bowel syndrome (IBS) (Acute) Abdominal pain (Acute) Bipolar disorder (Acute) Abdominal bloating (Acute) Chest pain (Acute) Hypercholesterolemia (Acute) Vitamin B12 deficiency (Acute) Subcutaneous nodule of left lower leg (Acute) Tubular adenoma of colon (Acute) Chronic idiopathic constipation (Acute) Insomnia (Acute) Varicose veins of left lower extremity with inflammation (Acute) Venous reflux (Acute) Atopic dermatitis (Acute) Depression (Acute) Anxiety (Acute) Allergic rhinitis (Acute) Lumbar spondylosis (Acute) Vitamin D deficiency (Acute) GERD without esophagitis (Acute) Anemia (Acute) Asthma (Acute) Benign essential hypertension (Acute) Pure hypercholesterolemia (Acute) Diabetes mellitus (Acute) Past Medical History Medical History (Updated 06/01/24 @ 19:03 by Herb Souza MD) Irritable bowel syndrome (IBS) Bipolar disorder Pure hypercholesterolemia Type 2 diabetes mellitus with hyperglycemia Hematuria Precordial chest pain Impacted cerumen, left ear Tinea pedis Impacted cerumen of both ears Superficial thrombophlebitis Impacted cerumen of both ears Overweight (BMI 25.0-29.9) Vitamin B12 deficiency Insomnia Depression Anxiety Allergic rhinitis Lumbar spondylosis Vitamin D deficiency GERD without esophagitis Anemia Asthma Benign essential hypertension Diabetes mellitus Tubular adenoma Family History Family History Father Diabetes Hypertension CVD (cardiovascular disease) Mother Hypertension Diabetes Chronic mental illness Surgical History Surgical History History of colonoscopy History of esophagogastroduodenoscopy (EGD) History of tubal ligation History of cholecystectomy Social History Social History Housing: Apartment Unable to assess alcohol history related to: Unknown Alcohol intake: never Patient Tobacco Use Status: Never used Tobacco e-Cigarette/Vaping Use: Never Used Second Hand Smoke Exposure: No service: No Current occupational status: disabled Cognitive needs: No Hearing needs: Yes Vision needs: No Meds Allergies Allergy/AdvReac Type Severity Reaction Status Date / Time No Known Allergies Allergy Verified 05/27/24 14:50 Home Medications ?Medication ?Instructions ?Recorded ?Confirmed ?Last Taken ?Type hydrocortisone 1 % lotion 1 applic topical TID PRN rash 05/30/20 05/27/24 Unkno wn History emollient combination no.32 topical 01/13/22 05/27/24 Unknown History (EpiCeram topical emulsion, extended release) hydroquinone 4 % topical cream appl topical BID 06/14/23 05/27/24 Unknown History Exam Height,Weight and Vital Signs: Height 5 ft 1 in Weight 64.864 kg Narrative Narrative: EKG with inferior and lateral ST-T changes. In the echocardiogram, thought to be having inferior hypokinesis but on 2nd look, could be artifactual finding. Suspect normal contractility. Perfusion imaging unremarkable. CTA 07/2024 No CAD Assessment and Plan Assessment Anesthesia Assessment: Chart Reviewed
--- NOTE | 2024-10-20 10:01 | P.CONAN_ITS ---
Documented by User: Suzanne Carlos NP 10/20/24 10:08 HPI - Anesthesia Eval Consult details Narrative: 64yo F for Colonoscopy [facility] cardiology w/u for atypical CP in 2023. Unlikely cardiac etiology and prn cardiac f/u only PMFSH Active Problems Active Problems: All Active Problems Overweight (BMI 25.0-29.9) (Acute) Irritable bowel syndrome (IBS) (Acute) Abdominal pain (Acute) Bipolar disorder (Acute) Abdominal bloating (Acute) Chest pain (Acute) Hypercholesterolemia (Acute) Vitamin B12 deficiency (Acute) Subcutaneous nodule of left lower leg (Acute) Tubular adenoma of colon (Acute) Chronic idiopathic constipation (Acute) Insomnia (Acute) Varicose veins of left lower extremity with inflammation (Acute) Venous reflux (Acute) Atopic dermatitis (Acute) Depression (Acute) Anxiety (Acute) Allergic rhinitis (Acute) Lumbar spondylosis (Acute) Vitamin D deficiency (Acute) GERD without esophagitis (Acute) Anemia (Acute) Asthma (Acute) Benign essential hypertension (Acute) Pure hypercholesterolemia (Acute) Diabetes mellitus (Acute) Past Medical History Medical History Irritable bowel syndrome (IBS) Bipolar disorder Pure hypercholesterolemia Type 2 diabetes mellitus with hyperglycemia Hematuria Precordial chest pain Impacted cerumen, left ear Tinea pedis Impacted cerumen of both ears Superficial thrombophlebitis Impacted cerumen of both ears Overweight (BMI 25.0-29.9) Vitamin B12 deficiency Insomnia Depression Anxiety Allergic rhinitis Lumbar spondylosis Vitamin D deficiency GERD without esophagitis Anemia Asthma Benign essential hypertension Diabetes mellitus Tubular adenoma Family History Family History Father Diabetes Hypertension CVD (cardiovascular disease) Mother Hypertension Diabetes Chronic mental illness Surgical History Surgical History History of colonoscopy History of esophagogastroduodenoscopy (EGD) History of tubal ligation History of cholecystectomy Social History Social History Housing: Apartment Are you a primary manager progressive care to a significant other at home: No Do you presently have visiting nurse or other home services: No Unable to assess alcohol history related to: Unknown Alcohol intake: never Patient Tobacco Use Status: Never used Tobacco e-Cigarette/Vaping Use: Never Used Second Hand Smoke Exposure: No Use of substances other than those prescribed or required for medical reasons: No Have you been hit, kicked, punched, or otherwise hurt by someone within the past year? If so, by whom?: No Are you DNR?: No Advance Directives: No Advance Directives Information Provided: Yes service: No Current occupational status: disabled Cognitive needs: No Hearing needs: Yes Vision needs: No Meds Allergies Allergy/AdvReac Type Severity Reaction Status Date / Time No Known Allergies Allergy Verified 05/27/24 14:50 Home Medications ?Medication ?Instructions ?Recorded ?Confirmed ?Last Taken ?Type hydrocortisone 1 % lotion 1 applic topical TID PRN rash 05/30/20 10/21/24 Unknown History hydroquinone 4 % topical cream appl topical BID 06/14/23 08/28/24 Unknown History Exam Height,Weight and Vital Signs: Height 5 ft 1 in Weight 64.864 kg Pertinent Lab Results Pertinent Lab Results: Laboratory Tests 08/02/24 11:00 WBC 6.4 Hgb 12.1 Hct 37.6 Plt Count 224 Sodium 142 Potassium 4.2 Chloride 108 Carbon Dioxide 30 H BUN 9 Creatinine 0.67 Narrative Narrative: 08/14/2024- coronary CTA showed no significant coronary artery disease. ECHO 2023 Conclusions: - The left ventricular systolic function is normal. The calculated ejection fraction is 55% by biplane method. - The basal inferior and basal inferoseptal segments are hypokinetic. - No obvious valvular pathology seen on this study. NV cardiolite stress test 2023 Impression: 1. Normal myocardial perfusion 2. Gated LVEF is 62% 3. Transient ischemic dilatation not present Stress EKG is negative for ischemia at workload achieved Assessment and Plan Assessment Anesthesia Assessment: Chart Reviewed Documented by User: Jocelyn Romero MD 10/21/24 09:43 [facility] Past Medical History Medical History Irritable bowel syndrome (IBS) Bipolar disorder Pure hypercholesterolemia Type 2 diabetes mellitus with hyperglycemia Hematuria Precordial chest pain Impacted cerumen, left ear Tinea pedis Impacted cerumen of both ears Superficial thrombophlebitis Impacted cerumen of both ears Overweight (BMI 25.0-29.9) Vitamin B12 deficiency Insomnia Depression Anxiety Allergic rhinitis Lumbar spondylosis Vitamin D deficiency GERD without esophagitis Anemia Asthma Benign essential hypertension Diabetes mellitus Tubular adenoma Family History Family History Father Diabetes Hypertension CVD (cardiovascular disease) Mother Hypertension Diabetes Chronic mental illness Family history of problems with anesthesia: No Surgical History Surgical History History of colonoscopy History of esophagogastroduodenoscopy (EGD) History of tubal ligation History of cholecystectomy History of Problems with Anesthesia: No Social History Social History Housing: Apartment Are you a primary manager progressive care to a significant other at home: No Do you presently have visiting nurse or other home services: No Unable to assess alcohol history related to: Unknown Alcohol intake: never Patient Tobacco Use Status: Never used Tobacco e-Cigarette/Vaping Use: Never Used Second Hand Smoke Exposure: No Use of substances other than those prescribed or required for medical reasons: No Have you been hit, kicked, punched, or otherwise hurt by someone within the past year? If so, by whom?: No Are you DNR?: No Advance Directives: No Advance Directives Information Provided: Yes service: No Current occupational status: disabled Cognitive needs: No Hearing needs: Yes Vision needs: No Meds Allergies Allergy/AdvReac Type Severity Reaction Status Date / Time No Known Allergies Allergy Verified 05/27/24 14:50 Home Medications ?Medication ?Instructions ?Recorded ?Confirmed ?Last Taken ?Type hydrocortisone 1 % lotion 1 applic topical TID PRN rash 05/30/20 10/21/24 Unknown History hydroquinone 4 % topical cream appl topical BID 06/14/23 08/28/24 Unknown History Exam Narrative Narrative: 08/14/2024- coronary CTA showed no significant coronary artery disease. ECHO 2023 Conclusions: - The left ventricular systolic function is normal. The calculated ejection fraction is 55% by biplane method. - The basal inferior and basal inferoseptal segments are hypokinetic. - No obvious valvular pathology seen on this study. NV cardiolite stress test 2023 Impression: 1. Normal myocardial perfusion 2. Gated LVEF is 62% 3. Transient ischemic dilatation not present Stress EKG is negative for ischemia at workload achieved Airway Mallampati Class: III TM Dist: >3cm Neck ROM: Full Assessment and Plan Assessment Anesthesia Assessment: Anesthesia Plan Discussed Final Anesthetic Review Family History of Problems with Anesthesia: No History of Problems with Anesthesia: No NPO: Yes ASA Class: III Final Preanesthetic Review: No Changes in Pt Med Stat, Meds/Allgs Chart Reviewed, Consent Obtained/Reviewed and Anes Risks/Benef Reviewed Patient Risk: Intermediate Procedure Risk: Low
[2024-10-21 08:52] LABS: Glucose, Whole Blood 126 mg/dL (60-115)
[2024-10-21 08:53] VITALS: BP 119/64; PULSE 65; RESP 16; TEMP 36.6; O2SAT 97; BMI 25.9
[2024-10-21] MEDS: Lactated Ringers 1,000 ML 100 ML IVCONT (08:57)
--- NOTE | 2024-10-21 08:57 | MHC.SHP ---
Pre-Procedural Eval Section A - 24 Hr Update-Section A only Date of Service: 10/21/24 Section B - Complete if H&P > 30 days Chief Complaint: Abdominal distension (gaseous) Relevant Family History (Specify if Yes): No Relevant Social History: None Present Medications: see Short Stay Collaborative assessment Medical History: Significant History (rritable bowel syndrome (IBS) Bipolar disorder Pure hypercholesterolemia Type 2 diabetes mellitus with hyperglycemia Hematuria Precordial chest pain Impacted cerumen, left ear Tinea pedis Impacted cerumen of both ears Superficial thrombophlebitis Impacted cerumen of both ears Overweight (BMI 25.0-29) History of Previous Operations: Relevant previous surgery/procedure and date(s) ( History of colonoscopy History of esophagogastroduodenoscopy (EGD) History of tubal ligation History of cholecystectomy) Allergies: Allergies Allergy/AdvReac Type Severity Reaction Status Date / Time No Known Allergies Allergy Verified 05/27/24 14:50 Review of Systems Sugical H&P ROS: Negative: Constitution, Cardiovascular, Respiratory, Neurological, Psychiatric, Hem-Onc, Allergic/Immunologic, Gastrointestinal, Genitourinary, Musculoskeletal, Integumentary, Endocrine and Eyes/Ears/Nose/Throat Exam Surgical H&P Exam: Normal: HEENT, Normal: Heart, Normal: Lungs, Normal: Extremities, Normal: Abdomen, Normal: Skin and Normal: Neurological Plan Diagnosis/Plan: Unchanged I have reviewed the history and physical and performed a pertinent physical examination on my patient. No changes have occurred unless specified. Time Spent With Patient Time: Total time managing care of this patient today ____ minutes.
--- NOTE | 2024-10-21 10:15 | P.OPN-COLO_ITS ---
Colonoscopy Operative Note Operative Note Date of Service: 10/21/24 Narrative: Operative Information Procedure Description: Colonoscopy Indication: screening Anesthesia: MAC COLONOSCOPY Instrument: Olympus variable stiffness pediatric scope 190L Colonoscopy Monitoring: Vital signs and clinical assessment, continuous EKG monitoring, Pulse oximetry, Carbon Dioxide monitoring and blood pressure monitoring were done throughout the procedure. Colon withdrawal time was 12 minutes. Procedure: The patient was placed in the left lateral decubitis position and pre-procedure medications were administered. After a digital rectal examination of the ano-rectum, the video colonoscope was inserted into the rectum and advanced through the colon to the cecum/TI. The colonoscope was slowly withdrawn in a retrograde panoramic fashion and the colon mucosa was carefully examined including a retroflexed view of the rectum. Findings and interventions are described below. Procedure Difficulty: easy Findings: Terminal Ileum-normal Cecum: flat appearing polyp lesion 5-6 mm around orifice, raised with eleview injection and removed with cold forceps Ascending Colon: normal Transverse Colon -normal Descending Colon:normal Sigmoid Colon: 6-8 mm sessile polyp removed with cold snare Rectum: Retroflexion with small internal hemorrhoids seen, grade I Anorectum - normal Intervention: cold forceps and eleview injection, cold snare Colon preparation: [place] Bowel Preparation Scale Right colon; 2 Transverse colon: 2 Left colon; 1-2 (0 = Unprepared colon segment with mucosa not seen due to solid stool that cannot be cleared. 1 = Portion of mucosa of the colon segment seen, but other areas of the colon segment not well seen due to staining, residual stool and/or opaque liquid. 2 = Minor amount of residual staining, small fragments of stool and/or opaque liquid, but mucosa of colon segment seen well. 3 = Entire mucosa of colon segment seen well with no residual staining, small fragments of stool or opaque liquid) Impression and Post Procedure Diagnosis: colon polyps x2 internal hemorrhoids Plan: High fiber diet leaflet Avoid straining at stool, epsom salts and sitz bath, anusol supps or cream Repeat Colonoscopy in 5-6 years due to few areas of fair prep on the left or earlier if clinically indicated Above findings were reviewed with the patient and relevant handouts were provided if indicated.
[2024-10-21 10:22] VITALS: BP 92/46; PULSE 68; RESP 14; TEMP 36.1; O2SAT 95
[2024-10-21 10:36] VITALS: BP 118/63; PULSE 76; RESP 16; TEMP 36.1; O2SAT 96
== END 2024-10-21 11:09 | disposition home or self-care (01) ==
PROVIDERS: PCP Internal Medicine; Visit Provider Internal Medicine Gastroenterology
PROC: 0DJD8ZZ Inspection of Lower Intestinal Tract, Via Natural or Artificial Opening Endoscopic (ICD-10-PCS; CPT 45378; principal; 2024-10-21 09:50)
DX: Z12.11 Encounter for screening for malignant neoplasm of colon (principal); D12.5 Benign neoplasm of sigmoid colon; K64.0 First degree hemorrhoids; Z86.0101 Personal history of adenomatous and serrated colon polyps; K59.04 Chronic idiopathic constipation; E11.9 Type 2 diabetes mellitus without complications; I10 Essential (primary) hypertension; E78.00 Pure hypercholesterolemia, unspecified; K21.9 Gastro-esophageal reflux disease without esophagitis; D64.9 Anemia, unspecified; J45.909 Unspecified asthma, uncomplicated; E53.8 Deficiency of other specified B group vitamins; K58.9 Irritable bowel syndrome, unspecified; Z90.49 Acquired absence of other specified parts of digestive tract; Z98.51 Tubal ligation status; Z79.899 Other long term (current) drug therapy; Z79.84 Long term (current) use of oral hypoglycemic drugs; Z79.02 Long term (current) use of antithrombotics/antiplatelets
CPT/HCPCS: 45381; 45385; 45380; 82947; 88305; J2003; J2704

== ENCOUNTER → 2024-10-21 08:07 | Outpatient (BNV) | payer OTHER, SELFPAY | PROVIDERS: PCP Internal Medicine; Visit Provider Internal Medicine Gastroenterology | DX: Z12.11 Encounter for screening for malignant neoplasm of colon (principal); D12.5 Benign neoplasm of sigmoid colon; K63.5 Polyp of colon; K64.0 First degree hemorrhoids | CPT/HCPCS: 45380; 45381; 45385 ==

== ENCOUNTER 2024-11-17 12:18 | Outpatient (REF) | payer OTHER, SELFPAY ==
[2024-11-17 12:32] LABS: MANUAL DIFF FLAG NO
[2024-11-17 12:52] LABS: Basophils Percent Auto 0.4 % (0-2); Eosinophils Absolute Auto 0.1 X10*3/uL (0.0-0.4); Eosinophils Percent Auto 1.8 % (0-4); Hematocrit 38.8 % (37.0-47.0); Hemoglobin 12.2 g/dl (12.0-16.0); Imm Gran Abs Auto 0.02 X10*3/uL (0.00-0.03); Imm Gran Pct Auto 0.3 % (0.0-0.4); Lymphocytes Percent Auto 29.2 % (20-40); Mean Corpuscular HGB Conc 31.4 g/dl (31.0-35.0); Mean Corpuscular Hemoglobin 27.4 pg (27.0-33.0); Mean Corpuscular Volume 87.2 fL (80.0-98.0); Mean Platelet Volume 11.7 fL (9.4-12.3); Monocytes Absolute Auto 0.4 X10*3/uL (0.1-1.2); Monocytes Percent Auto 6.4 % (2-11); Neutrophils Absolute Auto 4.2 x10*3/uL (2.0-8.3); Neutrophils Percent Auto 61.9 % (45-73); Platelet Count 232 X10*3/uL (160-400); Red Blood Count 4.45 X10*6/uL (4.20-5.50); Red Cell Distribution Width 14.2 % (11.0-16.0); White Blood Count 6.9 X10*3/uL (4.8-10.8)
[2024-11-17 12:57] LABS: Appearance Urine Clear; Color Urine Yellow; Glucose Urine UA Negative (Negative); Leukocyte Esterase Urine Negative (Negative); Nitrite Urine Negative (Negative); PH 5.5 (5.0-9.0); Specific Gravity - Urine 1.015 (1.005-1.025); Urine Blood Negative (Negative); Urine Ketones Negative (Negative); Urine Protein Negative (Neg-Trace)
[2024-11-17 13:03] LABS: Estimated Average Glucose 154 mg/dL; Hemoglobin A1C 169.7192 umol/L
[2024-11-17 13:27] LABS: Creatinine Urine 100.84 mg/dL; Microalbumin Urine < 5.0 mg/L
[2024-11-17 13:40] LABS: Alanine Aminotransferase 17 U/L (0-31); Albumin Level 4.1 g/dL (3.5-5.0); Alkaline Phosphatase 96 U/L (39-117); Anion Gap 11 (12-20); Aspartate Amino Transferase 23 U/L (5-31); Bilirubin Total 0.4 mg/dL (0.0-1.0); Blood Urea Nitrogen 11 mg/dL (9-16); Calcium 9.1 mg/dL (8.4-10.2); Carbon Dioxide 28 mmol/L (22-29); Chloride 105 mmol/L (96-108); Cholesterol 165 mg/dL (<200); Estimated Glomerular Filt Rate > 60; Glucose Fasting 129 mg/dL (60-99); HDL Cholesterol 46 mg/dL (>40); LDL Cholesterol Calculated 103 mg/dL (<100); Potassium 3.9 mmol/L (3.3-5.1); Sodium 140 mmol/L (135-145); Total Protein 7.4 g/dL (6.5-8.0); Triglycerides 81 mg/dL (<150)
--- OUTSIDE RECORDS SUMMARY | 2024-11-17 13:46 | XMS_ITS | Clinical Summary ---
Author Organization [employer] Address [address] [place] [address] [address] [place] [address] Care Team Providers Care Personnel Analyst Name Role Phone Unavailable Primary Care Provider [...] Diagnosed Date Abfraction 03/06/2024 Dental plaque 02/01/2024 Partial edentulism 02/01/2024 Localized gingival recession 02/01/2024 Fractured dental mu-ism with loss of materi al 02/01/2024 Tooth sensitivity 02/01/2024 Anemia 06/04/2014 Arthritis 06/04/2014 Hypercholesterolemia 06/04/2014 Hypertensive disorder 06/04/2014 Type 2 diabetes mellitus 06/04/2014 Encounters Date Type Department Care Team Description 10/17/2024 3:00 PM EDT Office Visit [facility] [address] [place] [address] Rama De Leon Missing teeth, acquired (Primary Dx); Dental plaque; Localized gingival recession; Partial edentulism, unspecified edentulism class 08/20/2024 Telephone [facility] [address] [place] [address] Rama De Leon from Last 3 Months [...] Sign Reading Time Taken Comments Blood Pressure 110/66 10/17/2024 2:56 PM EDT Pulse 76 10/17/2024 2:56 PM EDT Temperature - - Respiratory Rate - - Oxygen Saturation - - Inhaled Oxygen Concentration - - Weight - - Height - - Body Mass Index - - Plan of Treatment Upcoming Encounters Date Type Department Care Team (Late st Contact Info) Description 04/23/2025 1:00 PM EDT Office Visit [facility] [address] [place] [address] Rama De Leon [address] [place] [address] Health Maintenance Due Date Last Done Comments [...] 2000 Zoster Vaccines (1 of 2) 2010 COVID-19 Vaccine ( season) 2024 09/13/2021, 03/16/2021, 02/15/2021 Influenza Vaccine (#1) 2024 Dental Oral Exam 04/19/2025 10/17/2024, , 08/12/2021, Additional history exists Dental Prophylaxis 04/19/2025 10/17/2024, 0 02/01/2024, 02/16/2022, Additional history exists Tobacco Screening 10/17/2025 10/17/2024 Dental X-Ray: Bitewings 10/18/2025 10/18/19 25, 02/01/2024, 08/12/2021, Additional history exists DTaP/Tdap/Td Vaccines (2 - Td or Tdap) 11/20/2026 11/20/2016 Dental X-Ray: Full Mouth 10/19/2027 025, 08/12/2021, 10/21/2015 RSV Patients and Patients Aged 60 years [...] Procedure Name Priority Date/Time Associated Diagnosis Comments PERIODIC ORAL EVALUATION - ESTABLISHED PATIENT Routine 10/17/2024 3:00 PM EDT CASE PRESENTATION, DETAILED AND EXTENSIVE TREATMENT PLANNING Routine 10/17/2024 3:00 PM EDT Missing teeth, acquired Dental plaque ORAL HYGIENE INSTRUCTIONS Routine 10/17/2024 3:00 PM EDT Missing teeth, acquired Dental plaque PROPHYLAXIS - ADULT Routine 10/17/2024 3 :00 PM EDT Dental plaque INTRAORAL - COMPLETE SERIES OF RADIOGRAPHIC IMAGES Routine 10/17/2024 3:00 PM EDT Missing teeth, acquired Dental plaque from Last 3 Months Insurance [facility] [employer] ST[place] ADULT
--- OUTSIDE RECORDS SUMMARY | 2024-11-17 13:46 | XMS_ITS | Encounter Summary ---
Author Organization [employer] Address [address] [place] [address] Care Team Providers Care Application Design Engineer Name Role Phone Unavailable Primary Care Provider Unavailabl e Encounter Details Date Type Department Care Team (Latest Contact Info) Description 07/24/2019 Abstract [facility] Dental, Provider, DDS Social History Tobacco Use Types Packs/Day Years Used Date Smoking Tobacco: Never Assessed Comments Unknown Sex and Gender Information Value Date Recorded Sex Assigned at Female 05/15/2022 10:14 AM EDT Legal Sex Female 10:14 AM EDT Gender Identity Female 05/15/2022 10:14 AM EDT Sexual Orientation Straight 05/15/2022 10 :14 AM EDT documented as of this encounter Plan of Treatment Upcoming Encounters Date Type Department Care Team (Late st Contact Info) Description 04/23/2025 1:00 PM EDT Office Visit [facility] [address] [place] [address] Yrn De Leonaris [address] [place] [address] documented as of this encounter Visit Diagnoses Not on filedocumented in this encounter
--- OUTSIDE RECORDS SUMMARY | 2024-11-17 13:46 | XMS_ITS | Encounter Summary ---
Author Organization [employer] Address [address] [facility] [facility] [address] [place] [address] Care Team Providers Care Railroad Car Checker Name Role Phone Unavailable Primary Care Provider Unavailabl e Encounter Details Date Type Department Care Team (Latest Contact Info) Description 08/12/2021 Abstract [facility] Dental, Provider, DDS Social History [...] Description 04/23/2025 1:00 PM EDT Office Visit [facility] [address] [place] [address] Yrn De Leonaris [address] [place] [address] documented as of this encounter Visit Diagnoses Not on filedocumented in this encounter
--- OUTSIDE RECORDS SUMMARY | 2024-11-17 13:46 | XMS_ITS | Encounter Summary ---
Author Organization [employer] Address [address] [facility] [address] [place] [address] Care Team Providers Care Cryptographer Name Role Phone Unavailable Primary Care Provider Unavailabl e Encounter Details Date Type Department Care Team (Latest Contact Info) Description 02/16/2022 Abstract [facility] Dental, Provider, DDS Social [...] Description 04/23/2025 1:00 PM EDT Office Visit [facility] [address] [place] [address] Yrn De Leonaris [address] [place] [address] documented as of this encounter Visit Diagnoses Not on filedocumented in this encounter
[2024-11-17 13:49] LABS: TSH reflex Free T4 0.84 uIU/mL (0.32-4.0); Vitamin D 25-OH Total 44.2 ng/mL (>30)
== END 2024-11-17 12:19 | disposition home or self-care (01) ==
LOC: HO.LAB 12:18
PROVIDERS: PCP Internal Medicine; Visit Provider Internal Medicine
DX: M54.9 Dorsalgia, unspecified (principal); E78.00 Pure hypercholesterolemia, unspecified; E11.9 Type 2 diabetes mellitus without complications; E55.9 Vitamin D deficiency, unspecified; D64.9 Anemia, unspecified; R30.0 Dysuria
CPT/HCPCS: 36415; 80053; 80061; 81003; 82043; 82306; 82570; 83036; 84443; 85025

== ENCOUNTER 2024-11-18 13:52 | Outpatient (REF) | payer OTHER, SELFPAY ==
--- NOTE | ~2024-11-18 | XR_ITS ---
EXAMINATION: XR LUMBOSACRAL SPINE CLINICAL INFORMATION: M54.9 - Dorsalgia, unspecified COMPARISON: September 16, 2020. TECHNIQUE: Three views of the lumbosacral spine. FINDINGS: Marginal osteophyte formation and facet joint hypertrophy at L4-5 and L5-S1. Multilevel endplate sclerosis and marginal osteophyte formation throughout the axial skeleton. No acute cortical disruption. No gross malalignment. Vascular calcifications. XR/XR lumbar spine 2-3V IMPRESSION: Multilevel thoracolumbar spondylosis without acute fracture or gross listhesis. Atherosclerosis disease. Electronically signed by: Hira Burnett MD 11/19/2024 07:36 AM EDT
--- NOTE | ~2024-11-18 | XR_ITS ---
EXAMINATION: XR THORACIC SPINE CLINICAL INFORMATION: M54.9 - Dorsalgia, unspecified COMPARISON: April 22, 2015. TECHNIQUE: 3 views of the thoracic spine were obtained. FINDINGS: Multilevel marginal osteophyte formation and endplate sclerosis and decreased intervertebral disc height throughout the axial skeleton. No acute cortical disruption. No gross malalignment. Marginal osteophyte formation and endplate sclerosis and decreased intervertebral disc height at C5-6 and C6-7 levels. No lytic or blastic lesions. XR/XR thoracic spine 2V IMPRESSION: Multilevel thoracic spondylosis. Cervical spondylosis C5-6 and C6-7 levels. Electronically signed by: Hira Burnett MD 11/19/2024 07:35 AM EDT
== END 2024-11-18 13:53 | disposition home or self-care (01) ==
LOC: HO.XRAY 13:52
PROVIDERS: PCP Internal Medicine; Visit Provider Nurse Practitioner
DX: D12.6 Benign neoplasm of colon, unspecified (principal); K59.04 Chronic idiopathic constipation; K21.9 Gastro-esophageal reflux disease without esophagitis; R14.0 Abdominal distension (gaseous); M54.9 Dorsalgia, unspecified; R10.9 Unspecified abdominal pain
CPT/HCPCS: 72070; 72100; 99212

== ENCOUNTER 2024-11-18 13:52 | Outpatient (AMB) | payer OTHER, SELFPAY ==
--- NOTE | 2024-11-18 13:56 | A.OFFVIS_ITS ---
Vital Signs 3 11/18/24 14:02 Height 5 ft 1 in Weight 141 lb 1.533 oz BMI 26.7 BP 108/58 L Blood Pressure Location Lt brachial Position Sitting Pulse 81 Intake Visit Reasons: s/p [place] Intake Note: Kirstin presents in the office as a follow up colonoscopy. CC: She sates that she got two different teas at [facility]. She takes one in the morning and one in the PM - she wants to know if this is something you think is okay. She states that she has been feeling okay and here for results. Order Control Clerk Blood Bank Required: Yes Allergies No Known Allergies Allergy (Verified 11/18/24 14:24) HPI HPI s/p [place]: Details: Assessment & Plan (1) GERD without esophagitis: Code(s): K21.9 - Gastro-esophageal reflux disease without esophagitis Category: Medical (2) Abdominal bloating: Code(s): R14.0 - Abdominal distension (gaseous) Category: Medical (3) Chronic idiopathic constipation: Code(s): K59.04 - Chronic idiopathic constipation Category: Medical Plan Mexican #[id number] Ursula She continues on LInzess 145mcg and 2 bisacodyl qhs. She has been using the o2o prn w/o very good efficacy (likely r/t the long onset of action) so I will give her famotidine that has a faster onset and is better for prn use. She is c/o gas trapping, so we will start her on simethicone chewable 125mg tid- qid. We verify her contact information and we have it correctly, so I don't know what the problem is. I will walk her to the schedulers. She does not want the big gallon or peg. Send another prep. ROV 6 mos. Medications: New famotidine (Pepcid) 40 mg PO DAILY PRN 30 tabs 6RF heartburn K21.9 - Gastro- esophageal reflux disease without esophagitis sodium,potassium,mag sulfates 17.5-3.13-1.6 gram (Suprep Bowel Prep Kit) 480 mL orally; FOR COLONOSCOPY PREP 354 mL 0RF simethicone 125 mg PO BID-QID PRN 90 tabs 6RF abdominal distention R14.0 - Abdominal distension (gaseous) Refilled linaclotide (Linzess) 145 mcg PO QAM 90 caps 1RF 90 days bisacodyl (Laxative (bisacodyl)) 10 mg (2 x 5 mg) PO BEDTIME 180 tabs 1RF K 59.04 - Chronic idiopathic constipation Discontinued omeprazole Discontinued Reason: Doctor's Order 20 mg PO DAILY 90 days PRN 90 caps 3RF heartburn K21.9 - Gastro-esophageal reflux disease without esophagitis COLONOSCOPY 10/21/24 Findings: Terminal Ileum-normal Cecum: flat appearing polyp lesion 5-6 mm around orifice, raised with eleview injection and removed with cold forceps Ascending Colon: normal Transverse Colon -normal Descending Colon:normal Sigmoid Colon: 6-8 mm sessile polyp removed with cold snare Rectum: Retroflexion with small internal hemorrhoids seen, grade I Anorectum - normal Intervention: cold forceps and eleview injection, cold snare Impression and Post Procedure Diagnosis: colon polyps x2 internal hemorrhoids Plan: High fiber diet leaflet Avoid straining at stool, epsom salts and sitz bath, anusol supps or cream Repeat Colonoscopy in 5-6 years due to few areas of fair prep on the left or earlier if clinically indicated BIOPSY Received: 10/21/24 Diagnosis A. Appendiceal orifice, polyp: Colonic mucosa with prominent lymphoid aggregates; no adenomatous dysplasia seen. B. Colon, sigmoid, polyp: Tubular adenoma; negative for high-grade dysplasia and carcinoma [place] #Sheila lIVE She is now doing well on the LInzess 145mcg and 2 bisacodyl qhs. She also continues on omeprazole with good control of her GERD. She has not yet heard re: colonoscopy. Will walk her to schedulers since there is a message that they have been trying to reach her. ROV 6 mos and after colonoscopy (2) GERD without esophagitis: Code(s): K21.9 - Gastro-esophageal reflux disease without esophagitis (3) Tubular adenoma of colon: Comment: 2018=TA repeat 2022 Code(s): D12.6 - Benign neoplasm of colon, unspecified Medications: Changed From linaclotide (Linzess) 145 mcg PO QAM 30 caps 3RF To linaclotide (Linzess) 145 mcg PO QAM 90 days 90 caps 1RF Refilled bisacodyl (Laxative (bisacodyl)) 10 mg (2 x 5 mg) PO BEDTIME 90 days 180 tabs 1RF K59.04 - Chronic idiopathic constipation omeprazole 20 mg PO DAILY 90 days PRN 90 caps 3RF heartburn K21.9 - Gastro- esophageal reflux disease without esophagitis TODAY'S VISIT Fátima Marie She is doing well on her GI regimen. However, she has a new c/p left sided back flank pain that started suddenly over the past few months. It seems to be exacerbated by movement and housework, and alleviated by position and is described as a squeezing pain. It will be 9/10 at times and will last up to 10 minutes. IT is not effected by BM's except for position sitting on the toilet. She is worried about my kidneys because I have diabetes. She had a LS XR in 2020 showing some spondylosis and she denies any known hx of renal stones. Will get repeat XR and of thoracic spine and UA to ? nephrolithiasis. The only urinary complaint is stress incontinence. HEr renal fxn labs are ok. DDX includes possibel bowel spasm, but it is mostly exacerbated by movement and seems mskskl with severe increased tone of the lumbar para spinous muscles and extended lumbar lordosis. She is doing well with LInzess 145mcg and famotine/simethicone otherwise. She is agreeable to a 5 year follow up for colonoscopy. ROV next avail. [facility] Medical History (Updated 11/18/24 @ 15:05 by BOAZ Bautista) Venous reflux Irritable bowel syndrome (IBS) Abdominal pain Bipolar disorder Pure hypercholesterolemia Type 2 diabetes mellitus with hyperglycemia Hematuria Precordial chest pain Impacted cerumen, left ear Tinea pedis Impacted cerumen of both ears Superficial thrombophlebitis Impacted cerumen of both ears Overweight (BMI 25.0-29.9) Vitamin B12 deficiency Insomnia Depression Anxiety Allergic rhinitis Lumbar spondylosis Vitamin D deficiency GERD without esophagitis Anemia Asthma Benign essential hypertension Diabetes mellitus Tubular adenoma Surgical History History of colonoscopy History of esophagogastroduodenoscopy (EGD) History of tubal ligation History of cholecystectomy Family History Father Diabetes Hypertension CVD (cardiovascular disease) Mother Hypertension Diabetes Chronic mental illness Social History Housing: Apartment Are you a primary resident care coordinator to a significant other at home: No Do you presently have visiting nurse or other home services: No Unable to assess alcohol history related to: Unknown Alcohol intake: never Patient Tobacco Use Status: Never used Tobacco e-Cigarette/Vaping Use: Never Used Second Hand Smoke Exposure: No service: No Current occupational status: disabled Cognitive needs: No Hearing needs: Yes Vision needs: No Female Reproductive History Menstrual Age of Menarche: 15 Review of Systems Const Denies fatigue, Denies fever(s), Denies night sweats, Denies poor appetite and Denies weight loss ENT Reports Normal hearing present, Denies dental pain, Denies dysphagia, Denies hearing loss, Denies mouth pain, Denies odynophagia, Denies throat swelling, Denies tongue swelling and Reports other (Dentition adequate) Card Reports no additional complaints Resp Reports no additional complaints GI Details: Denies abdominal pain, Denies melena, Denies bloating, Denies hematochezia, Reports constipation, Denies GI cramping, Denies dysphagia, Denies excessive flatus, Denies early satiety, Reports heartburn, Denies diarrhea, Denies nausea, Denies odynophagia, Denies vomiting and Denies hematemesis Reports flank pain and Reports urinary incontinence (Stress) Musc Reports back pain and Denies radiating pain into limb Skin/Breast Denies pruritus, Denies lesions, Denies rash and Denies jaundice Neuro Reports Normal hearing present and Denies Abnormal speech present Endo Denies fatigue Aller/Immun Denies throat swelling and Denies tongue swelling Physical Exam Vital Signs: Last Vital Signs Pulse 81 05/06/25 14:02 BP 108/58 L 11/18/24 14:02 BMI result Body Mass Index 26.7 Const General: cooperative, no acute distress, well developed and well groomed Nutritional Appearance: average body habitus and well nourished Orientation/consciousness: oriented to person, oriented to place and oriented to time Limitations: language barrier HEENT Head: Yes normocephalic and Yes atraumatic Eyes General: appearance normal, both eyes and all related structures Pupils: Equal, round and reactive pupils present Neck Neck: Yes normal visual inspection and Yes no lymphadenopathy Thyroid: Thyroid normal Resp Effort & Inspection: normal respiratory effort and able to speak in complete sentences Auscultation: clear to auscultation bilaterally Cardio Rate: regular rate Rhythm: regular rhythm Heart sounds: Normal, physiologic split S2 sound present Peripheral pulses: radial pulses present and posterior tibial pulses present GI Inspection: No distended, Yes Abdominal panniculus present and Yes obesity Palpation (GI): Soft to palpation, nontender, no guarding, not rigid and No hepatosplenomegaly present Percussion: Yes normal to percussion Auscultation: normal bowel sounds Rectal Exam - Female: deferred Abdomen image: 2 1. surgical scar General: Yes no CVA tenderness Back/Spine/Pelvis Back: no CVA tenderness Cervical Spine: normal cervical lordosis Thoracic/Lumbar Spine: paraspinal muscle tenderness, No thoracic spinal tenderness, No lumbar spinal tenderness, tilt present (pain with tilt to left and pain with twist to right) and other (extremely tight hamstrings limits SLR test) Pelvis: no pain with lateral compression Sacroiliac joints: bilaterally nontender Back/spine/pelvis image: 2 1. lidocaine patch Skin General skin exam: no rashes or lesions noted, turgor normal, skin not dry, no jaundice, No spider nevi and no striae Rashes: no rashes Nails: normal Neuro General: oriented to person, oriented to place and oriented to time Cranial nerves: Yes Equal, round and reactive pupils present and Yes Normal hearing present Speech: No Abnormal speech present Gait exam (Neuro): Normal gait present Motor exam (neuro): 5/5 motor strength present throughout Deep tendon reflexes (DTR's): Right patellar reflex intensity grade: 2+, Left patellar reflex intensity grade: 2+, Right ankle reflex intensity grade: 2+ and Left ankle reflex intensity grade: 2+ Extrem General: Yes normal to inspection, No clubbing, No cyanosis and No edema Psych Appearance: grossly normal and well kempt Mental Status: mental status grossly normal Speech and movement: Normal speech and movement present Affect: normal affect Attitude: cooperative Thought process: Normal thought process present and not confabulating Thought content: Normal thought content present Insight: Limited insight present (Psych) Judgement: Limited judgement present (Psych) Results Reviewed Results Reviewed: Laboratory Tests 11/17/24 12:30 WBC 6.9 Hgb 12.2 Hct 38.8 MCV 87.2 Plt Count 232 Estimated GFR > 60 Hemoglobin A1c % 7.0 H Total Bilirubin 0.4 AST 23 ALT 17 Alkaline Phosphatase 96 TSH 0.84 11/17/24-[address]: ORDERED: Ua Clean Catch QUERIES: Source: Urine, Clean Catch Test Result Flag Reference Ur Color Yellow Ur Appear Clear PH 5.5 5.0-9.0 Ur Glu Negative Negative mg/dL Urine Blood Negative Negative Spec [place] Ur 1.015 1.005-1.025 Urine Protein Negative Neg-Trace mg/dL Urine Ketones Negative Negative mg/dL Ur Nitrite Negative Negative Ur Arnoldo Esterase Negative Negative Assessment & Plan Assessment & Plan (1) Tubular adenoma of colon: Comment: 2018=TA repeat 2022 Code(s): D12.6 - Benign neoplasm of colon, unspecified Category: Medical (2) Chronic idiopathic constipation: Code(s): K59.04 - Chronic idiopathic constipation Category: Medical (3) GERD without esophagitis: Code(s): K21.9 - Gastro-esophageal reflux disease without esophagitis Category: Medical (4) Abdominal bloating: Code(s): R14.0 - Abdominal distension (gaseous) Category: Medical (5) Back pain: Code(s): M54.9 - Dorsalgia, unspecified Category: Medical (6) Left flank pain: Code(s): R10.9 - Unspecified abdominal pain Category: Medical Plan [facility] She is doing well on her GI regimen. However, she has a new c/p left sided back flank pain that started suddenly over the past few months. It seems to be exacerbated by movement and housework, and alleviated by position and is described as a squeezing pain. It will be 9/10 at times and will last up to 10 minutes. IT is not effected by BM's except for position sitting on the toilet. She is worried about my kidneys because I have diabetes. She had a LS XR in 2020 showing some spondylosis and she denies any known hx of renal stones. Will get repeat XR and of thoracic spine and UA to ? nephrolithiasis. The only urinary complaint is stress incontinence. HEr renal fxn labs are ok. DDX includes possibel bowel spasm, but it is mostly exacerbated by movement and seems mskskl with severe increased tone of the lumbar para spinous muscles and extended lumbar lordosis. She is doing well with LInzess 145mcg and famotine/simethicone otherwise. She is agreeable to a 5 year follow up for colonoscopy. ROV next avail. Orders: Orders 2 XR thoracic spine 2V Today M54.9 - Dorsalgia, unspecified, R10.9 - Unspecified abdominal pain XR lumbar spine 2-3V Today M54.9 - Dorsalgia, unspecified, R10.9 - Unspecified abdominal pain Medications: Refilled 2 famotidine 40 mg PO DAILY PRN 90 tabs 2RF for heartburn K21.9 - Gastro- esophageal reflux disease without esophagitis linaclotide (Linzess) 145 mcg PO QAM 90 caps 1RF 90 days bisacodyl (Laxative (bisacodyl)) 10 mg (2 x 5 mg) PO BEDTIME 180 tabs 1RF K59.04 - Chronic idiopathic constipation simethicone 125 mg PO BID-QID PRN 90 tabs 6RF abdominal distention R14.0 - Abdominal distension (gaseous) Coding Level of Care Code Est Pt Level 4 (42473) Diagnoses Tubular adenoma of colon D12.6 Chronic idiopathic constipation K59.04 GERD without esophagitis K21.9 Abdominal bloating R14.0 Back pain M54.9 Left flank pain R10.9 Time Spent (min) 37
[2024-11-18 14:02] VITALS: BP 108/58; PULSE 81; BMI 26.7
== END 2024-11-18 15:37 | disposition home or self-care (01) ==
LOC: HO.HGI 13:53
PROVIDERS: PCP Internal Medicine; Visit Provider Nurse Practitioner
DX: D12.6 Benign neoplasm of colon, unspecified (principal); K59.04 Chronic idiopathic constipation; K21.9 Gastro-esophageal reflux disease without esophagitis; R14.0 Abdominal distension (gaseous); M54.9 Dorsalgia, unspecified; R10.9 Unspecified abdominal pain
CPT/HCPCS: 99214

== ENCOUNTER → 2024-11-18 16:10 | Outpatient (BNV) | payer OTHER, SELFPAY | PROVIDERS: PCP Internal Medicine; Visit Provider Radiology Diagnostic Radiology | DX: M47.815 Spondylosis without myelopathy or radiculopathy, thoracolumbar region (principal); I70.90 Unspecified atherosclerosis; M47.812 Spondylosis without myelopathy or radiculopathy, cervical region | CPT/HCPCS: 72070; 72100 ==

== ENCOUNTER 2024-11-19 15:12 | Outpatient (AMB) | payer OTHER, SELFPAY ==
--- NOTE | 2024-11-19 15:23 | MHC.PC.OV ---
Vital Signs 11/19/24 15:24 Height 5 ft 1 in Weight 140 lb BMI 26.4 BP 124/60 Blood Pressure Location Lt brachial Position Sitting Pulse 79 Pulse Source Pulse Oximeter Pulse Oximetry (%) 95 Oxygen Delivery Method Room Air Intake Visit Reasons: 4mth f/u Brand Lead Required: No Accompanied by: Self / Same As Patient Allergies No Known Allergies Allergy (Verified 11/19/24 21:23) Medication List - Last Reconciled 11/19/24 by Herb Souza MD acetaminophen 650 mg (2 x 325 mg) PO Q6H PRN albuterol sulfate 90 mcg/actuation 2 puffs inhalation Q6H PRN 30 days bisacodyl (Laxative (bisacodyl)) 10 mg (2 x 5 mg) PO BEDTIME blood sugar diagnostic (FreeStyle Lite Strips) As directed 2 times a day blood sugar diagnostic TEST 2 TIMES DAILY blood-glucose meter (FreeStyle Lite Meter kit) TEST 2 TIMES DAILY cholecalciferol (vitamin D3) 25 mcg PO DAILY 90 days clonazepam 0.5 mg PO TID PRN 30 days clotrimazole 1% 1 appl topical TID PRN cyanocobalamin (vitamin B-12) 1,000 mcg PO .3 times a week famotidine 40 mg PO DAILY PRN ferrous sulfate 325 mg PO 3XW 90 days folic acid 1 mg PO DAILY 90 days hydrocortisone 1% 1 appl topical TID PRN hydroquinone 4% appl topical BID ibuprofen 600 mg PO Q6H PRN ketorolac 10 mg PO TID PRN 5 days lancets (FreeStyle Lancets) 28 gauge topical BID lidocaine 5% 1 patch topical DAILY linaclotide (Linzess) 145 mcg PO QAM 90 days lisinopril 5 mg PO DAILY 90 days meclizine 12.5 mg PO QID PRN metformin 500 mg PO BID 90 days methylcellulose (laxative) (Citrucel) 500 mg PO BID paroxetine HCl 60 mg (1.5 x 40 mg) PO DAILY simethicone 125 mg PO BID-QID PRN simvastatin 20 mg PO QPM 90 days sodium,potassium,mag sulfates 17.5-3.13-1.6 gram (Suprep Bowel Prep Kit) 480 mL orally; FOR COLONOSCOPY PREP triamcinolone acetonide 0.025% 1 appl topical BID PRN Tobacco use date assessed: 11/19/24 Fall risk assessment: No Falls in past year Last assessed Fall Risk: 11/19/24 Dental Screening Dental Screen Date: 11/19/24 Did you have a dental visit in the last 12 months?: Yes Did you have a dental problem in the last 6 months where you did not have access to dental care?: No Was dental information given to patient?: Patient has dentist HPI 4mth f/u HPI Details Patient comes in today for her follow up visit States that she has been experiencing increased pain in her shoulders lately, especially over her left shoulder Notes (+) pain and occasional numbness in her left hand Adds that she has been experiencing on and off pain over her left lower back for the past 3 to 4 weeks She denies any recent injury or trauma to her lower back or to her shoulders lately Patient denies any headaches or dizziness Denies any chest pains, no SOB No nausea/vomiting, no abdominal pain No change in bowel habits noted Needs a couple of her Rx refilled She had her follow up labs done a couple of days ago - to discuss her results [facility] Medical History Venous reflux Irritable bowel syndrome (IBS) Abdominal pain Bipolar disorder Pure hypercholesterolemia Type 2 diabetes mellitus with hyperglycemia Hematuria Precordial chest pain Impacted cerumen, left ear Tinea pedis Impacted cerumen of both ears Superficial thrombophlebitis Impacted cerumen of both ears Overweight (BMI 25.0-29.9) Vitamin B12 deficiency Insomnia Depression Anxiety Allergic rhinitis Lumbar spondylosis Vitamin D deficiency GERD without esophagitis Anemia Asthma Benign essential hypertension Diabetes mellitus Tubular adenoma Surgical History History of colonoscopy History of esophagogastroduodenoscopy (EGD) History of tubal ligation History of cholecystectomy Family History Father Diabetes Hypertension CVD (cardiovascular disease) Mother Hypertension Diabetes Chronic mental illness Social History Housing: Apartment Are you a primary ocular care technician to a significant other at home: No Do you presently have visiting nurse or other home services: No Unable to assess alcohol history related to: Unknown Alcohol intake: never Patient Tobacco Use Status: Never used Tobacco e-Cigarette/Vaping Use: Never Used Second Hand Smoke Exposure: No service: No Current occupational status: disabled Cognitive needs: No Hearing needs: Yes Vision needs: No Female Reproductive History Menstrual Age of Menarche: 15 Questionnaire PHQ-9 Over the last 2 weeks, how often have you been bothered by any of the following problems? 1. Little interest or pleasure in doing things: more than half the days 2. Feeling down, depressed, or hopeless: nearly every day 3. Trouble falling or staying asleep, or sleeping too much: nearly every day 4. Feeling tired or having little energy: nearly every day 5. Poor appetite or overeating: several days 6. Feeling bad about yourself - or that you are a failure or have let yourself or your family down: not at all 7. Trouble concentrating on things, such as reading the newspaper or watching television: several days 8. Moving or speaking so slowly that other people could have noticed. Or the opposite - being so fidgety or restless that you have been moving around a lot more than usual: nearly every day 9. Thoughts that you would be better off or of hurting yourself in some way: not at all Total score: 16 Depression Screening Interpretation: Positive Depression Screening Follow-up: Existing condition and In treatment Depression Screening Done: Yes 15674 - PHQ-9 Billing: Yes Source: Developed by Drs. Brody Perez, Randi Hand, Rodney Sneed and colleagues, with an educational sharif from [employer]. Thrive Questionnaire Date Thrive assessed: 11/19/24 I am a: Patient What is your living situation today?: I have a steady place to live Within the past 12 months, did the food you bought not last and you didn't have the money to get more?: Sometimes True Within the past 12 months, did you worry whether your food would run out before you got money to buy more?: Sometimes True Do you have trouble paying for medicines?: I choose not to answer this question Do you have trouble getting transportation to medical appointments?: No Do you have trouble paying your heating and electricity bill?: No Do you have trouble taking care of your child, family member or friend?: Yes Do you have trouble with day-to-day activities such as bathing, preparing meals, shopping, managing finances, etc.?: No Are you currently unemployed and looking for a job?: No Are you interested in more education?: No Please select the resources that you would like help with: None Currently or been in a relationship where the following occur: No concerns reported THRIVE Score: 2 AUDIT C Alcohol Use Questionnaire (AUDIT-C) 1. How often do you have a drink containing alcohol?: Never 3. How often do you have six or more drinks on one occasion?: Never Total Score: 0 Score Reviewed/Action Taken: Yes MAME-7 AMB Questionnaire MAME-7 Date MAME - 7 assessed: 11/19/24 Feeling nervous, anxious, or on edge: 3 = Nearly every day Not being able to stop or control worryin = Nearly every day Worrying too much about different things: 3 = Nearly every day Trouble relaxin = Nearly every day Being so restless that it is hard to sit still: 3 = Nearly every day Becoming easily annoyed or irritable: 3 = Nearly every day Feeling afraid as if something awful might happen: 3 = Nearly every day Total MAME-7 score (0-4 normal; 5-9 mild; 10-14 moderate; 15-21 severe): 21 Source: Developed by Drs. Brody Perez, Randi Hand, Rodney Sneed and colleagues, with an educational sharif from [employer]. Review of Systems Const Denies chills, Reports difficulty sleeping (Melatonin helps), Denies fatigue, Denies fever(s) and Denies headache(s) ENT Denies dysphagia, Denies dizziness, Denies otalgia, Denies headache(s), Denies neck pain, Denies odynophagia and Denies sore throat Card Denies chest pain, Denies palpitations and Denies dyspnea Resp Denies chest congestion, Denies cough and Denies dyspnea GI Denies abdominal pain, Reports constipation (on and off - better controlled lately on Rx), Denies dysphagia, Denies heartburn, Denies diarrhea, Denies nausea, Denies odynophagia and Denies vomiting Denies difficulty voiding, Denies nocturia, Denies dysuria and Denies urinary urgency Musc Reports back pain (recurrent, especially over right lower back), Reports arthralgias (both shoulders) and Denies neck pain Skin/Breast Denies rash Neuro Denies dizziness and Denies headache(s) Endo Denies fatigue and Denies palpitations Physical exam (Primary Care) Vital Signs: Last Vital Signs Pulse 79 11/19/24 15:24 BP 124/60 11/19/24 15:24 Pulse Ox 95 11/19/24 15:24 Oxygen Delivery Method Room Air 11/19/24 15:24 BMI result Body Mass Index 26.4 Tobacco/Smoking Status: Tobacco use Status Tobacco use date assessed 11/19/24 11/19/24 15:25 Patient Tobacco Use Status Never used Tobacco 11/19/24 15:25 e-Cigarette/Vaping Use Never Used 11/19/24 15:25 PHQ-9: PHQ-9 Score PHQ-9: Total score 16 11/19/24 21:17 Depression Screening Interpretation: Positive Depression Screening Follow-up: Existing condition and In treatment Thrive Assessment: Date of Thrive Assessment Date Thrive assessed 11/19/24 11/19/24 15:25 Currently or been in a relationship where the following occur: No concerns reported Const General: no acute distress and alert HENMT Ears: TM's normal bilaterally and EAC's normal Throat: Yes posterior oropharynx normal and Yes tonsils normal (no TP congestion noted) Neck Neck: Yes supple and No lymphadenopathy Thyroid: Thyroid normal Resp Auscultation: clear to auscultation bilaterally, no rales and no wheezes Cardio Rate: regular rate Rhythm: regular rhythm Heart sounds: no murmurs GI Palpation (GI): Soft to palpation and nontender Auscultation: normal bowel sounds General: Yes no CVA tenderness Back/Spine/Pelvis Back: no CVA tenderness Thoracic/Lumbar Spine: straight leg raise negative bilaterally, paraspinal muscle tenderness on the left and lumbar spinal tenderness Skin Rashes: no rashes Extrem General: Yes no clubbing, cyanosis or edema Right upper extremity: shoulder/upper arm Details: tenderness Location: of the A-C joint Left upper extremity: shoulder/upper arm Details: tenderness Location: of the A-C joint Results Reviewed Results Reviewed: Laboratory Tests 11/17/24 12:30 WBC 6.9 Hgb 12.2 Hct 38.8 Plt Count 232 Sodium 140 Potassium 3.9 Creatinine 0.68 Estimated GFR > 60 Fasting Glucose 129 H Hemoglobin A1c % 7.0 H Calcium 9.1 AST 23 ALT 17 Triglycerides 81 Cholesterol 165 LDL Cholesterol, Calc 103 H HDL Cholesterol 46 25-OH Vitamin D Total 44.2 TSH 0.84 Ur Specific [place] 1.015 Urine Protein Negative Urine Glucose (UA) Negative Urine Blood Negative Urine Nitrite Negative Ur Leukocyte Esterase Negative Coding Level of Care Code Est Pt Level 4 (96434) Complex EM visit Add On G2211 Diagnoses Pure hypercholesterolemia E78.00 Benign essential hypertension I10 Type 2 diabetes mellitus without complication, without long-term current use of insulin E11.9 Diabetes mellitus type: type 2 Diabetes mellitus assistant terminal manager insulin use: without assistant terminal manager use Diabetes mellitus complication status: without complication Mild intermittent asthma without complication J45.20 Asthma severity: mild Asthma persistence: intermittent Asthma complication type: uncomplicated Chronic idiopathic constipation K59.04 Irritable bowel syndrome, unspecified type K58.9 Irritable bowel syndrome type: unspecified GERD without esophagitis K21.9 Anemia, unspecified type D64.9 Anemia type: unspecified type Vitamin D deficiency E55.9 Lumbar spondylosis M47.816 Left-sided low back pain without sciatica, unspecified chronicity M54.50 Chronicity: unspecified Sciatica presence: without sciatica Bilateral shoulder pain, unspecified chronicity M25.511; M25.512 Chronicity: unspecified Allergic rhinitis, unspecified seasonality, unspecified trigger J30.9 Allergic rhinitis trigger: unspecified Allergic rhinitis seasonality: unspecified Vitamin B12 deficiency E53.8 Insomnia, unspecified type G47.00 Insomnia type: unspecified Anxiety F41.9 Episode of recurrent major depressive disorder, unspecified depression episode severity F33.9 Depression Type: major depressive disorder Major depression recurrence: recurrent Active/Remission status: currently active Major depression episode severity: unspecified Overweight (BMI 25.0-29.9) E66.3 Additional Codes PHQ-9 - 88964 - PHQ-9 Billing: Yes ([id number]) Assessment & Plan Assessment & Plan (1) Pure hypercholesterolemia: Code(s): E78.00 - Pure hypercholesterolemia, unspecified Category: Medical Plan: Results of her labs done a couple of days ago reviewed and discussed with patient - she is cautioned that her cholesterol levels have increased slightly from previous Reinforced low cholesterol diet Continue Simvastatin 20 mg QD Will recheck her labs and fasting lipids in 4 months for follow up (2) Benign essential hypertension: Code(s): I10 - Essential (primary) hypertension Category: Medical Plan: Reinforced low sodium diet - goal is systolic BP of at least 120 to 130 mm or less Continue Lisinopril 5 mg QD (3) Diabetes mellitus: Code(s): E11.9 - Type 2 diabetes mellitus without complications Category: Medical Qualifiers: Diabetes mellitus type: type 2 Diabetes mellitus assistant terminal manager insulin use: without half-way use Diabetes mellitus complication status: without complication Qualified Code(s): E11.9 - Type 2 diabetes mellitus without complications Plan: Her HgbA1c was at 7.0% on her labs done a couple of days ago (was previously at 7.3% a few months ago) - goal is < 7.0% Reinforced diabetic diet Continue Metformin 500 mg BID (4) Asthma: Code(s): J45.909 - Unspecified asthma, uncomplicated Category: Medical Qualifiers: Asthma severity: mild Asthma persistence: intermittent Asthma complication type: uncomplicated Qualified Code(s): J45.20 - Mild intermittent asthma, uncomplicated Plan: Controlled - continue Albuterol HFA? 2 inhalations QID PRN (5) Chronic idiopathic constipation: Code(s): K59.04 - Chronic idiopathic constipation Category: Medical Plan: Improving/better controlled - continue Linzess 145 mcg QD and Dulcolax 5 mg 2 tablets QD PRN Reinforced increased oral fluids and dietary fiber Follow up with GI as scheduled (6) Irritable bowel syndrome (IBS): Code(s): K58.9 - Irritable bowel syndrome, unspecified Category: Medical Qualifiers: Irritable bowel syndrome type: unspecified Qualified Code(s): K58.9 - Irritable bowel syndrome without diarrhea Plan: Continue Dicyclomine 20 mg TID PRN; Linzess also helps with her symptoms Follow up with GI as scheduled (7) GERD without esophagitis: Code(s): K21.9 - Gastro-esophageal reflux disease without esophagitis Category: Medical Plan: Dietary restrictions reinforced Continue Omeprazole 20 mg QD PRN (8) Anemia: Code(s): D64.9 - Anemia, unspecified Category: Medical Qualifiers: Anemia type: unspecified type Qualified Code(s): D64.9 - Anemia, unspecified Plan: Improved/corrected - her H/H was at 12.2/38.8 on her recent labs Continue Ferrous Sulfate 325 mg QD Will continue to monitor her CBC regularly (9) Vitamin D deficiency: Code(s): E55.9 - Vitamin D deficiency, unspecified Category: Medical Plan: Continue Vitamin D3 1000 units QD (10) Lumbar spondylosis: Code(s): M47.816 - Spondylosis without myelopathy or radiculopathy, lumbar region Category: Medical Plan: Reinforced activity and weight-lifting restrictions Lumbar spine x-rays done in September 2020 showed (+) mild degenerative disc changes Continue Lidocaine 5% patches apply to painful areas on lower back QD PRN (11) Left low back pain: Code(s): M54.50 - Low back pain, unspecified Category: Medical Qualifiers: Chronicity: unspecified Sciatica presence: without sciatica Qualified Code(s): M54.50 - Low back pain, unspecified Plan: Have advised patient that her current left-sided low back pain appears to be mostly muscular in etiology based on the location of her pain Will refer her to physical therapy for further evaluation and management (12) Bilateral shoulder pain: Code(s): M25.511 - Pain in right shoulder; M25.512 - Pain in left shoulder Category: Medical Qualifiers: Chronicity: unspecified Qualified Code(s): M25.511 - Pain in right shoulder; M25.512 - Pain in left shoulder Plan: Will send patient for x-rays of both shoulders for further evaluation (13) Allergic rhinitis: Code(s): J30.9 - Allergic rhinitis, unspecified Category: Medical Qualifiers: Allergic rhinitis trigger: unspecified Allergic rhinitis seasonality: unspecified Qualified Code(s): J30.9 - Allergic rhinitis, unspecified Plan: Continue OTC Loratadine 10 mg QD PRN (14) Vitamin B12 deficiency: Code(s): E53.8 - Deficiency of other specified B group vitamins Category: Medical Plan: Continue Vitamin B12 1000 mcg tablet twice a week Will recheck her B12 level in a few months for follow up (15) Insomnia: Code(s): G47.00 - Insomnia, unspecified Category: Medical Qualifiers: Insomnia type: unspecified Qualified Code(s): G47.00 - Insomnia, unspecified Plan: Sleep hygiene reinforced Continue Melatonin 10 mg Q HS PRN (16) Anxiety: Code(s): F41.9 - Anxiety disorder, unspecified Category: Medical Plan: Continue Clonazepam 0.5 mg TID PRN Follow up with psychiatry as scheduled (17) Depression: Code(s): F32.9 - Major depressive disorder, single episode, unspecified Category: Medical Qualifiers: Depression Type: major depressive disorder Major depression recurrence: recurrent Active/Remission status: currently active Major depression episode severity: unspecified Qualified Code(s): F33.9 - Major depressive disorder, recurrent, unspecified Plan: Continue Paroxetine at 60 mg QD She used to see psychiatrist at [facility] but is now going to [facility] here in [place] (18) Overweight (BMI 25.0-29.9): Code(s): E66.3 - Overweight Category: Medical Plan: Reinforced diet/exercise as tolerated/lose weight Plan Follow up in 4 months Orders: Orders XR shoulder LT min 2V 11/19/24 M25.512 - Pain in left shoulder XR shoulder RT min 2V 11/19/24 M25.511 - Pain in right shoulder Complete Blood Count Auto Diff 4 Months D64.9 - Anemia, unspecified Lipid Panel 4 Months E78.00 - Pure hypercholesterolemia, unspecified Hemoglobin A1c 4 Months E11.9 - Type 2 diabetes mellitus without complications Microalbumin, Random (w Creat) 4 Months E11.9 - Type 2 diabetes mellitus without complications TSH reflex Free T4 4 Months E78.00 - Pure hypercholesterolemia, unspecified UA CC w/rflx Micro + Cult 4 Months R30.0 - Dysuria Vitamin D 25-OH Total 4 Months E55.9 - Vitamin D deficiency, unspecified Vitamin B12 and Folate 4 Months E53.8 - Deficiency of other specified B group vitamins PT Evaluation and Treatment 11/19/24 M54.50 - Low back pain, unspecified Comprehensive Orla. Panel Fast 4 Months E78.00 - Pure hypercholesterolemia, unspecified Medications: Refilled lisinopril 5 mg PO DAILY 90 days 90 tabs 3RF I10 - Essential (primary) hypertension simvastatin 20 mg PO QPM 90 days 90 tabs 3RF E78.00 - Pure hypercholesterolemia, unspecified
[2024-11-19 15:24] VITALS: BP 124/60; PULSE 79; O2SAT 95; BMI 26.4
== END 2024-11-19 17:11 | disposition home or self-care (01) ==
LOC: HO.HMCH 15:12
PROVIDERS: PCP Internal Medicine; Visit Provider Internal Medicine
DX: E78.00 Pure hypercholesterolemia, unspecified (principal); I10 Essential (primary) hypertension; E11.9 Type 2 diabetes mellitus without complications; J45.20 Mild intermittent asthma, uncomplicated; K59.04 Chronic idiopathic constipation; K58.9 Irritable bowel syndrome, unspecified; K21.9 Gastro-esophageal reflux disease without esophagitis; D64.9 Anemia, unspecified; E55.9 Vitamin D deficiency, unspecified; M47.816 Spondylosis without myelopathy or radiculopathy, lumbar region; M54.50 Low back pain, unspecified; M25.511 Pain in right shoulder; M25.512 Pain in left shoulder; J30.9 Allergic rhinitis, unspecified; E53.8 Deficiency of other specified B group vitamins; G47.00 Insomnia, unspecified; F41.9 Anxiety disorder, unspecified; F33.9 Major depressive disorder, recurrent, unspecified; E66.3 Overweight

== ENCOUNTER → 2024-11-19 15:12 | Outpatient (BNVA) | payer OTHER, SELFPAY | PROVIDERS: PCP Internal Medicine; Visit Provider Internal Medicine | DX: E78.00 Pure hypercholesterolemia, unspecified (principal); I10 Essential (primary) hypertension; E11.9 Type 2 diabetes mellitus without complications; J45.20 Mild intermittent asthma, uncomplicated; K59.04 Chronic idiopathic constipation; K58.9 Irritable bowel syndrome, unspecified; K21.9 Gastro-esophageal reflux disease without esophagitis; D64.9 Anemia, unspecified; E55.9 Vitamin D deficiency, unspecified; M47.816 Spondylosis without myelopathy or radiculopathy, lumbar region; M54.50 Low back pain, unspecified; M25.511 Pain in right shoulder; M25.512 Pain in left shoulder; J30.9 Allergic rhinitis, unspecified; E53.8 Deficiency of other specified B group vitamins; G47.00 Insomnia, unspecified; F41.9 Anxiety disorder, unspecified; F33.9 Major depressive disorder, recurrent, unspecified; E66.3 Overweight; Z68.26 Body mass index [BMI] 26.0-26.9, adult; Z79.84 Long term (current) use of oral hypoglycemic drugs; Z79.899 Other long term (current) drug therapy | CPT/HCPCS: 96127; 99212 ==

== ENCOUNTER 2025-01-06 12:10 | Outpatient (AMB) | payer OTHER, SELFPAY ==
--- NOTE | 2025-01-06 12:12 | MHC.OFFVIS ---
Vital Signs 01/06/25 12:29 Height 5 ft 1 in Weight 141 lb BMI 26.6 Pulse 72 Pulse Source Pulse Oximeter Pulse Oximetry (%) 95 Oxygen Delivery Method Room Air Intake Visit Reasons: Flank pain Intake Note: Est pt for mgmt of CIC + bloating. Imaging done. CC: C.O. GERD persistence + burning sensation. No additional sx or concerns reported at this time / sx denied by pt. Pt is unsure of which meds she is taking and does not have an active medication list. Pt will have to be scheduled for a prompt follow up and bring all of her medications into the office with her for review. Brand Strategy Manager Required: Yes Brand Strategy Manager Services: Brand Strategy Manager Present Brand Strategy Manager Name: Maria Isabel [phone] Information Interpreted: clinical only Accompanied by: Self / Same As Patient Allergies No Known Allergies Allergy (Verified 01/06/25 12:12) HPI HPI Flank pain: Details: Assessment & Plan (1) Tubular adenoma of colon: Comment: 2018=TA repeat 2022 Code(s): D12.6 - Benign neoplasm of colon, unspecified Category: Medical (2) Chronic idiopathic constipation: Code(s): K59.04 - Chronic idiopathic constipation Category: Medical (3) GERD without esophagitis: Code(s): K21.9 - Gastro-esophageal reflux disease without esophagitis Category: Medical (4) Abdominal bloating: Code(s): R14.0 - Abdominal distension (gaseous) Category: Medical (5) Back pain: Code(s): M54.9 - Dorsalgia, unspecified Category: Medical (6) Left flank pain: Code(s): R10.9 - Unspecified abdominal pain Category: Medical Plan [facility] She is doing well on her GI regimen. However, she has a new c/p left sided back flank pain that started suddenly over the past few months. It seems to be exacerbated by movement and housework, and alleviated by position and is described as a squeezing pain. It will be 9/10 at times and will last up to 10 minutes. IT is not effected by BM's except for position sitting on the toilet. She is worried about my kidneys because I have diabetes. She had a LS XR in 2020 showing some spondylosis and she denies any known hx of renal stones. Will get repeat XR and of thoracic spine and UA to ? nephrolithiasis. The only urinary complaint is stress incontinence. HEr renal fxn labs are ok. DDX includes possible bowel spasm, but it is mostly exacerbated by movement and seems mskskl with severe increased tone of the lumbar para spinous muscles and extended lumbar lordosis. She is doing well with LInzess 145mcg and famotine/simethicone otherwise. She is agreeable to a 5 year follow up for colonoscopy. ROV next avail. Orders: Orders XR thoracic spine 2V Today M54.9 - Dorsalgia, unspecified, R10.9 - Unspecified abdominal pain XR lumbar spine 2-3V Today M54.9 - Dorsalgia, unspecified, R10.9 - Unspecified abdominal pain Medications: Refilled famotidine 40 mg PO DAILY PRN 90 tabs 2RF for heartburn K21.9 - Gastro-esophageal reflux disease without esophagitis linaclotide (Linzess) 145 mcg PO QAM 90 caps 1RF 90 days bisacodyl (Laxative (bisacodyl)) 10 mg (2 x 5 mg) PO BEDTIME 180 tabs 1RF K59.04 - Chronic idiopathic constipation simethicone 125 mg PO BID-QID PRN 90 tabs 6RF abdominal distention R14.0 - Abdominal distension (gaseous) XR THORACIC AND LUMBAR SPINES 11/19/2024 Lumbar spine FINDINGS: Marginal osteophyte formation and facet joint hypertrophy at L4-5 and L5-S1. Multilevel endplate sclerosis and marginal osteophyte formation throughout the axial skeleton. No acute cortical disruption. No gross malalignment. Vascular calcifications. XR/XR lumbar spine 2-3V IMPRESSION: Multilevel thoracolumbar spondylosis without acute fracture or gross listhesis. Atherosclerosis disease. Thoracic spine FINDINGS: Multilevel marginal osteophyte formation and endplate sclerosis and decreased intervertebral disc height throughout the axial skeleton. No acute cortical disruption. No gross malalignment. Marginal osteophyte formation and endplate sclerosis and decreased intervertebral disc height at C5-6 and C6-7 levels. No lytic or blastic lesions. XR/XR thoracic spine 2V IMPRESSION: Multilevel thoracic spondylosis. Cervical spondylosis C5-6 and C6-7 levels. TODAYS VISIT [facility] #Josephine Marie We review the XR's and there is quite a bit of evidence that her flank pain is muculoskeletal. I recommend that she asked her primary care provider review the x-rays and consider sending her to physical therapy or to another specialist for definitive management. (....left sided back flank pain that started suddenly over the past few months. It seems to be exacerbated by movement and housework, and alleviated by position and is described as a squeezing pain. It will be 9/10 at times and will last up to 10 minutes. IT is not effected by BM's except for position sitting on the toilet.) She is doing well with LInzess 145mcg and famotine/simethicone otherwise. [facility] Medical History (Updated 01/06/25 @ 14:35 by BOAZ Bautista) Venous reflux Irritable bowel syndrome (IBS) Abdominal pain Bipolar disorder Pure hypercholesterolemia Type 2 diabetes mellitus with hyperglycemia Hematuria Precordial chest pain Impacted cerumen, left ear Tinea pedis Impacted cerumen of both ears Superficial thrombophlebitis Impacted cerumen of both ears Overweight (BMI 25.0-29.9) Vitamin B12 deficiency Insomnia Depression Anxiety Allergic rhinitis Lumbar spondylosis Vitamin D deficiency GERD without esophagitis Anemia Asthma Benign essential hypertension Diabetes mellitus Tubular adenoma Surgical History (Updated 01/06/25 @ 12:48 by BOAZ Bautista) History of colonoscopy History of esophagogastroduodenoscopy (EGD) History of tubal ligation History of cholecystectomy Family History Father Diabetes Hypertension CVD (cardiovascular disease) Mother Hypertension Diabetes Chronic mental illness Social History Housing: Apartment Are you a primary director of critical care to a significant other at home: No Do you presently have visiting nurse or other home services: No Unable to assess alcohol history related to: Unknown Alcohol intake: never Patient Tobacco Use Status: Never used Tobacco e-Cigarette/Vaping Use: Never Used Second Hand Smoke Exposure: No service: No Current occupational status: disabled Cognitive needs: No Hearing needs: Yes Vision needs: No Female Reproductive History Menstrual Age of Menarche: 15 Review of Systems Const Denies fatigue, Denies fever(s), Denies night sweats, Denies poor appetite and Denies weight loss ENT Reports Normal hearing present, Denies dental pain, Denies dysphagia, Denies hearing loss, Denies mouth pain, Denies odynophagia, Denies throat swelling, Denies tongue swelling and Reports other (Dentition adequate) Card Reports no additional complaints Resp Reports no additional complaints GI Details: Denies abdominal pain, Denies melena, Denies bloating, Denies hematochezia, Reports constipation, Denies GI cramping, Denies dysphagia, Denies excessive flatus, Denies early satiety, Reports heartburn, Denies diarrhea, Denies nausea, Denies odynophagia, Denies vomiting and Denies hematemesis Musc Reports back pain and Reports radiating pain into limb Skin/Breast Denies pruritus, Denies lesions, Denies rash and Denies jaundice Neuro Reports Normal hearing present and Denies Abnormal speech present Endo Denies fatigue Aller/Immun Denies throat swelling and Denies tongue swelling Physical Exam Vital Signs: Last Vital Signs Pulse 72 01/06/25 12:29 Pulse Ox 95 01/06/25 12:29 Oxygen Delivery Method Room Air 01/06/25 12:29 BMI result Body Mass Index 26.6 Const General: cooperative, no acute distress, well developed and well groomed Nutritional Appearance: average body habitus and well nourished Orientation/consciousness: oriented to person, oriented to place and oriented to time Limitations: language barrier HEENT Head: Yes normocephalic and Yes atraumatic Eyes General: appearance normal, both eyes and all related structures Pupils: Equal, round and reactive pupils present Neck Neck: Yes normal visual inspection and Yes no lymphadenopathy Thyroid: Thyroid normal Resp Effort & Inspection: normal respiratory effort and able to speak in complete sentences Auscultation: clear to auscultation bilaterally Cardio Rate: regular rate Rhythm: regular rhythm Heart sounds: Normal, physiologic split S2 sound present Peripheral pulses: radial pulses present and posterior tibial pulses present GI Inspection: No distended and No Abdominal panniculus present Palpation (GI): Soft to palpation, nontender, no guarding, not rigid and No hepatosplenomegaly present Percussion: Yes normal to percussion Auscultation: normal bowel sounds Rectal Exam - Female: deferred Skin General skin exam: no rashes or lesions noted, turgor normal, skin not dry, no jaundice, No spider nevi and no striae Rashes: no rashes Nails: normal Neuro General: oriented to person, oriented to place and oriented to time Cranial nerves: Yes Equal, round and reactive pupils present and Yes Normal hearing present Speech: No Abnormal speech present Extrem General: Yes normal to inspection, No clubbing, No cyanosis and No edema Psych Appearance: grossly normal and well kempt Mental Status: mental status grossly normal Speech and movement: Normal speech and movement present Affect: normal affect Thought process: Normal thought process present and not confabulating Thought content: Normal thought content present Insight: Fair insight present (Psych) Judgement: Fair judgement present (Psych) Assessment & Plan Assessment & Plan (1) Thoracic spondylosis: Code(s): M47.814 - Spondylosis without myelopathy or radiculopathy, thoracic region Category: Medical (2) GERD without esophagitis: Code(s): K21.9 - Gastro-esophageal reflux disease without esophagitis Category: Medical (3) Chronic idiopathic constipation: Code(s): K59.04 - Chronic idiopathic constipation Category: Medical (4) Left flank pain: Comment: Most likely thoracic spondylosis Code(s): R10.9 - Unspecified abdominal pain Category: Medical Plan [facility] We review the XR's and there is quite a bit of evidence that her flank pain is muculoskeletal. I recommend that she asked her primary care provider review the x-rays and consider sending her to physical therapy or to another specialist for definitive management. (....left sided back flank pain that started suddenly over the past few months. It seems to be exacerbated by movement and housework, and alleviated by position and is described as a squeezing pain. It will be 9/10 at times and will last up to 10 minutes. IT is not effected by BM's except for position sitting on the toilet.) She is doing well with LInzess 145mcg and famotine/simethicone otherwise Coding Level of Care Code Est Pt Level 3 (62549) Diagnoses Thoracic spondylosis M47.814 GERD without esophagitis K21.9 Chronic idiopathic constipation K59.04 Left flank pain R10.9
[2025-01-06 12:29] VITALS: PULSE 72; O2SAT 95; BMI 26.6
--- OUTSIDE RECORDS SUMMARY | 2025-01-06 13:45 | XMS_ITS | Clinical Summary ---
Author Organization [employer] Address [address] [place] [address] [address] [place] [address] Care Team Providers Care Donor Floor Technician Name Role Phone Unavailable Primary Care Provider [...] 02/01/2024 Localized gingival recession 02/01/2024 Fractured dental uatsdin with loss of materi al 02/01/2024 Tooth sensitivity 02/01/2024 Anemia 06/04/2014 Arthritis 06/04/2014 Hypercholesterolemia 06/04/2014 Hypertensive disorder 06/04/2014 Type 2 diabetes mellitus 06/04/2014 Encounters Date Type Department Care Team Description 10/17/2024 3:00 PM EDT Office Visit [facility] [address] [place] [address] Rama De Leon Missing teeth, acquired (Primary Dx); Dental plaque; Localized gingival recession; Partial edentulism, unspecified edentulism class from Last 3 Months Social History Tobacco [...] Description 04/23/2025 1:00 PM EDT Office Visit [facility] [address] [place] [address] Rama De Leon [address] [place], [place] [id number] Health Maintenance Due Date Last Done Comments CT Colonography 1960 Colonoscopy 1960 Colorectal Cancer Screening 1960 Depression Screening 1960 Diabetes: Hemoglobin A1C 1960 FIT DNA/Cologuard 1960 FIT 1960 FOBT 1960 HIV Screening 1960 Lipid Panel 1960 SDOH Screening 1960 Sigmoidoscopy 1960 Disability Screening 1960 Diabetes: Foot Exam 1970 Eye Exam 1970 Alcohol/Substance Use Screening 1972 Hepatitis C Screening 1978 Diabetes: Urine Protein Screening 1979 Pneumococcal Vaccine: 50+ Years (1 of 2 - PCV) 1979 Pap Smear 1981 Cervical Cancer Screening 1990 HPV/Cotest 1990 Mammogram 2000 Zoster Vaccines (1 of 2) 2010 COVID-19 Vaccine ( season) 2024 09/13/2021, 03/16/2021, 02/15/2021 Influenza Vaccine (Season Ended) 2025 Dental Oral Exam 04/19/2025 10/17/2024, , 08/12/2021, [...] patient's age to complete this topic Meningococcal B Vaccine Aged Out No l onger eligible based on patient's age to complete [...]
== END 2025-01-06 12:50 | disposition home or self-care (01) ==
PROVIDERS: PCP Internal Medicine; Visit Provider Nurse Practitioner
DX: M47.814 Spondylosis without myelopathy or radiculopathy, thoracic region (principal); K21.9 Gastro-esophageal reflux disease without esophagitis; K59.04 Chronic idiopathic constipation; R10.9 Unspecified abdominal pain
CPT/HCPCS: 99213

== ENCOUNTER → 2025-01-06 12:10 | Outpatient (BNVA) | payer OTHER, SELFPAY | PROVIDERS: PCP Internal Medicine; Visit Provider Nurse Practitioner | DX: M47.814 Spondylosis without myelopathy or radiculopathy, thoracic region (principal); K21.9 Gastro-esophageal reflux disease without esophagitis; K59.04 Chronic idiopathic constipation; R10.9 Unspecified abdominal pain | CPT/HCPCS: 99212 ==

== ENCOUNTER 2025-02-17 16:22 | Outpatient (REF) | payer OTHER, SELFPAY ==
--- NOTE | ~2025-02-17 | XR_ITS ---
EXAMINATION: XR SHOULDER, RIGHT CLINICAL INFORMATION: M25.511 - Pain in right shoulder COMPARISON: None available. TECHNIQUE: AP external rotation, Grashey, scapular Y, and axillary views of the right shoulder. FINDINGS: Mild degenerative changes are present involving AC joint. There are marginal osteophytes. There is a small osteophyte involving the glenoid rim. There is minimal degenerative irregularity of the greater tuberosity. There is no dislocation or AC joint separation. XR/XR shoulder RT min 2V IMPRESSION: Mild degenerative changes of the A.C. and glenohumeral joint. Electronically signed by: Ricardo Prado MD 02/17/2025 05:03 PM EDT
--- NOTE | ~2025-02-17 | XR_ITS ---
EXAMINATION: XR SHOULDER, LEFT CLINICAL INFORMATION: M25.512 - Pain in left shoulder COMPARISON: None available. TECHNIQUE: AP external rotation, Grashey, scapular Y, and axillary views of the left shoulder. FINDINGS: Small marginal osteophytes are seen at the AC joint. There is no AC joint separation. Glenohumeral joint is intact. XR/XR shoulder LT min 2V IMPRESSION: Mild AC arthropathy. Electronically signed by: Ricardo Prado MD 02/17/2025 05:02 PM EDT
--- OUTSIDE RECORDS SUMMARY | 2025-02-17 16:24 | XMS_ITS | Clinical Summary ---
Author Organization [employer] Address [address] [place] [address] [address] [place] [address] Care Team Providers Care Managing Partner Name Role Phone Unavailable Primary Care Provider [...] 02/01/2024 Localized gingival recession 02/01/2024 Fractured dental yazidi with loss of materi al 02/01/2024 Tooth sensitivity 02/01/2024 Anemia 06/04/2014 Arthritis 06/04/2014 Hypercholesterolemia 06/04/2014 Hypertensive disorder 06/04/2014 Type 2 diabetes mellitus 06/04/2014 Social History Tobacco Use Types Packs/Day Years [...] Description 04/23/2025 1:00 PM EDT Office Visit [facility] [address] [place] [address] Haley, Rama [address] [place] [address] Health Maintenance Due Date Last Done Comments [...] 2024 09/13/2021, 03/16/2021, 02/15/2021 Influenza Vaccine (#1) 2025 Dental Oral Exam 04/19/2025 10/17/2024, , [...] Procedure Name Priority Date/Time Associated Diagnosis Comments PROPHYLAXIS - ADULT Routine 10/17/2024 3 :00 PM EDT Dental plaque INTRAORAL - COMPLETE SERIES OF RADIOGRAPHIC IMAGES Routine 10/17/2024 3:00 PM EDT Missing teeth, acquired Dental plaque PERIODIC ORAL EVALUATION - ESTABLISHED PATIENT Routine 10/17/2024 3:00 PM EDT from Last 3 Months or Most Recently Relevant to Health Maintenance Insurance [facility] MEDICAID STAND ADULT
== END 2025-02-17 16:23 | disposition home or self-care (01) ==
LOC: HO.XRAY 16:22
PROVIDERS: PCP Internal Medicine; Visit Provider Internal Medicine
DX: M25.512 Pain in left shoulder (principal); M25.511 Pain in right shoulder
CPT/HCPCS: 73030

== ENCOUNTER → 2025-02-17 16:27 | Outpatient (BNV) | payer OTHER, SELFPAY | PROVIDERS: PCP Internal Medicine; Visit Provider Radiology Diagnostic Radiology | DX: M25.712 Osteophyte, left shoulder (principal); M19.011 Primary osteoarthritis, right shoulder | CPT/HCPCS: 73030 ==

== ENCOUNTER 2025-02-24 09:53 | Outpatient (AMB) | payer OTHER, SELFPAY ==
[2025-02-24 09:56] VITALS: BP 112/78; PULSE 71; O2SAT 93; BMI 26.9
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
--- OUTSIDE RECORDS SUMMARY | 2025-02-24 10:41 | XMS_ITS | Clinical Summary ---
Author Organization [employer] Address [address] [place] [address] [address] [place] [address] Care Team Providers Care Grant Officer Name Role Phone Unavailable Primary Care Provider [...] 02/01/2024 Localized gingival recession 02/01/2024 Fractured dental gnosticist with loss of materi al 02/01/2024 Tooth [...] Description 04/23/2025 1:00 PM EDT Office Visit [facility] ADULT DENTAL [address] [place] [address] Haley, Rama [address] [place] [address] Health Maintenance Due Date Last Done Comments [...] Most Recently Relevant to Health Maintenance Insurance D[facility]AL-[facility] MEDICAID STAND ADULT
== END 2025-02-24 10:42 | disposition home or self-care (01) ==
LOC: HO.HMCH 09:54
PROVIDERS: PCP Internal Medicine; Visit Provider Internal Medicine
DX: N64.4 Mastodynia (principal); F41.9 Anxiety disorder, unspecified; F33.9 Major depressive disorder, recurrent, unspecified

== ENCOUNTER → 2025-02-24 09:53 | Outpatient (BNVA) | payer OTHER, SELFPAY | PROVIDERS: PCP Internal Medicine; Visit Provider Internal Medicine | DX: N64.4 Mastodynia (principal); F41.9 Anxiety disorder, unspecified; F33.9 Major depressive disorder, recurrent, unspecified | CPT/HCPCS: 96127; 99212 ==

== ENCOUNTER 2025-03-13 08:24 | Outpatient (REF) | payer OTHER, SELFPAY ==
--- NOTE | ~2025-03-13 | MM_ITS ---
EXAMINATIONS: 1. MM DIAGNOSTIC DIGITAL BREAST TOMOSYNTHESIS, BILATERAL 2. Targeted ultrasound of the right breast CLINICAL INFORMATION: According to requisition: pain most over the lower half of the breast, around the 6 o'clock COMPARISON: Comparison made to multiple prior, most recent June 09, 2024, and most remote September 02, 2019. TECHNIQUE: Digital breast tomosynthesis is performed in both the craniocaudal and mediolateral oblique views along with computer-aided detection (CAD). Synthesized 2D images are generated from the tomosynthesis. Two triangular skin markers were placed in the right breast indicating the location of pain as directed by the patient. FINDINGS: BREAST COMPOSITION: There are scattered areas of fibroglandular density (ACR BI-RADS breast composition Category b). RIGHT BREAST: -No suspicious mammographic findings in the immediate vicinity of the triangular skin markers in the lower breast. Target ultrasound of the right breast was performed at the location of the pain as indicated by the patient from 5:00-7:00 axis. No suspicious sonographic findings seen during the survey. -Approximately 0.6 cm asymmetry in the medial breast at 7 cm from the nipple on the CC view (CC 32/81), with correlate identified in the retroareolar plane (ML 90 degrees 43/78). This mammographic finding is unchanged from August 2019. Targeted ultrasound was performed at the location of the mammographic finding. The survey shows a 0.7 x 0.7 x 0.4 cm hypoechoic area at 2 o'clock position 7 cm from the nipple. No internal vascularity demonstrated with color Doppler evaluation. -No suspicious calcifications or other abnormalities are seen. LEFT BREAST: No significant masses, suspicious calcifications or other abnormalities are seen. MM/MM tomosynthesis diagnostic BI IMPRESSION: RIGHT BREAST: -No suspicious findings in the area of pain. Clinical follow-up is recommended. -Focal asymmetry in the medial breast posterior depth, unchanged from 2019. Benign finding. Normal interval follow-up is recommended in 12 months. LEFT BREAST: Negative, no mammographic evidence of malignancy. Normal interval follow-up is recommended in 12 months. ASSESSMENT: BI-RADS 2 - Benign Findings RECOMMENDATION: 1. Patient should be managed based on the clinical impression. 2. Otherwise, routine annual screening mammography. Results were provided to the patient at time of visit by the technologist. This patient's information was entered into a reminder system with a target due date for their next mammogram. Electronically signed by: Alanna Cunningham MD 03/13/2025 09:51 AM EDT
--- OUTSIDE RECORDS SUMMARY | 2025-03-13 09:09 | XMS_ITS | Encounter Summary ---
Author Organization [employer] Address [address] [facility] 7t [place] [address] Care Team Providers Care Industrial Electrician Name Role Phone Unavailable Primary Care Provider Unavailabl e Encounter Details Date Type Department Care Team (Latest Contact Info) Description 02/16/2022 Abstract [facility] CONVERSIONS Dental, Provider, DDS Social History Tobacco [...] Description 04/23/2025 1:00 PM EDT Office Visit [facility] ADULT DENTAL [address] [place] [address] Yrn De Leonaris [address] [place] [address] documented as of this encounter Visit Diagnoses Not on filedocumented in this encounter
--- OUTSIDE RECORDS SUMMARY | 2025-03-13 09:09 | XMS_ITS | Clinical Summary ---
Author Organization [employer] Address [address] [place] [address] 7[address] [place] [address] Care Team Providers Care Cuff Turner Name Role Phone Unavailable Primary Care Provider [...] 02/01/2024 Localized gingival recession 02/01/2024 Fractured dental presybeterian with loss of materi al 02/01/2024 Tooth [...] Description 04/23/2025 1:00 PM EDT Office Visit [facility] ADULT DENTAL [address] [place] [address] Haley, Rama [address] [place] [address] Health Maintenance Due Date Last Done Comments [...] Most Recently Relevant to Health Maintenance Insurance DENTAL-[facility] MEDICAID STAND ADULT
--- OUTSIDE RECORDS SUMMARY | 2025-03-13 09:09 | XMS_ITS | Encounter Summary ---
Author Organization [employer] Address [address] [facility] [address]t [place] [address] Care Team Providers Care Msws Name Role Phone Unavailable Primary Care Provider Unavailabl e Encounter Details Date Type Department Care Team (Latest Contact Info) Description 08/12/2021 Abstract [facility] CONVERSIONS Dental, Provider, DDS Social [...] Description 04/23/2025 1:00 PM EDT Office Visit [facility] ADULT DENTAL [address] [place] [address] Yrn De Leonaris [address] [place] [address] documented as of this encounter Visit Diagnoses Not on filedocumented in this encounter
--- OUTSIDE RECORDS SUMMARY | 2025-03-13 09:09 | XMS_ITS | Encounter Summary ---
Author Organization [employer] Address [address] [facility] [address]t [place] [address] Care Team Providers Care Production Statistical Clerk Name Role Phone Unavailable Primary Care Provider Unavailabl e Encounter Details Date Type Department Care Team (Latest Contact Info) Description 07/24/[address] [facility] CONVERSIONS Dental, Provider, DDS Social [...] PM EDT Office Visit [facility] ADULT DENTAL [address] [place] [address] Yrn De Leonaris [address] [place] [address] documented as of this encounter Visit Diagnoses Not on filedocumented in this encounter
== END 2025-03-13 08:25 | disposition home or self-care (01) ==
LOC: HO.MAMMO 08:24
PROVIDERS: PCP Internal Medicine; Visit Provider Internal Medicine
DX: N64.4 Mastodynia (principal)
CPT/HCPCS: 76642; 77062; 77066

== ENCOUNTER → 2025-03-13 08:30 | Outpatient (BNV) | payer OTHER, SELFPAY | PROVIDERS: PCP Internal Medicine; Visit Provider Radiology Body Imaging | DX: N64.4 Mastodynia (principal); N63.14 Unspecified lump in the right breast, lower inner quadrant | CPT/HCPCS: 76642; 77062; 77066 ==

== ENCOUNTER 2025-03-17 12:00 | Outpatient (REF) | payer OTHER, SELFPAY ==
[2025-03-17 12:31] LABS: MANUAL DIFF FLAG NO
[2025-03-17 13:14] LABS: Hematocrit 36.7 % (37.0-47.0); Hemoglobin 12.0 g/dl (12.0-16.0); Imm Gran Abs Auto 0.03 X10*3/uL (0.00-0.03); Imm Gran Pct Auto 0.4 % (0.0-0.4); Lymphocytes Absolute Auto 2.0 X10*3/uL (1.2-4.9); Mean Corpuscular HGB Conc 32.7 g/dl (31.0-35.0); Mean Corpuscular Hemoglobin 28.0 pg (27.0-33.0); Mean Corpuscular Volume 85.5 fL (80.0-98.0); NRBC Abs Auto 0.000 X10*3/uL (0.0-0.012); NRBC Pct Auto 0.0 /100WBC (0.0-0.2); Platelet Count 220 X10*3/uL (160-400); Red Blood Count 4.29 X10*6/uL (4.20-5.50); White Blood Count 7.1 X10*3/uL (4.8-10.8)
[2025-03-17 13:20] LABS: Hemoglobin A1C 171.9883 umol/L; Total Hemoglobin (HGBA1C) 3130.9301 umol/L
--- OUTSIDE RECORDS SUMMARY | 2025-03-17 13:23 | XMS_ITS | Clinical Summary ---
Author Organization [employer] Address [address] [place] [address] [address] [place] [address] Care Team Providers Care Technical Applications Specialist Name Role Phone Unavailable Primary Care Provider [...] 02/01/2024 Localized gingival recession 02/01/2024 Fractured dental yazidism with loss of materi al 02/01/2024 Tooth [...] Description 04/23/2025 1:00 PM EDT Office Visit [facility] ADULT D[facility] [address] [place] [address] Haley, Rama [address] [place] [address] Health Maintenance Due Date Last Done Comments [...] Most Recently Relevant to Health Maintenance Insurance DENTAL-[facility] MEDICAID STAND ADULT
--- OUTSIDE RECORDS SUMMARY | 2025-03-17 13:23 | XMS_ITS | Encounter Summary ---
Author Organization [employer] Address [address] [facility] [address] [place] [address] Care Team Providers Care Component Overhaul Operator Name Role Phone Unavailable Primary Care Provider Unavailabl e Encounter Details Date Type Department Care Team (Latest Contact Info) Description 08/12/2021 Abstract [facility] CONVERSIONS Dental, Provider, DDS Social [...] Description 04/23/2025 1:00 PM EDT Office Visit [facility] ADULT DENTAL [address] [place] [address] Yrn De Leonaris [address] [place] [address] documented as of this encounter Visit Diagnoses Not on filedocumented in this encounter
--- OUTSIDE RECORDS SUMMARY | 2025-03-17 13:23 | XMS_ITS | Encounter Summary ---
Author Organization [employer] Address [address] [facility] [address]t [place] [address] Care Team Providers Care Blue Line Operator Name Role Phone Unavailable Primary Care Provider Unavailabl e Encounter Details Date Type Department Care Team (Latest Contact Info) Description 02/16/[address] [facility] CONVERSIONS Dental, Provider, DDS Social History [...] PM EDT Office Visit [facility] ADULT DENTAL [address] [place] [address] Yrn De Leonaris [address] [place] [address] documented as of this encounter Visit Diagnoses Not on filedocumented in this encounter
--- OUTSIDE RECORDS SUMMARY | 2025-03-17 13:23 | XMS_ITS | Encounter Summary ---
Author Organization [employer] Address [address] [facility] [address]t [place] [address] Care Team Providers Care Apartment Leasing Consultant Name Role Phone Unavailable Primary Care Provider Unavailabl e Encounter Details Date Type Department Care Team (Latest Contact Info) Description 07/24/2019 Abstract [facility] CONVERSIONS Dental, Provider, DDS Social History [...] Description 04/23/2025 1:00 PM EDT Office Visit [facility] ADULT DENTAL [address] [place] [address] Yrn De Leonaris [address] [place] [address] documented as of this encounter Visit Diagnoses Not on filedocumented in this encounter
[2025-03-17 13:56] LABS: Appearance Urine Clear; Glucose Urine UA Negative (Negative); PH 6.0 (5.0-9.0); Specific Gravity - Urine 1.015 (1.005-1.025)
[2025-03-17 14:04] LABS: Alanine Aminotransferase 17 U/L (0-31); Albumin Level 4.2 g/dL (3.5-5.0); Alkaline Phosphatase 101 U/L (39-117); Anion Gap 12 (12-20); Aspartate Amino Transferase 25 U/L (5-31); Blood Urea Nitrogen 8 mg/dL (9-16); Calcium 9.0 mg/dL (8.4-10.2); Carbon Dioxide 28 mmol/L (22-29); Chloride 105 mmol/L (96-108); Cholesterol 154 mg/dL (<200); Estimated Glomerular Filt Rate > 60; HDL Cholesterol 42 mg/dL (>40); Potassium 4.0 mmol/L (3.3-5.1); Sodium 141 mmol/L (135-145); Total Protein 7.3 g/dL (6.5-8.0); Triglycerides 110 mg/dL (<150)
[2025-03-17 14:22] LABS: Folate 15.2 ng/mL (> or = 4.0); Vitamin B12 710 pg/mL (200-900)
== END 2025-03-17 12:01 | disposition home or self-care (01) ==
LOC: HO.LAB 12:00
PROVIDERS: PCP Internal Medicine; Visit Provider Internal Medicine
DX: E11.9 Type 2 diabetes mellitus without complications (principal); D64.9 Anemia, unspecified; E78.00 Pure hypercholesterolemia, unspecified; E55.9 Vitamin D deficiency, unspecified; E53.8 Deficiency of other specified B group vitamins; R30.0 Dysuria
CPT/HCPCS: 36415; 80053; 80061; 81003; 82306; 82570; 82607; 82746; 83036; 84443; 85025

== ENCOUNTER 2025-03-24 12:38 | Outpatient (AMB) | payer OTHER, SELFPAY ==
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
[2025-03-24 12:48] VITALS: BP 130/72; PULSE 82; O2SAT 94; BMI 27.2
--- OUTSIDE RECORDS SUMMARY | 2025-03-24 14:59 | XMS_ITS | Clinical Summary ---
Author Organization [employer] Address [address] [place] [address] [address] [place] [address] Care Team Providers Care Senior Software Quality Analyst Name Role Phone Unavailable Primary Care [...] 02/01/2024 Localized gingival recession 02/01/2024 Fractured dental christian with loss of materi al 02/01/2024 Tooth [...] Description 04/23/2025 1:00 PM EDT Office Visit [facility] [address] [place] [address] Haley, Rama [address] [place] [address] Health Maintenance Due Date Last Done Comments [...] of 2) 2010 COVID-19 Vaccine ( season) 2025 09/13/2021, 03/16/2021, 02/15/2021 Influenza Vaccine (#1) 2025 [...] Most Recently Relevant to Health Maintenance Insurance [facility] MEDICAID STAND ADULT
--- OUTSIDE RECORDS SUMMARY | 2025-03-24 15:00 | XMS_ITS | Encounter Summary ---
Author Organization [employer] Address [address] [facility] [address] [place] [address] Care Team Providers Care Coroner Forensic Technician Name Role Phone Unavailable Primary Care Provider Unavailabl e Encounter Details Date Type Department Care Team (Latest Contact Info) Description 02/16/2022 Abstract [facility] CONVERSIONS Dental, Provider, DDS Social [...] Description 04/23/2025 1:00 PM EDT Office Visit [facility]ULT [facility] [address] [place] [address] Ynr De Leonaris [address] [place] [address] documented as of this encounter Visit Diagnoses Not on filedocumented in this encounter
--- OUTSIDE RECORDS SUMMARY | 2025-03-24 15:00 | XMS_ITS | Encounter Summary ---
Author Organization [employer] Address [address] [facility] [address] [place] [address] Care Team Providers Care Mat Cleaning Machine Operator Name Role Phone Unavailable Primary Care Provider Unavailabl e Encounter Details Date Type Department Care Team (Latest Contact Info) Description 07/24/2019 Abstract [facility] CONVERSIONS Dental, Provider, DDS Social History [...] Description 04/23/2025 1:00 PM EDT Office Visit [facility] ADULT [facility] [address] [place] [address] Y[address] [place] [address] documented as of this encounter Visit Diagnoses Not on filedocumented in this encounter
--- OUTSIDE RECORDS SUMMARY | 2025-03-24 15:00 | XMS_ITS | Encounter Summary ---
Author Organization [employer] Address [address] [facility] [address] [place] [address] Care Team Providers Care Spin Instructor Name Role Phone Unavailable Primary Care Provider Unavailabl e Encounter Details Date Type Department Care Team (Latest Contact Info) Description 08/12/2021 Abstract [facility] CONVERSIONS Dental, Provider, DDS Social History [...] Description 04/23/2025 1:00 PM EDT Office Visit [facility] [address] [place] [address] Yrn De Leonaris [address] [place] [address] documented as of this encounter Visit Diagnoses Not on filedocumented in this encounter
== END 2025-03-24 13:35 | disposition home or self-care (01) ==
LOC: HO.HMCH 12:38
PROVIDERS: PCP Internal Medicine; Visit Provider Internal Medicine
DX: E78.00 Pure hypercholesterolemia, unspecified (principal); I10 Essential (primary) hypertension; E11.9 Type 2 diabetes mellitus without complications; J45.20 Mild intermittent asthma, uncomplicated; K59.04 Chronic idiopathic constipation; K58.9 Irritable bowel syndrome, unspecified; K21.9 Gastro-esophageal reflux disease without esophagitis; D64.9 Anemia, unspecified; E55.9 Vitamin D deficiency, unspecified; M47.816 Spondylosis without myelopathy or radiculopathy, lumbar region; M54.50 Low back pain, unspecified; M19.011 Primary osteoarthritis, right shoulder; M19.012 Primary osteoarthritis, left shoulder; J30.9 Allergic rhinitis, unspecified; E53.8 Deficiency of other specified B group vitamins; G47.00 Insomnia, unspecified; F41.9 Anxiety disorder, unspecified; F33.9 Major depressive disorder, recurrent, unspecified; E66.3 Overweight

== ENCOUNTER → 2025-03-24 12:38 | Outpatient (BNVA) | payer OTHER, SELFPAY | PROVIDERS: PCP Internal Medicine; Visit Provider Internal Medicine | DX: E11.9 Type 2 diabetes mellitus without complications (principal); E78.00 Pure hypercholesterolemia, unspecified; I10 Essential (primary) hypertension; J45.20 Mild intermittent asthma, uncomplicated; K59.04 Chronic idiopathic constipation; K58.9 Irritable bowel syndrome, unspecified; K21.9 Gastro-esophageal reflux disease without esophagitis; D64.9 Anemia, unspecified; E55.9 Vitamin D deficiency, unspecified; M47.816 Spondylosis without myelopathy or radiculopathy, lumbar region; M54.50 Low back pain, unspecified; M19.011 Primary osteoarthritis, right shoulder; M19.012 Primary osteoarthritis, left shoulder; J30.9 Allergic rhinitis, unspecified; E53.8 Deficiency of other specified B group vitamins; G47.00 Insomnia, unspecified; F41.9 Anxiety disorder, unspecified; F39 Unspecified mood [affective] disorder; E66.3 Overweight; Z68.27 Body mass index [BMI] 27.0-27.9, adult | CPT/HCPCS: 96127; 99212 ==

== ENCOUNTER 2025-03-26 08:28 | Outpatient (AMB) | payer OTHER, SELFPAY ==
--- NOTE | 2025-03-26 08:29 | MHC.OFFVIS ---
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 Complaining of leakage of urine upon coughing sneezing or lifting heavy objects. Last Pap/HPV was negative in 10/06 Last Mammogram was BI-RADS 2 in 03/09 Last Colonoscopy was done in 11/07, the recommendation was to repeat in 5-6 years [facility] Medical History Osteoarthritis of shoulders, bilateral Venous reflux Irritable bowel syndrome (IBS) Abdominal pain Bipolar disorder Pure hypercholesterolemia Type 2 diabetes mellitus with hyperglycemia Hematuria Precordial chest pain Impacted cerumen, left ear Tinea pedis Impacted cerumen of both ears Superficial thrombophlebitis Impacted cerumen of both ears Overweight (BMI 25.0-29.9) Vitamin B12 deficiency Insomnia Depression Anxiety Allergic rhinitis Lumbar spondylosis Vitamin D deficiency GERD without esophagitis Anemia Asthma Benign essential hypertension Diabetes mellitus Tubular adenoma Surgical History History of colonoscopy History of esophagogastroduodenoscopy (EGD) History of tubal ligation History of cholecystectomy Family History Father Diabetes Hypertension CVD (cardiovascular disease) Mother Hypertension Diabetes Chronic mental illness Social History Housing: Apartment Are you a primary foster care worker to a significant other at home: No Do you presently have visiting nurse or other home services: No Unable to assess alcohol history related to: Unknown Alcohol intake: never Patient Tobacco Use Status: Never used Tobacco e-Cigarette/Vaping Use: Never Used Second Hand Smoke Exposure: No service: No Current occupational status: disabled Cognitive needs: No Hearing needs: Yes Vision needs: No Female Reproductive History Menstrual Age of Menarche: 15 Total pregnancies: 9 Full term: 5 Ab induced: 2 Ab spontaneous: 2 Date of last pap smear: 10/12/23 (negative pap smear ) Date of Mammogram: 03/13/25 (BI RAD 1) Review of Systems Const All systems reviewed & are unremarkable except as noted in HPI and below Card Reports as per HPI Resp Reports as per HPI GI Reports as per HPI and Reports no additional complaints Reports as per HPI Physical Exam Vital Signs: Last Vital Signs BP 106/70 03/26/25 08:41 BMI result Body Mass Index 27.4 Const General: cooperative, healthy appearing and comfortable Chest Chest palpation & inspection: normal inspection of the chest and normal palpation of entire chest wall Breast/axilla inspection: normal inspection of the breasts and normal inspection of the axillae Breast/axilla palpation: normal palpation of the breasts, normal palpation of the axillae and no axillary lymphadenopathy Resp Effort & Inspection: normal respiratory effort Auscultation: clear to auscultation bilaterally Percussion: percussion normal Cardio Palpation: normal PMI Rate: regular rate Rhythm: regular rhythm Heart sounds: no murmurs and no rubs Peripheral pulses: Peripheral pulses 2+ throughout GI Inspection: Yes normal to inspection Palpation (GI): Soft to palpation, nontender, no guarding, not rigid and No hepatosplenomegaly present Percussion: Yes normal to percussion Auscultation: normal bowel sounds Rectal Exam - Female: deferred General: Yes bladder normal to palpation External Female Exam: No lesion Speculum Exam - Vagina: normal appearance of the vagina, normal palpation, normal vaginal discharge and not erythematous Speculum Exam - Cervix: normal appearance of the cervix and normal palpation Bimanual exam- vagina & uterus: normal bimanual exam, normal palpation, uterine size normal, bladder normal to palpation, consistency normal and normal palpation Bimanual Exam- Adnexa, other: normal adnexae, no masses and no tenderness Assessment & Plan Assessment & Plan (1) Well woman exam: Code(s): Z01.419 - Encounter for gynecological examination (general) (routine) without abnormal findings Category: Medical Plan: Co testing not indicated this year. Counseled the patient about the recommended dietary allowance of 1200 mg of Calcium & 800 IU of vitamin D. Instructions given the patient to schedule next screening Mammogram in 03/10. Will order DEXA scan . The patient was instructed to perform monthly self-breast exams and to schedule a 2 week DEXA scan follow-up appointment and an annual exam in a year; All questions answered and the patient verbalized understanding. (2) Urinary incontinence: Code(s): R32 - Unspecified urinary incontinence Category: Medical Plan: Discussed with the patient the different types of Urine incontinence, stress urinary incontinence, intrinsic sphincter deficiency, overactive bladder and its work up. We will refer to Urology. All questions answered, the patient verbalized understanding. Orders: Orders XR DEXA axial skeleton 6 Weeks Z78.0 - Asymptomatic menopausal state Referrals Urology Referral R32 - Unspecified urinary incontinence Coding Level of Care Code Est Pt Prev Care 40-64y(37940) Diagnoses Well woman exam Z01.419 Urinary incontinence R32
[2025-03-26 08:41] VITALS: BP 106/70; BMI 27.4
--- OUTSIDE RECORDS SUMMARY | 2025-03-26 09:28 | XMS_ITS | Clinical Summary ---
Author Organization [employer] Address [address] [place] [address] [address] [place] [address] Care Team Providers Care Ergonomist Name Role Phone Unavailable Primary Care Provider [...] 02/01/2024 Localized gingival recession 02/01/2024 Fractured dental advent with loss of materi al 02/01/2024 Tooth [...] Team (Late st Contact Info) Description 04/23/2025 12:45 PM EDT Office Visit [facility]ULT [facility] [address] [place] [address] Haley, Rama [address] [place] [address] Health Maintenance Due Date Last Done Comments [...] Most Recently Relevant to Health Maintenance Insurance [facility] MEDICAID STAND ADULT
--- OUTSIDE RECORDS SUMMARY | 2025-03-26 09:28 | XMS_ITS | Encounter Summary ---
Author Organization [employer] Address [address] [facility] 7t [place] [address] Care Team Providers Care Coal Hiker Name Role Phone Unavailable Primary Care Provider Unavailabl e Encounter Details Date Type Department Care Team (Latest Contact Info) Description 08/12/2021 Abstract [facility] CONVERSIONS Dental, Provider, DDS Social [...] Description 04/23/2025 12:45 PM EDT Office Visit [facility] ADULT DENTAL [address] [place] [address] rYn De Leonaris [address] [place] [address] documented as of this encounter Visit Diagnoses Not on filedocumented in this encounter
--- OUTSIDE RECORDS SUMMARY | 2025-03-26 09:28 | XMS_ITS | Encounter Summary ---
Author Organization [employer] Address [address] [facility] [address] [place] [address] Care Team Providers Care Tar Pot Man Name Role Phone Unavailable Primary Care Provider Unavailabl e Encounter Details Date Type Department Care Team (Latest Contact Info) Description 07/24/2019 Abstract [facility] CONVERSIONS Dental, Provider, DDS Social History [...] Description 04/23/2025 12:45 PM EDT Office Visit [facility] ADULT DENT[facility] [address] [place] [address] Yrn De Leonaris [address] [place] [address] documented as of this encounter Visit Diagnoses Not on filedocumented in this encounter
--- OUTSIDE RECORDS SUMMARY | 2025-03-26 09:28 | XMS_ITS | Encounter Summary ---
Author Organization [employer] Address [address] [facility] 7t [place] [address] Care Team Providers Care Shellfish Farming Supervisor Name Role Phone Unavailable Primary Care Provider Unavailabl e Encounter Details Date Type Department Care Team (Latest Contact Info) Description 02/16/2022 Abstract [facility] CONVERSIONS Dental, Provider, DDS Social History [...] Description 04/23/2025 12:45 PM EDT Office Visit [facility] ADULT DENTAL [address] [place] [address] Yrn De Leonaris [address] [place] [address] documented as of this encounter Visit Diagnoses Not on filedocumented in this encounter
== END 2025-03-26 09:01 | disposition home or self-care (01) ==
LOC: HO.HWS 08:28
PROVIDERS: PCP Internal Medicine; Visit Provider Obstetrics & Gynecology
DX: Z01.419 Encounter for gynecological examination (general) (routine) without abnormal findings (principal); R32 Unspecified urinary incontinence
CPT/HCPCS: 99396; 99459

== ENCOUNTER → 2025-03-26 08:28 | Outpatient (BNVA) | payer OTHER, SELFPAY | PROVIDERS: PCP Internal Medicine; Visit Provider Obstetrics & Gynecology | DX: Z01.419 Encounter for gynecological examination (general) (routine) without abnormal findings (principal); R32 Unspecified urinary incontinence; Z98.51 Tubal ligation status | CPT/HCPCS: 99396 ==

== ENCOUNTER 2025-04-09 10:03 | Outpatient (RCR) | payer OTHER, SELFPAY ==
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
--- NOTE | 2025-05-01 14:50 | MHC.PT.DC ---
[facility] [place] Office [place] Office [place] Office [address] Gregorio Freed [address] [phone] F: [phone] F: [phone] F: [phone] F: [phone] Physical Therapy Discharge Report Diagnosis: LBP Date of Surgery: Date of Evaluation: 03/05/25 Date of Discharge: 05/01/25 Treatments to Date: 7 Cancellations to Date: 0 No Shows to Date: 0 Discharge Status: Achieved Goals Improved Function Independent with HEP Discharge Summary: TARA PROGRESSED WELL IN PT- AT LAST APPT ON 04/09/25, SHE NOTED HER LB PAIN WAS RESOLVED, SHE IS INDEP W HER HEP, Pt MET HER PT GOALS AT THIS TIME. HER OSWESTRY SCORE WAS 13/50 AT D/C . Electronically signed by: GISEL CUMMINGS,PT Please sign and return to therapist. Thank you for your referral.
== END 2025-05-01 14:55 | disposition home or self-care (01) ==
LOC: HO.PT 10:03
PROVIDERS: PCP Internal Medicine; Visit Provider Internal Medicine
DX: M54.50 Low back pain, unspecified (principal)
CPT/HCPCS: 97110; 97161; 97530

== ENCOUNTER 2025-05-21 14:40 | Outpatient (AMB) | payer MEDICARE, MEDICAID, SELFPAY ==
--- NOTE | 2025-05-21 15:04 | MHC.OFFVIS ---
Intake Visit Reasons: urinary incontinence Intake Note: New patient presents today for initial visit for urinary incontinence Urology Medication:Vitamin B12 Blood Thinner:None Antibiotic Allergies:None PVR:22ml Transportation Sales Consultant Required: Yes Allergies No Known Allergies Allergy (Verified 05/21/25 15:23) HPI Comments Details: History of Present Illness The patient is a 65-year-old female presenting with urinary incontinence. The condition has persisted for several years, beginning before the COVID-19 pandemic. Urine leakage occurs during coughing, sneezing, or physical exertion. The patient did not specify frequent urination during the day, suggesting it is not a significant issue. A prior gynecological exam confirmed no bladder prolapse. Results - Urinalysis: Normal, no signs of infection Plan 1. Urinary Incontinence - Schedule urodynamic testing to evaluate bladder function. - Order renal and bladder ultrasound to assess anatomical structures. [facility] Medical History Osteoarthritis of shoulders, bilateral Venous reflux Irritable bowel syndrome (IBS) Abdominal pain Bipolar disorder Pure hypercholesterolemia Type 2 diabetes mellitus with hyperglycemia Hematuria Precordial chest pain Impacted cerumen, left ear Tinea pedis Impacted cerumen of both ears Superficial thrombophlebitis Impacted cerumen of both ears Overweight (BMI 25.0-29.9) Vitamin B12 deficiency Insomnia Depression Anxiety Allergic rhinitis Lumbar spondylosis Vitamin D deficiency GERD without esophagitis Anemia Asthma Benign essential hypertension Diabetes mellitus Tubular adenoma Surgical History History of colonoscopy History of esophagogastroduodenoscopy (EGD) History of tubal ligation History of cholecystectomy Family History Father Diabetes Hypertension CVD (cardiovascular disease) Mother Hypertension Diabetes Chronic mental illness Social History Housing: Apartment Are you a primary acute care physical therapist to a significant other at home: No Do you presently have visiting nurse or other home services: No Alcohol intake: never Patient Tobacco Use Status: Never used Tobacco e-Cigarette/Vaping Use: Never Used Second Hand Smoke Exposure: No service: No Current occupational status: disabled Cognitive needs: No Hearing needs: Yes Vision needs: No Female Reproductive History Menstrual Age of Menarche: 15 Office Procedures Post Void Residual Post Residual Void Post Void Residual (PVR): 22 [id number] Void Residual by ultrasound Results AMB Urinalysis, Automated UA Leukoctes 0 Arnoldo/uL Last Edit by Crystal Alfred on 05/21/25 16:21 UA Nitrite Negative Last Edit by Crystal Alfred on 05/21/25 16:21 UA Urobilinogen 0.2 mg/dL Last Edit by Crystal Alfred on 05/21/25 16:21 UA Protein 0 mg/dL Last Edit by Crystal Alfred on 05/21/25 16:21 UA pH 5.5 Last Edit by Crystal Alfred on 05/21/25 16:21 UA Blood 0 Kodi/uL Last Edit by Crystal Alfred on 05/21/25 16:21 UA Specific [place] 1.020 Last Edit by Crystal Alfred on 05/21/25 16:21 UA Ketone Negative Last Edit by Crystal Alfred on 05/21/25 16:21 UA Bilirubin 0 mg/dL Last Edit by Jia Alfred on 05/21/25 16:21 UA Glucose 0 mg/dL Last Edit by Jia Alfred on 05/21/25 16:21 Results Reviewed Results Reviewed: Laboratory Last Values Urine pH (Auto) 5.5 05/21/25 16:02 Specific [place] (Auto) 1.020 05/21/25 16:02 Urine Protein (Auto) 0 mg/dL 05/21/25 16:02 Glucose (UA)(Auto) 0 mg/dL 05/21/25 16:02 Urine Ketones (Auto) Negative 05/21/25 16:02 Urine Blood (Auto) 0 Kodi/uL 05/21/25 16:02 Urine Nitrite (Auto) Negative 05/21/25 16:02 Urine Bilirubin (Auto) 0 mg/dL 05/21/25 16:02 Urine Urobilinogen (Auto) 0.2 mg/dL 05/21/25 16:02 Leukocyte Esterase (Auto) 0 Arnoldo/uL 05/21/25 16:02 Assessment & Plan Assessment & Plan Orders: Orders AMB Urinalysis Automated 05/21/25 Z13.9 - Encounter for screening, unspecified AMB Post Void Residual by ultrasound 05/21/25 R32 - Unspecified urinary incontinence Coding CPT Codes Post Residual Void - PVR CPT Code: [id number] Void Residual by ultrasound ([id number])
== END 2025-05-21 16:05 | disposition home or self-care (01) ==
PROVIDERS: PCP Internal Medicine; Visit Provider Urology
DX: Z13.9 Encounter for screening, unspecified (principal)

== ENCOUNTER → 2025-05-21 14:40 | Outpatient (BNVA) | payer MEDICARE, MEDICAID, SELFPAY | PROVIDERS: PCP Internal Medicine; Visit Provider Urology | DX: R32 Unspecified urinary incontinence (principal) | CPT/HCPCS: 51798; 81003 ==

== ENCOUNTER 2025-05-28 11:09 | Outpatient (REF) | payer MEDICARE, MEDICAID, SELFPAY ==
--- NOTE | ~2025-05-28 | MM_ITS ---
STUDY: DUAL ENERGY X-RAY ABSORPTIOMETRY / DXA REASON FOR EXAM: Female, 65 years old Z78.0 - Asymptomatic menopausal state TECHNIQUE: Bone Mineral Density (BMD) measurements of the lumbar spine and left hip were obtained using [employer] COMPARISON: December 02, 2013 FINDINGS: L1-L4 BMD: 1.168 g/cm2 L1-L4 T score: -0.1. This corresponds to Normal bone density. This represents a -3.7* % decrease in bone density compared with prior exam from December 02, 2013. Left femoral neck BMD: 0.804 g/cm2 Left femoral neck T score: -1.7. This corresponds to osteopenia. Left total hip BMD: 0.846 g/cm2 Left total hip T score: -1.3. This corresponds to osteopenia. This represents a -8.7* % decrease in bone density compared with prior exam from December 02, 2013. * - Indicates a statistically significant change. FRAX score: 10 year risk of major osteoporotic fracture 5.3%, 10 year risk of hip fracture 0.6% MM/XR DEXA axial skeleton IMPRESSION: Osteopenia Reference Information: The T-score is the number of standard deviations above or below the standard which is normal for young adults at their peak bone mineral density. The World Health Organization (WHO) interprets the T-scores as follows: At or above -1 SD Normal bone density Between -1 and -2.5 SD Osteopenia At or below -2.5 SD Osteoporosis Electronically signed by: Alanna Cunningham MD 05/28/2025 12:23 PM [facility] [place] [place]
--- OUTSIDE RECORDS SUMMARY | 2025-05-28 14:02 | XMS_ITS | Encounter Summary ---
Author Organization [employer] Address [address] [facility] [address] [place] [address] Care Team Providers Care Safety Equipment Tester Name Role Phone Unavailable Primary Care Provider Unavailabl e Encounter Details Date Type Department Care Team (Latest Contact Info) Description 08/12/2021 Abstract [facility] CONVERSIONS Dental, Provider, DDS Social History [...] Care Team (Late st Contact Info) Description 10/23/2025 10:15 AM EDT Office Visit [facility] ADULT [facility] [address] [place] [address] Rama De Leon [address] [place] [address] documented as of this encounter Visit Diagnoses Not on filedocumented in this encounter
--- OUTSIDE RECORDS SUMMARY | 2025-05-28 14:02 | XMS_ITS | Clinical Summary ---
Author Organization [employer] Address [address] [place] [address] [address]t [place] [address] Care Team Providers Care Small Boat Engineer Name Role Phone Unavailable Primary Care [...] 02/01/2024 Localized gingival recession 02/01/2024 Fractured dental yarsanism with loss of materi al 02/01/2024 Tooth sensitivity 02/01/2024 Anemia 06/04/2014 Arthritis 06/04/2014 Hypercholesterolemia 06/04/2014 Hypertensive disorder 06/04/2014 Type 2 diabetes mellitus 06/04/2014 Encounters Date Type Department Care Team Description 04/23/2025 12:45 PM EDT Office Visit [facility] ADULT DENTAL [address] [place] [address] Rama De Leon Dental plaque (Primary Dx); Localized gingival recession; Missing teeth, acquired from Last 3 Months Social History Tobacco [...] Sign Reading Time Taken Comments Blood Pressure 128/76 04/23/2025 1:18 PM EDT Pulse 76 10/17/2024 2:56 PM EDT Temperature - - Respiratory Rate - - Oxygen Saturation - - Inhaled Oxygen Concentration - - Weight - - Height - - Body Mass Index - - Plan of Treatment Upcoming Encounters Date Type Department Care Team (Late st Contact Info) Description 10/23/2025 10:15 AM EDT Office Visit [facility] ADULT DENTAL [address] [place] [address] Haley Rama [address] [place] [address] Health Maintenance Due Date Last Done Comments CT Colonography 1960 Colonoscopy 1960 Colorectal Cancer Screening 1960 Depression Screening 1960 Diabetes: Hemoglobin A1C 1960 FIT DNA/Cologuard 1960 FIT 1960 FOBT 1960 Lipid Panel 1960 SDOH Screening 1960 Sigmoidoscopy 1960 Diabetes: Foot Exam 1970 Eye Exam 1970 Alcohol/Substance Use Screening 1972 Hepatitis C Screening 1978 Diabetes: Urine Protein Screening 1979 Pneumococcal Vaccine: 50+ Years (1 of 2 - PCV) 1979 Pap Smear 1981 Cervical Cancer Screening 1990 HPV/Cotest 1990 Mammogram 2000 Zoster Vaccines (1 of 2) 2010 COVID-19 Vaccine (2024- season) 2025 09/13/2021, 03/16/2021, 02/15/2021 Influenza Vaccine (#1) 2025 Dental Oral Exam 04/19/2025 10/17/2024, , 08/12/2021, Additional history exists Tobacco Screening 10/17/2025 10/17/2024 Dental X-Ray: Bitewings 10/18/2025 10/18/19 25, 02/01/2024, 08/12/2021, Additional history exists Dental Prophylaxis 10/23/2025 04/23/2025, 0 10/17/2024, 02/01/2024, Additional history exists DTaP/Tdap/Td Vaccines (2 - [...] Procedure Name Priority Date/Time Associated Diagnosis Comments CASE PRESENTATION, DETAILED AND EXTENSIVE TREATMENT PLANNING Routine 04/23/2025 12:45 PM EDT Dental plaque Localized gingival recession Missing teeth, acquired ORAL HYGIENE INSTRUCTIONS Routine 04/23/2025 12:45 PM EDT Dental plaque Localized gingival recession Missing teeth, acquired PROPHYLAXIS - ADULT Routine 04/23/2025 1 2:45 PM EDT Dental plaque INTRAORAL - COMPLETE SERIES OF RADIOGRAPHIC IMAGES Routine 10/17/2024 3:00 PM EDT Missing teeth, acquired Dental plaque PERIODIC ORAL EVALUATION - ESTABLISHED PATIENT Routine 10/17/2024 3:00 PM EDT from Last 3 Months or Most Recently Relevant to Health Maintenance Insurance [facility] MEDICAID STAND ADULT
--- OUTSIDE RECORDS SUMMARY | 2025-05-28 14:02 | XMS_ITS | Encounter Summary ---
Author Organization [employer] Address [address] [facility] [address] [place] [address] Care Team Providers Care General Cargo Clerk Name Role Phone Unavailable Primary Care Provider Unavailabl e Encounter Details Date Type Department Care Team (Latest Contact Info) Description 07/24/2019 Abstract [facility] CONVERSIONS Dental, Provider, DDS Social [...] Description 10/23/2025 10:15 AM EDT Office Visit [facility] ADULT DENTAL [address] [place] [address] Yrn De Leonaris [address] [place] [address] documented as of this encounter Visit Diagnoses Not on filedocumented in this encounter
--- OUTSIDE RECORDS SUMMARY | 2025-05-28 14:02 | XMS_ITS | Encounter Summary ---
Author Organization [employer] Address [address] [facility] [address] [place] [address] Care Team Providers Care Truck Despatcher Name Role Phone Unavailable Primary Care Provider Unavailabl e Encounter Details Date Type Department Care Team (Latest Contact Info) Description 02/16/2022 Abstract [facility] CONVERSIONS Dental, Provider, DDS Social [...] Description 10/23/2025 10:15 AM EDT Office Visit [facility] ADULT DENTAL [address] [place] [address] Rama De Leon [address] [place] [address] documented as of this encounter Visit Diagnoses Not on filedocumented in this encounter
== END 2025-05-28 11:10 | disposition home or self-care (01) ==
LOC: HO.MAMMO 11:09
PROVIDERS: PCP Internal Medicine; Visit Provider Obstetrics & Gynecology
DX: Z13.820 Encounter for screening for osteoporosis (principal); Z78.0 Asymptomatic menopausal state
CPT/HCPCS: 77080

== ENCOUNTER → 2025-05-28 11:12 | Outpatient (BNV) | payer MEDICARE, MEDICAID, SELFPAY | PROVIDERS: PCP Internal Medicine; Visit Provider Radiology Body Imaging | DX: E28.39 Other primary ovarian failure (principal) | CPT/HCPCS: 77080 ==

== ENCOUNTER 2025-06-17 13:07 | Outpatient (AMB) | payer MEDICARE, MEDICAID, SELFPAY ==
--- NOTE | 2025-06-17 13:10 | A.OFFVIS_ITS ---
Vital Signs 06/17/25 13:11 Height 5 ft 1 in Weight 145 lb BMI 27.4 BP 108/74 Intake Visit Reasons: Dexa results Graves Registration Specialist Required: Yes Graves Registration Specialist Language: Nursing Instructor Services: Graves Registration Specialist Present (in person) Graves Registration Specialist Name: Shannan AGUAYO Information Interpreted: non-clinical & clinical Accompanied by: Self / Same As Patient Allergies No Known Allergies Allergy (Verified 06/17/25 13:11) Post menopausal: Yes HPI Comments Details: Presenting for DEXA scan follow-up which showed the following: L1-L4 BMD: 1.168 g/cm2 L1-L4 T score: -0.1. This corresponds to Normal bone density. This represents a -3.7* % decrease in bone density compared with prior exam from December 02, 2013. Left femoral neck BMD: 0.804 g/cm2 Left femoral neck T score: -1.7. This corresponds to osteopenia. Left total hip BMD: 0.846 g/cm2 Left total hip T score: -1.3. This corresponds to osteopenia. This represents a -8.7* % decrease in bone density compared with prior exam from December 02, 2013. * - Indicates a statistically significant change. FRAX score: 10 year risk of major osteoporotic fracture 5.3%, 10 year risk of hip fracture 0.6% PFSH Medical History Osteoarthritis of shoulders, bilateral Venous reflux Irritable bowel syndrome (IBS) Abdominal pain Bipolar disorder Pure hypercholesterolemia Type 2 diabetes mellitus with hyperglycemia Hematuria Precordial chest pain Impacted cerumen, left ear Tinea pedis Impacted cerumen of both ears Superficial thrombophlebitis Impacted cerumen of both ears Overweight (BMI 25.0-29.9) Vitamin B12 deficiency Insomnia Depression Anxiety Allergic rhinitis Lumbar spondylosis Vitamin D deficiency GERD without esophagitis Anemia Asthma Benign essential hypertension Diabetes mellitus Tubular adenoma Surgical History History of colonoscopy History of esophagogastroduodenoscopy (EGD) History of tubal ligation History of cholecystectomy Family History Father Diabetes Hypertension CVD (cardiovascular disease) Mother Hypertension Diabetes Chronic mental illness Social History Housing: Apartment Are you a primary physician assistant primary care to a significant other at home: No Do you presently have visiting nurse or other home services: No Unable to assess alcohol history related to: Unknown Alcohol intake: never Patient Tobacco Use Status: Never used Tobacco e-Cigarette/Vaping Use: Never Used Second Hand Smoke Exposure: No service: No Current occupational status: disabled Cognitive needs: No Hearing needs: Yes Vision needs: No Female Reproductive History Menstrual Age of Menarche: 15 Review of Systems Const All systems reviewed & are unremarkable except as noted in HPI and below Reports as per HPI and Reports no additional complaints GI Reports no additional complaints Reports no additional complaints Physical Exam Vital Signs: BMI result Body Mass Index 27.4 Assessment & Plan Assessment & Plan (1) Osteopenia: Code(s): M85.80 - Other specified disorders of bone density and structure, unspecified site Category: Medical Plan: Discussed with the patient the DEXA results and FRAX risk. FRAX risk and T score showed no evidence of osteoporosis. Discussed with the patient all the options for osteoporosis prevention including lifestyle modifications including Ca+D supplements 1200 mg po qd/800 MIU, Weight bearing exercises and proteine supplements. The patient verbalized understanding and agreed plan will repeat DEXA in 2 years. Coding Level of Care Code Est Pt Level 3 (30011) Diagnoses Osteopenia M85.80
[2025-06-17 13:11] VITALS: BP 108/74; BMI 27.4
--- OUTSIDE RECORDS SUMMARY | 2025-06-17 15:35 | XMS_ITS | Clinical Summary ---
Author Organization [employer] Address [address] [place] [address] [address]t [place] [address] Care Team Providers Care Admitting Clerk Name Role Phone Unavailable Primary Care [...] 02/01/2024 Localized gingival recession 02/01/2024 Fractured dental sabianist with loss of materi al 02/01/2024 Tooth sensitivity 02/01/2024 Anemia 06/04/2014 Arthritis 06/04/2014 Hypercholesterolemia 06/04/2014 Hypertensive disorder 06/04/2014 Type 2 diabetes mellitus 06/04/2014 Encounters Date Type Department Care Team Description 04/23/2025 12:45 PM EDT Office Visit [facility] ADULT D[facility] [address] [place] [address] Rama De Leon Dental plaque (Primary Dx); [...] Description 10/23/2025 10:15 AM EDT Office Visit [facility]ULT [facility] [address] [place] [address] Haley Rama [address] [place] [address] Health Maintenance Due Date Last Done Comments [...]
--- OUTSIDE RECORDS SUMMARY | 2025-06-17 15:35 | XMS_ITS | Encounter Summary ---
Author Organization [employer] Address [address] [place] [address] Care Team Providers Care Senior Project Leader/Team Lead Name Role Phone Unavailable Primary Care Provider Unavailabl e Encounter Details Date Type Department Care Team (Latest Contact Info) Description 07/24/2019 Abstract [facility] CONVERSIONS Dental, Provider, DDS Social [...] Description 10/23/2025 10:15 AM EDT Office Visit [facility] ADULT DENTAL [address] [place] [address] Yrn De Leonaris [address] [place] [address] documented as of this encounter Visit Diagnoses Not on filedocumented in this encounter
--- OUTSIDE RECORDS SUMMARY | 2025-06-17 15:35 | XMS_ITS | Encounter Summary ---
Author Organization [employer] Address [address] [place] [address] Care Team Providers Care Dinkey Engine Firer Name Role Phone Unavailable Primary Care Provider Unavailabl e Encounter Details Date Type Department Care Team (Latest Contact Info) Description 08/12/2021 Abstract [facility] CONVERSIONS Dental, Provider, DDS Social History [...] Description 10/23/2025 10:15 AM EDT Office Visit [facility] ADULT DENTAL [address] [place] [address] Rama De Leon [address] [place] [address] documented as of this encounter Visit Diagnoses Not on filedocumented in this encounter
--- OUTSIDE RECORDS SUMMARY | 2025-06-17 15:35 | XMS_ITS | Encounter Summary ---
Author Organization [employer] Address [address] [place] [address] Care Team Providers Care Aircraft Machinist Helper Name Role Phone Unavailable Primary Care Provider Unavailabl e Encounter Details Date Type Department Care Team (Latest Contact Info) Description 02/16/[address] [facility] CONVERSIONS Dental, Provider, DDS Social History [...] Description 10/23/2025 10:15 AM EDT Office Visit [facility] ADULT DENTAL [address] [place] [address] Rama De Leon [address] [place] [address] documented as of this encounter Visit Diagnoses Not on filedocumented in this encounter
== END 2025-06-17 13:55 | disposition home or self-care (01) ==
LOC: HO.HWS 13:08
PROVIDERS: PCP Internal Medicine; Visit Provider Obstetrics & Gynecology
DX: M85.80 Other specified disorders of bone density and structure, unspecified site (principal)
CPT/HCPCS: 99213

== ENCOUNTER → 2025-06-17 13:07 | Outpatient (BNVA) | payer MEDICARE, MEDICAID, SELFPAY | PROVIDERS: PCP Internal Medicine; Visit Provider Obstetrics & Gynecology | DX: M85.852 Other specified disorders of bone density and structure, left thigh (principal) | CPT/HCPCS: 99212 ==

== ENCOUNTER 2025-06-30 12:03 | Outpatient (AMB) | payer MEDICARE, MEDICAID, SELFPAY ==
--- NOTE | 2025-06-30 12:09 | MHC.OFFVIS ---
Vital Signs 06/30/25 12:10 Height 5 ft 1 in Weight 138 lb 14.259 oz BMI 26.2 BP 117/58 L Blood Pressure Location Lt brachial Position Sitting Pulse 74 Intake Visit Reasons: GERD, CIC Intake Note: Kirstin presents in the office as a GERD CIC. CC: She states that that constipation a little bit and still having acid reflux. International Representative Required: Yes Allergies No Known Allergies Allergy (Verified 06/30/25 12:11) HPI HPI GERD, CIC: Details: Assessment & Plan (1) Thoracic spondylosis: Code(s): M47.814 - Spondylosis without myelopathy or radiculopathy, thoracic region Category: Medical (2) GERD without esophagitis: Code(s): K21.9 - Gastro-esophageal reflux disease without esophagitis Category: Medical (3) Chronic idiopathic constipation: Code(s): K59.04 - Chronic idiopathic constipation Category: Medical (4) Left flank pain: Comment: Most likely thoracic spondylosis Code(s): R10.9 - Unspecified abdominal pain Category: Medical Plan [place]er #Josephine Frank We review the XR's and there is quite a bit of evidence that her flank pain is muculoskeletal. I recommend that she asked her primary care provider review the x-rays and consider sending her to physical therapy or to another specialist for definitive management. (....left sided back flank pain that started suddenly over the past few months. It seems to be exacerbated by movement and housework, and alleviated by position and is described as a squeezing pain. It will be 9/10 at times and will last up to 10 minutes. IT is not effected by BM's except for position sitting on the toilet.) She is doing well with LInzess 145mcg and famotine/simethicone otherwise TODAY'S VISIT [place] #Shantel & [facility] History Osteoarthritis of shoulders, bilateral Venous reflux Irritable bowel syndrome (IBS) Abdominal pain Bipolar disorder Pure hypercholesterolemia Type 2 diabetes mellitus with hyperglycemia Hematuria Precordial chest pain Impacted cerumen, left ear Tinea pedis Impacted cerumen of both ears Superficial thrombophlebitis Impacted cerumen of both ears Overweight (BMI 25.0-29.9) Vitamin B12 deficiency Insomnia Depression Anxiety Allergic rhinitis Lumbar spondylosis Vitamin D deficiency GERD without esophagitis Anemia Asthma Benign essential hypertension Diabetes mellitus Tubular adenoma Surgical History History of colonoscopy History of esophagogastroduodenoscopy (EGD) History of tubal ligation History of cholecystectomy Family History Father Diabetes Hypertension CVD (cardiovascular disease) Mother Hypertension Diabetes Chronic mental illness Social History Housing: Apartment Are you a primary caregiver services home to a significant other at home: No Do you presently have visiting nurse or other home services: No Alcohol intake: never Patient Tobacco Use Status: Never used Tobacco e-Cigarette/Vaping Use: Never Used Second Hand Smoke Exposure: No service: No Current occupational status: disabled Cognitive needs: No Hearing needs: Yes Vision needs: No Female Reproductive History Menstrual Age of Menarche: 15 Review of Systems ENT Reports Normal hearing present Neuro Reports Normal hearing present and Denies Abnormal speech present Physical Exam Vital Signs: Last Vital Signs Pulse 74 06/30/25 12:10 BP 117/58 L 06/30/25 12:10 BMI result Body Mass Index 26.2 Const General: cooperative, no acute distress, well developed and well groomed Nutritional Appearance: average body habitus and well nourished Orientation/consciousness: oriented to person, oriented to place and oriented to time Limitations: No language barrier HEENT Head: Yes normocephalic and Yes atraumatic Eyes General: appearance normal, both eyes and all related structures Pupils: Equal, round and reactive pupils present Neck Neck: Yes normal visual inspection and Yes no lymphadenopathy Thyroid: Thyroid normal Resp Effort & Inspection: normal respiratory effort and able to speak in complete sentences Auscultation: clear to auscultation bilaterally Cardio Rate: regular rate Rhythm: regular rhythm Heart sounds: Normal, physiologic split S2 sound present Peripheral pulses: radial pulses present and posterior tibial pulses present GI Inspection: No distended and No Abdominal panniculus present Palpation (GI): Soft to palpation, nontender, no guarding, not rigid and No hepatosplenomegaly present Percussion: Yes normal to percussion Auscultation: normal bowel sounds Rectal Exam - Female: deferred Skin General skin exam: no rashes or lesions noted, turgor normal, skin not dry, no jaundice, No spider nevi and no striae Rashes: no rashes Nails: normal Neuro General: oriented to person, oriented to place and oriented to time Cranial nerves: Yes Equal, round and reactive pupils present and Yes Normal hearing present Speech: No Abnormal speech present Extrem General: Yes normal to inspection, No clubbing, No cyanosis and No edema Psych Appearance: grossly normal and well kempt Mental Status: mental status grossly normal Speech and movement: Normal speech and movement present Affect: normal affect Attitude: cooperative Thought process: Normal thought process present and not confabulating Thought content: Normal thought content present Insight: Good insight present (Psych) Judgement: Good judgement present (Psych) Assessment & Plan Assessment & Plan (1) GERD without esophagitis: Code(s): K21.9 - Gastro-esophageal reflux disease without esophagitis Category: Medical (2) Chronic idiopathic constipation: Code(s): K59.04 - Chronic idiopathic constipation Category: Medical (3) Abdominal bloating: Code(s): R14.0 - Abdominal distension (gaseous) Category: Medical Plan [place] #Shantel & Álvaro She is doing well with LInzess 145mcg, bisacodyl, citrucel and famotine/simethicone. Subjective Follow-up for gastrointestinal regimen. Patient reports that her current pills are helping her have bowel movements. She has had decreased ability to pass gas and did not realize simethicone was intended for this; agrees to restart it. She confirms taking two small bisacodyl tablets daily. She has used a fiber supplement previously, felt it was not helping, but prefers to continue it and clarified appropriate mixing volume. Objective - Current regimen confirmed: Linzess 145 mcg; famotidine for heartburn; simethicone for gas; bisacodyl two tablets daily. - Completed screening: Colonoscopy October 2024 with removal of two polyps; screening up to date with repeat in 5 years. Assessment & Plan Chronic constipation with gas and heartburn management: Symptoms improved on current regimen with adequate bowel movements on Linzess; gas symptoms persist off simethicone and will restart. - Continue Linzess 145 mcg as currently taking. - Continue bisacodyl two tablets daily at bedtime; refill to be sent. - Restart simethicone three times daily, preferably before meals; prescription sent. If not covered by insurance, use [id number] Gas-X (simethicone) per same schedule. - Continue famotidine for heartburn as previously prescribed. - May continue daily fiber supplement as preferred; patient educated on preparation and that it can be taken any time of day. - Follow up in 6 months. Colorectal cancer screening, history of colon polyps: Colonoscopy October 2024 with two polyps removed; screening current. - Repeat colonoscopy in 5 years from October 2024. Medications: New simethicone (Gas Relief Extra Strength) 125 mg PO TID 90 tabs 6RF abdominal pain Refilled linaclotide (Linzess) 145 mcg PO QAM 90 caps 1RF 90 days famotidine 40 mg PO DAILY PRN 90 tabs 2RF for heartburn K21.9 - Gastro-esophageal reflux disease without esophagitis bisacodyl (Laxative (bisacodyl)) 10 mg (2 x 5 mg) PO BEDTIME 180 tabs 1RF K59.04 - Chronic idiopathic constipation Coding Level of Care Code Est Pt Level 3 (35249) Diagnoses GERD without esophagitis K21.9 Chronic idiopathic constipation K59.04 Abdominal bloating R14.0
[2025-06-30 12:10] VITALS: BP 117/58; PULSE 74; BMI 26.2
--- OUTSIDE RECORDS SUMMARY | 2025-06-30 15:53 | XMS_ITS | Clinical Summary ---
Author Organization [employer] Address [address] [place] [address] [address]t [place] [address] Care Team Providers Care Manager Generation Name Role Phone Unavailable Primary Care Provider [...] 02/01/2024 Localized gingival recession 02/01/2024 Fractured dental jehovah's witness with loss of materi al 02/01/2024 Tooth sensitivity 02/01/2024 Anemia 06/04/2014 Arthritis 06/04/2014 Hypercholesterolemia 06/04/2014 Hypertensive disorder 06/04/2014 Type 2 diabetes mellitus 06/04/2014 Encounters Date Type Department Care Team Description 04/23/2025 12:45 PM EDT Office Visit [facility] ADULT DENTAL [address] [place] [address] Rama De Leon Dental plaque (Primary Dx); [...] Description 10/23/2025 10:15 AM EDT Office Visit [facility] ADULT DENTAL [address] [place] [address] Haley Rama [address] [place] [address] Health Maintenance Due Date Last Done Comments [...]
--- OUTSIDE RECORDS SUMMARY | 2025-06-30 15:53 | XMS_ITS | Encounter Summary ---
Author Organization [employer] Address [address] [place] [address] Care Team Providers Care Data Power Consultant Name Role Phone Unavailable Primary Care Provider Unavailabl e Encounter Details Date Type Department Care Team (Latest Contact Info) Description 07/24/2019 Abstract [facility] CONVERSIONS Dental, Provider, DDS Social History Tobacco [...] Description 10/23/2025 10:15 AM EDT Office Visit [facility] ADULT DENTAL [address] [place] [address] Yrn De Leonaris [address] [place] [address] documented as of this encounter Visit Diagnoses Not on filedocumented in this encounter
--- OUTSIDE RECORDS SUMMARY | 2025-06-30 15:53 | XMS_ITS | Encounter Summary ---
Author Organization [employer] Address [address] [place] [address] Care Team Providers Care Descriptive Catalog Librarian Name Role Phone Unavailable Primary Care Provider Unavailabl e Encounter Details Date Type Department Care Team (Latest Contact Info) Description 02/16/2022 Abstract [facility] CONVERSIONS Dental, Provider, DDS Social History Tobacco [...] Description 10/23/2025 10:15 AM EDT Office Visit [facility] ADULT DENTAL [address] [place] [address] Rama De Leon [address] [place] [address] documented as of this encounter Visit Diagnoses Not on filedocumented in this encounter
--- OUTSIDE RECORDS SUMMARY | 2025-06-30 15:53 | XMS_ITS | Encounter Summary ---
Author Organization [employer] Address [address] [place] [address] Care Team Providers Care Doll Wigs Hackler Name Role Phone Unavailable Primary Care Provider Unavailabl e Encounter Details Date Type Department Care Team (Latest Contact Info) Description 08/12/2021 Abstract [facility] CONVERSIONS Dental, Provider, DDS Social History [...] Description 10/23/2025 10:15 AM EDT Office Visit [facility] ADULT DENTAL [address] [place] [address] Rama De Leon [address] [place] [address] documented as of this encounter Visit Diagnoses Not on filedocumented in this encounter
== END 2025-06-30 12:57 | disposition home or self-care (01) ==
LOC: HO.HGI 12:04
PROVIDERS: PCP Internal Medicine; Visit Provider Nurse Practitioner
DX: K21.9 Gastro-esophageal reflux disease without esophagitis (principal); K59.04 Chronic idiopathic constipation; R14.0 Abdominal distension (gaseous)
CPT/HCPCS: 99213

== ENCOUNTER → 2025-06-30 12:03 | Outpatient (BNVA) | payer MEDICARE, MEDICAID, SELFPAY | PROVIDERS: PCP Internal Medicine; Visit Provider Nurse Practitioner | DX: K21.9 Gastro-esophageal reflux disease without esophagitis (principal); K59.04 Chronic idiopathic constipation; R14.0 Abdominal distension (gaseous) | CPT/HCPCS: 99212 ==